=== PATIENT | male | born 1950 | race Caucasian/White ===

== ENCOUNTER 2017-10-05 08:17 | Outpatient (RCR) | payer MEDICARE, OTHER, SELFPAY ==
[2017-09-10 11:14] LABS: International Normalized Ratio 2.3
[2017-09-10 11:27] LABS: PSA,Total- Diagnostic 0.02 ng/mL (0.0-4.0)
[2017-10-05 08:42] LABS: International Normalized Ratio 2.8; Prothrombin Time (Protime)PT. 28.2 SECONDS (11.7-14.9)
== END 2017-10-05 08:30 | disposition home or self-care (01) ==
LOC: LAB 08:17
PROVIDERS: Family Provider Family Medicine; PCP Family Medicine; Visit Provider Internal Medicine Cardiovascular Disease
DX: I48.1 Persistent atrial fibrillation (principal); Z79.01 Long term (current) use of anticoagulants; C61 Malignant neoplasm of prostate
CPT/HCPCS: 36415; 84153; 85610

== ENCOUNTER 2017-11-04 08:53 | Outpatient (RCR) | payer MEDICARE, OTHER, SELFPAY ==
[2017-11-04 09:44] LABS: International Normalized Ratio 2.6; Prothrombin Time (Protime)PT. 27.1 SECONDS (11.7-14.9)
== END 2017-11-04 15:00 | disposition home or self-care (01) ==
LOC: LAB 08:53
PROVIDERS: Family Provider Family Medicine; PCP Family Medicine; Visit Provider Internal Medicine Cardiovascular Disease
DX: I48.1 Persistent atrial fibrillation (principal); Z79.01 Long term (current) use of anticoagulants
CPT/HCPCS: 36415; 85610

== ENCOUNTER 2017-12-09 09:10 | Outpatient (RCR) | payer MEDICARE, OTHER, SELFPAY ==
[2017-12-09 10:21] LABS: International Normalized Ratio 2.3; Prothrombin Time (Protime)PT. 25.2 SECONDS (11.7-14.9)
== END 2017-12-09 10:00 | disposition home or self-care (01) ==
LOC: LAB 09:10
PROVIDERS: Family Provider Family Medicine; PCP Family Medicine; Visit Provider Internal Medicine Cardiovascular Disease
DX: I48.1 Persistent atrial fibrillation (principal); Z79.01 Long term (current) use of anticoagulants
CPT/HCPCS: 36415; 85610

== ENCOUNTER 2018-01-13 09:01 | Outpatient (RCR) | payer MEDICARE, OTHER, SELFPAY ==
[2018-01-13 10:14] LABS: International Normalized Ratio 2.2; Prothrombin Time (Protime)PT. 24.5 SECONDS (11.7-14.9)
== END 2018-01-13 10:00 | disposition home or self-care (01) ==
LOC: LAB 09:01
PROVIDERS: Family Provider Family Medicine; PCP Family Medicine; Visit Provider Internal Medicine Cardiovascular Disease
DX: I48.1 Persistent atrial fibrillation (principal); Z79.01 Long term (current) use of anticoagulants
CPT/HCPCS: 36415; 85610

== ENCOUNTER 2018-02-17 09:37 | Outpatient (RCR) | payer MEDICARE, OTHER, SELFPAY ==
--- NOTE | 2018-02-17 09:37 | DT_ITS ---
This patient was seen during an EMR downtime February 10, 2018 - February 17, 2018. This patient may have a combination of paper and electronic documentation or all paper documentation. All documentation is viewable within the e-chart portion of [facility] for each patient visit.
[2018-02-17 10:22] LABS: International Normalized Ratio 2.6
== END 2018-02-17 11:00 | disposition home or self-care (01) ==
LOC: LAB 09:37
PROVIDERS: Family Provider Family Medicine; PCP Family Medicine; Visit Provider Internal Medicine Cardiovascular Disease
DX: I48.1 Persistent atrial fibrillation (principal); Z79.01 Long term (current) use of anticoagulants
CPT/HCPCS: 36415; 85610

== ENCOUNTER 2018-04-03 10:17 | Outpatient (RCR) | payer MEDICARE, OTHER, SELFPAY ==
[2018-04-03 11:20] LABS: International Normalized Ratio 2.6; Prothrombin Time (Protime)PT. 28.1 SECONDS (11.7-14.9)
== END 2018-04-03 12:00 | disposition home or self-care (01) ==
LOC: LAB 10:17
PROVIDERS: Family Provider Family Medicine; PCP Family Medicine; Visit Provider Internal Medicine Cardiovascular Disease
DX: I48.91 Unspecified atrial fibrillation (principal); Z79.01 Long term (current) use of anticoagulants; Z98.890 Other specified postprocedural states
CPT/HCPCS: 36415; 85610

== ENCOUNTER 2018-05-06 11:39 | Outpatient (RCR) | payer MEDICARE, OTHER, SELFPAY ==
[2018-05-06 12:49] LABS: International Normalized Ratio 2.3; Prothrombin Time (Protime)PT. 25.7 SECONDS (11.7-14.9)
== END 2018-05-06 13:00 | disposition home or self-care (01) ==
LOC: LAB 11:39
PROVIDERS: Nurse Practitioner Family; Family Provider Family Medicine; PCP Family Medicine; Visit Provider Internal Medicine Cardiovascular Disease
DX: I48.91 Unspecified atrial fibrillation (principal); Z79.01 Long term (current) use of anticoagulants; Z98.890 Other specified postprocedural states
CPT/HCPCS: 36415; 85610

== ENCOUNTER 2018-06-04 14:33 | Outpatient (RCR) | payer MEDICARE, OTHER, SELFPAY ==
[2018-06-04 16:05] LABS: International Normalized Ratio 3.3; Prothrombin Time (Protime)PT. 33.5 SECONDS (11.7-14.9)
== END 2018-06-04 16:00 | disposition home or self-care (01) ==
LOC: LAB 14:33
PROVIDERS: Family Provider Family Medicine; PCP Family Medicine; Visit Provider Internal Medicine Cardiovascular Disease
DX: I48.91 Unspecified atrial fibrillation (principal); Z79.01 Long term (current) use of anticoagulants; Z98.890 Other specified postprocedural states
CPT/HCPCS: 36415; 85610

== ENCOUNTER 2018-07-17 11:43 | Outpatient (RCR) | payer MEDICARE, OTHER, SELFPAY ==
[2018-07-17 13:29] LABS: International Normalized Ratio 3.4; Prothrombin Time (Protime)PT. 34.9 SECONDS (11.7-14.9)
== END 2018-07-17 13:00 | disposition home or self-care (01) ==
LOC: LAB 11:43
PROVIDERS: Family Provider Family Medicine; PCP Family Medicine; Referring Provider Internal Medicine Cardiovascular Disease; Visit Provider Internal Medicine Cardiovascular Disease
DX: I48.91 Unspecified atrial fibrillation (principal); Z98.890 Other specified postprocedural states; Z79.01 Long term (current) use of anticoagulants
CPT/HCPCS: 36415; 85610

== ENCOUNTER 2018-08-19 13:02 | Outpatient (RCR) | payer MEDICARE, OTHER, SELFPAY ==
[2018-02-24 13:58] VITALS: BMI 45.5
[2018-08-19 13:57] LABS: International Normalized Ratio 2.7
--- OUTSIDE RECORDS SUMMARY | 2018-10-05 16:28 | XMS RPT_ITS ---
:1950 Author Organization [place] Support Name Relationship Address Phone R Unavailable Unavailable Unavailable SNOW, YVETTE Unavailable Unavailable + [place] [address] MOCTEZUMA, PHILIP Unavailable [address] + [place] [address] R Unavailable Unavailable Unavailable SNOW, YVETTE Unavailable Unavailable + [place] [address] MOCTEZUMA, PHILIP Unavailable [address] + [place] [address] R Unavailable Unavailable Unavailable SNOW, YVETTE Unavailable Unavailable + [place] [address] MOCTEZUMA, PHILIP Unavailable [address] + [place] [address] Moctezuma, Philip Unavailable Unavailable + R Unavailable Unavailable Unavailable SNOW, YVETTE Unavailable Unavailable + [place] [address] MOCTEZUMA, PHILIP Unavailable [address] + [place] [address] R Unavailable Unavailable Unavailable SNOW, YVETTE Unavailable Unavailable + [place] [address] MOCTEZUMA, PHILIP Unavailable [address] + [place] [address] R Unavailable Unavailable Unavailable SNOW, YVETTE Unavailable Unavailable + [place] [address] MOCTEZUMA, PHILIP Unavailable [address] + [place] [address] R Unavailable Unavailable Unavailable MOCTEZUMA, PHILIP Unavailable [address] + [place] [address] R Unavailable Unavailable Unavailable MOCTEZUMA, PHILIP Unavailable [address] + [place] [address] R Unavailable Unavailable Unavailable MOCTEZUMA, PHILIP Unavailable [address] + [place] [address] R Unavailable Unavailable Unavailable MOCTEZUMA, PHILIP Unavailable [address] + [place] [address] R Unavailable Unavailable Unavailable MOCTEZUMA, PHILIP Unavailable [address] + [place] [address] R Unavailable Unavailable Unavailable MOCTEZUMA, PHILIP Unavailable [address] + [place] [address] R Unavailable Unavailable Unavailable MOCTEZUMA, PHILIP Unavailable [address] [phone] [place] [address] Care Team Providers Name Role Phone Chicho Vernon Attending Unavailable PETRILLA, KATHLEEN Primary Care Unavailable BALDO LUTZ Referring Unavailable Moodispaw, Chicho Attending Unavailable PETRILLA, KATHLEEN Primary Care Unavailable MoodChicho rangel Referring Unavailable Moodisnorah, Chicho Attending Unavailable MoodChicho rangel Referring Unavailable PETRILLA, KATHLEEN Primary Care Unavailable MoodChicho rangel Attending Unavailable MoodChicho rangel Referring Unavailable PETRILLA, KATHLEEN Primary Care Unavailable BALDO LUTZ Consulting Unavailable Chicho Vernon Attending Unavailable MoodisChicho almazan Referring Unavailable PETRILLA, KATHLEEN Primary Care Unavailable Chicho Vernon Attending Unavailable MoodyuridiapaChicho ponce Referring Unavailable PETRILLA, KATHLEEN Primary Care Unavailable Sada Fairchild Attending Unavailable Emeli Estrada Attending Unavailable PETRILLA, RYAN Referring Unavailable PETRILLA, KATHLEEN Primary Care Unavailable Janeen, Chicho Attending Unavailable MoodispaChicho ponce Referring Unavailable PETRILLA, KATHLEEN Primary Care Unavailable Moodisnorah, Chicho Attending Unavailable MoodispaChicho ponce Referring Unavailable PETRILLA, KATHLEEN Primary Care Unavailable MoodisChicho almazan Attending Unavailable MoodispaChicho ponce Referring Unavailable PETRILLA, KATHLEEN Primary Care Unavailable Chicho Vernon Attending Unavailable MoodisChicho almazan Referring Unavailable PETRILLA, KATHLEEN Primary Care Unavailable Chicho Vernon Attending Unavailable MoodisChicho almazan Referring Unavailable PETRILLA, KATHLEEN Primary Care Unavailable JOSEPH WATERMAN ([facility]) Attending Unavailable MEET MULLER Referring Unavailable RASHAWN GUTIERREZ Attending Unavailable PETRILLA, RYAN F Referring Unavailable Petrilla, Ryan Attending Unavailable UNKNOWN, PROVIDER Referring Unavailable Ryan Canales Primary Care Unavailable COLUMBA, RICHARD Galvan Attending Unavailable MEET MULLER Referring Unavailable Ryan Canales Primary Care Unavailable RASHAWN GUTIERREZ Attending Unavailable Ryan Canales Referring Unavailable Ryan Canales Primary Care Unavailable PROBLEMS PROBLEMS DATE TYPE CONDITION / CODE ATTENDING STATUS SOURCE Unknown 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 [facility] (current) use of Community anticoagulants / Hospital Z79.01(ICD-10) Repository Unknown I48.91 - LizbethisChicho almazan Active [place] [facility] Unspecified atrial Community fibrillation / Hospital I48.91(ICD-10) Repository Admitting Intervertebral disc Ryan Canales [facility] 8 Diagnosis disorders w System radiculopathy, Repository lumbar region / M51.16(ICD-10) Admitting Foot drop, right [facility] [employer] 8 Diagnosis foot / System M21.371(ICD-10) Repository Admitting Osteophyte, [facility] [employer] 8 Diagnosis vertebrae / System M25.78(ICD-10) Repository Admitting Lipomatosis, not [facility] [employer] 8 Diagnosis elsewhere System classified / Repository E88.2(ICD-10) Admitting Spinal stenosis, [facility] [employer] 8 Diagnosis lumbar region System without neurogenic Repository susanna / M48.061(ICD-10) Admitting Collapsed vertebra, [facility] [employer] 8 Diagnosis NEC, lumbar region, System init / Repository M48.56XA(ICD-10) Unknown Z98.890 - Other Chicho Vernon Active [facility] [facility] specified Community postprocedural Hospital states / Repository Z98.890(ICD-10) Unknown I48.1 - Persistent Chicho Vernon Active [facility] [facility] atrial fibrillation Community / I48.1(ICD-10) Hospital Repository Active Morbid (severe) RASHAWN GUTIERREZ [facility] obesity due to [facility] Other excess calories / [place] E66.01(ICD-10) Repository Admitting Unknown / RASHAWN GUTIERREZ Active [facility] diagnosis UNK(Unknown) Health System Repository Unknown I48.0 - Paroxysmal MoodisChicho almazan Active [facility] atrial fibrillation Community / I48.0(ICD-10) Hospital Repository Active Unspecified NITZ, JOSEPH Active [facility] diastolic (TRAUMA COORDINATOR) Clinic Other (congestive) heart [place] failure / Repository I50.30(ICD-10) Active Obstructive sleep NITZ, JOSEPH Active [facility] apnea (adult) (TRAUMA COORDINATOR) Clinic Other (pediatric) / [place] G47.33(ICD-10) Repository Active 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, JOSEPH Active [facility] enabling machines (TRAUMA COORDINATOR) Clinic Other and devices / [place] Z99.89(ICD-10) Repository Active Persistent atrial NITZ, JOSEPH Active [facility] fibrillation / (TRAUMA COORDINATOR) Clinic Other I48.1(ICD-10) [place] Repository Active Essential (primary) NITZ, JOSEPH Active [facility] hypertension / (TRAUMA COORDINATOR) Clinic Other I10(ICD-10) [place] Repository PROCEDURES PROCEDURES No Procedure Records FoundRESULTS RESULTS PSA,TOTAL - ANNUAL Collected: 09/16/2018 Status: F Source: [facility] SCREEN 2:20 PM [facility] REPOSITORY TYPE CODE TESTS RESULT OUT OF RANGE REFERENCE UNITS LAB L501.9910 0.00-4.00 ng/mL Normal PSA,TOT 0.02 SCREEN Result Comment: This test was performed using the TPSA assay method for the [employer] chemistry system. Values obtained with different assay methods cannot be used interchangably. When changing PSA assays in the course of monitoring a patient, additional sequential testing should be carried out to confirm baseline values. Performed By: #### L501.9910 #### [facility] [address] [place], [address] PROTHROMBIN TIME W/INR Collected: 09/16/2018 Status: F Source: [place]LL 2:20 PM [facility] REPOSITORY TYPE CODE TESTS RESULT OUT OF RANGE REFERENCE UNITS LAB L300.4150 11.7-14.9 SECONDS High PROTIME 27.6 LAB L300.4200 Normal INR 2.6 Performed By: #### L300.3900 #### [facility] [address] [place], [address] PROTHROMBIN TIME W/INR Collected: 08/19/2018 Status: F Source: [place] 1:05 PM [facility] REPOSITORY TYPE CODE TESTS RESULT OUT OF RANGE REFERENCE UNITS LAB L300.4150 11.7-14.9 SECONDS High PROTIME 29.0 LAB L300.4200 Normal INR 2.7 Performed By: #### L300.3900 #### [facility] [address] [place], [address] CNPN Observed: 07/22/2018 Status: COMPLETED Source: P[place]EL[place] 12:00 AM CLINIC OTHER CAMPUS REPOSITORY Telephone (NSAGBA) RYLIE MOCTEZUMA ([id number]) 1950 M Date Time Provider Department 07/22/18 RYLIE HARRIS JR NSAGBA During your visit today, we recorded the following information about you: Rylee Merino RN 07/22/2018 10:10 AM Signed We received a fax for this patient from [employer] requesting current supply Rx and recent F2F in the last 6 months. It looks like you did a sleep study 04/24/2015 but not Office visits seen. I called the company and they are going to check with the patient to see if he has a bird raiser to write this order and give these results. HARRY Blanc RN 07/23/2018 10:[address] Harris aware. No recent visits for this patient. Company aware that they need to obtain orders from PCP or bird raiser. HARRY Blanc RN 07/28/2018 1:44 PM Signed Received another fax from [employer] for CPAP order. This is not a patient of Dr. Merchant. [place] [facility] [place] aware. Rylee Merino RN Allergies As of Date: 07/22/2018 Noted Allergy Reaction IODINE 07/13/2016 10 - Anaphylaxis Date Reviewed: 02/11/2018 Reviewed by: Rashawn Gutierrez - Fully Assessed Reason for Visit: Refill Request [94] Prescriptions as of 07/22/2018 Sig: METOPROLOL TARTRATE 25 MG TAB* Take 50 mg by mouth twice meagan* POTASSIUM CHLORIDE ER 20 MEQ * Take 20 mEq by mouth once meagan* GABAPENTIN ENACARBIL ER 300 M* Take 300 mg by mouth once meagan* Patient taking differently: Take 600 mg by mouth daily at* WARFARIN 5 MG TABLET Take 1 tablet by mouth once d* SERTRALINE 50 MG TABLET 50 mg. AMLODIPINE 10 MG TABLET Take 10 mg by mouth once corin* FUROSEMIDE 40 MG TABLET Take 40 mg by mouth twice meagan* Problem List As Of Date 07/22/2018 Noted Resolved CHF (congestive heart failure) (HCC) [I50.9] 07/24/2016 HTN (hypertension) [I10] Atrial fibrillation (HCC) [I48.91] 07/24/2016 Atrial fibrillation, persistent (HCC) [I48.1] INVALID FOR* JONATHAN on CPAP [G47.33, Z99.89] INVALID FOR* Obesity due to excess calories [E66.09] INVALID FOR* Atrial fibrillation (HCC) [I48.91] 03/05/2017 CHF (congestive heart failure) (HCC) [I50.9] JONATHAN (obstructive sleep apnea) [G47.33] Morbid obesity (HCC) [E66.01] Encounter Status:Closed by RYLEE MERINO RN on 07/23/18 PROTHROMBIN TIME W/INR Collected: 07/17/2018 Status: F Source: PEDRO 11:52 AM [facility] REPOSITORY TYPE CODE TESTS RESULT OUT OF RANGE REFERENCE UNITS LAB L300.4150 11.7-14.9 SECONDS High PROTIME 34.9 LAB L300.4200 Normal INR 3.4 Performed By: #### L300.3900 #### [facility] [address] [place], [address] MRI SPINE LUMBAR W/ + Observed: 07/14/2018 Status: F Source: Six3 W/O CONTRAST 1:00 PM SYSTEM REPOSITORY Patient Name: RYLIE MOCTEZUMA MRI Exam Date/Time 07/14/2018 12:13:15 EST Exam MRI Spine Lumbar w/ + w/o Contrast Ordering Physician DO CANALES EUGENE F. Accession Number [id number] CPT4 Codes 77092 () Reason For Exam FOOT DROP RIGHT REDICULOPATHY Report EXAMINATION: MRI of the lumbar spine without contrast. COMPARISON: None. REASON FOR STUDY: Foot drop, right radiculopathy. TECHNIQUE: Axial and sagittal spin-echo T1 and T2-weighted as well as STIR images were obtained. The patient was claustrophobic and could not tolerate additional postcontrast imaging. FINDINGS: NOMENCLATURE: Five lumbar type vertebrae for the purposes of this report. DISC SPACES: T12-L1, L1-L2, L2-L3, L3-L4: Severe asymmetric narrowing of the disc space. Diffuse disc-osteophytic bulging. L4-L5: Severe narrowing of the disc space with minimal diffuse osteophytic bulging. L5-S1: Near-total obliteration of the disc space. Diffuse disc-osteophytic bulge. SPINAL CANAL AND NEURAL FORAMINA: Spinal Canal: Epidural fat proliferation with moderate narrowing at L1-L2, L2-L3 and L3- L4. Neural foramina: Moderate narrowing of the L1, L2, L3 and L4 neural foramina. Conus: Terminates at L1-L2 and shows no obvious abnormality. Crowding of cauda equina at L1-L2, L2-L3 and L3-L4. VERTEBRAE: Prior L3 through L5 laminectomies. Chronic wedging at the superior endplate of L1. Early stage discogenic changes at the superior endplate of L2. SOFT TISSUES: Postoperative paraspinal edema between L2 and L5. CONCLUSION(S): 1. No residual disc protrusion identified. 2. Severe multilevel degenerative disc disease with diffuse disc- osteophytic bulge as delineated above. 3. Localized epidural lipomatosis and moderate constriction of the thecal sac at L1-L2, L2-L3 and L3-L4. 4. Moderate bilateral L1, L2, L3 and L4 foraminal stenosis. 5. Chronic compression at the superior endplate of L1. Report Dictated on Workstation: [id number] Final Dictating Physician: MD HAILE B NELSON Signed Date and Time: 07/14/2018 1:22 pm Signed by: MD HAILE B NELSON Transcribed Date and Time: 07/14/2018 1:23 PROTHROMBIN TIME W/INR Collected: 06/04/2018 Status: F Source: PEDRO 2:40 PM [facility] REPOSITORY TYPE CODE TESTS RESULT OUT OF RANGE REFERENCE UNITS LAB L300.4150 11.7-14.9 SECONDS High PROTIME 33.5 LAB L300.4200 Normal INR 3.3 Performed By: #### L300.3900 #### [facility] [address] [facility] [place], [address] PROTHROMBIN TIME W/INR Collected: 05/06/2018 Status: F Source: PEDRO 11:45 AM [facility] REPOSITORY Order Comment: Comments: Standing Order Comments: Standing Order TYPE CODE TESTS RESULT OUT OF RANGE REFERENCE UNITS LAB L300.4150 11.7-14.9 SECONDS High PROTIME 25.7 LAB L300.4200 Normal INR 2.3 Performed By: #### L300.3900 #### [facility] [address] [place], [place], [address] PROTHROMBIN TIME W/INR Collected: 04/03/2018 Status: F Source: P[place] 10:22 AM [facility] REPOSITORY TYPE CODE TESTS RESULT OUT OF RANGE REFERENCE UNITS LAB L300.4150 11.7-14.9 SECONDS High PROTIME 28.1 LAB L300.4200 Normal INR 2.6 Performed By: #### L300.3900 #### [facility] [address] [place], [address] DOWNTIME REPORT Observed: 02/27/2018 Status: F Source: PEDRO 12:14 PM [facility] REPOSITORY [facility] Medical Records Department [address] [address] Downtime Report MR#: [id number] Acct: [id number] Name: RYLIE MOCTEZUMA Rep #: [id number] : 1950 67 From: Ranjith Aggarwal PCP: RYAN CANALES Status: REG RCR This patient was seen during an EMR downtime February 10, 2018 - February 17, 2018. This patient may have a combination of paper and electronic documentation or all paper documentation. All documentation is viewable within the e-chart portion of [employer] for each patient visit. CARDIOLOGY VISIT Observed: 02/24/2018 Status: F Source: LAWTELL REPORT 3:19 PM [facility] REPOSITORY [facility] [address] [place] [address] OFFICE VISIT Date of Service: 02/24/18 MR#: [id number] Acct: [id number] Name: RYLIE MOCTEZUMA Rep #: [id number] : 1950 Provider: Emeli Estrada Age/Sex: 67/M [place] [facility] [place]: Signed HPI HPI Details: RYLIE MOCTEZUMA, is a 67 M who presents to the office today for a cardiovascular follow-up. He has a history of atrial fibrillation where he underwent an RFA in April 2017, hypertension. Overall he feels that he is doing very well. He does not have any chest discomfort. He does not have any lightheadedness or dizziness. He does not have any worsening shortness of breath. He does not have any palpitations that he is aware. He does not have any lower extremity edema. He feels his exercise tolerance is stable. He does not have any blood in his urine or blood in his stool. 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 Accompanied by: Is patient in pain?: No Allergies iodine Allergy (Intermediate, Verified 02/24/18 13:58) rash Medications Amlodipine [Norvasc] 10 mg PO DAILY #90 tab 02/19/15 [Rx Confirmed 02/24/18] furosemide 40 mg tablet 40 mg PO BID tab 08/23/17 [History Confirmed 02/24/18] gabapentin 300 mg capsule 300 mg PO .COMPLEX 08/23/17 [History Confirmed 02/24/18] metoprolol tartrate 25 mg tablet 50 mg PO BID tab 02/24/18 [History Confirmed 02/24/18] potassium chloride ER 20 mEq tablet,extended release(part/cryst) 40 meq PO QDAY #180 tab 02/24/18 [Rx Confirmed 02/24/18] warfarin 5 mg tablet 5 mg PO .COMPLEX #180 tab 02/24/18 [Rx Confirmed 02/24/18] Ejection fraction %: 60 to 64 PFSH Medical History History of left heart catheterization (Chronic) Edema (Chronic) Hypokalemia (Chronic) Obstructive sleep apnea (Chronic) prison (current) use of anticoagulants (Chronic) Atrial fibrillation (Chronic) Vertigo (Chronic) HTN (hypertension) (Chronic) Surgical History History of cholecystectomy (Resolved) History of lumbar surgery (Resolved) Status post catheter ablation of atrial fibrillation (Chronic) Family History Father CAD (coronary artery disease) Mother Colon cancer Sister Atrial fibrillation Sleep apnea Sister Sleep apnea Hypertension Social History Smoking Status: Never smoker alcohol intake: current alcohol intake frequency: holidays/special occasions only caffeine: Yes Type: coffee Number of servings: 1 ROS Const Const: Negative for weakness, fatigue, fever(s) or headache(s) Eyes Eyes: Negative for blind spots, loss of peripheral vision or transient loss of vision ENT ENT: Negative for headache(s), dizziness, tinnitus or Nosebleed/epistaxis Cardio Chest Pain: No Palpitations: No Edema: None Muscle aches with walking: None Resp Respiratory: Negative for SOB with activity, SOB at rest, SOB orthopnea\SOB lying down or Cough GI GI: Negative nausea, vomiting, heartburn or vomiting blood/hematemesis : Negative for hematuria Musc Musc: Negative for muscle aches/ myalgia Neuro Neuro: Negative for weakness, headache(s), dizziness, near syncope, syncope, lightheadedness or orthostatic symptoms Jb Hematologic/Lymphatic: Negative for easy bleeding Endo Endo: Negative for fatigue Cardiology Exam Const Appearance: cooperative, no acute distress and well developed Orientation: alert, awake and oriented x3 Head Head: normocephalic and atraumatic Mouth: moist mucous membranes Eyes General: appearance normal, both eyes and all related structures Conjunctivae: conjunctivae normal Pupils: PERRL EOM: EOM intact bilaterally Neck Neck: normal visual inspection, no lymphadenopathy and no JVD Carotids: Negative bruit Neck Mass: Negative Neck mass Chest Chest inspection: normal inspection of the chest and symmetric chest movement Auscultation: Bilateral: Clear to Auscultation Cardio Palpation: normal PMI Rate: regular rate Rhythm: regular rhythm Heart sounds: S1 normal and S2 normal; negative rub, gallop or murmur GI GI: normal to inspection, soft, no hepatosplenomegaly and bowel sounds present; negative tender Neuro General: alert, awake, oriented x3, CN's II-XI intact bilaterally and moves all extremities Extremities Pulses: Normal: Right Posterior Tibial Pulse, Left Posterior Tibial Pulse, Right Radial Pulse, Left Radial Pulse Lower Extremity Edema: None: Bilateral Psych Psychological: normal affect Assessment AND Plan 1. Paroxysmal atrial fibrillation I48.0 Plan Patient has not had any recurrence of his atrial fibrillation. He will continue with his beta-rietsh. He will continue with his Coumadin with a therapeutic INR goal of 2-3. 2. Essential hypertension I10 Plan Initially elevated however upon recheck it is adequately controlled. Will not make any adjustments. He was advised that if he finds this is elevated he should let our office know. Plan Detail Other Medications Changed: From: warfarin (Coumadin) 5 mg PO 1.5 tablets daily to = 7.5mg, except on Saturday take 1 tablet only Additional Comments Thank you for allowing us to participate in patient's plan of care, if you have any questions please do not hesitate to call. This note was generated using a voice recognition system and there may be incorrect words, spelling or punctuation errors that were not noted when reviewing the office note prior to saving. Follow Up 1 Year (PFM) Coding Level of Care Code Off vis,est,level 3 Diagnoses Paroxysmal atrial fibrillation I48.0 Atrial fibrillation type: paroxysmal Essential hypertension I10 Hypertension type: essential hypertension Coding Level of Care Code Off vis,est,level 3 Diagnoses Paroxysmal atrial fibrillation I48.0 Atrial fibrillation type: paroxysmal Essential hypertension I10 Hypertension type: essential hypertension 02/24/18 1519 <Electronically signed by Emeli HOANG> Date Emeli HOANG Cosigner Signature: Date (if applicable) CC: RYAN CANALES PROTHROMBIN TIME W/INR Collected: 02/17/2018 Status: F Source: LAWTELL 9:40 AM [facility] REPOSITORY TYPE CODE TESTS RESULT OUT OF RANGE REFERENCE UNITS LAB L300.4150 11.7-14.9 SECONDS High PROTIME 28.0 LAB L300.4200 Normal INR 2.6 Performed By: #### L300.3900 #### [facility] [address] [place], [address] PROGRESS Observed: 02/11/2018 Status: COMPLETED Source: [facility] 10:58 AM CLINIC OTHER CAMPUS REPOSITORY HNO ID: [id number] Author: Rashawn Gutierrez Service: (none) Author Type: Physician Type: Progress Notes Filed: 02/11/2018 11:12 AM Note Text: Subjective HPI Prior history: 67-year-old male with history persistent symptomatic atrial fibrillation, morbid obesity with BMI of 46, essential hypertension, obstructive sleep apnea on CPAP. In atrial fibrillation he experiences severe fatigue and exertional dyspnea. In 2015 he had DC cardioversion and felt great until atrial fibrillation recurrence. Afterwards underwent dofetilide loading, but had QT prolonged duration, and the medication had to be discontinued. Initially he was not considered to be a candidate for catheter ablation due to excess weight, but now he was able to lose over 30 pounds, and catheter ablation can be considered. He remains anticoagulated with Xarelto. Interval history: Mr. Moctezuma underwent radiofrequency catheter ablation for atrial fibrillation in the summer of 2016. Since then he had no documented or symptomatic recurrences of atrial fibrillation. Echo 3 months post ablation showed preserved LV systolic function, Holter showed no recurrences of atrial fibrillation, and chest CT performed to screen for pulmonary vein stenosis showed widely patent pulmonary veins. Mr. Moctezuma presents for annual follow-up. He reports feeling well, has better energy level, denies chest pain, palpitation, dizziness or syncope. He used to be on Xarelto, but is now on warfarin due to cost with no obvious bleeding complications. We discussed risks and benefits of continuing oral anticoagulation, and I would recommend to stay on warfarin or an equivalent medication due to his ZII1-KN3-VVCa score over at least 2. Unfortunately he gained 25 pounds back. As we discussed, maintaining healthy BMI has been shown in clinical trials to be associated with terminal clerk sinus rhythm maintenance after catheter ablation. He'll continue following with Dr. Vernon, and we will be happy to see him in the future on an as-needed basis. Review of Systems Respiratory: Negative for hemoptysis and shortness of breath. Cardiovascular: Negative for chest pain and palpitations. Gastrointestinal: Negative for blood in stool and melena. Genitourinary: Negative for hematuria. Neurological: Negative for loss of consciousness. Psychiatric/Behavioral: The patient is not nervous/anxious. Objective Physical Exam Constitutional: He is oriented to person, place, and time and well-developed, well-nourished, and in no distress. HENT: Head: Normocephalic and atraumatic. Eyes: Conjunctivae are normal. Cardiovascular: Normal rate and regular rhythm. Pulmonary/Chest: Effort normal. No stridor. No respiratory distress. Neurological: He is alert and oriented to person, place, and time. Skin: Skin is warm and dry. No pallor. Psychiatric: Affect normal. CNOV Observed: 02/11/2018 Status: COMPLETED Source: [place] 10:30 AM [facility]INIC OTHER [place] REPOSITORY Office Visit (AGCARDPHRA) RYLIE MOCTEZUMA ([id number]) 1950 M Date Time Provider Department 02/11/18 10:30 AM RASHAWN GUTIERREZGCARDJACQUIE During your visit today, we recorded the following information about you: Pulse Respiration Blood pressure Weight 66/minute 16/minute 134/76 158.3 kg Height 1.867 m Denise Mullen CMA 02/11/2018 10:34 AM Signed Patient denies any cardiac complaints today. LIYA Meloy, MD 02/11/2018 11:12 AM Signed Subjective HPI Prior history: 67-year-old male with history persistent symptomatic atrial fibrillation, morbid obesity with BMI of 46, essential hypertension, obstructive sleep apnea on CPAP. In atrial fibrillation he experiences severe fatigue and exertional dyspnea. In 2015 he had DC cardioversion and felt great until atrial fibrillation recurrence. Afterwards underwent dofetilide loading, but had QT prolonged duration, and the medication had to be discontinued. Initially he was not considered to be a candidate for catheter ablation due to excess weight, but now he was able to lose over 30 pounds, and catheter ablation can be considered. He remains anticoagulated with Xarelto. Interval history: Mr. Moctezuma underwent radiofrequency catheter ablation for atrial fibrillation in the summer of 2016. Since then he had no documented or symptomatic recurrences of atrial fibrillation. Echo 3 months post ablation showed preserved LV systolic function, Holter showed no recurrences of atrial fibrillation, and chest CT performed to screen for pulmonary vein stenosis showed widely patent pulmonary veins. Mr. Moctezuma presents for annual follow-up. He reports feeling well, has better energy level, denies chest pain, palpitation, dizziness or syncope. He used to be on Xarelto, but is now on warfarin due to cost with no obvious bleeding complications. We discussed risks and benefits of continuing oral anticoagulation, and I would recommend to stay on warfarin or an equivalent medication due to his [id number] score over at least 2. Unfortunately he gained 25 pounds back. As we discussed, maintaining healthy BMI has been shown in clinical trials to be associated with terminal clerk sinus rhythm maintenance after catheter ablation. He'll continue following with Dr. Vernon, and we will be happy to see him in the future on an as-needed basis. Review of Systems Respiratory: Negative for hemoptysis and shortness of breath. Cardiovascular: Negative for chest pain and palpitations. Gastrointestinal: Negative for blood in stool and melena. Genitourinary: Negative for hematuria. Neurological: Negative for loss of consciousness. Psychiatric/Behavioral: The patient is not nervous/anxious. Objective Physical Exam Constitutional: He is oriented to person, place, and time and well-developed, well-nourished, and in no distress. HENT: Head: Normocephalic and atraumatic. Eyes: Conjunctivae are normal. Cardiovascular: Normal rate and regular rhythm. Pulmonary/Chest: Effort normal. No stridor. No respiratory distress. Neurological: He is alert and oriented to person, place, and time. Skin: Skin is warm and dry. No pallor. Psychiatric: Affect normal. Referring Provider: RYAN CANALES [[id number]] Allergies As of Date: 02/11/2018 Noted Allergy Reaction IODINE 07/13/2016 10 - Anaphylaxis Date Reviewed: 02/11/2018 Reviewed by: Rashawn Gutierrez - Fully Assessed Reason for Visit: CARD Follow Up 3 Month [1230] Cmt: Patient is here today for a S/P ablation. Primary Visit Diagnosis:Essential hypertension [I10] Other Visit Diagnoses:Atrial fibrillation, persistent (HCC) [I48.1] Morbid obesity (HCC) [E66.01] JONATHAN on CPAP [G47.33, Z99.89] Prescriptions as of 02/11/2018 Sig: METOPROLOL TARTRATE 25 MG TAB* Take 50 mg by mouth twice meagan* POTASSIUM CHLORIDE ER 20 MEQ * Take 20 mEq by mouth once meagan* GABAPENTIN ENACARBIL ER 300 M* Take 300 mg by mouth once meagan* Patient taking differently: Take 600 mg by mouth daily at* WARFARIN 5 MG TABLET Take 1 tablet by mouth once d* SERTRALINE 50 MG TABLET 50 mg. AMLODIPINE 10 MG TABLET Take 10 mg by mouth once corin* FUROSEMIDE 40 MG TABLET Take 40 mg by mouth twice meagan* Problem List As Of Date 02/11/2018 Noted Resolved CHF (congestive heart failure) (HCC) [I50.9] 07/24/2016 HTN (hypertension) [I10] Atrial fibrillation (HCC) [I48.91] 07/24/2016 Atrial fibrillation, persistent (HCC) [I48.1] INVALID FOR* JONATHAN on CPAP [G47.33, Z99.89] INVALID FOR* Obesity due to excess calories [E66.09] INVALID FOR* Atrial fibrillation (HCC) [I48.91] 03/05/2017 CHF (congestive heart failure) (HCC) [I50.9] JONATHAN (obstructive sleep apnea) [G47.33] Morbid obesity (HCC) [E66.01] Visit Notes: >> Denise Alexander Feb 11, 2018 10:29 AM Status: Signed Patient denies any cardiac complaints today. Denise Mullen CMA Medications Discontinued During This Encounter metoprolol succinate ER (TOPROL XL) * 12/11/2017 02/11/2018 Class: Historical Med Route: ORAL Sig: Take 50 mg by mouth twice daily. Disc: Erroneous entry Disposition: Return if symptoms worsen or fail to improve. Follow-up and Disposition History Recorded Letter Text Encounter Status:Closed by RASHAWN GUTIERREZ MD on 02/11/18 PROTHROMBIN TIME W/INR Collected: 01/13/2018 Status: F Source: [place] 9:03 AM [facility] REPOSITORY TYPE CODE TESTS RESULT OUT OF RANGE REFERENCE UNITS LAB L300.4150 11.7-14.9 SECONDS High PROTIME 24.5 LAB L300.4200 Normal INR 2.2 Performed By: #### [id number] #### [facility] [address] [place], [place], [address] PROTHROMBIN TIME W/INR Collected: 12/09/2017 Status: F Source: [place] 9:14 AM [facility] REPOSITORY TYPE CODE TESTS RESULT OUT OF RANGE REFERENCE UNITS LAB L300.4150 11.7-14.9 SECONDS High PROTIME 25.2 LAB L300.4200 Normal INR 2.3 Performed By: #### [id number] #### [facility] [address] [place], [address] PROTHROMBIN TIME W/INR Collected: 11/04/2017 Status: F Source: [place] 8:57 AM [facility] REPOSITORY TYPE CODE TESTS RESULT OUT OF RANGE REFERENCE UNITS LAB L300.4150 11.7-14.9 SECONDS High PROTIME 27.1 LAB L300.4200 Normal INR 2.6 Performed By: #### [id number] #### [facility] [address] [place], [address] PROGRESS Observed: 10/14/2017 Status: COMPLETED Source: [place] 3:54 PM CLINIC OTHER CAMPUS REPOSITORY HNO ID: [id number] Author: Joseph Waterman Service: (none) Author Type: Nurse Practitioner Type: Progress Notes Filed: 10/14/2017 4:00 PM Note Text: PRIMARY CARE PHYSICIAN: RYAN CANALES [address] [place] [address] Chief Complaint Patient presents with: CARD Follow Up 6 Month HISTORY OF PRESENT ILLNESS: Mr. Moctezuma is a 66 year old male who is known to Dr. Gutierrez last seen by Miss Muir [facility] 07/11/2017. History copy forwarded from previous visit (Mr. Moctezuma is a pleasant, established HRA patient with a past medical history of persistent symptomatic atrial fibrillation, JONATHAN on CPAP, HTN, morbid obesity. He continues to experience significant fatigue, shortness of breath, palpitations, dizziness, and occassional headaches with his frequently recurring episodes of arrhythmia. He had recurrence of the atrial fibrillation after past direct current cardioversions, and was unable to continue on dofetilide due to QT prolongation. After successful weight loss attempt of over 30 pounds he can now be considered for atrial fibrillation ablation. He presents today for pre procedural visit prior to scheduled PVAI with Dr. Gutierrez on 04/10/17) Patient seen today 6 months out from A. fib ablation with Dr. dykes. He's had a CT of his chest which was negative for pulmonary vein stenosis. An echocardiogram was done July 2017 and showed multiple LV function, no significant valvular abnormalities, and no wall motion abnormalities. Patient denies complaints of chest pain, dyspnea on exertion, orthopnea, paroxysmal nocturnal dyspnea, lower extremity edema, presyncope, syncope, or palpitations. He is doing very well after his PVAI. He follows with Dr. Vernon who manages his Coumadin. Today he asked if he could come off his Coumadin at any point. After discussion with Dr. Gutierrez it was decided potentially come off of it after at least one year. He has a follow-up with Dr. Gutierrez in approximately 3 months and he can discuss this further at that time. PAST MEDICAL HISTORY Diagnosis Date - Anxiety - Atrial fibrillation (HCC) persistent - CHF (congestive heart failure) (HCC) - Depression - Dizziness - Edema - HTN (hypertension) - Morbid obesity (HCC) - JONATHAN (obstructive sleep apnea) - Prostate cancer (HCC) - Vertigo PAST SURGICAL HISTORY Procedure Laterality Date - AFIB ABLATION/PULM VEIN ISOLATION 04/10/2017 CCAG: [place]: AFIB Ablation/Cardioversion - CARDIAC CATH 2014 normal - CHOLECYSTECTOMY FAMILY HISTORY Problem Relation Age of Onset - Colon Cancer Mother - Coronary Artery Disease Father - Cancer Father - Hypertension Sister - Stroke Maternal Grandmother Social History Substance Use Topics - Smoking status: Never Smoker - Smokeless tobacco: Never Used - Alcohol use Yes Comment: social, rare ALLERGIES Allergen Reactions - Iodine Anaphylaxis Medications: Current Outpatient Prescriptions: metoprolol tartrate, short acting, (LOPRESSOR) 25 mg tablet Take 25 mg by mouth twice daily. Disp: Rfl: potassium chloride ER (K-DUR, KLOR-CON) 20 mEq tablet Take 20 mEq by mouth once daily. Disp: Rfl: gabapentin enacarbil 300 mg TbER Take 300 mg by mouth once daily. (Patient taking differently: Take 600 mg by mouth daily at bedtime. ) Disp: Rfl: warfarin (COUMADIN) 5 mg tablet Take 1 tablet by mouth once daily. Disp: 30 tablet Rfl: 3 sertraline (ZOLOFT) 50 mg tablet 50 mg. Disp: Rfl: amLODIPine (NORVASC) 10 mg tablet Take 10 mg by mouth once daily. Disp: Rfl: furosemide (LASIX) 40 mg tablet Take 40 mg by mouth twice daily. Disp: Rfl: No current facility-administered medications for this visit. Review of Systems Constitutional: Negative for chills and fever. HENT: Negative. Eyes: Negative for blurred vision and double vision. Respiratory: Negative for cough, hemoptysis, sputum production, shortness of breath and wheezing. Cardiovascular: Negative for chest pain, palpitations, orthopnea, claudication, leg swelling and PND. Gastrointestinal: Negative for blood in stool, diarrhea, melena, nausea and vomiting. Genitourinary: Negative. Musculoskeletal: Negative. Skin: Negative. Neurological: Negative for dizziness, tingling and loss of consciousness. Endo/Heme/Allergies: Does not bruise/bleed easily. Psychiatric/Behavioral: Negative for memory loss. All other systems reviewed and are negative. Physical Examination: Vitals:BP 132/80 Pulse 82 Resp 16 Ht 6' 1.5 (1.87m) Wt 339 lb (153.8kg) SpO2 96% BMI 44.11 kg/(m2). Extended Vitals not filed for this encounter. Last 2 Encounter Wt Readings: Date: Wt: 10/14/2017 339 lb (153.8 kg) 07/11/2017 326 lb 6.4 oz (148.1 kg) Physical Exam Constitutional: He is oriented to person, place, and time and well-developed, well-nourished, and in no distress. Vital signs are normal. No distress. HENT: Head: Normocephalic. Eyes: EOM are normal. No scleral icterus. Neck: Normal range of motion. No JVD present. Carotid bruit is not present. No tracheal deviation present. No thyromegaly present. Cardiovascular: Normal rate, regular rhythm, S1 normal, S2 normal, normal heart sounds and intact distal pulses. Exam reveals no gallop and no friction rub. No murmur heard. Pulses: Radial pulses are 2+ on the right side, and 2+ on the left side. Dorsalis pedis pulses are 2+ on the right side, and 2+ on the left side. Pulmonary/Chest: Effort normal and breath sounds normal. Abdominal: Soft. Bowel sounds are normal. He exhibits no distension. There is no tenderness. obese Musculoskeletal: Normal range of motion. He exhibits edema (1+ VLADIMIR b/l. chronic). Neurological: He is alert and oriented to person, place, and time. Gait normal. Coordination normal. Skin: Skin is warm and dry. No rash noted. No erythema. Psychiatric: Mood and affect normal. Nursing note and vitals reviewed. Assessment and Plan: ASSESSMENT/PLAN: 1. Atrial fibrillation, persistent (HCC) - ICD9: 427.31, ICD10: I48.1 (primary diagnosis) Status post PVAI April 2017. He appears to be in normal rhythm today. Upon auscultation he had a regular rate and rhythm. He is remain on metoprolol and Coumadin with target INR 2-3. 2. Diastolic congestive heart failure, unspecified congestive heart failure chronicity (HCC) - ICD9: 428.30, 428.0, ICD10: I50.30 Appears euvolemic. Continue current meds 3. Essential hypertension - ICD9: 401.9, ICD10: I10 - good control - Continue current medication(s) - Recommended regular aerobic exercise. - Recommend home blood pressure monitoring, to bring results in on next visit - Goal of BP <130/80 4. JONATHAN on CPAP - ICD9: 327.23, V46.8, ICD10: G47.33, Z99.89 Continue with CPAP Joseph Waterman CNP Follow up planning: Patient is to follow-up with Dr. dykes in 3 months. He is to call us with any complaints. Thank you Electronically signed by Joseph Waterman CNP on October 14, 2017, 3:54 PM The above note was partially created using a dictation recognition software. A reasonable attempt has been made to correct any errors. CNOV Observed: 10/14/2017 Status: COMPLETED Source: [place] 3:00 PM CLINIC OTHER [facility]AMP[facility] REPOSITORY Office Visit (AGCARDPOB) RYLIE MOCTEZUMA ([id number]) 1950 M Date Time Provider Department 10/14/17 3:00 PM JOSEPH WATERMAN (RICHARD) AGCARDPOB During your visit today, we recorded the following information about you: Pulse Respiration Blood pressure Weight 82/minute 16/minute 132/80 153.8 kg Height 1.867 m Denise Mullen CMA 10/14/2017 3:40 PM Signed Patient denies any cardiac complaints today. LIYA Melo CNP 10/14/2017 3:43 PM Signed Atrial Fibrillation What is atrial fibrillation? Atrial fibrillation (also called A-fib) is a fast or irregular heartbeat that starts in the upper chambers of the heart. The abnormal heartbeat affects the ability of the heart to pump blood to the rest of the body. What is the cause? An electrical signal in your heart starts each heartbeat, causing the heart muscle to squeeze (contract). Normally, this signal starts in the upper right chamber of the heart (the right atrium) at a place called the sinus node. The signal then follows normal pathways to the upper left atrium and to the lower chambers of the heart (the ventricles). When you have atrial fibrillation, electrical signals don?t start in the normal place in the right atrium and don?t travel normally. This can cause the upper chambers of the heart (atria) to beat very fast and not in a normal pattern. Common causes of heart rhythm problems are conditions that damage the heart, like coronary artery disease, heart attack, or heart failure. Problems with the heart valves are another common cause. The heart has 4 valves that open and close with each heartbeat to help blood flow in the right direction through the heart. Other causes of atrial fibrillation include: -Health problems, such as a stroke, lung disease, diabetes, overactive thyroid gland, or high blood pressure -Abuse of alcohol or drugs, such as cocaine Sometimes no cause can be found. What are the symptoms? Some people don?t have any symptoms. When atrial fibrillation does cause symptoms, the most common ones are: -Feeling like your heart is beating too fast or too hard or skipping beats or fluttering -Feeling tired or weak all the time Symptoms that are more serious include: -Chest pain -Trouble breathing -Lightheadedness or dizziness Confusion How is it diagnosed? Your healthcare provider will ask about your symptoms and medical history and examine you. Tests may include: -An ECG (also called an EKG), which measures and records your heartbeat. You may have an ECG while you are resting or while you exercise on a treadmill. You may also be asked to wear a small portable ECG monitor for a few days or sometimes a couple weeks. -Blood tests -An echocardiogram, which uses sound waves (ultrasound) to show the structures of the heart, like the valves How is it treated? The goal of treatment is to help the heart keep a normal rhythm. Your treatment depends on the cause of the atrial fibrillation, how often you have symptoms, and the severity of your symptoms. If you have no symptoms, or your symptoms are fairly mild, you may not need treatment. For some people atrial fibrillation lasts just a short time and the heart goes back to a normal rhythm on its own. If you keep having spells of atrial fibrillation, treatment may help keep you from having so many spells. If a health problem like a leaky heart valve is causing the atrial fibrillation, treating the health problem may also treat the fast or irregular heartbeat. Other possible treatments are: -Medicine: Your provider may prescribe medicine to slow or restore a normal heart rate and rhythm. You may also need medicine to prevent blood clots because when the heart beats irregularly, some of the blood can stay in the upper chambers too long. This makes it easier for blood clots to form, increasing your risk of having a stroke or heart attack. -Electrical cardioversion: First, you will be given medicine called anesthesia to keep you from feeling pain during the procedure. Then your chest will be given an electrical shock. The electrical shock should make your heart start beating normally again. You may need medicine to keep your heart rhythm normal after this procedure. -Ablation: Ablation is a procedure that uses a small tube called a catheter to deliver energy to the inside of the heart. The energy (usually radio waves) scars small areas of heart tissue. The scars block abnormal electrical pathways and help you have a normal heart rhythm. With some types of ablation treatment, you will also need a pacemaker. A pacemaker is an electronic device put under the skin of your chest to help control the heartbeat. How can I take care of myself? -Take your medicines as prescribed. -Keep your appointments for follow-up blood tests. -Make sure your healthcare provider knows about changes in your diet or medical condition. Your provider also needs to know about all prescription and nonprescription medicines, herbs, or supplements that you are taking. Some medicines may interact with your heart medicine or increase your risk for atrial fibrillation. -If you want to drink alcohol, ask your provider how much is safe for you to drink. -Follow your healthcare provider's instructions. Ask your provider: ?How and when you will hear your test results ?How long it will take to recover ?What activities you should avoid and when you can return to your normal activities ?How to take care of yourself at home ?What symptoms or problems you should watch for and what to do if you have them -Make sure you know when you should come back for a checkup. How can I help prevent atrial fibrillation? The best prevention is to have a heart-healthy lifestyle. -Keep a healthy weight. -Eat a healthy diet that is low in sodium and saturated and trans fat. -Stay fit with the right kind of exercise for you. -Decrease stress. -Don?t smoke. -Limit your use of alcohol. If you have heart disease or high blood pressure, follow your healthcare provider's instructions for treatment. Joseph Waterman CNP 10/14/2017 4:00 PM Signed PRIMARY CARE PHYSICIAN: [place] [address] Chief Complaint Patient presents with: CARD Follow Up 6 Month HISTORY OF PRESENT ILLNESS: Mr. Moctezuma is a 66 year old male who is known to Dr. Gutierrez last seen by [facility] 07/11/2017. History copy forwarded from previous visit (Mr. Moctezuma is a pleasant, established HRA patient with a past medical history of persistent symptomatic atrial fibrillation, JONATHAN on CPAP, HTN, morbid obesity. He continues to experience significant fatigue, shortness of breath, palpitations, dizziness, and occassional headaches with his frequently recurring episodes of arrhythmia. He had recurrence of the atrial fibrillation after past direct current cardioversions, and was unable to continue on dofetilide due to QT prolongation. After successful weight loss attempt of over 30 pounds he can now be considered for atrial fibrillation ablation. He presents today for pre procedural visit prior to scheduled PVAI with Dr. Gutierrez on 04/10/17) Patient seen today 6 months out from A. fib ablation with Dr. dykes. He's had a CT of his chest which was negative for pulmonary vein stenosis. An echocardiogram was done July 2017 and showed multiple LV function, no significant valvular abnormalities, and no wall motion abnormalities. Patient denies complaints of chest pain, dyspnea on exertion, orthopnea, paroxysmal nocturnal dyspnea, lower extremity edema, presyncope, syncope, or palpitations. He is doing very well after his PVAI. He follows with Dr. Vernon who manages his Coumadin. Today he asked if he could come off his Coumadin at any point. After discussion with Dr. Gutierrez it was decided potentially come off of it after at least one year. He has a follow-up with Dr. Gutierrez in approximately 3 months and he can discuss this further at that time. PAST MEDICAL HISTORY Diagnosis Date - Anxiety - Atrial fibrillation (HCC) persistent - CHF (congestive heart failure) (HCC) - Depression - Dizziness - Edema - HTN (hypertension) - Morbid obesity (HCC) - JONATHAN (obstructive sleep apnea) - Prostate cancer (HCC) - Vertigo PAST SURGICAL HISTORY Procedure Laterality Date - AFIB ABLATION/PULM VEIN ISOLATION 04/10/2017 CCAG: [place]: AFIB Ablation/Cardioversion - CARDIAC CATH 2014 normal - CHOLECYSTECTOMY FAMILY HISTORY Problem Relation Age of Onset - Colon Cancer Mother - Coronary Artery Disease Father - Cancer Father - Hypertension Sister - Stroke Maternal Grandmother Social History Substance Use Topics - Smoking status: Never Smoker - Smokeless tobacco: Never Used - Alcohol use Yes Comment: social, rare ALLERGIES Allergen Reactions - Iodine Anaphylaxis Medications: Current Outpatient Prescriptions: metoprolol tartrate, short acting, (LOPRESSOR) 25 mg tablet Take 25 mg by mouth twice daily. Disp: Rfl: potassium chloride ER (K-DUR, KLOR-CON) 20 mEq tablet Take 20 mEq by mouth once daily. Disp: Rfl: gabapentin enacarbil 300 mg TbER Take 300 mg by mouth once daily. (Patient taking differently: Take 600 mg by mouth daily at bedtime. ) Disp: Rfl: warfarin (COUMADIN) 5 mg tablet Take 1 tablet by mouth once daily. Disp: 30 tablet Rfl: 3 sertraline (ZOLOFT) 50 mg tablet 50 mg. Disp: Rfl: amLODIPine (NORVASC) 10 mg tablet Take 10 mg by mouth once daily. Disp: Rfl: furosemide (LASIX) 40 mg tablet Take 40 mg by mouth twice daily. Disp: Rfl: No current facility-administered medications for this visit. Review of Systems Constitutional: Negative for chills and fever. HENT: Negative. Eyes: Negative for blurred vision and double vision. Respiratory: Negative for cough, hemoptysis, sputum production, shortness of breath and wheezing. Cardiovascular: Negative for chest pain, palpitations, orthopnea, claudication, leg swelling and PND. Gastrointestinal: Negative for blood in stool, diarrhea, melena, nausea and vomiting. Genitourinary: Negative. Musculoskeletal: Negative. Skin: Negative. Neurological: Negative for dizziness, tingling and loss of consciousness. Endo/Heme/Allergies: Does not bruise/bleed easily. Psychiatric/Behavioral: Negative for memory loss. All other systems reviewed and are negative. Physical Examination: Vitals:BP 132/80 Pulse 82 Resp 16 Ht 6' 1.5ANDquot; (1.87m) Wt 339 lb (153.8kg) SpO2 96% BMI 44.11 kg/(m2). Extended Vitals not filed for this encounter. Last 2 Encounter Wt Readings: Date: Wt: 10/14/2017 339 lb (153.8 kg) 07/11/2017 326 lb 6.4 oz (148.1 kg) Physical Exam Constitutional: He is oriented to person, place, and time and well-developed, well-nourished, and in no distress. Vital signs are normal. No distress. HENT: Head: Normocephalic. Eyes: EOM are normal. No scleral icterus. Neck: Normal range of motion. No JVD present. Carotid bruit is not present. No tracheal deviation present. No thyromegaly present. Cardiovascular: Normal rate, regular rhythm, S1 normal, S2 normal, normal heart sounds and intact distal pulses. Exam reveals no gallop and no friction rub. No murmur heard. Pulses: Radial pulses are 2+ on the right side, and 2+ on the left side. Dorsalis pedis pulses are 2+ on the right side, and 2+ on the left side. Pulmonary/Chest: Effort normal and breath sounds normal. Abdominal: Soft. Bowel sounds are normal. He exhibits no distension. There is no tenderness. obese Musculoskeletal: Normal range of motion. He exhibits edema (1+ VLADIMIR b/l. chronic). Neurological: He is alert and oriented to person, place, and time. Gait normal. Coordination normal. Skin: Skin is warm and dry. No rash noted. No erythema. Psychiatric: Mood and affect normal. Nursing note and vitals reviewed. Assessment and Plan: ASSESSMENT/PLAN: 1. Atrial fibrillation, persistent (HCC) - ICD9: 427.31, ICD10: I48.1 (primary diagnosis) Status post PVAI April 2017. He appears to be in normal rhythm today. Upon auscultation he had a regular rate and rhythm. He is remain on metoprolol and Coumadin with target INR 2-3. 2. Diastolic congestive heart failure, unspecified congestive heart failure chronicity (HCC) - ICD9: 428.30, 428.0, ICD10: I50.30 Appears euvolemic. Continue current meds 3. Essential hypertension - ICD9: 401.9, ICD10: I10 - good control - Continue current medication(s) - Recommended regular aerobic exercise. - Recommend home blood pressure monitoring, to bring results in on next visit - Goal of BP ANDlt;130/80 4. JONATHAN on CPAP - ICD9: 327.23, V46.8, ICD10: G47.33, Z99.89 Continue with CPAP Joseph Nitz, TRAUMA COORDINATOR Follow up planning: Patient is to follow-up with Dr. dykes in 3 months. He is to call us with any complaints. Thank you Electronically signed by Joseph Waterman CNP on October 14, 2017, 3:54 PM The above note was partially created using a dictation recognition software. A reasonable attempt has been made to correct any errors. Referring Provider: MEET MULLER [[id number]] Allergies As of Date: 10/14/2017 Noted Allergy Reaction IODINE 07/13/2016 10 - Anaphylaxis Date Reviewed: 10/14/2017 Reviewed by: Joseph (Richard) Columba - Fully Assessed Reason for Visit: CARD Follow Up 6 Month [1231] Primary Visit Diagnosis:Atrial fibrillation, persistent (HCC) [I48.1] Other Visit Diagnoses:Diastolic congestive heart failure, unspecified congestive heart failure chronicity (HCC) [I50.30] Essential hypertension [I10] JONATHAN on CPAP [G47.33, Z99.89] Prescriptions as of 10/14/2017 Sig: METOPROLOL TARTRATE 25 MG TAB* Take 25 mg by mouth twice meagan* POTASSIUM CHLORIDE ER 20 MEQ * Take 20 mEq by mouth once meagan* GABAPENTIN ENACARBIL ER 300 M* Take 300 mg by mouth once meagan* Patient taking differently: Take 600 mg by mouth daily at* WARFARIN 5 MG TABLET Take 1 tablet by mouth once d* SERTRALINE 50 MG TABLET 50 mg. AMLODIPINE 10 MG TABLET Take 10 mg by mouth once corin* FUROSEMIDE 40 MG TABLET Take 40 mg by mouth twice meagan* Medication notes this encounter POTASSIUM CHLORIDE ER 20 MEQ TABLET,EXTENDED RELEASE(PART/CRYST) >> Denise Mullen CMA 10/14/2017 3:33 PM >> DENISE MULLEN CMA Oct 14, 2017 3:33 PM RANITIDINE 150 MG TABLET >> Denise Mullen CMA 10/14/2017 3:33 PM >> DENISE MULLEN CMA Oct 14, 2017 3:33 PM Not taking. PREDNISONE 20 MG TABLET >> Denise Mullen CMA 10/14/2017 3:33 PM >> DENISE MULLEN CMA Oct 14, 2017 3:33 PM Not taking. DIPHENHYDRAMINE 25 MG CAPSULE >> Denise Mullen CMA 10/14/2017 3:32 PM >> DENISE MULLEN CMA Oct 14, 2017 3:32 PM Not taking. Problem List As Of Date 10/14/2017 Noted Resolved CHF (congestive heart failure) (HCC) [I50.9] 07/24/2016 HTN (hypertension) [I10] Atrial fibrillation (HCC) [I48.91] 07/24/2016 Atrial fibrillation, persistent (HCC) [I48.1] INVALID FOR* JONATHAN on CPAP [G47.33, Z99.89] INVALID FOR* Obesity due to excess calories [E66.09] INVALID FOR* Atrial fibrillation (HCC) [I48.91] 03/05/2017 CHF (congestive heart failure) (HCC) [I50.9] JONATHAN (obstructive sleep apnea) [G47.33] Morbid obesity (HCC) [E66.01] Other instructions from your clinician: Atrial Fibrillation What is atrial fibrillation? Atrial fibrillation (also called A-fib) is a fast or irregular heartbeat that starts in the upper chambers of the heart. The abnormal heartbeat affects the ability of the heart to pump blood to the rest of the body. What is the cause? An electrical signal in your heart starts each heartbeat, causing the heart muscle to squeeze (contract). Normally, this signal starts in the upper right chamber of the heart (the right atrium) at a place called the sinus node. The signal then follows normal pathways to the upper left atrium and to the lower chambers of the heart (the ventricles). When you have atrial fibrillation, electrical signals don?t start in the normal place in the right atrium and don?t travel normally. This can cause the upper chambers of the heart (atria) to beat very fast and not in a normal pattern. Common causes of heart rhythm problems are conditions that damage the heart, like coronary artery disease, heart attack, or heart failure. Problems with the heart valves are another common cause. The heart has 4 valves that open and close with each heartbeat to help blood flow in the right direction through the heart. Other causes of atrial fibrillation include: -Health problems, such as a stroke, lung disease, diabetes, overactive thyroid gland, or high blood pressure -Abuse of alcohol or drugs, such as cocaine Sometimes no cause can be found. What are the symptoms? Some people don?t have any symptoms. When atrial fibrillation does cause symptoms, the most common ones are: -Feeling like your heart is beating too fast or too hard or skipping beats or fluttering -Feeling tired or weak all the time Symptoms that are more serious include: -Chest pain -Trouble breathing -Lightheadedness or dizziness Confusion How is it diagnosed? Your healthcare provider will ask about your symptoms and medical history and examine you. Tests may include: -An ECG (also called an EKG), which measures and records your heartbeat. You may have an ECG while you are resting or while you exercise on a treadmill. You may also be asked to wear a small portable ECG monitor for a few days or sometimes a couple weeks. -Blood tests -An echocardiogram, which uses sound waves (ultrasound) to show the structures of the heart, like the valves How is it treated? The goal of treatment is to help the heart keep a normal rhythm. Your treatment depends on the cause of the atrial fibrillation, how often you have symptoms, and the severity of your symptoms. If you have no symptoms, or your symptoms are fairly mild, you may not need treatment. For some people atrial fibrillation lasts just a short time and the heart goes back to a normal rhythm on its own. If you keep having spells of atrial fibrillation, treatment may help keep you from having so many spells. If a health problem like a leaky heart valve is causing the atrial fibrillation, treating the health problem may also treat the fast or irregular heartbeat. Other possible treatments are: -Medicine: Your provider may prescribe medicine to slow or restore a normal heart rate and rhythm. You may also need medicine to prevent blood clots because when the heart beats irregularly, some of the blood can stay in the upper chambers too long. This makes it easier for blood clots to form, increasing your risk of having a stroke or heart attack. -Electrical cardioversion: First, you will be given medicine called anesthesia to keep you from feeling pain during the procedure. Then your chest will be given an electrical shock. The electrical shock should make your heart start beating normally again. You may need medicine to keep your heart rhythm normal after this procedure. -Ablation: Ablation is a procedure that uses a small tube called a catheter to deliver energy to the inside of the heart. The energy (usually radio waves) scars small areas of heart tissue. The scars block abnormal electrical pathways and help you have a normal heart rhythm. With some types of ablation treatment, you will also need a pacemaker. A pacemaker is an electronic device put under the skin of your chest to help control the heartbeat. How can I take care of myself? -Take your medicines as prescribed. -Keep your appointments for follow-up blood tests. -Make sure your healthcare provider knows about changes in your diet or medical condition. Your provider also needs to know about all prescription and nonprescription medicines, herbs, or supplements that you are taking. Some medicines may interact with your heart medicine or increase your risk for atrial fibrillation. -If you want to drink alcohol, ask your provider how much is safe for you to drink. -Follow your healthcare provider's instructions. Ask your provider: ?How and when you will hear your test results ?How long it will take to recover ?What activities you should avoid and when you can return to your normal activities ?How to take care of yourself at home ?What symptoms or problems you should watch for and what to do if you have them -Make sure you know when you should come back for a checkup. How can I help prevent atrial fibrillation? The best prevention is to have a heart-healthy lifestyle. -Keep a healthy weight. -Eat a healthy diet that is low in sodium and saturated and trans fat. -Stay fit with the right kind of exercise for you. -Decrease stress. -Don?t smoke. -Limit your use of alcohol. If you have heart disease or high blood pressure, follow your healthcare provider's instructions for treatment. Visit Notes: >> Denise Mullen SatOct 14, 2017 3:37 PM Status: Signed Patient denies any cardiac complaints today. Denise Mullen CMA Medications Discontinued During This Encounter potassium chloride (K-MAU, KLOR-CON)* 10/14/2017 Class: Historical Med Route: ORAL Sig: Take 20 mEq by mouth twice daily. Disc: Duplicate Entry gabapentin (NEURONTIN) 300 mg capsule 06/04/2017 10/14/2017 Class: Historical Med Sig: Disc: Duplicate Entry metoprolol succinate ER (TOPROL XL) * 06/10/2017 10/14/2017 Class: Historical Med Sig: Disc: Erroneous entry diphenhydrAMINE (BENADRYL) 25 mg cap* 1 ca* 0 07/11/2017 10/14/2017 Route: ORAL Sig: Take 1 capsule by mouth as directed. Tale 25 mg oral 2 hours prior to procedure Disc: Erroneous entry Omeprazole 40 mg capsule 04/11/2017 10/14/2017 Class: Historical Med Sig: Disc: Erroneous entry predniSONE (DELTASONE) 20 mg tablet 8 ta* 0 07/11/2017 10/14/2017 Sig: Take 40 mg by mouth 24 hour, 12 hour, and 2 hour prior to procedure, and 40 mg six hours after procedure Disc: Erroneous entry ranitidine (ZANTAC) 150 mg tablet 2 ta* 0 07/11/2017 10/14/2017 Class: Med Update Si mg by mouth two hours prior to procedure Disc: Erroneous entry Disposition: Return in about 6 months (around 04/13/2018). Follow-up and Disposition History Recorded Encounter Status:Closed by JOSEPH WATERMAN on 10/14/17 PROTHROMBIN TIME W/INR Collected: 10/05/2017 Status: F Source: LAWTELL 8:23 AM [facility] REPOSITORY TYPE CODE TESTS RESULT OUT OF RANGE REFERENCE UNITS LAB L300.4150 11.7-14.9 SECONDS High PROTIME 28.2 LAB L300.4200 Normal INR 2.8 Performed By: #### L300.3900 #### [facility] [address] [place], [place], [address] ALLERGIES ALLERGIES DATE TYPE / CODE NAME / CODE REACTION SEVERITY SOURCE 02/24/2018 Drug iodine/T53762 Rash [facility] Allergy/416 0852(RXNORM) [facility] 876219(SNOM Repository ED CT) 07/13/2016 DRUG IODINE ANAPHYLAXIS [facility] INGREDI/419 Other [place] 155603(SNOM Repository ED CT) /02245996 IODINE [facility] Repository ENCOUNTERS ENCOUNTERS ADMIT/DISCHARGE ACCOUNT NUMBER ADMITTING ENCOUNTER LOCATION SOURCE CLASS 09/16/2018 [id number] Ambulatory [facility] ding:LAB Repository 08/19/2018/08/19/20 [id number] Ambulatory [address] ding:LAB Repository 07/17/2018/07/17/20 [id number] Ambulatory [address] ding:LAB Repository 07/14/2018 [id number] Ambulatory [facility] Repository 06/04/2018/06/04/20 [id number] Ambulatory [place] [facility] ding:LAB Repository 05/06/2018/05/06/20 [id number] Ambulatory [place] [facility] ding:LAB Repository 04/03/2018/04/03/20 [id number] Ambulatory [place] [facility] ding:LAB Repository 02/24/2018/02/25/20 [id number] Ambulatory BMS[facility]: [place] 18 [facility] Repository 02/19/2018 [id number] Ambulatory [facility] Pedro [facility] Repository 02/17/2018/02/18/20 [id number] Ambulatory [place] [facility] ding:LAB Repository 02/11/2018/02/12/20 [id number] Ambulatory [address] Other [place] Repository 02/11/2018/02/12/20 [id number] Ambulatory [address] MEDICAL Repository CENTERBuildi ng:AGCARDPHR A 01/13/2018/01/14/20 [id number] [place] [facility] ding:LAB Repository 12/09/2017/12/10/19 [id number] Ambulatory [place] [facility] ding:LAB Repository 11/04/2017/11/04/19 [id number] Ambulatory [place] [facility] ding:LAB Repository 10/14/2017/10/14/19 [id number] Ambulatory [address] Other [place] Repository 10/14/2017/10/14/19 [id number] Ambulatory [address] MEDICAL Repository CENTERBuildi ng:AGCARDPOB 10/05/2017/10/05/19 [id number] [place] [facility] ding:LAB Repository PAYERS PAYERS ENCOUNTER GUARANTOR PAYER SUBSCRIBER SOURCE 09/16/2018 RYLIE [id number] Insurance:MEDICARE STEELEDOB: [facility] PART A BPolicy [place]: [id number] [id number] Repository [address]Oqf: (330) Date:2017-10-15 [phone] () 09/16/2018 Secondary RYLIE Lopez [place] Insurance:MEDICAL STEELEDOB: [facility] [id number] Hospital Number: Repository [id number] Date:8098-28-77ZE [facility] [address] [address]WC: 09/16/2018 Tertiary NOT GIVENUNK [place] Insurance:SELF PAY [facility] [place] [facility] Number: Effective Repository Date:2018-09-08 08/19/2018 RYLIE E Primary RYLIE Lopez [place] [id number] Insurance:MEDICARE STEELEDOB: [facility] PART A BPolicy Number: [id number] [id number] Repository [address]Yde: 330) Date:2017-10-15 [phone] () 08/19/2018 Secondary RYLIE E [place] Insurance:AARPPolicy STEELEDOB: Community Number: [id number] Hospital [id number] Repository Date:4595-37-[address], [place] [address]US: 08/19/2018 Tertiary NOT GIVENUNK [place] Insurance:SELF PAY [facility] Number: Effective Repository Date:2018-08-12 07/17/2018 RYLIE E Primary RYLIE Lopez [place] [id number] Insurance:MEDICARE STEELEDOB: [facility] PART A BPolicy Number: [id number] [id number] Repository [address]Xip: (330) Date:2017-10-15 [phone] () 07/17/2018 Secondary RYLIE Lopez [place] Insurance:AARPPolicy STEELEDOB: Community Number: [id number] Hospital [id number] Repository Date:4708-71-11SS [address]DPC, [place] [address]SC: 07/17/2018 Tertiary NOT GIVENUNK [place] Insurance:SELF PAY [facility] Number: Effective Repository Date:2018-06-11 07/14/2018 Rylie E Primary [facility] Insurance:MedicarePoli SteeleDOB: System cy Number: Effective [id number] Repository [place] Date: [place], [place] [address]Vsn: () 07/14/2018 Secondary Rylie Lopez [facility] Insurance:MedicarePoli SteeleDOB: System cy Number: Effective [id number] Repository Date: 07/14/2018 Tertiary Insurance:[facility] Rylie Lopez [facility] AARP SupplementPolicy SteeleDOB: System Number: Effective [id number] Repository Date: 06/04/2018 RYLIE E Primary RYLIE Vasquez [id number] Insurance:MEDICARE STEELEDOB: [facility] PART A BPolicy Number: [id number] [id number] Repository [address]Nuu: (081) Date:2017-10-15 [phone] () 06/04/2018 Secondary RYLIE Lopez [place] Insurance:AARPPolicy STEELEDOB: Community Number: [id number] Hospital [id number] Repository Date:9994-68-93[address], [place] [address]WZ: 06/04/2018 Tertiary NOT GIVENUNK [place] Insurance:SELF PAY [facility] Number: Effective Repository Date:2018-05-13 05/06/2018 RYLIE E Primary RYLIE Lopez [place] [id number] Insurance:MEDICARE STEELEDOB: [facility] PART A BPolicy Number: [id number], [place] [id number] Repository [address]Lhz: 330) Date:2017-10-15 [phone] () 05/06/2018 Secondary RYLIE E [place] Insurance:AARPPolicy STEELEDOB: Community Number: [id number] Hospital [id number] Repository Date:8500-79-11[address], [place] [address]CX: 05/06/2018 Tertiary NOT GIVENUNK [place] Insurance:SELF PAY [facility] Number: Effective Repository Date:2018-04-10 04/03/2018 RYLIE E Primary RYLIE John [place] [id number] Insurance:MEDICARE STEELEDOB: Community [place]RADE PART A BPolicy Number: [id number], [place] [id number] Repository [address]Amf: (928) Date:2017-10-15 [phone] () 04/03/2018 Secondary RYLIE E [place] Insurance:AARPPolicy STEELEDOB: Community Number: [id number] Hospital [id number] Repository Date:1709-40-83UF [address], [place] [address]LT: 04/03/2018 Tertiary NOT GIVENUNK [place] Insurance:SELF PAY [facility] Number: Effective Repository Date:2018-03-07 02/24/2018 RYLIE E Primary RYLIE John [place] [id number] Insurance:MEDICARE STEELEDOB: Community [place] PART A BPolicy Number: [id number], [place] [id number] Repository [address]Top: ([phone]) Date:2017-08-26 [phone] () 02/24/2018 Secondary RYLIE E [place] Insurance:AARPPolicy STEELEDOB: Community Number: [id number] Hospital [id number] Repository Date:7607-60-75HB [facility] [address], [place] [address]GG: 02/24/2018 Tertiary NOT GIVENUNK [place] Insurance:SELF PAY [facility] [place] [facility] Number: Effective Repository Date:2018-02-24 02/19/2018 RYLIE E Primary RYLIE John [place] [id number] Insurance:MEDICARE STEELEDOB: Community [place]RADE PART A BPolicy Number: [id number], [place] [id number] Repository [address]Xqp: (454) Date:2018-02-19 [phone] () 02/19/2018 Secondary RYLIE E [place] Insurance:AARPPolicy STEELEDOB: Community Number: [id number] Hospital [id number] Repository Date:0024-29-77KR [facility] [address], [place] [address]OI: 02/19/2018 Tertiary NOT GIVENUNK [place] Insurance:SELF PAY [facility] Number: Effective Repository Date:2018-02-19 02/17/2018 RYLIE E Primary RYLIE Vasquez [id number] Insurance:MEDICARE STEELEDOB: Community [place] PART A BPolicy Number: [id number], [place] [id number] Repository [address]Qjc: (178) Date:2017-10-15 [phone] (HP) 02/17/2018 Secondary RYLIE E [place] Insurance:AARPPolicy STEELEDOB: Community Number: [id number] Hospital [id number] Repository Date:7186-63-14RK [address]KYRSRGX, [place] [address]LN: 02/17/2018 Tertiary NOT GIVENUNK [place] Insurance:SELF PAY Community [facility] Number: Effective Repository Date:2018-02-06 02/11/2018 RYLIE E Primary RYLIE Ceja [facility] STEELEDOB: Insurance:MEDICARE A STEELEDOB: Health System AND BPolicy Number: [id number] [facility] [id number] [place], [place] Date: [address]Wvz: () 02/11/2018 Secondary RYLIE Ceja [facility] Insurance:[facility] AARP STEELEDOB: Health System SUPPLEMENTPolicy [id number] Repository Number: [id number] Date: 01/13/2018 RYLIE E Primary RYLIE Vasquez [id number] Insurance:MEDICARE STEELEDOB: Community [place] PART A BPolicy Number: [id number], [place] [id number] Repository [address]Hlz: (197) Date:2017-10-15 [phone] (HP) 01/13/2018 Secondary RYLIE Lopez [place] Insurance:AARPPolicy STEELEDOB: Community Number: [id number] Hospital [id number] Repository Date:5725-13-64[address], [place] [address]WB: 01/13/2018 Tertiary NOT GIVENUNK [place] Insurance:SELF PAY Community [facility] Number: Effective Repository Date:2018-01-07 12/09/2017 RYLIE E Primary RYLIE Vasquez [id number] Insurance:MEDICARE STEELEDOB: Community [place] PART A BPolicy Number: [id number], [place] [id number] Repository [address]Fvg: (330) Date:2017-10-15 [phone] (HP) 12/09/2017 Secondary RYLIE Lopez [place] Insurance:AARPPolicy STEELEDOB: Community Number: [id number] Hospital [id number] Repository Date:1981-87-88OM [address]XGDKQDQ, [place] [address]KZ: 12/09/2017 Tertiary NOT GIVENUNK [place] Insurance:SELF PAY [facility] Number: Effective Repository Date:2017-11-08 11/04/2017 RYLIE E Primary RYLIE Lopez [place] [id number] Insurance:MEDICARE STEELEDOB: [facility] PART A BPolicy Number: [id number], [place] [id number] Repository [address]Mvs: (999) Date:2017-10-15 [phone] (HP) 11/04/2017 Secondary RYLIE Lopez [place] Insurance:AARPPolicy STEELEDOB: Community Number: [id number] Hospital [id number] Repository Date:4336-25-23PJ [address], [place] [address]ED: 11/04/2017 Tertiary NOT GIVENUNK [place] Insurance:SELF PAY [facility] Number: Effective Repository Date:2017-10-15 10/14/2017 RYLIE E Primary RYLIE [facility]ja [facility] STEELEDOB: Insurance:MEDICARE A STEELEDOB: Health System AND BPolicy Number: [id number] [id number] [place] Date: [address]Ofd: (HP) 10/14/2017 Secondary RYLIE Thurmanron General Insurance:[facility] AARP STEELEDOB: Health System SUPPLEMENTPoly [id number] Repository Number: [id number] Date: 10/05/2017 RYLIE Lopez Primary RYLIE Vasquez [id number] Insurance:MEDICARE STEELEDOB: [facility] A [facility] Number: [id number], [place] [id number] Repository [address]Dwn: Date:2015-11-08 ~33 0-4 (HP) 10/05/2017 Secondary RYLIE Vasquez [facility] Number: [id number] Hospital [id number] Repository Date:9012-34-28JA [address]BRCNQJ, [place] [address]FW: 10/05/2017 Tertiary NOT ERVIN Vasquez Insurance:SELF PAY [facility] Number: Effective Repository Date:2017-09-09
== END 2018-08-19 14:00 | disposition home or self-care (01) ==
LOC: LAB 13:02
PROVIDERS: Family Provider Family Medicine; PCP Family Medicine; Referring Provider Internal Medicine Cardiovascular Disease; Visit Provider Internal Medicine Cardiovascular Disease
DX: I48.91 Unspecified atrial fibrillation (principal); Z98.890 Other specified postprocedural states; Z79.01 Long term (current) use of anticoagulants
CPT/HCPCS: 36415; 85610

== ENCOUNTER 2018-09-16 14:01 | Outpatient (RCR) | payer MEDICARE, OTHER, SELFPAY ==
[2018-02-24 13:58] VITALS: BMI 45.5
[2018-09-16 15:20] LABS: International Normalized Ratio 2.6; Prothrombin Time (Protime)PT. 27.6 SECONDS (11.7-14.9)
[2018-09-16 15:37] LABS: PSA,Total - Annual Screen 0.02 ng/mL (0.00-4.00)
== END 2018-09-16 15:00 | disposition home or self-care (01) ==
LOC: LAB 14:01
PROVIDERS: Family Provider Family Medicine; PCP Family Medicine; Referring Provider Internal Medicine Cardiovascular Disease; Visit Provider Internal Medicine Cardiovascular Disease
DX: I48.91 Unspecified atrial fibrillation (principal); Z98.890 Other specified postprocedural states; Z79.01 Long term (current) use of anticoagulants; C61 Malignant neoplasm of prostate; Z12.5 Encounter for screening for malignant neoplasm of prostate
CPT/HCPCS: 36415; 84153; 85610; G0103

== ENCOUNTER 2018-10-23 14:22 | Outpatient (RCR) | payer MEDICARE, OTHER, SELFPAY ==
[2018-02-24 13:58] VITALS: BMI 45.5
[2018-10-23 15:16] LABS: International Normalized Ratio 2.6; Prothrombin Time (Protime)PT. 27.8 SECONDS (11.7-14.9)
== END 2018-11-06 14:51 | disposition home or self-care (01) ==
LOC: LAB 14:22
PROVIDERS: Family Provider Family Medicine; PCP Family Medicine; Referring Provider Internal Medicine Cardiovascular Disease; Visit Provider Internal Medicine Cardiovascular Disease
DX: I48.91 Unspecified atrial fibrillation (principal); Z98.890 Other specified postprocedural states; Z79.01 Long term (current) use of anticoagulants
CPT/HCPCS: 36415; 85610

== ENCOUNTER 2018-12-17 10:45 | Outpatient (RCR) | payer MEDICARE, OTHER, SELFPAY ==
[2018-02-24 13:58] VITALS: BMI 45.5
[2018-12-17 12:40] LABS: International Normalized Ratio 2.5; Prothrombin Time (Protime)PT. 27.3 SECONDS (11.7-14.9)
== END 2019-01-06 16:00 | disposition home or self-care (01) ==
LOC: LAB 10:45
PROVIDERS: Family Provider Family Medicine; PCP Family Medicine; Referring Provider Internal Medicine Cardiovascular Disease; Visit Provider Internal Medicine Cardiovascular Disease
DX: I48.91 Unspecified atrial fibrillation (principal); Z98.890 Other specified postprocedural states; Z79.01 Long term (current) use of anticoagulants
CPT/HCPCS: 36415; 85610

== ENCOUNTER 2019-01-22 09:46 | Outpatient (RCR) | payer MEDICARE, OTHER, SELFPAY ==
[2018-02-24 13:58] VITALS: BMI 45.5
[2019-01-22 11:16] LABS: International Normalized Ratio 2.7; Prothrombin Time (Protime)PT. 28.9 SECONDS (11.7-14.9)
== END 2019-01-22 10:46 | disposition home or self-care (01) ==
LOC: LAB 09:46
PROVIDERS: Family Provider Family Medicine; PCP Family Medicine; Referring Provider Internal Medicine Cardiovascular Disease; Visit Provider Internal Medicine Cardiovascular Disease
DX: I48.91 Unspecified atrial fibrillation (principal); Z98.890 Other specified postprocedural states; Z79.01 Long term (current) use of anticoagulants
CPT/HCPCS: 36415; 85610

== ENCOUNTER 2019-03-02 09:39 | Outpatient (RCR) | payer MEDICARE, OTHER, SELFPAY ==
[2018-02-24 13:58] VITALS: BMI 45.5
[2019-03-02 10:48] LABS: International Normalized Ratio 2.8
== END 2019-03-08 12:00 | disposition home or self-care (01) ==
LOC: LAB 09:39
PROVIDERS: Family Provider Family Medicine; PCP Family Medicine; Referring Provider Internal Medicine Cardiovascular Disease; Visit Provider Internal Medicine Cardiovascular Disease
DX: I48.91 Unspecified atrial fibrillation (principal); Z98.890 Other specified postprocedural states; Z79.01 Long term (current) use of anticoagulants
CPT/HCPCS: 36415; 85610

== ENCOUNTER 2019-04-20 10:31 | Outpatient (RCR) | payer MEDICARE, OTHER, SELFPAY ==
[2018-02-24 13:58] VITALS: BMI 45.5
[2019-03-20 14:19] VITALS: BMI 45.8
[2019-04-20 11:02] LABS: International Normalized Ratio 3.3; Prothrombin Time (Protime)PT. 33.4 SECONDS (11.7-14.9)
== END 2019-04-20 11:31 | disposition home or self-care (01) ==
LOC: LAB 10:31
PROVIDERS: Family Provider Family Medicine; PCP Family Medicine; Referring Provider Internal Medicine Cardiovascular Disease; Visit Provider Internal Medicine Cardiovascular Disease
DX: I48.91 Unspecified atrial fibrillation (principal); Z98.890 Other specified postprocedural states; Z79.01 Long term (current) use of anticoagulants
CPT/HCPCS: 36415; 85610

== ENCOUNTER 2019-05-21 14:07 | Outpatient (RCR) | payer MEDICARE, OTHER, SELFPAY ==
[2019-03-20 14:19] VITALS: BMI 45.8
[2019-05-21 16:38] LABS: International Normalized Ratio 2.7; Prothrombin Time (Protime)PT. 28.9 SECONDS (11.7-14.9)
== END 2019-06-08 18:00 | disposition home or self-care (01) ==
LOC: LAB 14:07
PROVIDERS: Nurse Practitioner Family; Family Provider Family Medicine; PCP Family Medicine; Referring Provider Internal Medicine Cardiovascular Disease; Visit Provider Internal Medicine Cardiovascular Disease
DX: Z79.01 Long term (current) use of anticoagulants (principal)
CPT/HCPCS: 36415; 85610

== ENCOUNTER 2019-06-23 10:48 | Outpatient (RCR) | payer MEDICARE, OTHER, SELFPAY ==
[2019-03-20 14:19] VITALS: BMI 45.8
[2019-06-23 11:53] LABS: International Normalized Ratio 2.5; Prothrombin Time (Protime)PT. 27.4 SECONDS (11.7-14.9)
== END 2019-06-23 18:00 | disposition home or self-care (01) ==
LOC: LAB 10:48
PROVIDERS: Family Provider Family Medicine; PCP Family Medicine; Referring Provider Internal Medicine Cardiovascular Disease; Visit Provider Internal Medicine Cardiovascular Disease
DX: Z79.01 Long term (current) use of anticoagulants (principal)
CPT/HCPCS: 36415; 85610

== ENCOUNTER 2019-07-20 13:06 | Outpatient (RCR) | payer MEDICARE, OTHER, SELFPAY ==
[2019-03-20 14:19] VITALS: BMI 45.8
[2019-07-20 13:42] LABS: International Normalized Ratio 3.4; Prothrombin Time (Protime)PT. 34.6 SECONDS (11.7-14.9)
== END 2019-07-20 18:00 | disposition home or self-care (01) ==
LOC: LAB 13:06
PROVIDERS: Family Provider Family Medicine; PCP Family Medicine; Referring Provider Internal Medicine Cardiovascular Disease; Visit Provider Internal Medicine Cardiovascular Disease
DX: Z79.01 Long term (current) use of anticoagulants (principal)
CPT/HCPCS: 36415; 85610

== ENCOUNTER 2019-09-14 12:40 | Outpatient (RCR) | payer MEDICARE, OTHER, SELFPAY ==
[2019-03-20 14:19] VITALS: BMI 45.8
[2019-09-14 16:11] LABS: Prothrombin Time Fingerstick 36.6 SEC (11.9-14.4)
== END 2019-09-14 18:00 | disposition home or self-care (01) ==
LOC: LAB 12:40
PROVIDERS: Family Provider Family Medicine; PCP Family Medicine; Referring Provider Internal Medicine Cardiovascular Disease; Visit Provider Internal Medicine Cardiovascular Disease
DX: Z79.01 Long term (current) use of anticoagulants (principal)
CPT/HCPCS: 36416; 85610

== ENCOUNTER → 2019-10-01 09:21 | Outpatient (CLI) | payer MEDICARE, OTHER, SELFPAY ==
[2019-03-20 14:19] VITALS: BMI 45.8
[2019-10-01 10:18] LABS: PSA,Total- Diagnostic 0.02 ng/mL (0.0-4.0)
== END ==
PROVIDERS: PCP Family Medicine
DX: C61 Malignant neoplasm of prostate (principal)
CPT/HCPCS: 36415; 84153

== ENCOUNTER 2019-10-20 10:38 | Outpatient (RCR) | payer MEDICARE, OTHER, SELFPAY ==
[2019-03-20 14:19] VITALS: BMI 45.8
[2019-10-20 09:49] VITALS: BMI 46.3
== END 2019-10-20 18:00 | disposition home or self-care (01) ==
LOC: LAB 10:38
PROVIDERS: Family Provider Family Medicine; PCP Family Medicine; Referring Provider Internal Medicine Cardiovascular Disease; Visit Provider Internal Medicine Cardiovascular Disease
DX: I48.0 Paroxysmal atrial fibrillation (principal); Z79.01 Long term (current) use of anticoagulants
CPT/HCPCS: 36416; 85610

== ENCOUNTER 2019-11-16 12:55 | Outpatient (RCR) | payer MEDICARE, OTHER, SELFPAY ==
[2019-11-16 13:10] LABS: Prothrombin Time Fingerstick 40.4 SEC (11.9-14.4)
[2019-11-16 13:51] LABS: Prothrombin Time (Protime)PT. 36.7 SECONDS (11.7-14.9)
[2019-11-16 13:55] LABS: International Normalized Ratio 3.7
== END 2019-11-16 18:00 | disposition home or self-care (01) ==
LOC: LAB 12:55
PROVIDERS: Physician Assistant Medical; Family Provider Family Medicine; PCP Family Medicine; Referring Provider Internal Medicine Cardiovascular Disease; Visit Provider Internal Medicine Cardiovascular Disease
DX: I48.0 Paroxysmal atrial fibrillation (principal); Z79.01 Long term (current) use of anticoagulants
CPT/HCPCS: 36415; 36416; 85610

== ENCOUNTER 2019-12-14 09:01 | Outpatient (RCR) | payer MEDICARE, OTHER, SELFPAY ==
[2019-12-14 09:11] LABS: Prothrombin Time Fingerstick 30.8 SEC (11.9-14.4)
== END 2020-01-07 18:00 | disposition home or self-care (01) ==
LOC: LAB 09:01
PROVIDERS: Family Provider Family Medicine; PCP Family Medicine; Referring Provider Internal Medicine Cardiovascular Disease; Visit Provider Internal Medicine Cardiovascular Disease
DX: I48.0 Paroxysmal atrial fibrillation (principal)
CPT/HCPCS: 36416; 85610

== ENCOUNTER 2020-02-09 10:03 | Outpatient (RCR) | payer MEDICARE, OTHER, SELFPAY ==
[2020-02-09 10:15] LABS: Prothrombin Time Fingerstick 33.1 SEC (11.9-14.4)
== END 2020-02-09 18:00 | disposition home or self-care (01) ==
LOC: LAB 10:03
PROVIDERS: Family Provider Family Medicine; PCP Family Medicine; Referring Provider Internal Medicine Cardiovascular Disease; Visit Provider Internal Medicine Cardiovascular Disease
DX: I48.0 Paroxysmal atrial fibrillation (principal)
CPT/HCPCS: 36416; 85610

== ENCOUNTER 2020-03-17 11:15 | Outpatient (RCR) | payer MEDICARE, OTHER, SELFPAY ==
[2020-03-17 11:25] LABS: Prothrombin Time Fingerstick 24.5 SEC (11.9-14.4)
== END 2020-03-17 18:00 | disposition home or self-care (01) ==
LOC: LAB 11:15
PROVIDERS: Family Provider Family Medicine; PCP Family Medicine; Referring Provider Internal Medicine Cardiovascular Disease; Visit Provider Internal Medicine Cardiovascular Disease
DX: I48.0 Paroxysmal atrial fibrillation (principal)
CPT/HCPCS: 36416; 85610

== ENCOUNTER 2020-05-10 11:26 | Outpatient (RCR) | payer MEDICARE, OTHER, SELFPAY ==
[2020-05-10 11:40] LABS: Prothrombin Time Fingerstick 34.6 SEC (11.9-14.4)
== END 2020-05-10 18:00 | disposition home or self-care (01) ==
LOC: LAB 11:26
PROVIDERS: Family Provider Family Medicine; PCP Family Medicine; Referring Provider Internal Medicine Cardiovascular Disease; Visit Provider Internal Medicine Cardiovascular Disease
DX: I48.0 Paroxysmal atrial fibrillation (principal)
CPT/HCPCS: 36416; 85610

== ENCOUNTER 2020-07-12 11:08 | Outpatient (RCR) | payer MEDICARE, OTHER, SELFPAY ==
[2020-07-12 11:25] LABS: Prothrombin Time Fingerstick 31.4 SEC (11.9-14.4)
== END 2020-07-12 18:00 | disposition home or self-care (01) ==
LOC: LAB 11:08
PROVIDERS: Family Provider Family Medicine; PCP Family Medicine; Referring Provider Internal Medicine Cardiovascular Disease; Visit Provider Internal Medicine Cardiovascular Disease
DX: I48.0 Paroxysmal atrial fibrillation (principal)
CPT/HCPCS: 36416; 85610

== ENCOUNTER 2020-08-23 09:37 | Outpatient (RCR) | payer MEDICARE, OTHER, SELFPAY ==
[2020-07-13 13:45] VITALS: BMI 46.3
== END 2020-08-23 18:00 | disposition home or self-care (01) ==
LOC: LAB 09:37
PROVIDERS: Family Provider Family Medicine; PCP Family Medicine; Referring Provider Internal Medicine Cardiovascular Disease; Visit Provider Internal Medicine Cardiovascular Disease
DX: I48.0 Paroxysmal atrial fibrillation (principal)
CPT/HCPCS: 36416; 85610

== ENCOUNTER 2020-10-19 12:12 | Outpatient (RCR) | payer MEDICARE, OTHER, SELFPAY ==
[2020-07-13 13:45] VITALS: BMI 46.3
[2020-10-19 12:36] LABS: Prothrombin Time Fingerstick 31.1 SEC (11.9-14.4)
== END 2020-10-19 18:00 | disposition home or self-care (01) ==
LOC: LAB 12:12
PROVIDERS: Family Provider Family Medicine; PCP Family Medicine; Referring Provider Internal Medicine Cardiovascular Disease; Visit Provider Internal Medicine Cardiovascular Disease
DX: I48.0 Paroxysmal atrial fibrillation (principal); Z79.01 Long term (current) use of anticoagulants
CPT/HCPCS: 36416; 85610

== ENCOUNTER 2020-12-15 10:35 | Outpatient (RCR) | payer MEDICARE, OTHER, SELFPAY ==
[2020-07-13 13:45] VITALS: BMI 46.3
[2020-12-15 10:46] LABS: INR Fingerstick 2.3; Prothrombin Time Fingerstick 26.4 SEC (11.9-14.4)
== END 2020-12-15 18:00 | disposition home or self-care (01) ==
LOC: LAB 10:35
PROVIDERS: Family Provider Family Medicine; PCP Family Medicine; Referring Provider Internal Medicine Cardiovascular Disease; Visit Provider Internal Medicine Cardiovascular Disease
DX: I48.0 Paroxysmal atrial fibrillation (principal); Z79.01 Long term (current) use of anticoagulants
CPT/HCPCS: 36416; 85610

== ENCOUNTER 2021-01-19 14:33 | Outpatient (RCR) | payer MEDICARE, OTHER, SELFPAY ==
[2020-07-13 13:45] VITALS: BMI 46.3
[2021-01-19 14:04] VITALS: BMI 46.8
[2021-01-19 14:51] LABS: INR Fingerstick 3.1; Prothrombin Time Fingerstick 33.7 SEC (11.9-14.4)
== END 2021-01-19 18:00 | disposition home or self-care (01) ==
LOC: LAB 14:33
PROVIDERS: Family Provider Family Medicine; PCP Family Medicine; Referring Provider Internal Medicine Cardiovascular Disease; Visit Provider Internal Medicine Cardiovascular Disease
DX: I48.0 Paroxysmal atrial fibrillation (principal); Z79.01 Long term (current) use of anticoagulants
CPT/HCPCS: 36416; 85610

== ENCOUNTER 2021-02-16 11:35 | Outpatient (RCR) | payer MEDICARE, OTHER, SELFPAY | END 2021-02-16 18:00 | disposition home or self-care (01) | LOC: LAB 11:35 | PROVIDERS: Family Provider Family Medicine; PCP Family Medicine; Referring Provider Internal Medicine Cardiovascular Disease; Visit Provider Internal Medicine Cardiovascular Disease | DX: I48.0 Paroxysmal atrial fibrillation (principal); Z79.01 Long term (current) use of anticoagulants | CPT/HCPCS: 36416; 85610 ==

== ENCOUNTER 2021-05-22 11:20 | Outpatient (RCR) | payer MEDICARE, OTHER, SELFPAY ==
[2021-05-18 10:06] LABS: INR Fingerstick 4.7
[2021-05-18 10:34] LABS: Prothrombin Time (Protime)PT. 42.8 SECONDS (11.7-14.9)
[2021-05-18 11:52] LABS: International Normalized Ratio 4.6
[2021-05-22 11:30] LABS: INR Fingerstick 1.9; Prothrombin Time Fingerstick 22.1 SEC (11.9-14.4)
== END 2021-05-22 18:00 | disposition home or self-care (01) ==
LOC: LAB 11:20
PROVIDERS: Family Provider Family Medicine; PCP Family Medicine; Referring Provider Internal Medicine Cardiovascular Disease; Visit Provider Internal Medicine Cardiovascular Disease
DX: I48.0 Paroxysmal atrial fibrillation (principal); Z79.01 Long term (current) use of anticoagulants
CPT/HCPCS: 36415; 36416; 85610

== ENCOUNTER 2021-06-12 09:15 | Outpatient (RCR) | payer MEDICARE, OTHER, SELFPAY ==
[2021-06-09 00:34] VITALS: BMI 46.8
[2021-06-12 09:31] LABS: INR Fingerstick 2.4; Prothrombin Time Fingerstick 26.7 SEC (11.9-14.4)
== END 2021-07-09 05:02 | disposition home or self-care (01) ==
LOC: LAB 09:15
PROVIDERS: Family Provider Family Medicine; PCP Family Medicine; Referring Provider Internal Medicine Cardiovascular Disease; Visit Provider Internal Medicine Cardiovascular Disease
DX: I48.0 Paroxysmal atrial fibrillation (principal); Z79.01 Long term (current) use of anticoagulants
CPT/HCPCS: 36416; 85610

== ENCOUNTER 2021-08-01 10:11 | Outpatient (RCR) | payer MEDICARE, OTHER, SELFPAY ==
[2021-07-09 05:03] VITALS: BMI 46.8
[2021-08-01 11:08] LABS: International Normalized Ratio 1.8; Prothrombin Time (Protime)PT. 19.8 SECONDS (11.7-14.9)
[2021-08-01 11:20] LABS: PSA,Total- Diagnostic 0.02 ng/mL (0.0-4.0)
== END 2021-08-08 18:00 | disposition home or self-care (01) ==
LOC: LAB 10:11
PROVIDERS: Family Provider Family Medicine; PCP Family Medicine; Referring Provider Internal Medicine Cardiovascular Disease; Visit Provider Internal Medicine Cardiovascular Disease
DX: I48.0 Paroxysmal atrial fibrillation (principal); C61 Malignant neoplasm of prostate; Z79.01 Long term (current) use of anticoagulants
CPT/HCPCS: 36415; 84153; 85610

== ENCOUNTER 2021-08-30 10:13 | Outpatient (RCR) | payer MEDICARE, OTHER, SELFPAY ==
[2021-08-09 03:46] VITALS: BMI 46.8
[2021-08-30 10:46] LABS: INR Fingerstick 2.4; Prothrombin Time Fingerstick 27.4 SEC (11.9-14.4)
== END 2021-09-09 18:00 | disposition home or self-care (01) ==
LOC: LAB 10:13
PROVIDERS: Family Provider Family Medicine; PCP Family Medicine; Referring Provider Internal Medicine Cardiovascular Disease; Visit Provider Internal Medicine Cardiovascular Disease
DX: I48.0 Paroxysmal atrial fibrillation (principal); Z79.01 Long term (current) use of anticoagulants
CPT/HCPCS: 36416; 85610

== ENCOUNTER 2021-10-30 09:05 | Outpatient (RCR) | payer MEDICARE, OTHER, SELFPAY ==
[2021-09-11 02:31] VITALS: BMI 46.8
== END 2021-10-30 23:59 | disposition home or self-care (01) ==
LOC: LAB 09:05
PROVIDERS: Family Provider Family Medicine; PCP Family Medicine; Referring Provider Internal Medicine Cardiovascular Disease; Visit Provider Internal Medicine Cardiovascular Disease
DX: I48.0 Paroxysmal atrial fibrillation (principal); Z79.01 Long term (current) use of anticoagulants

== ENCOUNTER 2021-12-19 09:44 | Outpatient (RCR) | payer MEDICARE, OTHER, SELFPAY ==
[2021-11-07 10:27] VITALS: BMI 46.8
[2021-12-19 09:56] LABS: Prothrombin Time Fingerstick 23.8 SEC (11.7-14.9)
== END 2021-12-19 18:00 | disposition home or self-care (01) ==
LOC: LAB 09:44
PROVIDERS: Family Provider Family Medicine; PCP Family Medicine; Referring Provider Internal Medicine Cardiovascular Disease; Visit Provider Internal Medicine Cardiovascular Disease
DX: I48.0 Paroxysmal atrial fibrillation (principal); Z79.01 Long term (current) use of anticoagulants
CPT/HCPCS: 36416; 85610

== ENCOUNTER 2022-01-29 11:38 | Outpatient (RCR) | payer MEDICARE, OTHER, SELFPAY ==
[2022-01-07 04:42] VITALS: BMI 46.8
[2022-01-29 11:56] LABS: Prothrombin Time Fingerstick 23.3 SEC (11.7-14.9)
== END 2022-01-29 18:00 | disposition home or self-care (01) ==
LOC: LAB 11:38
PROVIDERS: Family Provider Family Medicine; PCP Family Medicine; Referring Provider Internal Medicine Cardiovascular Disease; Visit Provider Internal Medicine Cardiovascular Disease
DX: I48.0 Paroxysmal atrial fibrillation (principal); Z79.01 Long term (current) use of anticoagulants
CPT/HCPCS: 36416; 85610

== ENCOUNTER 2022-03-06 15:37 | Emergency (ER) | payer MEDICARE, OTHER, SELFPAY ==
[2022-03-06 15:39] VITALS: BP 152/81; PULSE 61; RESP 17; TEMP 36.4; O2SAT 98; BMI 45.6
--- NOTE | 2022-03-06 16:11 | EKG12_ITS ---
Test Reason : FLANK PAIN Blood Pressure : / mmHG Vent. Rate : 054 BPM Atrial Rate : 054 BPM P-R Int : 186 ms QRS Dur : 126 ms QT Int : 478 ms P-R-T Axes : 081 -09 014 degrees QTc Int : 453 ms Sinus bradycardia Right bundle branch block Abnormal ECG Confirmed by AUSTYN PANCHAL, HERNANDO ([id number]), communications editor TWYLA FLORES ([id number]) on 03/08/2022 11:01:56 AM Referred By: LUKE Confirmed By:HERNANDO ZAMAN MD
--- NOTE | 2022-03-06 16:11 | CT_ITS ---
STUDY: CT ABDOMEN AND PELVIS WITHOUT CONTRAST REASON FOR EXAM: Male, 71 years old. Pain RADIATION DOSAGE (If Supplied By Facility): CTDIvol = ( 22.71 ) mGy, DLP = ( 1215.28 ) mGycm TECHNIQUE: Transaxial images were obtained from the dome of the diaphragm to the symphysis pubis without oral contrast, and without intravenous contrast. Sagittal and coronal images were reconstructed. Individualized dose optimization techniques were used for this CT. COMPARISON: None. FINDINGS: The visualized lung bases are unremarkable. The visualized portions of the heart are within normal limits. There is a diffuse contour abnormality of the liver consistent with cirrhotic changes. There are surgical clips in the gallbladder fossa consistent with a prior cholecystectomy. Normal spleen. Normal pancreas. Normal bilateral adrenal glands. Normal right kidney. Normal left kidney. Normal visualized stomach. Normal small intestine. Normal colon. The appendix is visualized and appears normal. Normal abdominal aorta. Normal inferior vena cava. Normal retroperitoneum. Normal urinary bladder. There is a small umbilical hernia containing fat. Mild dextroscoliosis of the lumbar spine with degenerative disc disease. CT/Abdomen/Pelvis without Cont IMPRESSION: No renal or ureteral stone. Cirrhosis. Electronically Signed: Montana Ramos MD at 17:17 EDT ,
[2022-03-06] MEDS: Ondansetron 4 MG/2 ML Vial IV (16:20)
--- NOTE | 2022-03-06 16:20 | EDS_ITS ---
HPI History of Present Illness Chief Complaint: Flank Pain Informant: patient and spouse/S.O. Narrative Narrative: Patient complains of pain in the right upper quadrant that wraps a little bit around the back. Its been going on for about a week and a half. There is a slight trend for worsening but not significantly so. He denies any specific trauma. 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 He does not know of any specific injury though. No numbness tingling weakness. He states he has no chest pain no trouble breathing no cough. No fevers or chills. His stools are slightly hard but he still moving them well. He has some mild nausea off and on but he is never vomited. He is still able to eat and drink although his appetite might be just slightly down. But not notably so. His thinks it is down he thinks it is normal. They both agree that if he urinates or moves his bowels it seems to get transiently better but its not consistent. It is consistent that it hurts when he moves or twists. They have never seen a rash. Patient had a cholecystectomy years ago. No change in medications. He is on Coumadin. It sounds like this might be due to a history of atrial fibrillation. He denies any travel surgery immobilization personal family history of DVT or PE. 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 Obstructive sleep apnea Paroxysmal atrial fibrillation Vertigo Home Medications amlodipine 10 mg tablet 10 mg PO DAILY #90 tabs 02/19/15 [Rx Last Taken 05/10/16] furosemide 40 mg tablet 40 mg PO BID 08/23/17 [History Last Taken Unknown] atorvastatin 10 mg tablet 10 mg PO DAILY 07/13/20 [History Last Taken Unknown] gabapentin 300 mg capsule 300 mg PO .COMPLEX 07/13/20 [History Last Taken Unknown] metoprolol tartrate 50 mg tablet 50 mg PO BID 07/13/20 [History Last Taken Unknown] sertraline 50 mg tablet 50 mg PO DAILY 07/13/20 [History Last Taken Unknown] potassium chloride 20 mEq tablet,extended release(part/cryst) 40 meq PO QDAY #180 tabs 01/19/21 [Rx Last Taken Unknown] warfarin 5 mg tablet 5 mg PO .COMPLEX #180 tabs 07/27/21 [Rx Last Taken Unknown] hydrocodone-acetaminophen 5-325mg 5mg-325mg 1 tab PO Q6H PRN pain 3 days #10 tabs 03/06/22 [Rx Last Taken Unknown] Allergy/AdvReac Type Severity Reaction Status Date / Time iodine Allergy Intermediate rash Verified 03/06/22 15:38 Family History Father CAD (coronary artery disease) Mother Colon cancer Sister Atrial fibrillation Sleep apnea Sister Sleep apnea Hypertension Surgical History History of cholecystectomy History of lumbar surgery Status post catheter ablation of atrial fibrillation (~04/10/17) Social History Smoking Status: Never smoker alcohol intake: current alcohol intake frequency: holidays/special occasions only caffeine: Yes Type: coffee Number of servings: 1 ROS ROS ED Constitutional Constitutional ED: Denies chills, fever(s) or subjective Eyes Eyes: Denies change in vision ENT ENT ED: Denies rhinorrhea Cardiovascular Cardiovascular: Denies chest pain, palpitations, paroxysmal nocturnal dyspnea or racing heartbeat Respiratory/Chest Respiratory/Chest: Denies cough, dyspnea, dyspnea on exertion or paroxysmal nocturnal dyspnea Gastrointestinal Gastrointestinal: Reports abdominal pain, constipation and nausea; Denies diarrhea, melena or vomiting Genitourinary Genitourinary ED: Denies dysuria or hematuria Musculoskeletal Musculoskeletal: Reports other Details: See history of present illness. Integumentary Denies Abrasions or rash Neurologic Neurologic: Denies headache(s), paresthesias or weakness Endocrine Endocrinology: Denies polydipsia or polyuria Hematologic/Lymphatic Hematologic/Lymphatic: Reports easy bleeding and easy bruising Allergic/Immunologic Allergic/Immunologic ED: Denies urticaria EXAM Physical Exam Const Vital Signs: 03/06/22 15:39 03/06/22 16:27 03/06/22 17:09 Temperature 97.6 F L Temperature Source Temporal Pulse Rate 61 58 L Respiratory Rate 17 Respiratory Effort Normal Respiratory Pattern Normal Blood Pressure 152/81 H 176/88 H Blood Pressure Mean 104 117 Pulse Ox 98 96 Oxygen Delivery Method Room Air Room Air Positive well nourished, well developed and obese General Appearance ED: well developed and NAD Nutritional Appearance: obese HEENT Reports moist mucous membranes Eyes EOMs intact bilaterally Chest Wall inspection of chest normal and palpation of chest normal Chest Narrative: No rash or vesicles. No crepitance. His tenderness seems to be below the rib cage. Resp normal respiratory effort and clear to auscultation bilaterally Resp Narrative: Deep breaths without any symptoms. Lungs sound clear. Auscultation: Negative for rales, rhonchi or wheezes Cardio regular rate and regular rhythm GI normal to inspection, nondistended, normoactive bowel sounds GI Narrative: Abdomen is obese. Does not feel distended. He does have tenderness in the right upper quadrant but it follows around to the right flank just under the ribs. It is reproduced with palpation but is also reproduced with twisting or motion. Sitting up hurts it. No rebound. No tenderness anywhere else in the abdomen. Back/Spine no CVA tenderness Back/Spine Narrative: Tenderness really is not CVA. It really starts a little bit more laterally. Extremity normal to inspection Extremity Narrative: Mild chronic venous stasis changes. No significant asymmetry. Look normal to and patient Neuro oriented x3 Psych mental status grossly normal Skin no rashes or lesions noted MDM MDM MDM Narrative Medical decision making narrative: Update to chart is being done after patient discharge. We had complete failure of our computer system. This may end up missing a few of the details we had discussed. Patient's CBC shows no marked abnormalities. Electrolytes and liver function test did not show any significant abnormalities. Mild elevation of alk phos and glucose but relatively normal liver function. Lactate is normal. CT scan showed some cirrhotic changes. Urine was clean. Patient has not been a drinker. His liver function test are normal. It is possible that some of his discomfort is coming from the cirrhotic changes but I think that is less likely. I think it is likely from the activity of mowing as well as working on the 4 mills. We will get a meds for pain. He will cut back on his activity. If he has further symptoms he needs to return. If he develops chest pain dyspnea coughing or any other problems he should return. Lab Data Attestation: I reviewed the patient's lab results. Labs: Laboratory Results - last 24 hr 03/06/22 03/06/22 03/06/22 16:20 16:20 16:20 WBC 4.4 RBC 4.93 Hgb 15.3 Hct 45.4 MCV 92.1 MCH 31.0 MCHC 33.7 RDW Std Deviation 48.2 H RDW Coeff of [place] 14.2 Plt Count 157 MPV 9.6 Immature Gran % (Auto) 0.000 Neut % (Auto) 56.6 Lymph % (Auto) 26.5 [place] % (Auto) 13.0 H Eos % (Auto) 3.2 Baso % (Auto) 0.7 Absolute Neuts (auto) 2.5 Absolute Lymphs (auto) 1.16 Nucleated RBC % 0 PT INR Sodium 142 Potassium 3.7 Chloride 109 H Carbon Dioxide 26.0 Anion Gap 7 BUN 13 Creatinine 0.99 Estim Creat Clear Calc 77.34 Est GFR (MDRD) Af Amer 95 Est GFR (MDRD) Non-Af 79 BUN/Creatinine Ratio 13.1 Glucose 126 H Lactic Acid 1.2 Calcium 8.4 L Total Bilirubin 0.70 AST 29 ALT 26 Alkaline Phosphatase 125 H Troponin I High Sens 8 Total Protein 6.5 Albumin 3.3 Globulin 3.2 Albumin/Globulin Ratio 1.0 Urine Color Urine Clarity Urine pH Ur Specific [place] Urine Protein Urine Glucose (UA) Urine Ketones Urine Occult Blood Urine Nitrite Urine Bilirubin Urine Urobilinogen Ur Leukocyte Esterase Urine RBC Urine WBC Ur Squamous Epith Cells Urine Bacteria Urine Mucus 03/06/22 03/06/22 17:00 17:35 WBC RBC Hgb Hct MCV MCH MCHC RDW Std Deviation RDW Coeff of [place] Plt Count MPV Immature Gran % (Auto) Neut % (Auto) Lymph % (Auto) [place] % (Auto) Eos % (Auto) Baso % (Auto) Absolute Neuts (auto) Absolute Lymphs (auto) Nucleated RBC % PT 18.2 H INR 1.6 Sodium Potassium Chloride Carbon Dioxide Anion Gap BUN Creatinine Estim Creat Clear Calc Est GFR (MDRD) Af Amer Est GFR (MDRD) Non-Af BUN/Creatinine Ratio Glucose Lactic Acid Calcium Total Bilirubin AST ALT Alkaline Phosphatase Troponin I High Sens Total Protein Albumin Globulin Albumin/Globulin Ratio Urine Color Yellow Urine Clarity Clear Urine pH 6.0 Ur Specific [place] 1.015 Urine Protein Negative Urine Glucose (UA) Normal Urine Ketones Negative Urine Occult Blood Negative Urine Nitrite Negative Urine Bilirubin Negative Urine Urobilinogen Normal Ur Leukocyte Esterase Negative Urine RBC 0 SEEN Urine WBC 0 SEEN Ur Squamous Epith Cells 0 SEEN Urine Bacteria 0 SEEN Urine Mucus 0 SEEN Radiography Diagnostic Testing: Clinical Impression(s) from Imaging Studies Abdomen/Pelvis CT 03/06/22 16:11 IMPRESSION: No renal or ureteral stone. Cirrhosis. Electronically Signed: Montana Ramos MD at 17:17 EDT , Discharge Plan Triage Chief Complaint: Flank Pain ED Provider: Ben Trujillo Dx/Rx/DC Orders Clinical Impression: Acute right flank pain Instructions: ED Flank Pain, Uncertain Cause Prescriptions: New hydrocodone-acetaminophen 5-325 mg tablet 1 tab PO Q6H PRN (Reason: pain) 3 Days Qty: 10 0RF No Action metoprolol tartrate 50 mg tablet 50 mg PO BID sertraline 50 mg tablet 50 mg PO DAILY atorvastatin 10 mg tablet 10 mg PO DAILY potassium chloride 20 mEq tablet,ER particles/crystals 40 meq PO QDAY Qty: 180 3RF amlodipine 10 MG tablet 10 mg PO DAILY Qty: 90 0RF Label Comments: blood pressure gabapentin 300 mg capsule 300 mg PO .COMPLEX Label Comments: 300 mg PO twice daily AND 2-3 capsules at bedtime Rx Instructions: 300 mg PO 2-3 capsules at bedtime; furosemide 40 MG tablet 40 mg PO BID warfarin 5 mg tablet 5 mg PO .COMPLEX Qty: 180 3RF Protocol: Dose Management Condition: Saturday Dose/Route: 5 mg Instruction: 1 x 5 mg tablet Condition: Saturday Dose/Route: 7.5 mg Instruction: 1.5 x 5 mg tablets Condition: Saturday Dose/Route: 7.5 mg Instruction: 1.5 x 5 mg tablets Condition: Saturday Dose/Route: 7.5 mg Instruction: 1.5 x 5 mg tablets Condition: Dose/Route: 5 mg Instruction: 1 x 5 mg tablet Condition: Saturday Dose/Route: 5 mg Instruction: 1 x 5 mg tablet Condition: Saturday Dose/Route: 5 mg Instruction: 1 x 5 mg tablet Protocol Text: Adjustment Start Date: Saturday01/29/22 INR Value: 2.0 INR Date: 01/29/22 Recheck Date: 02/26/22 Rx Instructions: 5 mg PO 1.5 tablets daily to = 7.5mg, except on Saturday take 1 tablet only, or otherwise as directed Primary Care Provider: Ryan Canales Referrals: Ryan Canales DO [Primary Care Provider] - Keep Andi appointment Disposition Disposition: Home, Self Care Discharge Date/Time: 03/06/22 19:47
[2022-03-06] MEDS: Morphine 4 MG/ML Syringe IV (16:21)
[2022-03-06 16:33] LABS: Absolute Lymphocyte Count 1.16 X10^3/uL (0.83-4.51); Absolute Neutrophil Count 2.5 X10^3/uL (2.0-7.7); Basophil# 0.03 X10^3/uL; Basophil% 0.7 % (0-1); Eosinophil# 0.14 X10^3/uL; Eosinophils% 3.2 % (0-5); Hematocrit 45.4 % (40-54); Hemoglobin 15.3 g/dL (13.0-16.5); Lymphocyte # 1.16 X10^3/ul (0.83-4.51); Lymphocyte % 26.5 % (19-41); Mean Corp Hgb Conc 33.7 g/dL (32-36); Mean Corpuscular Volume 92.1 fL (80-94); Mean Platelet Vol. 9.6 fl (6.2-12.0); Monocyte# 0.57 X10^3/uL; NRBC Flagged by Analyzer 0 % (0-5); Neutrophil # 2.47 X10^3/uL (2.7-7.7); Neutrophil % 56.6 % (47-70); Platelet Count 157 K/mm3 (150-450); RBC Distribution Width CV 14.2 % (11.6-14.6); RBC Distribution Width SD 48.2 fl (35.1-43.9); Red Blood Count 4.93 M/mm3 (4.6-6.2); White Blood Count 4.4 K/mm3 (4.4-11.0)
[2022-03-06 16:55] LABS: AST(SGOT) 29 U/L (15-37); Alanine Aminotransfer ALT/SGPT 26 U/L (16-61); Albumin, Serum 3.3 g/dL (3.2-5.0); Alkaline Phosphatase 125 U/L (45-117); Anion Gap 7 (5-15); BUN 13 mg/dL (7-18); BUN/Creat Ratio 13.1 RATIO (10-20); Calcium,Total 8.4 mg/dL (8.5-10.1); Chloride 109 mmol/L (98-107); Creatinine, Serum 0.99 mg/dL (0.70-1.30); EST Glomerular Filtration Rate 79 mL/min (>60); Est Glom Filt Rate - Afr Amer 95 mL/min (>60); Estimated Creatinine Clearance 77.34 ml/min; Globulin 3.2 g/dL (2.2-4.2); Glucose 126 mg/dL (74-106); Potassium 3.7 mmol/L (3.5-5.1); Protein, Total 6.5 g/dL (6.4-8.2); Sodium Level 142 mmol/L (136-145); Troponin-I HS 8 pg/mL (3.0-78.0)
[2022-03-06 17:09] VITALS: BP 176/88; PULSE 58; O2SAT 96
[2022-03-06 17:12] LABS: Bacteria 0 SEEN /hpf (None Seen); Mucous, Urine 0 SEEN /hpf (<or=2+); Red Blood Cells-Urine 0 SEEN /hpf (0-5); Squamous Epithelial Cells - UA 0 SEEN /hpf (0-5); White Blood Cells 0 SEEN /hpf (0-5)
[2022-03-06 17:22] LABS: Color, Urine Yellow (Yellow); Glucose, Dipstick Normal (Normal); Ketone-Dipstick Negative (Negative); Leukocyte Esterase-Dipstick Negative /ul (Negative); Nitrite-Dipstick Negative (Negative); Occult Blood-Urine Negative /ul (Negative); Protein-Dipstick Negative (Negative); Specific Gravity, Urine 1.015 (1.002-1.030); Urine Bilirubin Dipstick Negative (Negative); Urine Clarity Clear (Clear); Urine Urobilinogen Normal (Normal)
[2022-03-06 18:12] LABS: Lactic Acid 1.2 mmol/L (0.4-1.9)
[2022-03-06 18:24] LABS: International Normalized Ratio 1.6; Prothrombin Time (Protime)PT. 18.2 SECONDS (11.7-14.9)
== END 2022-03-06 19:47 | disposition home or self-care (01) ==
PROVIDERS: Emergency Provider Emergency Medicine; PCP Family Medicine; Visit Provider Emergency Medicine
DX: R10.11 Right upper quadrant pain (principal); K74.60 Unspecified cirrhosis of liver; I48.0 Paroxysmal atrial fibrillation; Z68.42 Body mass index [BMI] 45.0-49.9, adult; K59.00 Constipation, unspecified; I10 Essential (primary) hypertension; G47.33 Obstructive sleep apnea (adult) (pediatric); Z79.899 Other long term (current) drug therapy; Z79.01 Long term (current) use of anticoagulants; Z90.49 Acquired absence of other specified parts of digestive tract; E66.9 Obesity, unspecified; R11.0 Nausea
CPT/HCPCS: 74176; 80053; 81001; 83605; 84484; 85025; 85610; 93005; 96374; 96375; 99283; J7030; A4216; J2405

== ENCOUNTER 2022-04-23 08:19 | Outpatient (RCR) | payer MEDICARE, OTHER, SELFPAY ==
[2022-02-06 21:23] VITALS: BMI 46.8
[2022-04-10 11:55] LABS: Prothrombin Time Fingerstick 23.5 SEC (11.7-14.9)
[2022-04-23 08:25] LABS: INR Fingerstick 2.2; Prothrombin Time Fingerstick 25.8 SEC (11.7-14.9)
== END 2022-04-23 18:00 | disposition home or self-care (01) ==
LOC: LAB 08:19
PROVIDERS: Family Provider Family Medicine; PCP Family Medicine; Referring Provider Internal Medicine Cardiovascular Disease; Visit Provider Internal Medicine Cardiovascular Disease
DX: I48.0 Paroxysmal atrial fibrillation (principal); Z79.01 Long term (current) use of anticoagulants
CPT/HCPCS: 36416; 85610

== ENCOUNTER 2022-05-10 09:53 | Outpatient (RCR) | payer MEDICARE, OTHER, SELFPAY ==
[2022-05-10 00:20] VITALS: BMI 46.8
[2022-05-10 10:10] LABS: INR Fingerstick 2.3; Prothrombin Time Fingerstick 27.1 SEC (11.7-14.9)
== END 2022-05-10 18:00 | disposition home or self-care (01) ==
LOC: LAB 09:53
PROVIDERS: Family Provider Family Medicine; PCP Family Medicine; Referring Provider Internal Medicine Cardiovascular Disease; Visit Provider Internal Medicine Cardiovascular Disease
DX: I48.0 Paroxysmal atrial fibrillation (principal); Z79.01 Long term (current) use of anticoagulants
CPT/HCPCS: 36416; 85610

== ENCOUNTER → 2022-06-05 | Outpatient (CLI) | payer MEDICARE, OTHER, SELFPAY ==
--- NOTE | 2022-06-05 13:45 | MRI_ITS ---
STUDY: MRI LUMBAR SPINE WITHOUT CONTRAST REASON FOR EXAM: Male, 71 years old. LUMBAR RADICULOPATHY; back pain in right leg pain. Prostate cancer TECHNIQUE: Standardized fat and water weighted pulse sequences were obtained in the sagittal and axial planes. COMPARISON: 02/26/2022 CT abdomen/pelvis FINDINGS: L1 anterior wedge deformity with anterior T2/STIR hyperintensity. Stepwise retrolisthesis from L1-2 to L3-4. Mild dextroscoliosis. Normal conus medullaris that terminates at the level of L1-2. L1-2: Schmorl''s nodes and mixed MODIC endplate change. Disc height loss and retrolisthesis and bilateral facet arthrosis with mild to moderate spinal canal stenosis and CSF effacement. Mild bilateral neural foraminal stenosis. L2-3: MODIC type II endplate change. Disc height loss, retrolisthesis, facet arthrosis, and epidural lipomatosis with mild to moderate spinal canal stenosis and CSF effacement. Mild bilateral neural foraminal stenosis. L3-4: MODIC type II endplate change. Disc height loss, retrolisthesis, and facet arthrosis with moderate to severe spinal canal stenosis and CSF effacement. Moderate bilateral neural foraminal stenosis. L4-5: Normal endplates. Disc height loss, right lateral uncovertebral hypertrophy, and severe right facet arthrosis with moderate right neural foraminal stenosis and compression of the traversing right L5 nerve root in the lateral recesses. Mild left neural foraminal stenosis. No spinal canal stenosis. L5-S1: Schmorl''s nodes. Disc height loss and bilateral facet arthrosis with mild to moderate right and mild left neural foraminal stenosis. No spinal canal stenosis. Normal visualized sacral ala. There is moderate upper and severe lower paraspinal muscular atrophy. MRI/Spine Lumbar (Routine) IMPRESSION: 1. Compression of the traversing L5 nerve root in the lateral recess at L4-5. 2. Multilevel spinal canal stenosis, most prominent at L3-4. 3. Multilevel neural foraminal stenosis. Electronically Signed: Chicho John MD at 4:43 EDT ,
== END | disposition home or self-care (01) ==
LOC: MRI 13:00
PROVIDERS: PCP Family Medicine; Referring Provider Anesthesiology Pain Medicine; Visit Provider Anesthesiology Pain Medicine
DX: M54.16 Radiculopathy, lumbar region (principal)
CPT/HCPCS: 72148

== ENCOUNTER 2022-06-22 13:29 | Outpatient (RCR) | payer MEDICARE, OTHER, SELFPAY ==
[2022-06-08 23:27] VITALS: BMI 46.8
[2022-06-25 10:51] LABS: Prothrombin Time Fingerstick 24.1 SEC (11.7-14.9)
== END 2022-06-22 18:00 | disposition home or self-care (01) ==
LOC: LAB 13:29
PROVIDERS: Family Provider Family Medicine; PCP Family Medicine; Referring Provider Internal Medicine Cardiovascular Disease; Visit Provider Internal Medicine Cardiovascular Disease
DX: I48.0 Paroxysmal atrial fibrillation (principal); Z79.01 Long term (current) use of anticoagulants
CPT/HCPCS: 36416; 85610

== ENCOUNTER 2022-08-29 12:58 | Outpatient (RCR) | payer MEDICARE, OTHER, SELFPAY ==
[2022-07-10 10:06] VITALS: BMI 46.8
[2022-08-21 06:51] LABS: INR Fingerstick 1.7
[2022-08-29 13:05] LABS: INR Fingerstick 2.4; Prothrombin Time Fingerstick 28.3 SEC (11.7-14.9)
== END 2022-08-29 18:00 | disposition home or self-care (01) ==
LOC: LAB 12:58
PROVIDERS: Family Provider Family Medicine; PCP Family Medicine; Referring Provider Internal Medicine Cardiovascular Disease; Visit Provider Internal Medicine Cardiovascular Disease
DX: I48.0 Paroxysmal atrial fibrillation (principal); Z79.01 Long term (current) use of anticoagulants
CPT/HCPCS: 36416; 85610

== ENCOUNTER 2022-10-30 09:29 | Outpatient (RCR) | payer MEDICARE, OTHER, SELFPAY ==
[2022-09-09 05:22] VITALS: BMI 46.8
[2022-10-30 09:41] LABS: INR Fingerstick 2.3; Prothrombin Time Fingerstick 26.7 SEC (11.7-14.9)
== END 2022-10-30 18:00 | disposition home or self-care (01) ==
LOC: LAB 09:29
PROVIDERS: Family Provider Family Medicine; PCP Family Medicine; Referring Provider Internal Medicine Cardiovascular Disease; Visit Provider Internal Medicine Cardiovascular Disease
DX: I48.0 Paroxysmal atrial fibrillation (principal); Z79.01 Long term (current) use of anticoagulants
CPT/HCPCS: 36416; 85610

== ENCOUNTER 2022-12-17 11:23 | Outpatient (RCR) | payer MEDICARE, OTHER, SELFPAY ==
[2022-11-06 22:46] VITALS: BMI 46.8
[2022-12-17 11:35] LABS: INR Fingerstick 2.9; Prothrombin Time Fingerstick 31.1 SEC (11.7-14.9)
== END 2023-01-06 02:15 | disposition home or self-care (01) ==
LOC: LAB 11:23
PROVIDERS: Family Provider Family Medicine; PCP Family Medicine; Referring Provider Internal Medicine Cardiovascular Disease; Visit Provider Internal Medicine Cardiovascular Disease
DX: I48.0 Paroxysmal atrial fibrillation (principal); Z79.01 Long term (current) use of anticoagulants; Z98.890 Other specified postprocedural states
CPT/HCPCS: 36416; 85610

== ENCOUNTER 2023-02-07 14:10 | Outpatient (RCR) | payer MEDICARE, OTHER, SELFPAY ==
[2023-01-06 02:16] VITALS: BMI 46.8
[2023-02-08 17:11] LABS: Prothrombin Time Fingerstick 21.5 SEC (11.7-14.9)
== END 2023-02-07 18:00 | disposition home or self-care (01) ==
LOC: LAB 14:10
PROVIDERS: Family Provider Family Medicine; PCP Family Medicine; Referring Provider Internal Medicine Cardiovascular Disease; Visit Provider Internal Medicine Cardiovascular Disease
DX: I48.0 Paroxysmal atrial fibrillation (principal); Z79.01 Long term (current) use of anticoagulants; Z98.890 Other specified postprocedural states
CPT/HCPCS: 36416; 85610

== ENCOUNTER 2023-03-18 13:19 | Outpatient (RCR) | payer MEDICARE, OTHER, SELFPAY ==
[2023-03-09 01:33] VITALS: BMI 46.8
[2023-03-18 13:58] LABS: International Normalized Ratio 2.4
== END 2023-04-08 18:00 | disposition home or self-care (01) ==
LOC: LAB 13:19
PROVIDERS: Family Provider Family Medicine; PCP Family Medicine; Referring Provider Internal Medicine Cardiovascular Disease; Visit Provider Internal Medicine Cardiovascular Disease
DX: I48.0 Paroxysmal atrial fibrillation (principal); Z79.01 Long term (current) use of anticoagulants
CPT/HCPCS: 36415; 85610

== ENCOUNTER 2023-05-16 12:25 | Outpatient (RCR) | payer MEDICARE, OTHER, SELFPAY ==
[2023-04-09 01:08] VITALS: BMI 46.8
[2023-05-16 13:25] LABS: International Normalized Ratio 2.2; Prothrombin Time (Protime)PT. 24.5 SECONDS (11.7-14.9)
== END 2023-05-16 18:00 | disposition home or self-care (01) ==
LOC: LAB 12:25
PROVIDERS: Family Provider Family Medicine; PCP Family Medicine; Referring Provider Internal Medicine Cardiovascular Disease; Visit Provider Internal Medicine Cardiovascular Disease
DX: I48.0 Paroxysmal atrial fibrillation (principal); Z79.01 Long term (current) use of anticoagulants; Z98.890 Other specified postprocedural states
CPT/HCPCS: 36415; 85610

== ENCOUNTER 2023-06-25 09:19 | Outpatient (RCR) | payer MEDICARE, OTHER, SELFPAY ==
[2023-06-09 04:19] VITALS: BMI 46.8
[2023-06-25 10:00] LABS: International Normalized Ratio 2.9; Prothrombin Time (Protime)PT. 30.8 SECONDS (11.7-14.9)
== END 2023-06-25 18:00 | disposition home or self-care (01) ==
LOC: LAB 09:19
PROVIDERS: Family Provider Family Medicine; PCP Family Medicine; Referring Provider Internal Medicine Cardiovascular Disease; Visit Provider Internal Medicine Cardiovascular Disease
DX: I48.0 Paroxysmal atrial fibrillation (principal); Z79.01 Long term (current) use of anticoagulants; Z98.890 Other specified postprocedural states
CPT/HCPCS: 36415; 85610

== ENCOUNTER 2023-09-14 01:35 | Emergency (ER) | payer MEDICARE, OTHER, SELFPAY ==
[2023-09-14 01:36] VITALS: BP 154/70; PULSE 59; RESP 18; TEMP 36.6; O2SAT 97
--- OUTSIDE RECORDS SUMMARY | 2023-09-14 02:49 | XMS RPT_ITS | CCD ---
Author Name Unknown Address [id number] [place] [address] Organization [facility] Care Team Providers Care Picker And Packer Name Role Phone [facility] Nurse Unavailable Unavailable Radha RN, Emeli Alex Unavailable [phone] Radha RN, Emeli Alex Unavailable [phone] Radha RN, Emeli Alex Unavailable [phone] Radha RN, Emeli Alex Unavailable [phone] [facility] Nurse Unavailable Unavailable HARRY Stoll, Nicky Bella Unavailable Unavaildelmy Stoll RN, Nicky Bella Unavailable Unavaildelmy Garcia RN, Emeli Alex Unavailable [phone] Radha RN, Emeli Alex Unavailable [phone] Radha RN, Emeli Alex Unavailable [phone] [facility] Nurse Unavailable Unavailable Pau RN, Yumiko Hernandez Unavailable Unavailable Pau RN, Yumiko Hernandez Unavailable Unavailable Radha RN, Emeli Alex Unavailable [phone]) Radha RN, Emeli Alex Unavailable [phone]) Radha RN, Emeli Alex Unavailable [phone] VITEBSKIY, MARVA Unavailable Unavailable VITEBSKIY, MARVA Unavailable Unavailable Ryan Canales Unavailable Unavailable VITEBSKIY, MARVA Unavailable Unavailable VITEBSKIY, MARVA Unavailable Unavailable NO REFERRING DR Unavailable Unavailable VITEBSKIY, MARVA Unavailable Unavailable VITEBSKIY, MRAVA Unavailable Unavailable NO REFERRING DR Unavailable Unavailable VITEBSKIY, MARVA Unavailable Unavailable VITEBSKIY, MARVA Unavailable Unavailable [facility] Unavailable Unavailable VITEBSKIY, MARVA Unavailable Unavailable VITEBSKIY, MARVA Unavailable Unavailable VITEBSKIY, MARVA Unavailable Unavailable VITEBSKIY, MARVA Unavailable Unavailable VITEBSKIY, MARVA Unavailable Unavailable AL, GHAZAL Unavailable Unavailable VITEBSKIY, MARVA Unavailable Unavailable VITEBSKIY, MARVA Unavailable Unavailable Petrilla, Ryan Unavailable Unavailable AL, GHAZAL Unavailable Unavailable MEET MULLER Unavailable Unavailable Petrilla, Ryan Unavailable Unavailable MEET MULLER Unavailable Unavailable NITRoberto, SARAHI C Unavailable Unavailable VITEBSKIY, MARVA Unavailable Unavailable Petrilla, Ryan Unavailable Unavailable Petrilla, Ryan Unavailable Unavailable Pau RN, Yumiko Hernandez Unavailable Unavailable Radha RN, Emeli Alex Unavailable VITEBSKIY, MARVA ELLYNANDROVICH Unavailable Unavailable ALLY, RYAN F Unavailable Unavailable SARAHI ASHLEY (ELECTRICAL SUPERVISOR) Unavailable Unavailabl MEET Perdomo Unavailable Unavailable Radha RN, Emeli Alex Unavailable Radha RN, Emeli Alex Unavailable Radha RN, Emeli Alex Unavailable HARRY Stoll, Nicky Bella Unavailable Unavailabl e Radha RN, Emeli Alex Unavailable Ryan Canales DO Primary Care Provider [phone] DR RYAN CANALES DO Primary Care Physician Ally [facility] Primary Care Provider [phone] Ryan Canales DO Primary Care Provider [phone] Ally [facility] Primary Care Provider RYAN CANALES Primary Care Unavailable ASHLEIGH TAPIA Attending Unavailable RYAN CANALES Primary Care Unavailable RYAN CANALES Attending Unavailable ALLY RYAN Primary Care Unavailable RYAN CANALES Attending Unavailable ASHLEIGH TAPIA Attending Unavailable ASHLEIGH TAPIA Referring Unavailable ALLY RYAN Primary Care Unavailable Allergies Allergy Classification Reported Allergen(s) Allergy Type Date of Onset Reaction(s) Facility Iodine (and Iodine containting drugs) (1 source) Iodine Drug Allergy 07-13-2016 Anaphylaxis [facility] (20 sources) iodine; Translations: [IODINE] drug allergy 02-22-2015 Anaphylaxis [facility] Work Phone: Medications Current Medications Medication Drug Class(es) Dates Sig (Normalized) Sig (Original) acetaminophen 32 mg/ml oral suspension (7 sources) Start: 04-16-2021 acetaminophen (Tylenol) 160 MG/5ML suspension Take 650 mg by mouth. 0 04/16/2021 Active Completed/Discontinued Medications Medication Drug Class(es) Dates Sig (Normalized) Sig (Original) acetaminophen 325 mg / oxyCODONE hydrochloride 5 mg oral tablet (20 sources) Opioid Agonist Start: 10-27-2015 End: 12-14-2016 take 1 tablet by mouth three times daily as needed OXYCODONE-ACETAMI NOPHEN 5-325 MG TABS One tablet by mouth three times daily as needed OXYCODONE-ACETAMI NOPHEN [id number] Bijan Concepcion Aspirin (20 sources) Platelet Aggregation Inhibitor, Nonsteroidal Anti-inflammatory Drug Start: 02-22-2015 End: 05-24-2015 take 1 tablet by mouth once daily ASPIR-81 81 MG TBEC One tablet by mouth daily ASPIRIN [id number] Candi Babin RN Problems Active Problems Problem Classification Problem Date Documented Da te Episodic/Chronic Anxiety disorders (11 sources) Anxiety disorder, unspecified; Translations: [Mixed anxiety and depressive disorder] Onset: 04-01-2015 04-01-2015 Chronic Cancer of prostate (1 source) Malignant tumor of prostate 05-20-2015 Chronic Cardiac dysrhythmias (1 source) Bradycardia; Translations: [Bradycardia, unspecified] Episodic Congestive heart failure; nonhypertensive (20 sources) Congestive heart failure; Translations: [Unspecified diastolic (congestive) heart failure] Onset: 04-06-2015 04-06-2015 Chronic Disorders of lipid metabolism (3 sources) Hypercholesterolemia ; Translations: [Pure hypercholesterolemia , unspecified] Onset: 03-19-2023 03-19-2023 Chronic Essential hypertension (20 sources) Hypertensive disorder; Translations: [Essential (primary) hypertension] Onset: 02-22-2015 02-22-2015 Chronic Gastrointestinal hemorrhage (1 source) Rectal hemorrhage 05-20-2015 Episodic Hypertension with complications and secondary hypertension (1 source) Hypertensive heart disease with heart failure; Translations: [HTN HEART DISEASE W/HEAR] Onset: 04-10-2017 Chronic Mood disorders (1 source) Major depressive disorder, single episode, unspecified; Translations: [ALEA DEPRESS D/O SINGLE E] Onset: 04-10-2017 Osteoarthritis (20 sources) Localized, primary osteoarthritis; Translations: [Osteoarthritis of knee] Onset: 04-01-2015 12-21-2016 Chronic Other hereditary and degenerative nervous system conditions (7 sources) Restless legs; Translations: [Restless legs syndrome] Onset: 12-11-2017 12-11-2017 Chronic Other injuries and conditions due to external causes (1 source) Injury of head; Translations: [Unspecified injury of head, initial encounter] Episodic Other liver diseases (7 sources) Steatosis of liver; Translations: [Fatty (change of) liver, not elsewhere classified] Onset: 04-01-2015 04-01-2015 Chronic Other male genital disorders (7 sources) Male erectile dysfunction, unspecified; Translations: [Impotence of organic origin] Onset: 04-01-2015 04-01-2015 Chronic Other nutritional; endocrine; and metabolic disorders (20 sources) Body mass index (BMI) 45.0-49.9, adult; Translations: [Body mass index (BMI) 40.0-44.9, adult] Onset: 02-24-2015 02-24-2015 Chronic Other nutritional; endocrine; and metabolic disorders (6 sources) Body mass index (BMI) 40.0-44.9, adult; Translations: [Body mass index (BMI) 40.0-44.9, adult] Onset: 02-24-2015 10-23-2016 Chronic Other nutritional; endocrine; and metabolic disorders (3 sources) Morbid (severe) obesity due to excess calories; Translations: [Morbid (severe) obesity due to excess calories] Onset: 01-30-2017 Chronic Other nutritional; endocrine; and metabolic disorders (8 sources) Morbid obesity; Translations: [Morbid (severe) obesity due to excess calories] Onset: 06-17-2019 06-17-2019 Chronic Other upper respiratory disease (7 sources) Allergic rhinitis; Translations: [Allergic rhinitis, unspecified] Onset: 04-01-2015 04-01-2015 Chronic Residual codes; unclassified (20 sources) Obstructive sleep apnea syndrome; Translations: [Body mass index (BMI) 40.0-44.9, adult] Onset: 02-24-2015 04-13-2015 Chronic Residual codes; unclassified (1 source) Obstructive sleep apnea (adult) (pediatric); Translations: [Obstructive sleep apnea (adult) (pediatric)] Onset: 07-24-2016 Chronic Residual codes; unclassified (1 source) Dependence on other enabling machines and devices; Translations: [Dependence on other enabling machines and devices] Onset: 07-24-2016 Chronic Residual codes; unclassified (1 source) Sleep apnea 05-20-2015 Chronic Spondylosis; intervertebral disc disorders; other back problems (9 sources) Degeneration of lumbar intervertebral disc; Translations: [Other intervertebral disc degeneration, lumbar region] Onset: 09-09-2015 05-17-2016 Chronic Sprains and strains (1 source) Neck sprain; Translations: [Sprain of joints and ligaments of unspecified parts of neck, initial encounter] Episodic Unclassified (10 sources) Warfarin therapy started; Translations: [intermediate frame tender (current) use of anticoagulants] Onset: 03-05-2017 03-05-2017 Unclassified (1 source) Unknown / UNK(Unknown) Onset: 01-30-2017 Past or Other Problems Problem Classification Problem Date Documented Date Episodic/Chronic Abdominal pain (3 sources) Periumbilical pain; Translations: [Periumbilical pain] Onset: 02-05-2023 Episodic Acquired foot deformities (7 sources) Right foot drop; Translations: [Foot drop, right foot] Onset: 09-09-2015 03-14-2020 Episodic Anal and rectal conditions (7 sources) Radiation proctitis; 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] Onset: 04-01-2015 04-01-2015 Episodic Cancer of prostate (10 sources) Personal history of malignant neoplasm of prostate; Translations: [History of malignant neoplasm of prostate] Onset: 04-01-2015 04-01-2015 Episodic Cardiac dysrhythmias (20 sources) Persistent atrial fibrillation; Translations: [Atrial fibrillation] Onset: 02-07-2015 Resolved: 12-11-2017 12-15-2015 Chronic Fluid and electrolyte disorders (20 sources) Hypokalemia; Translations: [Hypokalemia] Onset: 04-20-2015 04-20-2015 Episodic Genitourinary symptoms and ill-defined conditions (8 sources) Blood in urine; Translations: [Hematuria, unspecified] Onset: 02-05-2023 Episodic Other aftercare (14 sources) intermediate frame tender (current) use of anticoagulants; Translations: [half-way (current) use of anticoagulants] Onset: 03-05-2017 03-05-2017 Episodic Other aftercare (6 sources) Long-term current use of anticoagulant; Translations: [half-way (current) use of anticoagulants] Onset: 04-25-2022 06-24-2022 Episodic Other circulatory disease (7 sources) H/O: atrial fibrillation; Translations: [Personal history of other diseases of the circulatory system] Onset: 12-11-2017 12-11-2017 Episodic Other circulatory disease (2 sources) Personal history of other diseases of the circulatory system; Translations: [Personal history of other diseases of the circulatory system] Onset: 06-25-2022 Episodic Other connective tissue disease (20 sources) Bursitis of knee; Translations: [Other bursitis of knee, left knee] Onset: 12-14-2016 12-14-2016 Episodic Other non-traumatic joint disorders (20 sources) Pain in left knee; Translations: [Pain in left knee] Onset: 12-14-2016 12-21-2016 Episodic Residual codes; unclassified (20 sources) Family history of stroke; Translations: [Family history of sudden ] Onset: 04-13-2015 04-13-2015 Episodic Residual codes; unclassified (6 sources) Edema, unspecified; Translations: [Edema, unspecified] Onset: 04-13-2015 04-13-2015 Episodic Residual codes; unclassified (6 sources) FH: Hypertension; Translations: [Family history of ischemic heart disease and other diseases of the circulatory system] 04-13-2015 Episodic Residual codes; unclassified (6 sources) FH: Raised blood lipids; Translations: [Family history of other endocrine, nutritional and metabolic diseases] 04-13-2015 Episodic Residual codes; unclassified (6 sources) Family history of sudden ; Translations: [Family history of other specified conditions] 04-13-2015 Episodic Residual codes; unclassified (7 sources) Family history of cancer of colon; Translations: [Family history of malignant neoplasm of digestive organs] Onset: 05-17-2016 05-17-2016 Episodic Residual codes; unclassified (7 sources) Family history of prostate cancer; Translations: [Family history of malignant neoplasm of prostate] Onset: 05-17-2016 05-17-2016 Episodic Unclassified (1 source) Morbid (severe) obesity due to excess calories Onset: 02-11-2018 Results Test Name Value Interpretation Reference Range Facil ity Vital Signs Date Time Vital Sign Value Performing Clinician Aletha garcía 03-19-2023 12:55-0400 Diastolic blood pressure 72 mm[Hg] Ryan Canales DO Work Phone: [facility] [employer] 03-19-2023 12:55-0400 Heart rate 60 /min Ryan Canales DO Work Phone: [facility] [employer] 03-19-2023 12:55-0400 Systolic blood pressure 128 mm[Hg] Ryan Canales DO Work Phone: [facility] [employer] 03-19-2023 12:14-0400 Body height 185.4 cm Ryan Canales DO Work Phone: [facility] [employer] 03-19-2023 12:14-0400 Body mass index (BMI) [Ratio] 46.44 kg/m2 Ryan Canales DO Work Phone: [facility] [employer] 03-19-2023 12:14-0400 Body temperature 98.2 [degF] Ryan Canales DO Work Phone: [facility] 03-19-2023 12:14-0400 Body weight 159.67 kg Ryan Canales DO Work Phone: [facility] [employer] 03-19-2023 12:14-0400 SaO2% (BldA) [Mass fraction] 96 % Ryan Canales DO Work Phone: [facility] 02-05-2023 10:32-0400 Body height 185.4 cm Ashleigh Tapia PA-C Work Phone: [facility] [employer] 02-05-2023 10:32-0400 Body mass index (BMI) [Ratio] 44.86 kg/m2 Ashleigh Tapia PA-C Work Phone: [facility] [employer] 02-05-2023 10:32-0400 Body temperature 97.7 [degF] Ashleigh Tapia PA-C Work Phone: [facility] [employer] 02-05-2023 10:32-0400 Body weight 154.22 kg Ashleigh Hernandezo PA-C Work Phone: [facility] 02-05-2023 10:32-0400 Diastolic blood pressure 69 mm[Hg] Ashleigh Hernandezo PA-C Work Phone: [facility] [employer] 02-05-2023 10:32-0400 Heart rate 55 /min Ashleigh Hernandezo PA-C Work Phone: [facility] 02-05-2023 10:32-0400 SaO2% (BldA) [Mass fraction] 96 % Ashleigh Hernandezo PA-C Work Phone: [facility] 02-05-2023 10:32-0400 Systolic blood pressure 134 mm[Hg] Ashleigh Hernandezo PA-C Work Phone: [facility] [employer] 07-24-2021 10:15-0500 Diastolic Blood Pressure NBP [address] VÍCTOR SOUTH MD [facility] 07-24-2021 10:15-0500 Heart rate 58 /min DR VÍCTOR SOUTH MD [facility] 07-24-2021 10:15-0500 Respiratory rate 24 /min DR VÍCTOR SOUTH MD [facility] 07-24-2021 10:15-0500 Systolic Blood Pressure NBP [address] VÍCTOR SOUTH MD [facility] 07-24-2021 10:08-0500 Diastolic Blood Pressure NBP [address] VÍCTOR SOUTH MD [facility] 07-24-2021 10:08-0500 Heart rate 58 /min DR VÍCTOR SOUTH MD [facility] 07-24-2021 10:08-0500 Respiratory rate 19 /min DR VÍCTOR SOUTH MD [facility] 07-24-2021 10:08-0500 Systolic Blood Pressure NBP [address] VÍCTOR SOUTH MD [facility] 07-24-2021 10:00-0500 Diastolic Blood Pressure NBP [address] VÍCTOR SOUTH MD [facility] 07-24-2021 10:00-0500 Heart rate 59 /min DR VÍCTOR SOUTH MD [facility] 07-24-2021 10:00-0500 Respiratory rate 17 /min DR VÍCTOR SOUTH MD [facility] 07-24-2021 10:00-0500 Systolic Blood Pressure NBP [address] VÍCTOR SOUTH MD [facility] 07-24-2021 09:03-0500 Body height 185.[address] VÍCTOR SOUTH MD [facility] 07-24-2021 09:03-0500 Body temperature 98.24 [degF] DR VÍCTOR SOUTH MD [facility] 07-24-2021 09:03-0500 Body weight [address] VÍCTOR SOUTH MD [facility] 07-24-2021 09:03-0500 Heart rate 67 /min DR VÍCTOR SOUTH MD [facility] 04-14-2021 12:46-0400 Diastolic blood pressure 66 mm[Hg] Jorgito Guerrero MD Work Phone: [facility] Work Phone: 04-14-2021 12:46-0400 Heart rate 97 /min Jorgito Guerrero MD Work Phone: [facility] Work Phone: 04-14-2021 12:46-0400 Respiratory rate 12 /min Jorgito Guerrero MD Work Phone: [facility] Work Phone: 04-14-2021 12:46-0400 SaO2% (BldA) [Mass fraction] 98 % Jorgito Guerrero MD Work Phone: [facility] Work Phone: 04-14-2021 12:46-0400 Systolic blood pressure 128 mm[Hg] Jorgito Guerrero MD Work Phone: [facility] Work Phone: 04-14-2021 11:12-0400 Body mass index (BMI) [Ratio] 46.45 kg/m2 Jorgito Guerrero MD Work Phone: [facility] Work Phone: 04-14-2021 11:12-0400 Body weight 159.7 kg Jorgito Guerrero MD Work Phone: [facility] Work Phone: 04-14-2021 10:12-0400 Body temperature 98.01 [degF] Jorgito Guerrero MD Work Phone: [facility] Work Phone: 12-14-2016 13:29-0400 BMI (Body Mass Index) 42.72 kg/m2 Emeli Garcia RN [facility] Work Phone: 12-14-2016 13:29-0400 Weight 146.88 kg Emeli Garcia RN [facility] Work Phone: 10-23-2016 13:56-0500 BP Diastolic 80 mm[Hg] Emeli Garcia RN [facility] Work Phone: 10-23-2016 13:56-0500 BP Systolic 140 mm[Hg] Emeli Garcia RN [facility] Work Phone: 10-23-2016 13:56-0500 BSA (Body Surface Area) 2.68 m2 Emeli Garcia RN [facility] Work Phone: 10-23-2016 13:56-0500 Pulse (Heart Rate) 88 /min [facility] Work Phone: 10-23-2016 13:56-0500 Respiratory Rate 20 /min [facility] Work Phone: 07-03-2016 14:16-0400 Heart rate 75 /min Emeli Garcia RN [facility] Work Phone: 02-24-2015 13:03-0400 Height 185.42 cm [facility] Work Phone: Encounters Encounter Date Encounter Type Care Provider Facility Start: 09-04-2023 Refill Ryan Rachel Jimmy lla DO Work Phone: [facility] Start: 05-20-2023 Refill Ryan Ramos Jimmy lla DO Work Phone: [facility] Start: 03-19-2023 End: 03-19-2023 ambulatory RYAN CANALES [facility] Start: 03-19-2023 End: 03-19-2023 Office outpatient visit 15 minutes Ryan Uriartea DO Work Phone: [facility] Procedures Date Procedure Procedure Detail Performing Clinician Start: 02-08-2023 Us retroperitoneal r eal time w/image complete Ashleigh Tapia PA-C Work Phone: Start: 02-05-2023 Urnls dip stick/tabl et rgnt non-auto w/o micrscp Ashleigh Tapia PA-C Work Phone: Start: 10-16-2022 Lipid 1996 panel - S irene or Plasma Ashleigh Tapia PA-C Work Phone: Start: 04-14-2021 Basic metabolic pane l calcium total Jorgito Guerrero MD Work Phone: Start: 04-14-2021 Ct cervical spine w/ o contrast material Jorgito Guerrero MD Work Phone: Start: 04-14-2021 Ct head/brain w/o co ntrast material Jorgito Guerrero MD Work Phone: Start: 11-17-2020 Colonoscopy Ashleigh castle PA-C Work Phone: Start: 03-18-2017 End: 03-18-2017 INR in Platelet poor plasma by Coagulation assay Chicho Vernon MD Start: 03-18-2017 End: 03-18-2017 Coagulation factor induced.INR assay in platelet poor plasma Chicho Vernon MD Start: 03-05-2017 End: 03-13-2017 INR in Platelet poor plasma by Coagulation assay Chicho Vernon MD Start: 03-05-2017 End: 03-13-2017 Coagulation factor induced.INR assay in platelet poor plasma Chicho Vernon MD Start: 12-14-2016 End: 12-21-2016 Arthrocentesis aspir&/inj major jt/bursa w/o Bijan Concepcion Work Phone: Start: 12-14-2016 End: 12-14-2016 Dietary management education, guidance, and counseling Emeli Garcia RN Start: 12-14-2016 End: 12-21-2016 Drain/inject, joint/bursa Bijan Concepcion Work Phone: Start: 10-23-2016 End: 10-23-2016 Follow Up Appt 6 months Emeli saldivar PA-C Work Phone: Start: 10-23-2016 End: 10-23-2016 PF Emeli Estrada PA-C Work Phone: Start: 10-23-2016 End: 10-23-2016 Follow Up Appt 6 months Emeli saldivar PA-C Work Phone: Start: 10-23-2016 End: 10-23-2016 PF Emeli Estrada PA-C Work Phone: Start: 07-23-2016 End: 07-23-2016 Follow Up Appt 3 months Chicho Vernon MD Start: 07-23-2016 End: 07-23-2016 JADEN Vernon MD Start: 07-23-2016 End: 07-23-2016 Follow Up Appt 3 months Chicho Vernon MD Start: 07-23-2016 End: 07-23-2016 MM Chicho Vernon MD Start: 07-05-2016 End: 07-06-2016 Referral to telegraph plant maintainer Chicho ponce MD Start: 07-05-2016 End: 07-06-2016 Referral to telegraph plant maintainer Chicho ponce MD Start: 07-03-2016 End: 10-17-2016 Ecg routine ecg w/least 12 lds w/i&r Emeli Estrada PA-C Work Phone: Start: 07-03-2016 End: 10-17-2016 Electrocardiogram, complete Emeli Walls PA-C Work Phone: Start: 05-17-2016 End: 07-03-2016 Ecg routine ecg w/least 12 lds w/i&r Chicho Vernon MD Start: 05-17-2016 End: 07-03-2016 Electrocardiogram, complete Chicho mays MD Start: 04-25-2016 End: 05-07-2016 *BMP Emeli Estrada PA-C Work Phone: Start: 04-25-2016 End: 05-10-2016 Cardioversion Emeli Estrada PA-C Work Phone: Start: 04-25-2016 End: 07-03-2016 Chest x-ray Emeli Estrada PA-C Work Phone: Start: 04-25-2016 End: 04-25-2016 Ecg routine ecg w/least 12 lds w/i&r Emeli Estrada PA-C Work Phone: Start: 04-25-2016 End: 04-25-2016 Follow Up Appt 3 months Emeli saldivar PA-C Work Phone: Start: 04-25-2016 End: 04-25-2016 Follow Up Appt 6 months Emeli saldivar PA-C Work Phone: Start: 04-25-2016 End: 04-25-2016 MMM Emeli Estrada PA-C Work Phone: Start: 04-25-2016 End: 04-25-2016 PFM Emeli Estrada PA-C Work Phone: Start: 04-25-2016 End: 05-07-2016 *BMP Emeli Estrada PA-C Work Phone: Start: 04-25-2016 End: 05-10-2016 Cardioversion Emeli Estrada PA-C Work Phone: Start: 04-25-2016 End: 07-03-2016 Chest x-ray Emeli Estrada PA-C Work Phone: Start: 04-25-2016 End: 04-25-2016 Electrocardiogram, complete Emeli Walls PA-C Work Phone: Start: 04-25-2016 End: 04-25-2016 Follow Up Appt 3 months Emeli saldivar PA-C Work Phone: Start: 04-25-2016 End: 04-25-2016 Follow Up Appt 6 months Emeli saldivar PA-C Work Phone: Start: 04-25-2016 End: 04-25-2016 MMM Emeli Estrada PA-C Work Phone: Start: 04-25-2016 End: 04-25-2016 PFM Eemli Estrada PA-C Work Phone: Start: 12-15-2015 End: 12-15-2015 Follow Up Appt Other Emeli alex PA-C Work Phone: Start: 12-15-2015 End: 12-15-2015 MMM Emeli Estrada PA-C Work Phone: Start: 12-15-2015 End: 12-15-2015 Follow Up Appt Other Emeli alex PA-C Work Phone: Start: 12-15-2015 End: 12-15-2015 MMM Emeli Estrada PA-C Work Phone: Start: 10-27-2015 End: 10-27-2015 Ecg routine ecg w/least 12 lds w/i&r Chicho Vernon MD Start: 10-27-2015 End: 10-27-2015 Follow Up Appt 6 months Chicho Vernon MD Start: 10-27-2015 End: 10-27-2015 MMM Chicho Vernon MD Start: 10-27-2015 End: 10-27-2015 Electrocardiogram, complete Chicho mays MD Start: 10-27-2015 End: 10-27-2015 Follow Up Appt 6 months Chicho Vernon MD Start: 10-27-2015 End: 10-27-2015 JADEN Vernon MD Start: 06-10-2015 End: 04-12-2016 *DEE Estrada PA-C Work Phone: Start: 06-10-2015 End: 06-11-2015 Documentation of current medications Emeli Estrada PA-C Work Phone: Start: 06-10-2015 End: 06-10-2015 Ecg routine ecg w/least 12 lds w/i&r Emeli Estrada PA-C Work Phone: Start: 06-10-2015 End: 06-10-2015 Follow Up Appt 3 months Emeli saldivar PA-C Work Phone: Start: 06-10-2015 End: 06-10-2015 PF Emeli Estrada PA-C Work Phone: Start: 06-10-2015 End: 04-12-2016 *DEE Estrada PA-C Work Phone: Start: 06-10-2015 End: 06-11-2015 Documentation of current medications Emeli Estrada PA-C Work Phone: Start: 06-10-2015 End: 06-10-2015 Electrocardiogram, complete Emeli Walls PA-C Work Phone: Start: 06-10-2015 End: 06-10-2015 Follow Up Appt 3 months Emeli saldivar PA-C Work Phone: Start: 06-10-2015 End: 06-10-2015 PFJena Estrada PA-C Work Phone: Start: 04-27-2015 End: 06-10-2015 *DEE Estrada PA-C Work Phone: Start: 04-27-2015 End: 06-10-2015 *DEE Estrada PA-C Work Phone: Start: 04-20-2015 End: 04-20-2015 *BMP Emeli Estrada PA-C Work Phone: Start: 04-20-2015 End: 04-20-2015 *DEE Estrada PA-C Work Phone: Start: 04-13-2015 End: 04-14-2015 Documentation of current medications Emeli Estrada PA-C Work Phone: Start: 04-13-2015 End: 04-13-2015 Follow Up Appt 1 month Emeli briggs PA-C Work Phone: Start: 04-13-2015 End: 04-27-2015 Follow Up Appt Other Emeli alex PA-C Work Phone: Start: 04-13-2015 End: 04-13-2015 MMJena Estrada PA-C Work Phone: Start: 04-13-2015 End: 04-14-2015 Documentation of current medications Emeli Estrada PA-C Work Phone: Start: 04-13-2015 End: 04-13-2015 Follow Up Appt 1 month Emeli briggs PA-C Work Phone: Start: 04-13-2015 End: 04-27-2015 Follow Up Appt Other Emeli alex PA-C Work Phone: Start: 04-13-2015 End: 04-13-2015 MMJena Estrada PA-C Work Phone: Start: 04-06-2015 End: 04-06-2015 *BMP Chicho Vernon MD Start: 04-06-2015 End: 04-07-2015 Documentation of current medications Chicho Vernon MD Start: 04-06-2015 End: 04-06-2015 Ecg routine ecg w/least 12 lds w/i&r Chicho Vernon MD Start: 04-06-2015 End: 04-06-2015 Follow Up Appt Other Chicho Vernon MD Start: 04-06-2015 End: 04-06-2015 MMM Chicho Vernon MD Start: 04-06-2015 End: 04-06-2015 *BMP Chicho Vernon MD Start: 04-06-2015 End: 04-07-2015 Documentation of current medications Chicho Vernon MD Start: 04-06-2015 End: 04-06-2015 Electrocardiogram, complete Chicho mays MD Start: 04-06-2015 End: 04-06-2015 Follow Up Appt Other Chicho Vernon MD Start: 04-06-2015 End: 04-06-2015 MMM Chicho Vernon MD Start: 02-24-2015 End: 02-24-2015 Ecg routine ecg w/least 12 lds w/i&r Chicho Vernon MD Start: 02-24-2015 End: 04-05-2015 Follow Up Appt 6 weeks Chicho Vernon MD Start: 02-24-2015 End: 04-05-2015 Follow Up Appt Other Chicho Vernon MD Start: 02-24-2015 End: 04-05-2015 MMM Chicho Vernon MD Start: 02-24-2015 End: 04-05-2015 Nuclear stress test -Lexiscan Chicho Vernon MD Start: 02-24-2015 End: 02-24-2015 Electrocardiogram, complete Chicho mays MD Start: 02-24-2015 End: 04-05-2015 Follow Up Appt 6 weeks Chicho Vernon MD Start: 02-24-2015 End: 04-05-2015 Follow Up Appt Other Chicho Vernon MD Start: 02-24-2015 End: 04-05-2015 MMM Chicho Vernon MD Start: 02-24-2015 End: 04-05-2015 Nuclear stress test -Lexiscan Chicho Vernon MD Cholecystectomy DR VÍCTOR FLNYN MD Destructive procedure DR ISHA SOUTH MD Plan of Treatment Date Care Activity Detail Author Start: 11-17-2030 Screening for malign ant neoplasm of colon [facility] Start: 10-16-2027 Lipid panel Lipid Panel [facility] Start: 02-06-2024 Creatinine measurement Creatinine [facility] Start: 02-06-2024 Potassium measurement Potassium Leve l [facility] Start: 10-16-2023 Creatinine measurement Creatinine [facility] Start: 10-16-2023 Potassium measurement Potassium Leve l [facility] Start: 09-19-2023 End: 09-19-2023 Patient encounter procedure [facility] Start: 05-10-2023 COVID-19 Vaccine ( season) COVID-19 Vaccine ( season) [facility] Start: 05-10-2023 Influenza vaccination Influenza Vacc ine (#1) [facility] Start: 03-19-2023 End: 03-19-2023 Patient encounter procedure 03/19/2023 Office Visit Family Medicine Ryan Canales, DO [address] [place] [address] [facility] Start: 02-08-2023 End: 02-08-2023 Patient encounter procedure 02/08/2023 Appointment Radiology [facility] Start: 02-05-2023 End: 02-06-2024 Bacteria identified in Urine by Culture Urine culture (clean catch) Microbiology Routine Hematuria, unspecified type Expected: 02/05/2023 (Approximate), Expires: 02/06/2024 [facility] Immunizations Immunization Date Immunization Notes Care Provider Fa cili 08-14-2022 influenza, high dose seasonal, preservative-free Ashleigh Tapia PA-C Work Phone: [facility] 08-14-2022 influenza virus vacc ine, unspecified formulation Ryan Canales DO Work Phone: [facility] 08-22-2021 Influenza, High-dose Seasonal, Quadrivalent, Preservative Free Ashleigh Tapia PA-C Work Phone: [facility] 07-06-2020 Influenza, High-dose , Quadv, 65 yrs +, IM (Fluzone) Jorgito Guerrero MD Work Phone: [facility] 06-17-2019 influenza, high dose seasonal, preservative-free Jorgito Guerrero MD Work Phone: [facility] 06-17-2019 Influenza, High-dose Seasonal, Quadrivalent, Preservative Free Ryan Canales DO Work Phone: [facility] 06-16-2018 influenza, high dose seasonal, preservative-free Jorgito Guerrero MD Work Phone: [facility] 06-10-2017 influenza, injectabl e, quadrivalent, contains preservative Jorgito Guerrero MD Work Phone: [facility] 06-10-2017 pneumococcal polysaccharide vaccine, 23 valent Jorgito Guerrero MD Work Phone: [facility] 11-28-2015 pneumococcal conjuga te vaccine, 13 valent Jorgito Guerrero MD Work Phone: [facility] Work Phone: 06-09-2015 influenza virus vacc ine, unspecified formulation Ashleigh Tapia PA-C Work Phone: [facility] 06-09-2015 influenza, seasonal, injectable Ryan Canales DO Work Phone: [facility] 06-09-2015 influenza, seasonal, injectable, preservative free Ryan Canales DO Work Phone: [facility] Payers Date Payer Category Payer Unknown 2018 Unknown [id number] 2015 Medicare [id number] 2015 Medicare MEDICARE MEDICAR E PART A AND B [id number] 2015-Present [address] [place] [address] Medicare [id number] Medicare [id number] Social History Date Type Detail Facility Start: 03-26-2021 End: 07-24-2021 Tobacco smoking status NHIS Never smoker [facility] Work Phone: Start: 03-26-2021 Tobacco use and exposure Never used [facility] Work Phone: Start: 03-26-2021 End: 03-19-2023 Alcohol intake Current drinker of alcohol (finding) [facility] Work Phone: Start: 03-26-2021 End: 03-19-2023 Alcohol intake [facility] Work Phone: Start: 12-19-2018 History SDOH Alcohol Frequency 2 [facility] Work Phone: Start: 12-19-2018 End: 03-15-2021 History SDOH Alcohol Std Drinks 1 [facility] Work Phone: Start: 12-19-2018 History SDOH Social Connections Yazdanism 3 [facility] Work Phone: Start: 12-19-2018 History SDOH Physica l Activity DPW 6 [facility] Work Phone: Start: 03-15-2021 History SDOH Financial 5 [facility] Work Phone: Start: 1950 Sex Assigned At Not on file S [facility] Work Phone: Start: 01-26-2023 End: 03-19-2023 Exposure to SARS-CoV-2 (event) Not sure [facility] Sex Assigned At [facility] Start: 02-05-2023 End: 03-19-[address] [facility] Clinical Notes 07-24-2021 to 09-04-2023 Telephone Encounter - Liliane Mullen MA - 09/04/2023 3:15 PM ESTTelephone Encounter - Liliane Mullen MA - 09/04/2023 3:15 PM ESTTelephone Encounter - Evi Wolf - 09/04/2023 2:39 PM EST Note Date & Type Note Facility 09-04-2023 Telephone encount er Note Sammi would like to know if Dr. Canales would be able to prescribe Patient something for back pain as they are moving and Patient has been lifting and they are in pain. Sammi declined nurse triage. Please advise. Rx loaded [facility] 09-04-2023 Miscellaneous Notes Formattin g of this note might be different from the original. Sammi would like to know if Dr. Canales would be able to prescribe Patient something for back pain as they are moving and Patient has been lifting and they are in pain. Sammi declined nurse triage. Please advise. Rx loaded Ordering provider: Dr. Canales Date of last office visit: 03/19/23 Date of next office visit: 09/19/22 Updated/Validated preferred pharmacy: Yes Patient instructed to contact the pharmacy prior to picking up the medication: Yes (1) Medication name: metoprolol tartrate (Lopressor) 50 MG tablet Medication dosage: 50 mg (Miligrams Monthly quantity needed: 60 How many day supply requestin days Medication route: oral (PO) Medication administration time(s): 2 times a day (BID) If taking medication PRN, reason for taking medication: N/A If this is a controlled substance do you receive this or any other controlled medication from any other doctor or facility: N/A Date of last refill (see medication tab): 03/19/23 (2) Medication name: atorvastatin (Lipitor) 10 MG tablet Medication dosage: 10 mg (Miligrams Monthly quantity needed: 30 How many day supply requestin days Medication route: oral (PO) Medication administration time(s): daily If taking medication PRN, reason for taking medication: N/A If this is a controlled substance do you receive this or any other controlled medication from any other doctor or facility: N/A Date of last refill (see medication tab): 03/19/23 (3) Medication name: furosemide (Lasix) 40 MG tablet Medication dosage: 40 mg (Miligrams Monthly quantity needed: 60 How many day supply requestin days Medication route: oral (PO) Medication administration time(s): 2 times a day (BID) If taking medication PRN, reason for taking medication: N/A If this is a controlled substance do you receive this or any other controlled medication from any other doctor or facility: N/A Date of last refill (see medication tab): 05/20/23 (4) Medication name: sertraline (Zoloft) 50 MG tablet Medication dosage: 50 mg (Miligrams Monthly quantity needed: 30 How many day supply requestin days Medication route: oral (PO) Medication administration time(s): daily If taking medication PRN, reason for taking medication: N/A If this is a controlled substance do you receive this or any other controlled medication from any other doctor or facility: N/A Date of last refill (see medication tab): 03/19/23 (5) Medication name: amLODIPine (Norvasc) 10 MG tablet Medication dosage: 10 mg (Miligrams Monthly quantity needed: 30 How many day supply requestin days Medication route: oral (PO) Medication administration time(s): daily If taking medication PRN, reason for taking medication: N/A If this is a controlled substance do you receive this or any other controlled medication from any other doctor or facility: N/A Date of last refill (see medication tab): 03/19/23 Sammi would like to know if Dr. Canales would be able to prescribe Patient something for back pain as they are moving and Patient has been lifting and they are in pain. Sammi declined nurse triage. Please advise. documented in this encounter [facility] 09-04-2023 Telephone encount er Note Ordering provider: Dr. Canales Date of last office visit: 03/19/23 Date of next office visit: 09/19/22 Updated/Validated preferred pharmacy: Yes Patient instructed to contact the pharmacy prior to picking up the medication: Yes (1) Medication name: metoprolol tartrate (Lopressor) 50 MG tablet Medication dosage: 50 mg (Miligrams Monthly quantity needed: 60 How many day supply requestin days Medication route: oral (PO) Medication administration time(s): 2 times a day (BID) If taking medication PRN, reason for taking medication: N/A If this is a controlled substance do you receive this or any other controlled medication from any other doctor or facility: N/A Date of last refill (see medication tab): 03/19/23 (2) Medication name: atorvastatin (Lipitor) 10 MG tablet Medication dosage: 10 mg (Miligrams Monthly quantity needed: 30 How many day supply requestin days Medication route: oral (PO) Medication administration time(s): daily If taking medication PRN, reason for taking medication: N/A If this is a controlled substance do you receive this or any other controlled medication from any other doctor or facility: N/A Date of last refill (see medication tab): 03/19/23 (3) Medication name: furosemide (Lasix) 40 MG tablet Medication dosage: 40 mg (Miligrams Monthly quantity needed: 60 How many day supply requestin days Medication route: oral (PO) Medication administration time(s): 2 times a day (BID) If taking medication PRN, reason for taking medication: N/A If this is a controlled substance do you receive this or any other controlled medication from any other doctor or facility: N/A Date of last refill (see medication tab): 05/20/23 (4) Medication name: sertraline (Zoloft) 50 MG tablet Medication dosage: 50 mg (Miligrams Monthly quantity needed: 30 How many day supply requestin days Medication route: oral (PO) Medication administration time(s): daily If taking medication PRN, reason for taking medication: N/A If this is a controlled substance do you receive this or any other controlled medication from any other doctor or facility: N/A Date of last refill (see medication tab): 03/19/23 (5) Medication name: amLODIPine (Norvasc) 10 MG tablet Medication dosage: 10 mg (Miligrams Monthly quantity needed: 30 How many day supply requestin days Medication route: oral (PO) Medication administration time(s): daily If taking medication PRN, reason for taking medication: N/A If this is a controlled substance do you receive this or any other controlled medication from any other doctor or facility: N/A Date of last refill (see medication tab): 03/19/23 Sammi would like to know if Dr. Canales would be able to prescribe Patient something for back pain as they are moving and Patient has been lifting and they are in pain. Sammi declined nurse triage. Please advise. [facility] 03-19-2023 History of Presen t illness Narrative Images from the original note were not included. [facility] [address] [facility] [address] Visit type: Established Patient Reason for Visit: Follow-up (6 month med check) Assessment / Plan: Rylie was seen today for follow-up. Diagnoses and all orders for this visit: Primary hypertension (Primary) Comments: Stable, cleaned up records. Changed back to metoprolol tartrate 50 twice daily and continue Lasix and amlodipine Chronic diastolic (congestive) heart failure (HCC) Morbid obesity (HCC) Anxiety associated with depression Hypercholesteremia History of hematuria Comments: Resolved, unsure of etiology, urged to follow-up with urology if with any recurrence Other orders - amLODIPine (Norvasc) 10 MG tablet; Take 1 tablet (10 mg) by mouth daily. - atorvastatin (Lipitor) 10 MG tablet; Take 1 tablet (10 mg) by mouth daily. - furosemide (Lasix) 40 MG tablet; Take 1 tablet (40 mg) by mouth 2 times daily. - sertraline (Zoloft) 50 MG tablet; Take 1 tablet (50 mg) by mouth daily. - metoprolol tartrate (Lopressor) 50 MG tablet; Take 1 tablet (50 mg) by mouth 2 times daily for 180 doses. Subjective: Patient ID: Rylie Moctezuma is a 72 y.o. male. HPI hypertensive non-smoker with history of atrial fibrillation on Coumadin presents for follow-up on blood pressure. Of note had gross hematuria about 6 weeks ago. Normal ultrasound of the renals and urine culture showed mixed colonies. Resolved after Keflex. Recent urology checkup for prostate cancer surveillance was unremarkable. No cystoscopy recommended. Review of Systems Feeling well. Yesterday's INR was in the 2 range. PSA apparently undetectable. Those lab results will be acquired. He feels well. Blood pressure well at home. No chest pain palpitations PND orthopnea or change in mild leg edema. No heartburn or dysphagia. No melena or blood. No dysuria or hematuria. No change in chronic low back pain and right foot weakness. On gabapentin for pain management. Had adverse effects with urinary incontinence with most recent epidural nerve block. Colonoscopy up-to-date. Due in 3 years. Family history of colon and prostate cancer noted Current Outpatient Medications on File Prior to Visit Medication Sig Dispense Refill acetaminophen (Tylenol) 160 MG/5ML suspension Take 650 mg by mouth. gabapentin (Neurontin) 300 MG capsule TAKE 1 CAPSULE BY MOUTH DURING THE DAY NEEDED AND 2 CAPSULES AT BEDTIME DIRECTED potassium chloride CR (Klor-Con M20) 20 MEQ ER tablet Take 1 tablet by mouth 2 times daily. triamcinolone (Kenalog) 0.1 % cream Apply to affected area 1-2 times daily as needed. Avoid face and groin. 80 g 2 warfarin (Coumadin) 5 MG tablet TAKE 1 & 1/2 (ONE & ONE-HALF) TABLETS BY MOUTH ONCE DAILY AND 1 TABLET ON SATURDAY DIRECTED [DISCONTINUED] amLODIPine (Norvasc) 10 MG tablet Take 1 tablet (10 mg) by mouth daily. 90 tablet 1 [DISCONTINUED] atorvastatin (Lipitor) 10 MG tablet Take 1 tablet (10 mg) by mouth daily. 90 tablet 1 [DISCONTINUED] furosemide (Lasix) 40 MG tablet Take 1 tablet (40 mg) by mouth 2 times daily. 90 tablet 1 [DISCONTINUED] metoprolol succinate XL (Toprol-XL) 50 MG 24 hr tablet One BID 180 tablet 1 [DISCONTINUED] sertraline (Zoloft) 50 MG tablet Take 1 tablet (50 mg) by mouth daily. 90 tablet 1 No current facility-administered medications on file prior to visit. Patient Active Problem List Diagnosis Family history of prostate cancer in father Family history of colon cancer in mother RLS (restless legs syndrome) History of atrial fibrillation Morbid obesity (HCC) Acquired right foot drop Knee osteoarthritis History of prostate cancer Anxiety associated with depression Allergic rhinitis Hypertension ED (erectile dysfunction) Radiation proctitis JONATHAN on CPAP Fatty liver Lumbar degenerative disc disease Anticoagulant long-term use Chronic diastolic (congestive) heart failure (HCC) Social History Tobacco Use Smoking status: Never Smokeless tobacco: Never Substance Use Topics Alcohol use: Yes Alcohol/week: 0.0 standard drinks of alcohol Past Surgical History: Procedure Laterality Date ABLATION OF DYSRHYTHMIC FOCUS 03/2017 [place] CHOLECYSTECTOMY 1999 COLONOSCOPY 2010 COLONOSCOPY 2014 LGI bleed w/u per Dr. South COLONOSCOPY 11/[address] South COLONOSCOPY 07/2021 adenomatous polyp- Dr. South- rech 2025 LUMBAR SPINE SURGERY 2016 L4/5 decomp- pain mgt per Pedro Guevara LUNG BIOPSY 2005 hemoptysis-fungus ORIF HUMERUS DECOMPRESSION Left 1981 Family History Problem Relation Name Age of Onset Colon cancer Mother Tess age 82 Prostate cancer Father Ethan Diabetes Father Ethan Coronary artery disease Father Ethan chf , age 85 Arrhythmia Sister No Known Problems Sister No Known Problems Sister No Known Problems Sister No Known Problems Brother Gurinder Objective: BP 128/72 Pulse 60 Temp 36.8 C (98.2 F) (Temporal) Ht 6' 1 (1.854 m) Wt (!) 352 lb (160 kg) SpO2 96% BMI 46.44 kg/m Physical Exam He appears well. Recheck blood pressure excellent. Well-hydrated. Nonicteric. No JVD adenopathy carotid bruits. No thyroid or neck masses. Heart is regular. Lungs are clear. Abdomen obese nontender without pain hepatosplenomegaly masses bruits or ascites. Extremities are pink without appreciable edema. Right foot drop is unchanged. Left lower extremity strength is pretty fair. Reviewed recent urine culture, renal ultrasound, cardiology and urology notes. documented in this encounter [facility] 03-19-2023 Instructions Ryan Canales DO - 03/19/2023 12:30 PM EDT Call Urologist for checkup if bloody urine recurs again documented in this encounter [facility] 02-05-2023 History of Presen t illness Narrative Images from the original note were not included. [facility] [address] [facility] [address] Dept: [phone] Dept Loc: [phone] Visit type: Established Patient Reason for Visit: Blood in Urine (Since Saturday little back pain in the morning ) Assessment and Plan 1. Hematuria, unspecified type Comments: Acute in onset of unclear etiology microscopic shows leukocytes, blood and bilirubin will be sent off for formal culture and evaluation Orders: - AMB POC URINE DIP STICK MANUAL W/O MICRO - Protime-INR - Urinalysis with reflex microscopic (clean catch) - Urine culture (clean catch) - US retroperitoneum - cephalexin (Keflex) 500 MG capsule; Take 1 capsule (500 mg) by mouth 2 times daily for 7 days., Starting Sat02/05/2023, Until Sat02/12/2023, Normal 2. Periumbilical abdominal pain Comments: Acute nonspecific currently asymptomatic no signs of acute peritonitis or signs of acute surgical abdomen Orders: - Comprehensive metabolic panel - CBC auto differential Follow up if symptoms worsen or fail to improve, for Next scheduled follow-up. Subjective HPI This is a 72 yo male with h/o HTN, radiation proctitis, (prostate CA), morbid obesity, history of atrial fib on chronic anticoagulation (Coumadin) who contacted the [facility] 5 days ago for sensation of heart fluttering as well as blood in his urine. Symptoms started Saturday, states he was having some neck pain so he used a vibrating massaging device on his neck he states when he was done he accidentally laid on his abdomen and felt pretty good laying on his abdomen so he just left it there he states he then noticed Saturday evening started urinating some blood. Currently taking coumadin was seeing Dr. Vernon, last coumadin level was 3 weeks ago, 2.2, at [facility], No current urinary symptoms, denies any frequency urgency or burning with urination. He did state he occasionally gets some abdominal pain around the umbilicus but is not currently experiencing any abdominal pain he is scheduled to see his urologist on the of this month. There have been no changes to any medications nothing new or different. He currently denies any abdominal pain denies any melena hematochezia or dark tarry stools states his bowel movements are normal. He is already had his gallbladder removed in year 1999. is concerned she accident pending historian as well offering information states she was concerned given his history of prostate cancer with sudden onset of gross hematuria that there is an issue with his kidneys or concerns kidney cancer Review of Systems Constitutional: Negative for chills and fever. HENT: Negative for congestion and sore throat. Respiratory: Negative for cough and shortness of breath. Cardiovascular: Negative for chest pain. Gastrointestinal: Positive for abdominal pain (Intermittent nonspecific). Negative for anal bleeding, blood in stool, diarrhea, nausea and vomiting. Genitourinary: Positive for hematuria. Negative for decreased urine volume, difficulty urinating, dysuria, flank pain, frequency, penile discharge, penile pain, penile swelling, scrotal swelling, testicular pain and urgency. Musculoskeletal: Negative for back pain and neck pain. Neurological: Negative for dizziness and light-headedness. All other systems reviewed and are negative. Allergies Allergen Reactions Iodine Anaphylaxis Outpatient Medications Prior to Visit Medication Sig Dispense Refill acetaminophen (Tylenol) 160 MG/5ML suspension Take 650 mg by mouth. amLODIPine (Norvasc) 10 MG tablet Take 1 tablet (10 mg) by mouth daily. 90 tablet 1 atorvastatin (Lipitor) 10 MG tablet Take 1 tablet (10 mg) by mouth daily. 90 tablet 1 furosemide (Lasix) 40 MG tablet Take 1 tablet (40 mg) by mouth 2 times daily. 90 tablet 1 gabapentin (Neurontin) 300 MG capsule TAKE 1 CAPSULE BY MOUTH DURING THE DAY NEEDED AND 2 CAPSULES AT BEDTIME DIRECTED metoprolol succinate XL (Toprol-XL) 50 MG 24 hr tablet One BID 180 tablet 1 potassium chloride CR (Klor-Con M20) 20 MEQ ER tablet Take 1 tablet by mouth 2 times daily. sertraline (Zoloft) 50 MG tablet Take 1 tablet (50 mg) by mouth daily. 90 tablet 1 triamcinolone (Kenalog) 0.1 % cream Apply to affected area 1-2 times daily as needed. Avoid face and groin. 80 g 2 warfarin (Coumadin) 5 MG tablet TAKE 1 & 1/2 (ONE & ONE-HALF) TABLETS BY MOUTH ONCE DAILY AND 1 TABLET ON SATURDAY DIRECTED No facility-administered medications prior to visit. Past Medical History: Diagnosis Date A-fib (CMS/HCC) (HCC) 02/2015 Dr. Vernon -nml ECHO, EF- ablation 03/25 Acquired right foot drop 2015 residual after Lumbar OR Allergic rhinitis Anxiety associated with depression ED (erectile dysfunction) Essential hypertension 1987 neg heart cath 11/22 Family history of colon cancer in mother Family history of prostate cancer in father Fatty liver H/O colonoscopy with polypectomy 07/2021 Dr. South- adenomatous polyp - due 2025 History of cardiac radiofrequency ablation 03/2017 History of prostate cancer 2009 Madhuri/ aRmiro/ Flor---rads implant-PSA 08/29 Hypercholesteremia 06/2019 lipitor rx Knee osteoarthritis Lumbar spinal stenosis 2014 Or 12/[address] Chuy Turcios for epidural NB JONTAHAN on CPAP Pedro [employer] Radiation proctitis 2012 RLS (restless legs syndrome) 2018 Gabapentin prescription followed by Dr. Higginbotham, Neurologist Social History Tobacco Use Smoking status: Never Smokeless tobacco: Never Substance Use Topics Alcohol use: Yes Alcohol/week: 0.0 standard drinks Past Surgical History: Procedure Laterality Date ABLATION OF DYSRHYTHMIC FOCUS 03/2017 [place] CHOLECYSTECTOMY 1999 COLONOSCOPY 2010 COLONOSCOPY 2014 LGI bleed w/u per Dr. South COLONOSCOPY 11/[address] South COLONOSCOPY 07/2021 adenomatous polyp- Dr. South- rech 2025 LUMBAR SPINE SURGERY 2016 L4/5 decomp- pain mgt per Pedro Guevara LUNG BIOPSY 2005 hemoptysis-fungus ORIF HUMERUS DECOMPRESSION Left 1981 Family History Problem Relation Name Age of Onset Colon cancer Mother Tess age 82 Prostate cancer Father Ethan Diabetes Father Ethan Coronary artery disease Father Ethan chf , age 85 Arrhythmia Sister No Known Problems Sister No Known Problems Sister No Known Problems Sister No Known Problems Brother Gurinder Objective BP 134/69 (BP Location: Left arm, Patient Position: Sitting, BP Cuff Size: Large adult) Pulse 55 Temp 36.5 C (97.7 F) (Temporal) Ht 6' 1 (1.854 m) Wt (!) 340 lb (154 kg) SpO2 96% BMI 44.86 kg/m Physical Exam Vitals reviewed. Constitutional: General: He is not in acute distress. Appearance: Normal appearance. He is obese. He is not ill-appearing, toxic-appearing or diaphoretic. Eyes: General: No scleral icterus. Conjunctiva/sclera: Conjunctivae normal. Pupils: Pupils are equal, round, and reactive to light. Cardiovascular: Rate and Rhythm: Normal rate and regular rhythm. Heart sounds: Normal heart sounds. Pulmonary: Effort: Pulmonary effort is normal. No respiratory distress. Breath sounds: Normal breath sounds. No wheezing or rales. Abdominal: General: There is no distension. Palpations: Abdomen is soft. There is no mass. Tenderness: There is no abdominal tenderness. There is no guarding or rebound. Hernia: No hernia is present. Musculoskeletal: Cervical back: Normal range of motion and neck supple. Right lower leg: No edema. Left lower leg: No edema. Skin: General: Skin is warm and dry. Coloration: Skin is not pale. Neurological: Mental Status: He is alert. Psychiatric: Mood and Affect: Mood normal. Data Reviewed and Summarized Labs: Imaging/Testing: Ashleigh Tapia PA-C 02/05/2023 Please note that portions of this note may have been completed with voice recognition software. Documentation reviewed prior to signing but minor errors in keying machine operator may have occurred. documented in this encounter [facility] [employer] 02-05-2023 Instructions Ashleigh Tapia PA-C - 02/05/2023 10:40 AM EDT A us of your kidneys has been ordered for you. Central scheduling should reach out to you within the next several days to schedule this appropriately. If you do not hear from central scheduling within the next several days please do not wait more than 1 week. Reach out to central scheduling to verify that the test has been ordered and to get it scheduled. Their number is [phone]. documented in this encounter [facility] ADMISSION HISTORY A ND PHYSICIAL CHIEF COMPLAINT: HISTORY OF PRESENT ILLNESS: REVIEW OF SYSTEMS: ACTIVE PROBLEMS: (3) Prostate ca ([id number]) Rectal bleeding ([id number]) Sleep apnea ([id number]) MEDICATIONS: Active Inpt Meds: None Active PRN Meds: None One Time Meds: None Active IV Meds: Lactated Ringers Infusion 1,000 mL (LR 1,000 mL) Start: 07/24/21 9:08:00 EST, Rate: 50 mL/hr ALLERGIES: (1) iodine topical FAMILY HISTORY: SOCIAL HISTORY: PHYSICAL EXAM: VITALS: [id number](kg) 07/24 09:0336.8156/[id number]/22693.0 24 Hr Tmax: 36.8 at 07/24 09:03 36 Hr Tmax: 36.8 at 07/24 09:03 Vital Signs are the last 5 in the past 48 hours. Weights display the last 5 within 7 days. Initial Wt: 07/24 150.0 kg 330 lb Current Wt: 07/24 150.0 kg 330 lb GENERAL: HEENT: CARDIOVASCULAR: RESPIRATORY: ABDOMEN: EXREMETIES: NEUROLOGICAL: PSYCHIATRIC: LABS: No 36hr Lab Data DIAGNOSTICS: IMPRESSION: PLAN: History and Physical Update I have examined the patient; reviewed the H&P and there are no changes to the H&P unless noted below. [facility] 11-15-2021 Hospital Discharge instructions Patient Education 07/24/2021 10:21:48 Monitored Anesthesia Care, Care After Monitored Anesthesia Care, Care After These instructions provide you with information about caring for yourself after your procedure. Your health care provider may also give you more specific instructions. Your treatment has been plannedaccording to current medical practices, but problems sometimes occur. Call your health care provider if you have any problems or questions after your procedure. What can I expect after the procedure? After your procedure, you may: Feel sleepy for several hours. Feel clumsy and have poor balance for several hours. Feel forgetful about what happened after the procedure. Have poor judgment for several hours. Feel nauseous or vomit. Have a sore throat if you had a breathing tube during the procedure. Follow these instructions at home: For at least 24 hours after the procedure: Have a responsible adult stay with you. It is important to have someone help care for you until youare awake and alert. Rest as needed. Do not: ?Participate in activities in which you could fall or become injured. ?Drive. ?Use heavy machinery. ?Drink alcohol. ?Take sleeping pills or medicines that cause drowsiness. ?Make important decisions or sign legal documents. ?Take care of children on your own. Eating and drinking Follow the diet that is recommended by your health care provider. If you vomit, drink water, juice, or soup when you can drink without vomiting. Make sure you have little or no nausea before eating solid foods. General instructions Take bghs-joz-whzwruk and prescription medicines only as told by your health care provider. If you have sleep apnea, surgery and certain medicines can increase your risk for breathing problems. Follow instructions from your health care provider about wearing your sleep device: ?Anytime you are sleeping, including during daytime naps. ?While taking prescription pain medicines, sleeping medicines, or medicines that make you drowsy. If you smoke, do not smoke without supervision. Keep all follow-up visits as told by your health care provider. This is important. Contact a health care provider if: You keep feeling nauseous or you keep vomiting. You feel light-headed. You develop a rash. You have a fever. Get help right away if: You have trouble breathing. Summary For several hours after your procedure, you may feel sleepy and have poor judgment. Have a responsible adult stay with you for at least 24 hours or until you are awake and alert. This information is not intended to replace advice given to you by your health care provider. Make sure you discuss any questions you have with your health care provider. Document Released: 12/16/2016 Document Revised: 11/24/2018 Document Reviewed: 12/16/2016 Definition 6 Patient Education 2020 [employer]. 07/24/2021 10:21:48 Flexible Sigmoidoscopy, Care After Flexible Sigmoidoscopy, Care After This sheet gives you information about how to care for yourself after your procedure. Your health care provider may also give you more specific instructions. If you have problems or questions, contact your health care provider. What can I expect after the procedure? After the procedure, it is common to have: Abdominal cramping or pain. Bloating. A small amount of rectal bleeding if you had a biopsy. Follow these instructions at home: Take bgcj-amz-cxdqvul and prescription medicines only as told by your health care provider. Do not drive for 24 hours if you received a medicine to help you relax (sedative). Keep all follow-up visits as told by your health care provider. This is important. Contact a health care provider if: You have abdominal pain or cramping that gets worse or is not helped with medicine. You continue to have small amounts of rectal bleeding after 24 hours. You have nausea or vomiting. You feel weak or dizzy. You have a fever. Get help right away if: You pass large blood clots or see a large amount of blood in the toilet after having a bowel movement. You have nausea or vomiting for more than 24 hours after the procedure. This information is not intended to replace advice given to you by your health care provider. Make sure you discuss any questions you have with your health care provider. Document Released: 08/31/2014 Document Revised: 04/18/2017 Document Reviewed: 11/24/2016 Definition 6 Patient Education 2020 [employer]. Follow Up Care 07/14/2021 07:50:16 With:VÍCTOR SOUTH MD Address: [phone] When: Unknown Comments:office will call with specimen result [facility] Evaluation note* Diagnosis Head injury, initial encounter- Primary Neck sprain, initial encounter Bradycardia Other specified cardiac dysrhythmias documented in this encounter [facility] Work Phone: Evaluation note* Diagnosis Hematuria, unspecified type- Primary Periumbilical abdominal pain Abdominal pain, periumbilic [facility]* Diagnosis Hematuria, unspecified type documented in this encounter [facility] note* Diagnosis Primary hypertension- Primary Unspecified essential hypertension Chronic diastolic (congestive) heart failure (HCC) Morbid obesity (HCC) Morbid obesity Anxiety associated with depression Dysthymic disorder Hypercholesteremia Pure hypercholesterolemia History of hematuria Personal history of other disorder of urinary system [facility] N[facility] No data available for this section [facility] Hospital Discharge instructions* Instructions* Jorgito Guerrero MD - 04/14/2021 Decrease metoprolol XL to 50 mg daily * Attachments The following attachments cannot be sent through Care Everywhere. * Head Injury: Closed: General Info (Micronesian) [facility] Summary Purpose Family History No Family History Records FoundNo Family History Records FoundNo Family History Records FoundNo Family History Records FoundNo Family History Records FoundNo Family History Records Found Advance Directives No Advanced Directives Records FoundDocuments on File Type Date Recorded Patient Communications Manager Expl anation ACP-Advance Directive ACP-Power of Flame Cutting Supervisor Additional Source Comments (unrecognized sect ion and content) No Status Records FoundNo Status Records FoundNo Status Records FoundNo Status Records FoundNo Status Records FoundNo Status Records Found INFORMATION SOURCE (unrecogn ized section and content) DATE CREATED AUTHOR AUTHOR'S ORGANIZ ATION 03/05/2018 [facility] DATE CREATED AUTHOR AUTHOR'S ORGANIZ ATION 08/18/2018 [facility] DATE CREATED AUTHOR AUTHOR'S ORGANIZ ATION 04/17/2021 [facility] DATE CREATED AUTHOR AUTHOR'S ORGANIZ ATION 08/02/2021 [facility] ([place]) DATE CREATED AUTHOR AUTHOR'S ORGANIZ ATION 09/06/2023 [facility] Reason for Visit (unrecogniz ed section and content) Reason Comments Blood in Urine Since Saturday little back pain in the morning Reason Comments Follow-up 6 month med check Reason Comments Med Refill Reason Onset Date Comments Med Refill 09/04/2023 Multiple medicat ions New Med Request 09/04/2023 Scheduled Active and Recently Administ ered Medications (unrecognized section and content) Care Teams (unrecognized sec tion and content) Picker And Packer Relationship Specialty Start Date End Date Ryan Canales DO [address] [place] [id number] PCP - General 02/07/19 Picker And Packer Relationship Specialty Start Date End Date Ryan Canales DO [address] [place] [address] PCP - General 02/07/19 Picker And Packer Relationship Specialty Start Date End Date Ryan Canales DO [address] [place] [address] PCP - General 02/07/19 Picker And Packer Relationship Specialty Start Date End Date Ryan Canales DO [address] [facility] [address] [place] [address] PCP General 02/07/19 FOR RECORDS PERTAINING TO PATIENTS WHO ARE OR HAVE BEEN ENROLLED IN A CHEMICAL DEPENDENCY/SUBSTANCEABUSE PROGRAM, SOME INFORMATION MAY BE OMITTED. This clinical summary was aggregated from multiple sources. Caution should be exercised in using it in the provision of clinical care. This summary normalizes information from multiple sources, and as a consequence, information in this document may materially change the coding, format and clinical context of patient data. In addition, data may be omitted in some cases. CLINICAL DECISIONS SHOULD BE BASED ON THE PRIMARY CLINICAL RECORDS. [facility] [employer] [facility]. provides no warranty or guarantee of the accuracy or completeness of information in this document.
--- NOTE | 2023-09-14 02:58 | CT_ITS ---
INDICATION: pain EXAMINATION: CT THORACIC AND LUMBAR SPINE TECHNIQUE: Helically acquired images were obtained of the thoracic and lumbar spine with sagittal and coronal reconstructed images. Individualized dose optimization techniques were used for this CT. IV Contrast dosage and agent: None. COMPARISON: 07/09/2022 lumbar spine x-rays and 03/06/2022 CT abdomen/pelvis. FINDINGS: --Thoracic Spine: VERTEBRAE: No fracture or subluxation. Moderate to severe degenerative change. SOFT TISSUES: The paravertebral soft tissues are unremarkable. LUNGS/MEDIASTINUM: Visualized lungs and mediastinum are unremarkable. --Lumbar Spine: VERTEBRAE: No acute fracture or subluxation. Stable mild compression fracture of the L1 vertebral body. Severe degenerative changes. Stable postsurgical changes. SOFT TISSUES: The paravertebral soft tissues are unremarkable. ABDOMEN/PELVIS: Visualized abdomen and pelvis are unremarkable. CT/Spine Lumbar without Contrast IMPRESSION: Severe degenerative changes with no acute abnormality of the thoracic or lumbar spine. Electronically Signed: Roby Julien DO at 4:33 EST ,
--- NOTE | 2023-09-14 02:58 | CT_ITS ---
INDICATION: pain EXAMINATION: CT THORACIC AND LUMBAR SPINE TECHNIQUE: Helically acquired images were obtained of the thoracic and lumbar spine with sagittal and coronal reconstructed images. Individualized dose optimization techniques were used for this CT. IV Contrast dosage and agent: None. COMPARISON: 07/09/2022 lumbar spine x-rays and 03/06/2022 CT abdomen/pelvis. FINDINGS: --Thoracic Spine: VERTEBRAE: No fracture or subluxation. Moderate to severe degenerative change. SOFT TISSUES: The paravertebral soft tissues are unremarkable. LUNGS/MEDIASTINUM: Visualized lungs and mediastinum are unremarkable. --Lumbar Spine: VERTEBRAE: No acute fracture or subluxation. Stable mild compression fracture of the L1 vertebral body. Severe degenerative changes. Stable postsurgical changes. SOFT TISSUES: The paravertebral soft tissues are unremarkable. ABDOMEN/PELVIS: Visualized abdomen and pelvis are unremarkable. CT/Spine Thoracic without Contras IMPRESSION: Severe degenerative changes with no acute abnormality of the thoracic or lumbar spine. Electronically Signed: Roby Julien DO at 4:33 EST ,
[2023-09-14] MEDS: Ondansetron ODT 4 MG Tablet PO (03:14)
[2023-09-14] MEDS: Orphenadrine 60 MG/2 ML Ampul IM (03:15)
[2023-09-14] MEDS: Morphine 4 MG/ML Syringe 8 MG IM (03:15)
[2023-09-14 03:20] VITALS: BMI 45.6
--- NOTE | 2023-09-14 04:44 | EDS_ITS ---
HPI History of Present Illness Chief Complaint: Back Informant: patient and spouse/S.O. Narrative Narrative: Patient is a 72-year-old male with past medical history of spinal stenosis as well as hypertension and paroxysmal A-fib currently on Coumadin. He states that he has been doing a lot of manual work over the last few weeks and was doing a lot of lifting. He states that there was no sudden onset of pain with a lifting motion but that it developed hours later. He states as the weeks of past he has had worsening of his pain that makes it difficult to get around. He states has been no loss of bowel or bladder control and he denies any IV drug use. 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 (current) use of anticoagulants Obstructive sleep apnea Paroxysmal atrial fibrillation Vertigo Home Medications amlodipine 10 mg tablet 10 mg PO DAILY #90 tabs 02/19/15 [Rx Last Taken 05/10/16 ] furosemide 40 mg tablet 40 mg PO BID 08/23/17 [History Last Taken Unknown] atorvastatin 10 mg tablet 10 mg PO DAILY 07/13/20 [History Last Taken Unknown] gabapentin 300 mg capsule 300 mg PO .COMPLEX 07/13/20 [History Last Taken Unknown] metoprolol tartrate 50 mg tablet 50 mg PO BID 07/13/20 [History Last Taken Unknown] sertraline 50 mg tablet 50 mg PO DAILY 07/13/20 [History Last Taken Unknown] warfarin 5 mg tablet 5 mg PO .COMPLEX 90 days #180 tabs 10/23/22 [Rx Last Taken Unknown] potassium chloride 20 mEq tablet,extended release(part/cryst) 40 meq (2 x 20 mEq) PO QDAY #180 tabs 03/22/23 [Rx Last Taken Unknown] methocarbamol 500 mg tablet 500 mg PO 4X/DAY PRN PRN Muscle pain/spasm 10 days #40 tabs 09/14/23 [Rx Last Taken Unknown] oxycodone-acetaminophen 5 mg-325 mg tablet (Percocet) 1 tab PO Q6H PRN pain 3 days #12 tabs 09/14/23 [Rx Last Taken Unknown] Allergy/AdvReac Type Severity Reaction Status Date / Time iodine Allergy Intermediate rash Verified 09/14/23 01:42 Family History Father CAD (coronary artery disease) Mother Colon cancer Sister Atrial fibrillation Sleep apnea Sister Sleep apnea Hypertension Surgical History History of cholecystectomy History of lumbar surgery Status post catheter ablation of atrial fibrillation (~04/10/17) Social History Smoking Status: Never smoker alcohol intake: current alcohol intake frequency: holidays/special occasions only caffeine: Yes Type: coffee Number of servings: 1 ROS ROS ED Constitutional Constitutional ED: Denies chills or fever(s) ENT ENT ED: Denies sore throat Cardiovascular Cardiovascular: Denies chest pain Respiratory/Chest Respiratory/Chest: Denies cough or dyspnea Gastrointestinal Gastrointestinal: Denies abdominal pain, diarrhea, nausea or vomiting Genitourinary Genitourinary ED: Denies dysuria or hematuria Musculoskeletal Musculoskeletal: Reports back pain Integumentary Denies rash Neurologic Neurologic: Denies headache(s) Hematologic/Lymphatic Hematologic/Lymphatic: Reports easy bleeding and easy bruising EXAM Physical Exam Const Vital Signs: 09/14/23 01:36 Temperature 97.8 F Temperature Source Temporal Pulse Rate 59 L Respiratory Rate 18 Blood Pressure 154/70 H Blood Pressure Mean 98 Pulse Ox 97 Oxygen Delivery Method Room Air Positive well nourished, well developed and obese General Appearance ED: well developed Nutritional Appearance: obese HEENT HEENT Narrative: Normocephalic atraumatic Eyes PERRL and EOMs intact bilaterally Neck supple Resp normal respiratory effort and clear to auscultation bilaterally Cardio regular rate and regular rhythm Rate: other Other Details: Radial and carotid pulses are equal and symmetric GI normal to inspection, nondistended, normoactive bowel sounds, non-tender, non- distended and no masses GI Narrative: No voluntary guarding or rigidity No pulsatile mass or fluid wave Auscultation: normoactive bowel sounds Palpation: soft Back/Spine Back/Spine Narrative: No bony deformity or step-off of the thoracic or lumbar spine the patient does have midline pain on palpation along the lower thoracic and upper lumbar regions No saddle anesthesia. Negative straight leg raise. No clonus or Babinski. Patellar reflexes are plus 1 out of 4 bilaterally. Negative KANDACE sign There is also mild tension and spasm noted along the right paralumbar muscle belly region that worsens with extension and rotation Extremity normal to inspection Neuro oriented x3, CN's II-XII intact bilaterally and no sensory deficits noted Sensorium / Orientation: alert Psych mental status grossly normal Skin no rashes or lesions noted Skin Narrative: No overlying soft tissue changes to suggest trauma or infection MDM MDM MDM Narrative Medical decision making narrative: Patient presented to the ER hypertensive otherwise with stable vitals. He reported approximately 3 weeks of increasing back pain after doing lifting. He denied loss of bowel or bladder control which goes against cauda equina and he denies any IV drug use going against epidural abscess. There is no overlying soft tissue changes to suggest infectious process such as shingles cellulitis or abscess. He denies any urinary complaints to suggest pyelonephritis or kidney stone or UTI. As he does have midline pain there was concern for potential compression fracture so I elected to perform CT scans as he does have a known history of spinal stenosis and previous surgery. CT scans revealed a stable L1 fracture which is apparently old and multiple arthritic/degenerative changes consistent with his history. After being medicated he had improvement of pain. At this time I feel that his pain is most likely related to his chronic degeneration as well as lumbosacral strain and as the reported L1 fracture is old or stable without retropulsion there is no need for emergent orthopedic/spine consultation and he can be discharged home with symptomatic medications History & Record Review Discussion w/independent historian: Patient and Significant other Radiography Diagnostic Testing: Clinical Impression(s) from Imaging Studies Lumbar Spine CT 09/14/23 02:58 IMPRESSION: Severe degenerative changes with no acute abnormality of the thoracic or lumbar spine. Electronically Signed: Roby Julien DO at 4:33 EST , Thoracic Spine CT 09/14/23 02:58 IMPRESSION: Severe degenerative changes with no acute abnormality of the thoracic or lumbar spine. Electronically Signed: Roby Julien DO at 4:33 EST , Discharge Plan Triage Chief Complaint: Back Other Complaint: Flank Pain ED Provider: Daron Anne Dx/Rx/DC Orders Clinical Impression: Closed L1 vertebral fracture, Spinal stenosis of lumbar region, Essential hypertension, penitentiary (current) use of anticoagulants, Paroxysmal atrial fibrillation Instructions: Compression Fx, ED Back Sprain/Strain Prescriptions: New oxycodone-acetaminophen [Percocet] 5-325 mg tablet 1 tab PO Q6H PRN (Reason: pain) 3 Days Qty: 12 0RF methocarbamol 500 mg tablet 500 mg PO 4X/DAY PRN PRN (Reason: Muscle pain/spasm) 10 Days Qty: 40 0RF No Action metoprolol tartrate 50 mg tablet 50 mg PO BID sertraline 50 mg tablet 50 mg PO DAILY atorvastatin 10 mg tablet 10 mg PO DAILY amlodipine 10 MG tablet 10 mg PO DAILY Qty: 90 0RF Patient Comments: blood pressure gabapentin 300 mg capsule 300 mg PO .COMPLEX Patient Comments: 300 mg PO twice daily AND 2-3 capsules at bedtime Rx Instructions: 300 mg PO 2-3 capsules at bedtime; furosemide 40 MG tablet 40 mg PO BID warfarin 5 mg tablet 5 mg PO .COMPLEX 90 Days Qty: 180 3RF Protocol: Dose Management Condition: Saturday Dose/Route: 5 mg Instruction: 1 x 5 mg tablet Condition: Saturday Dose/Route: 5 mg Instruction: 1 x 5 mg tablet Condition: Saturday Dose/Route: 7.5 mg Instruction: 1.5 x 5 mg tablets Condition: Saturday Dose/Route: 7.5 mg Instruction: 1.5 x 5 mg tablets Condition: Dose/Route: 7.5 mg Instruction: 1.5 x 5 mg tablets Condition: Saturday Dose/Route: 5 mg Instruction: 1 x 5 mg tablet Condition: Saturday Dose/Route: 5 mg Instruction: 1 x 5 mg tablet Protocol Text: Adjustment Start Date: Saturday06/25/23 INR Value: 2.9 INR Date: 06/25/23 Recheck Date: 07/25/23 Rx Instructions: 5 mg PO 1.5 tablets daily to = 7.5mg, except on Saturday take 1 tablet only, or otherwise as directed potassium chloride 20 mEq tablet,ER particles/crystals 40 meq PO QDAY Qty: 180 3RF Primary Care Provider: Ryan Canales: Nikolas Allen MD [Med Staff - Active Staff] - Ryan Canales DO [Primary Care Provider] - Activity Restrictions/Additional Instructions: Your CAT scans of the thoracic and lumbar spine showed chronic degeneration and spinal stenosis along with an L1 compression fracture which appears old in nature. Please take the prescribed medication as directed as well as your normal home medication to help control symptoms. Please follow-up with your family doctor and/or orthopedics for repeat evaluation and return to the ER should you have any further concerns. Disposition Disposition: Home, Self Care Discharge Date/Time: 09/14/23 04:56
[2023-09-14] MEDS: Oxycodone/Apap 5/325 Tablet PO (04:49)
== END 2023-09-14 04:56 | disposition home or self-care (01) ==
PROVIDERS: Emergency Provider Emergency Medicine; PCP Family Medicine; Referring Provider Emergency Medicine; Visit Provider Emergency Medicine
DX: S32.019A Unspecified fracture of first lumbar vertebra, initial encounter for closed fracture (principal); I48.0 Paroxysmal atrial fibrillation; I10 Essential (primary) hypertension; M48.061 Spinal stenosis, lumbar region without neurogenic claudication; Z79.01 Long term (current) use of anticoagulants; Z79.899 Other long term (current) drug therapy; R60.9 Edema, unspecified; Z90.49 Acquired absence of other specified parts of digestive tract; X58.XXXA Exposure to other specified factors, initial encounter; Y93.89 Activity, other specified
CPT/HCPCS: 72128; 72131; 96372; 99283

== ENCOUNTER 2023-09-24 17:51 | Emergency (ER) | payer MEDICARE, OTHER, SELFPAY ==
[2023-09-24 17:51] VITALS: BP 184/86; PULSE 92; RESP 18; TEMP 36.2; O2SAT 97
--- NOTE | 2023-09-24 18:09 | EDS_ITS ---
HPI History of Present Illness Chief Complaint: Lower Extremity Injury Narrative Narrative: 72-year-old male past medical history of hypertension obstructive sleep apnea, chronic low back pain, was at Dr. Rosa's office earlier today getting an injection into his back. When he was getting off the table, he fell and injured his left foot and ankle. He denies hitting his head or loss of consciousness. He states that while he was at the office he was having numbness of his bilatera l lower extremities which resolved. After he had fallen, he did not want to come to the emergency department and get checked out, and went home instead. He has been using a walker but now has pain with weightbearing on his left foot and ankle. He denies other injury. He noticed bruising on the top of his left foot as well. He took an oxycodone which he usually takes for pain. He presents for evaluation of his left foot and ankle from falling off the table at his pain management physician's office today. 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 Obstructive sleep apnea Paroxysmal atrial fibrillation Vertigo Home Medications amlodipine 10 mg tablet 10 mg PO DAILY #90 tabs 02/19/15 [Rx Last Taken 05/10/16] furosemide 40 mg tablet 40 mg PO BID 08/23/17 [History Last Taken Unknown] atorvastatin 10 mg tablet 10 mg PO DAILY 07/13/20 [History Last Taken Unknown] gabapentin 300 mg capsule 300 mg PO .COMPLEX 07/13/20 [History Last Taken Unknown] metoprolol tartrate 50 mg tablet 50 mg PO BID 07/13/20 [History Last Taken Unknown] sertraline 50 mg tablet 50 mg PO DAILY 07/13/20 [History Last Taken Unknown] warfarin 5 mg tablet 5 mg PO .COMPLEX 90 days #180 tabs 10/23/22 [Rx Last Taken Unknown] potassium chloride 20 mEq tablet,extended release(part/cryst) 40 meq (2 x 20 mEq) PO QDAY #180 tabs 03/22/23 [Rx Last Taken Unknown] methocarbamol 500 mg tablet 500 mg PO 4X/DAY PRN PRN Muscle pain/spasm 10 days #40 tabs 09/14/23 [Rx Last Taken Unknown] oxycodone-acetaminophen 5 mg-325 mg tablet (Percocet) 1 tab PO Q6H PRN pain 3 days #12 tabs 09/14/23 [Rx Last Taken Unknown] Allergy/AdvReac Type Severity Reaction Status Date / Time iodine Allergy Intermediate rash Verified 09/24/23 17:51 Family History Father CAD (coronary artery disease) Mother Colon cancer Sister Atrial fibrillation Sleep apnea Sister Sleep apnea Hypertension Surgical History History of cholecystectomy History of lumbar surgery Status post catheter ablation of atrial fibrillation (~04/10/17) Social History Smoking Status: Never smoker alcohol intake: current alcohol intake frequency: holidays/special occasions only caffeine: Yes Type: coffee Number of servings: 1 ROS ROS ED ROS Narrative Constitutional: No fever, no chills. HEENT: No sore throat. No neck pain. No loss of vision. No rhinorrhea. Cardiovascular: No chest pain. No palpitations. No pedal edema. Respiratory: No cough, no shortness of breath. Abdominal: No abdominal pain. No nausea. No vomiting. Genitourinary: No dysuria. No hematuria. Musculoskeletal: No myalgias. Foot and ankle pain. Noted bruising on top of left foot at base of second and third toes Neurologic: No headaches. No dizziness. No lightheadedness. Skin: No rash. No change in color. Psychiatric: No depression. No anxiety. EXAM Physical Exam Narrative Exam Narrative: Afebrile. Vital signs noted. HEENT: Normocephalic. Atraumatic. PERRL, EOMI. Neck soft and supple. No point tenderness or step off. Cardiovascular: Regular rate and rhythm. No murmurs, rubs, or gallops appreciated. Respiratory: No tachypnea. Lungs clear to auscultation bilaterally. Gastrointestinal: Abdomen soft, nontender, pes, with normoactive bowel sounds. No rebound or guarding. Neurological: Awake. Alert. Nonfocal, nonlateralizing. Skin: No rash. Normal color exception of noted ecchymosis and tenderness on dorsum of left foot at base of second and third toes mainly. Capillary refill of toes left foot. No pallor. Musculoskeletal: No pedal edema. Full range of motion extremities. Extension left knee intact. No proximal fibular tenderness. Mild tenderness to palpation diffusely left ankle, mainly left lateral malleolus. No crepitance. Const Vital Signs: 09/24/23 17:51 Temperature 97.2 F L Temperature Source Temporal Pulse Rate 92 Respiratory Rate 18 Blood Pressure 184/86 H Blood Pressure Mean 118 Pulse Ox 97 Oxygen Delivery Method Room Air MDM MDM MDM Narrative Medical decision making narrative: Concern is for foot fracture versus fracture of foot and ankle sprain versus fracture. Patient has already taken his analgesic here and declines ice pack. X-rays were obtained of the left ankle and left foot and 3 views each and interpreted by myself independently. My interpretation of his left ankle x-ray shows oblique fracture/Stubbs B type of the distal fibula with a tiny avulsion fracture of the inferior aspect of the medial malleolus of the tibia. My interpretation of his foot x-ray shows proximal metatarsal fractures of numbers 2 and 4. At this point in time, I advised him to probably hold his Coumadin for an extra day until advised by podiatry. I discussed patient with Dr. Herrera who is on-call. He would like him placed in a posterior and stirrup type splint of the left lower extremity and he will see him tomorrow. Patient is continuing ice and elevation at home and nonweightbearing on his left lower extremity. He has a walker at home. He will call his pain management doctor to see if there needs to be an increase in his narcotic pain medication. I feel he can be discharged safely home with follow-up to podiatry. Return instructions to the emergency department were reviewed. Disposition is discharged home in stable condition. History & Record Review Discussion w/independent historian: Patient and Family Additional record(s) reviewed:: Prior ED visit Radiography Diagnostic Testing: Clinical Impression(s) from Imaging Studies Ankle X-Ray 09/24/23 18:15 IMPRESSION: 1. Slightly laterally displaced spiral fracture of the distal shaft of the fibula proximal to the tibial plafond with lateral soft tissue swelling. 2. Tiny avulsion fracture the inferior aspect of the medial malleolus the tibia. Electronically Signed: Montana Ramos MD at 19:04 EST , Foot X-Ray 09/24/23 18:15 IMPRESSION: Acute nondisplaced fractures of the base of the second and fourth metatarsal bones. CT or MRI may be useful. Electronically Signed: Montana Ramos MD at 19:03 EST , Discharge Plan Triage Chief Complaint: Lower Extremity Injury ED Provider: Cleve An Dx/Rx/DC Orders Clinical Impression: Fracture of left foot, Fall, Fracture of ankle, left, closed Instructions: ED Ankle Fracture, ED Fracture, Foot Prescriptions: No Action metoprolol tartrate 50 mg tablet 50 mg PO BID sertraline 50 mg tablet 50 mg PO DAILY atorvastatin 10 mg tablet 10 mg PO DAILY amlodipine 10 MG tablet 10 mg PO DAILY Qty: 90 0RF Patient Comments: blood pressure gabapentin 300 mg capsule 300 mg PO .COMPLEX Patient Comments: 300 mg PO twice daily AND 2-3 capsules at bedtime Rx Instructions: 300 mg PO 2-3 capsules at bedtime; furosemide 40 MG tablet 40 mg PO BID oxycodone-acetaminophen [Percocet] 5-325 mg tablet 1 tab PO Q6H PRN (Reason: pain) 3 Days Qty: 12 0RF methocarbamol 500 mg tablet 500 mg PO 4X/DAY PRN PRN (Reason: Muscle pain/spasm) 10 Days Qty: 40 0RF warfarin 5 mg tablet 5 mg PO .COMPLEX 90 Days Qty: 180 3RF Protocol: Dose Management Condition: Saturday Dose/Route: 5 mg Instruction: 1 x 5 mg tablet Condition: Saturday Dose/Route: 5 mg Instruction: 1 x 5 mg tablet Condition: Saturday Dose/Route: 7.5 mg Instruction: 1.5 x 5 mg tablets Condition: Saturday Dose/Route: 7.5 mg Instruction: 1.5 x 5 mg tablets Condition: Dose/Route: 7.5 mg Instruction: 1.5 x 5 mg tablets Condition: Saturday Dose/Route: 5 mg Instruction: 1 x 5 mg tablet Condition: Saturday Dose/Route: 5 mg Instruction: 1 x 5 mg tablet Protocol Text: Adjustment Start Date: Saturday06/25/23 INR Value: 2.9 INR Date: 06/25/23 Recheck Date: 07/25/23 Rx Instructions: 5 mg PO 1.5 tablets daily to = 7.5mg, except on Saturday take 1 tablet only, or otherwise as directed potassium chloride 20 mEq tablet,ER particles/crystals 40 meq PO QDAY Qty: 180 3RF Primary Care Provider: Ryan Canales Referrals: Ej Herrera DPM [Med Staff - Active Staff] - 1 Day yRan Canales DO [Primary Care Provider] - Activity Restrictions/Additional Instructions: Continue ice and elevation of your left foot at home. I would hold your Coumadin an extra day given that you have fractures currently. Restart when advised by Dr. Herrera. Call his office tomorrow to be seen. Continue your oxycodone as prescribed by Dr. Vela. You may need to call them and have him increase your narcotic pain medication. Do not weight-bear on your left lower extremity/leg. Use a walker. Disposition Disposition: Home, Self Care Capacity Legal Director Of Email [employer] Reflex Medical hold order details:: IF a medical hold is selected below, a suggested order for a MEDICAL HOLD will reflex upon signing the document. Next of kin: [place] law dictates a PRIORITY LIST for identifying legal decision-maker/legal next of kin in the following order (LNOK): 1st: The patient?s legal guardian, if any 2nd: The patient's spouse (if status is questionable, consult Risk Management) 3rd: The patient?s adult child(john) (majority, if multiple children) 4th: The patient?s parents 5th: The patient?s adult siblings (majority, if multiple children siblings)
--- NOTE | 2023-09-24 18:15 | RAD_ITS ---
STUDY: X-RAY - LEFT FOOT CLINICAL: Male, 72 years old. trauma TECHNIQUE: 3 view(s) of the foot. COMPARISON: None. FINDINGS: Normal talus, calcaneus, and tarsal bones. Normal visualized subtalar, talonavicular, calcaneocuboid, tarsal and tarsometatarsal articulations. Acute nondisplaced oblique fracture of the base of the second metatarsal bone. Suspect similar nondisplaced oblique fracture of the base of the fourth metatarsal bone. Fractures are distal to the articular surface of the tarsometatarsal joints with no subluxation to suggest Lisfranc ligament tear. Normal metatarsophalangeal joint of the great toe. Normal tibial and fibular sesamoid bones. Normal interphalangeal joint of the great toe. Normal phalanges of the great toe. Normal second through fifth metatarsophalangeal joints. Normal interphalangeal joints and phalanges of the lesser toes. The soft tissue structures are unremarkable. RAD/Foot min 3 Views IMPRESSION: Acute nondisplaced fractures of the base of the second and fourth metatarsal bones. CT or MRI may be useful. Electronically Signed: Montana Ramos MD at 19:03 EST ,
--- NOTE | 2023-09-24 18:15 | RAD_ITS ---
STUDY: X-RAY - LEFT ANKLE REASON FOR EXAM: Male, 72 years old. Trauma TECHNIQUE: 3 view(s) of the ankle. COMPARISON: None. FINDINGS: Acute slightly laterally displaced spiral fracture of the distal shaft of the fibula proximal to the tibial plafond. Tiny avulsion fracture the inferior aspect of the medial malleolus the tibia. Normal tibiotalar articulation and ankle mortise. Normal visualized talus and calcaneus. Tiny plantar and posterior calcaneal enthesophytes. The visualized subtalar, talonavicular, calcaneocuboid and tarsal articulations are normal. Lateral soft tissue swelling consistent with ligamentous injury. RAD/Ankle min 3 Views IMPRESSION: 1. Slightly laterally displaced spiral fracture of the distal shaft of the fibula proximal to the tibial plafond with lateral soft tissue swelling. 2. Tiny avulsion fracture the inferior aspect of the medial malleolus the tibia. Electronically Signed: Montana Ramos MD at 19:04 EST ,
--- OUTSIDE RECORDS SUMMARY | 2023-09-24 18:58 | XMS RPT_ITS | CCD ---
Author Name Unknown Address [address] [place] [address] Organization [facility] Care Team Providers Care Transportation Maintenance Specialist Name Role Phone [facility] Nurse Unavailable Unavailable Radha RN, Emeli Alex Unavailable [phone] Radha RN, Emeli Alex Unavailable [phone] Radha RN, Emeli Alex Unavailable [phone] Radha RN, Emeli Alex Unavailable [phone] [facility] Nurse Unavailable Unavailable HARRY Stoll, Nicky Bella Unavailable Unavaildelmy Stoll RN, Nicky Bella Unavailable Unavaildelmy Garcia RN, Emeli Alex Unavailable [phone]) Radha RN, Emeli Alex Unavailable 1(330) Radha RN, Emeli Alex Unavailable [phone] [facility] Nurse Unavailable Unavailable Pau RN, Yumiko Hernandez Unavailable Unavailable Pau RN, Yumiko Hernandez Unavailable Unavailable Radha RN, Emeli Alex Unavailable [phone]) Radha RN, Emeli Alex Unavailable [phone]) Radha RN, Emeli Alex Unavailable [phone] VITEBSKIY, MARVA Unavailable Unavailable VITEBSKIY, MRAVA Unavailable Unavailable Ryan Canales Unavailable Unavailable VITEBSKIY, [...] Ryan Unavailable Unavailable MEET MULLER Unavailable Unavailable NITZ, SARAHI C Unavailable Unavailable VITEBSKIY, MARVA Unavailable Unavailable Petrilla, Ryan Unavailable Unavailable Petrilla, Ryan Unavailable Unavailable Pau RN, Yumiko Hernandez Unavailable Unavailable Radha RN, Emeli Alex Unavailable VITEBSKIY, MARVA ELLYNANDROVICH Unavailable Unavailable ALLY, RYAN F Unavailable Unavailable NITYAN MejiaSARAHI (FAN MAIL EDITOR) Unavailable Unavailabl MEET Perdomo Unavailable Unavailable Radha RN, Emeli Alex Unavailable Radha RN, Emeli Alex Unavailable Radha RN, Emeli Alex Unavailable HARRY Stoll, Nicky Bella Unavailable Unavailabl e Radha RN, Emeli Alex Unavailable Ryan Canales DO Primary Care Provider [phone] DR RYAN CANALES DO Primary Care Physician [facility] [place] [phone] Ally MAX Ryan Rachel Primary Care Provider [phone] [facility] [place] Care Provider ALLY RYAN Primary Care Unavailable ASHLEIGH TAPIA Attending Unavailable RYAN CANALES Primary Care Unavailable RYAN CANALES Attending Unavailable ALLY RYAN Primary Care Unavailable RYAN CANALES Attending Unavailable ALLY, RYAN Primary Care Unavailable ASHLEIGH TAPIA Attending Unavailable ASHLEIGH TAPIA Referring Unavailable ALLY RYAN Primary Care Unavailable Allergies Allergy Classification Reported Allergen(s) Allergy Type Date of Onset Reaction(s) Facility Iodine (and Iodine containting drugs) (1 source) Iodine Drug Allergy 07-13-2016 Anaphylaxis [facility] (20 sources) iodine; Translations: [IODINE] drug allergy 02-22-2015 Anaphylaxis [facility] Work Phone: Medications Current Medications Medication Drug Class(es) Dates Sig (Normalized) Sig (Original) acetaminophen 32 mg/ml oral suspension (10 sources) Start: 04-16-2021 acetaminophen (Tylenol) 160 MG/5ML suspension Take 650 mg by mouth. 0 04/16/2021 Active Completed/Discontinued Medications Medication Drug Class(es) Dates Sig (Normalized) Sig (Original) Aspirin (20 sources) Platelet Aggregation Inhibitor, Nonsteroidal Anti-inflammatory Drug Start: 02-22-2015 End: 05-24-2015 take 1 tablet by mouth once daily ASPIR-81 81 MG TBEC One tablet by mouth daily ASPIRIN [id number] Candi Babin RN Problems Active Problems Problem Classification Problem Date Documented Da te Episodic/Chronic Anxiety disorders (15 sources) Anxiety disorder, unspecified; Translations: [Mixed anxiety and depressive disorder] Onset: 04-01-2015 04-01-2015 Chronic Cancer of prostate (1 source) Malignant tumor of prostate 05-20-2015 Chronic Cardiac dysrhythmias (1 source) Bradycardia; Translations: [Bradycardia, unspecified] Episodic Congestive heart failure; nonhypertensive (20 sources) Congestive heart failure; Translations: [Unspecified diastolic (congestive) heart failure] Onset: 04-06-2015 04-06-2015 Chronic Disorders of lipid metabolism (4 sources) Hypercholesterolemia ; Translations: [Pure hypercholesterolemia , [...] of knee] Onset: 04-01-2015 12-21-2016 Chronic Other circulatory disease (2 sources) Personal history of other diseases of the circulatory system; Translations: [Personal history of other diseases of the circulatory system] Onset: 06-25-2022 Episodic Other fractures (2 sources) Compression fracture of lumbar spine; Translations: [Wedge compression fracture of first lumbar vertebra, subsequent encounter for fracture with routine healing] 09-18-2023 Episodic Other fractures (2 sources) Wedge compression fracture of first lumbar vertebra, subsequent encounter for fracture with routine healing; Translations: [Wedge compression fracture of first lumbar vertebra, subsequent encounter for fracture with routine healing] Onset: 09-18-2023 Episodic Other hereditary and degenerative nervous system conditions (11 sources) Restless legs; Translations: [Restless legs syndrome] Onset: 12-11-2017 12-11-2017 Chronic Other hereditary and degenerative nervous system conditions (2 sources) Restless legs syndrome; Translations: [Restless legs syndrome] Onset: 06-25-2022 Chronic Other injuries and conditions due to external causes (1 source) Injury of head; Translations: [Unspecified injury of head, initial encounter] Episodic Other liver diseases (10 sources) Steatosis of liver; Translations: [Fatty (change of) liver, not elsewhere classified] Onset: 04-01-2015 04-01-2015 Chronic Other male genital disorders (10 sources) Male erectile dysfunction, unspecified; Translations: [Impotence [...] Chronic Other nutritional; endocrine; and metabolic disorders (11 sources) Morbid obesity; Translations: [Morbid (severe) obesity due to excess calories] Onset: 06-17-2019 06-17-2019 Chronic Other upper respiratory disease (10 sources) Allergic rhinitis; Translations: [Allergic rhinitis, unspecified] [...] Spondylosis; intervertebral disc disorders; other back problems (10 sources) Degeneration of lumbar intervertebral disc; Translations: [Other intervertebral disc degeneration, lumbar region] Onset: 09-09-2015 05-17-2016 Chronic Sprains and strains (1 source) Neck sprain; Translations: [Sprain of joints and ligaments of unspecified parts of neck, initial encounter] Episodic Unclassified (10 sources) Warfarin therapy started; 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] Onset: 03-05-2017 03-05-2017 Unclassified (1 source) Unknown / UNK(Unknown) Onset: 01-30-2017 Past or Other Problems Problem Classification Problem Date Documented Date Episodic/Chronic Abdominal pain (3 sources) Periumbilical pain; Translations: [Periumbilical pain] Onset: 02-05-2023 Episodic Acquired foot deformities (10 sources) Right foot drop; Translations: [Foot drop, right foot] Onset: 09-09-2015 03-14-2020 Episodic Anal and rectal conditions (10 sources) Radiation proctitis; 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] Onset: 04-01-2015 04-01-2015 Episodic Cancer of prostate (11 sources) Personal history of malignant neoplasm of [...] Onset: 02-05-2023 Episodic Other aftercare (14 sources) 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; Translations: [[facility]PC (current) use of anticoagulants] Onset: 03-05-2017 03-05-2017 Episodic Other aftercare (9 sources) Long-term current use of anticoagulant; 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] Onset: 04-25-2022 06-24-2022 Episodic Other circulatory disease (11 sources) H/O: atrial fibrillation; Translations: [Personal history of other diseases of the circulatory system] Onset: 12-11-2017 12-11-2017 Episodic Other connective tissue disease (20 sources) [...] specified conditions] 04-13-2015 Episodic Residual codes; unclassified (10 sources) Family history of cancer of colon; Translations: [Family history of malignant neoplasm of digestive organs] Onset: 05-17-2016 05-17-2016 Episodic Residual codes; unclassified (10 sources) Family history of prostate cancer; Translations: [Family history of malignant neoplasm of prostate] Onset: 05-17-2016 05-17-2016 Episodic Unclassified (1 source) Morbid (severe) obesity due to excess calories Onset: 02-11-2018 Results Test Name Value Interpretation Reference Range Facil ity Vital Signs Date Time Vital Sign Value Performing Clinician Faci lity 09-18-2023 12:57-0500 Body height 185.4 cm Ryan Canales DO Work Phone: [employer] 09-18-2023 12:57-0500 Body mass index (BMI) [Ratio] 46.97 kg/m2 Ryan Uriartea DO Work Phone: [employer] 09-18-2023 12:57-0500 Body temperature 98.4 [degF] Ryan Uriartea DO Work Phone: [employer] 09-18-2023 12:57-0500 Body weight 161.48 kg Ryan Uriartea DO Work Phone: [employer] 09-18-2023 12:57-0500 Diastolic blood pressure 58 mm[Hg] Ryan Uriartea DO Work Phone: [employer] 09-18-2023 12:57-0500 Heart rate 66 /min Ryan Uriartea DO Work Phone: [employer] 09-18-2023 12:57-0500 SaO2% (BldA) [Mass fraction] 96 % Ryan Uriartea DO Work Phone: [employer] 09-18-2023 12:57-0500 Systolic blood pressure 110 mm[Hg] Ryan Uriartea DO Work Phone: [employer] 03-19-2023 12:55-0400 Diastolic blood pressure 72 mm[Hg] Ryan Uriartea DO Work Phone: [employer] 03-19-2023 12:55-0400 Heart rate 60 /min Ryan Uriartea DO Work Phone: [employer] 03-19-2023 12:55-0400 Systolic blood pressure 128 mm[Hg] Ryan Uriartea DO Work Phone: [facility] [employer] 03-19-2023 12:14-0400 Body height 185.4 cm Ryan Canales DO Work Phone: [facility] [employer] 03-19-2023 12:14-0400 Body mass index (BMI) [Ratio] 46.44 kg/m2 Ryan Canales DO Work Phone: [facility] [employer] 03-19-2023 12:14-0400 Body temperature 98.2 [degF] Ryan Canales DO Work Phone: [facility] [employer] 03-19-2023 12:14-0400 Body weight 159.67 kg Ryan Canales DO Work Phone: [facility] [employer] 03-19-2023 12:14-0400 SaO2% (BldA) [Mass fraction] 96 % Ryan Canales DO Work Phone: [facility] [employer] 02-05-2023 10:32-0400 Body height 185.4 cm Ashleigh Tapia PA-C Work Phone: [facility] [employer] 02-05-2023 10:32-0400 Body mass index (BMI) [Ratio] 44.86 kg/m2 Ashleigh Tapia PA-C Work Phone: [facility] 02-05-2023 10:32-0400 Body temperature 97.7 [degF] Ashleigh Tapia PA-C Work Phone: [facility] [employer] 02-05-2023 10:32-0400 Body weight 154.22 kg Ashleigh Tapia PA-C Work Phone: [facility] [employer] 02-05-2023 10:32-0400 Diastolic blood pressure 69 mm[Hg] Ashleigh Tapia PA-C Work Phone: [facility] [employer] 02-05-2023 10:32-0400 Heart rate 55 /min Ashleigh Tapia PA-C Work Phone: [facility] [employer] 02-05-2023 10:32-0400 SaO2% (BldA) [Mass fraction] 96 % Ashleigh Tapia PA-C Work Phone: [facility] [employer] 02-05-2023 10:32-0400 Systolic blood pressure 134 mm[Hg] Ashleigh HOANG-Cole Work Phone: [facility] [employer] 07-24-2021 10:15-0500 Diastolic Blood Pressure NBP [address] VÍCTOR SOUTH MD [facility] 07-24-2021 10:15-0500 Heart rate 58 /min DR VÍCTOR SOUTH MD [facility] 07-24-2021 10:15-0500 Respiratory rate 24 /min DR VÍCTOR SOUTH MD [facility] 07-24-2021 10:15-0500 Systolic Blood Pressure NBP [address] VÍCTOR SOUTH MD [facility] 07-24-2021 10:08-0500 Diastolic Blood Pressure NBP [address] VÍCTOR SOUTH MD [facility] 07-24-2021 10:08-0500 Heart rate 58 /min DR VÍCTOR SOUTH MD [facility] 07-24-2021 10:08-0500 Respiratory rate 19 /min DR VÍCTOR SOUTH MD [facility] 07-24-2021 10:08-0500 Systolic Blood Pressure NBP [address] VÍCTOR SOUTH MD [facility] 07-24-2021 10:00-0500 Diastolic Blood Pressure NBP [address] VÍCTOR SOUTH MD [facility] 07-24-2021 10:00-0500 Heart rate 59 /min DR VÍCTOR SOUTH MD [facility] 07-24-2021 10:00-0500 Respiratory rate 17 /min DR VÍCTOR SOUTH MD [facility] 07-24-2021 10:00-0500 Systolic Blood Pressure NBP [address] VÍCTOR SOUTH MD [facility] 07-24-2021 09:03-0500 Body height 185.[address] VÍCTOR SOUTH MD [facility] 07-24-2021 09:03-0500 Body temperature 98.24 [degF] DR VÍCTOR SOUTH MD [facility] 07-24-2021 09:03-0500 Body weight [address] VÍCTOR SOUTH MD [facility] 07-24-2021 09:03-0500 Heart rate 67 /min DR VÍCTOR SOUTH MD [facility] 04-14-2021 12:46-0400 Diastolic blood pressure 66 mm[Hg] Jorgito Guerrero MD Work Phone: [facility] Work Phone: 04-14-2021 12:46-0400 Heart rate 97 /min Jorgito Guerrero MD Work Phone: [facility] Work Phone: 04-14-2021 12:46-0400 Respiratory rate 12 /min Jorgito Guerrero MD Work Phone: [facility] Work Phone: 04-14-2021 12:46-0400 SaO2% (BldA) [Mass fraction] 98 % [facility]: 04-14-2021 12:46-0400 Systolic blood pressure 128 mm[Hg] J[facility] Work Phone: 04-14-2021 11:12-0400 Body mass index (BMI) [Ratio] 46.45 kg/m2 Jorgito [facility]errero MD [facility] Work Phone: 04-14-2021 11:12-0400 Body weight 159.7 kg Jorgito Guerrero MD Work Phone: [facility] Work Phone: 04-14-2021 10:12-0400 Body temperature 98.01 [degF] Jorgito Guerrero MD Work Phone: [facility] Work Phone: 12-14-2016 13:29-0400 BMI (Body Mass Index) 42.72 kg/m2 [facility] Work Phone: 12-14-2016 13:29-0400 Weight 146.88 kg [facility] Work Phone: 10-23-2016 13:56-0500 BP Diastolic 80 mm[Hg] [facility] Work Phone: 10-23-2016 13:56-0500 BP Systolic 140 mm[Hg] [facility] Work Phone: 10-23-2016 13:56-0500 BSA (Body Surface Area) 2.68 m2 [facility] Work Phone: 10-23-2016 13:56-0500 Pulse (Heart Rate) 88 /min [facility] Work Phone: 10-23-2016 13:56-0500 Respiratory Rate 20 /min [facility] Work Phone: 07-03-2016 14:16-0400 Heart rate 75 /min [facility] Work Phone: 02-24-2015 13:03-0400 Height 185.42 cm [facility] Work Phone: Encounters Encounter Date Encounter Type Care Provider Facility Start: 09-22-2023 Orders Only Ryan lovell DO Work Phone: [facility] Start: 09-18-2023 End: 09-18[facility]20[facility] Start: 09-18-2023 Telephone encounter Ryan Kan etrilla DO Work Phone: [facility] Procedures Date Procedure Procedure Detail Performing Clinician Start: 09-18-2023 Lipid 1996 panel - S irene or Plasma Ryan Canales DO Work Phone: Start: 02-08-2023 Us retroperitoneal r eal time [...] Jorgito Guerrero MD Work Phone: Start: 11-17-2020 Ochoa castle PA-C Work Phone: Start: 03-18-2017 End: [...] End: 12-21-2016 Arthrocentesis aspir&/inj major jt/bursa w/o us Bijan Concepcion Work Phone: Start: 12-14-2016 End: 12-14-2016 Dietary management education, guidance, and counseling Emeli Garcia RN Start: 12-14-2016 End: 12-21-2016 Drain/inject, joint/bursa Bijan Concepcion Work Phone: Start: 10-23-2016 End: 10-23-2016 Follow Up Appt 6 months Emeli saldivar PA-C Work Phone: Start: 10-23-2016 End: 10-23-2016 PFM Emeli Estrada PA-C Work Phone: Start: 10-23-2016 End: 10-23-2016 Follow Up Appt 6 months Emeli saldivar PA-C Work Phone: Start: 10-23-2016 End: 10-23-2016 PFM Emeli Estrada PA-C Work Phone: Start: 07-23-2016 End: 07-23-2016 Follow Up Appt 3 months Chicho Vernon MD Start: 07-23-2016 End: 07-23-2016 JADEN Vernon MD Start: 07-23-2016 End: 07-23-2016 Follow Up Appt 3 months Chicho Vernon MD Start: 07-23-2016 End: 07-23-2016 MMM Chicho Vernon MD Start: 07-05-2016 End: 07-06-2016 Referral to apartment maintenance manager Chicho ponce MD Start: 07-05-2016 End: 07-06-2016 Referral to apartment maintenance manager Chicho ponce MD Start: 07-03-2016 End: 10-17-2016 [...] PA-C Work Phone: Start: 04-25-2016 End: 04-25-2016 JADEN Estrada PA-C Work Phone: Start: 04-25-2016 End: 04-25-2016 PF Emeli Estrada PA-C Work Phone: Start: 12-15-2015 End: 12-15-2015 Follow Up Appt Other Emeli alex PA-C Work Phone: Start: 12-15-2015 End: 12-15-2015 JADEN Estrada PA-C Work Phone: Start: 12-15-2015 End: 12-15-2015 Follow Up Appt Other Emeli alex PA-C Work Phone: Start: 12-15-2015 End: 12-15-2015 MMM Emeli Estrada PA-C Work Phone: Start: 10-27-2015 End: 10-27-2015 Ecg routine ecg w/least 12 lds w/i&r Chicho Vernon MD Start: 10-27-2015 End: 10-27-2015 Follow Up Appt 6 months Chicho Vernon MD Start: 10-27-2015 End: 10-27-2015 MM Chicho Vernon MD Start: 10-27-2015 End: 10-27-2015 Electrocardiogram, complete Chicho mays MD Start: 10-27-2015 End: 10-27-2015 Follow Up Appt 6 months Chicho Vernon MD Start: 10-27-2015 End: 10-27-2015 MM Chicho Vernon MD Start: 06-10-2015 End: 04-12-2016 *BMP Emeli Estrada PA-C Work Phone: Start: 06-10-2015 End: 06-11-2015 Documentation of current medications Emeli Estrada PA-C Work Phone: Start: 06-10-2015 End: 06-10-2015 Ecg routine ecg w/least 12 lds w/i&r Emeli Estrada PA-C Work Phone: Start: 06-10-2015 End: 06-10-2015 Follow Up Appt 3 months IVANNA MontañoC Work Phone: Start: 06-10-2015 End: 06-10-2015 PFM NATALYA Walsh-C Work Phone: Start: 06-10-2015 End: 04-12-2016 *BMP Emeli Estrada PA-C Work Phone: Start: 06-10-2015 End: 06-11-2015 Documentation of current medications NATALYA Walsh-C Work Phone: Start: 06-10-2015 End: 06-10-2015 Electrocardiogram, complete NATALYA Sanches-C Work Phone: Start: 06-10-2015 End: 06-10-2015 Follow Up Appt 3 months Emeli saldivar PA-C Work Phone: Start: 06-10-2015 End: 06-10-2015 PFM NATALYA Walsh-C Work Phone: Start: 04-27-2015 End: 06-10-2015 *IVANNA MinayaC Work Phone: Start: 04-27-2015 End: 06-10-2015 *NATALYA Minyaa-C Work Phone: Start: 04-20-2015 End: 04-20-2015 *NATALYA Minaya-C Work Phone: Start: 04-20-2015 End: 04-20-2015 *NATALYA Minaya-C Work Phone: Start: 04-13-2015 End: 04-14-2015 Documentation of current medications Emeli Estrada PA-C Work Phone: Start: 04-13-2015 End: 04-13-2015 Follow Up Appt 1 month IVANNA NavaC Work Phone: Start: 04-13-2015 End: 04-27-2015 Follow Up Appt Other Emeli alex PA-C Work Phone: Start: 04-13-2015 End: 04-13-2015 MMM Emeli Estrada PA-C Work Phone: Start: 04-13-2015 End: 04-14-2015 Documentation of current medications Emeli Estrada PA-C Work Phone: Start: 04-13-2015 End: 04-13-2015 Follow Up Appt 1 month Emeli briggs PA-C Work Phone: Start: 04-13-2015 End: 04-27-2015 Follow Up Appt Other Emeli alex PA-C Work Phone: Start: 04-13-2015 End: 04-13-2015 MMM Emeli Estrada PA-C Work Phone: Start: 04-06-2015 End: [...] Start: 02-24-2015 End: 04-05-2015 Nuclear stress test -Jolene Vernon MD Start: 02-24-2015 End: 02-24-2015 Electrocardiogram, complete Chicho mays MD Start: 02-24-2015 End: 04-05-2015 Follow Up Appt 6 weeks Chicho Vernon MD Start: 02-24-2015 End: 04-05-2015 Follow Up Appt Other Chicho Vernon MD Start: 02-24-2015 End: 04-05-2015 MMM Chicho Vernon MD Start: 02-24-2015 End: 04-05-2015 Nuclear stress test -Jolene Vernon MD Cholecystectomy DR VÍCTOR FLYNN MD Destructive procedure DR ISHA SOUTH MD Plan of Treatment Date Care Activity Detail Author Start: 11-17-2030 Screening for malign ant neoplasm of colon [facility] Start: 09-18-2028 Lipid panel Lipid Panel [facility] Start: 10-16-2027 Lipid panel Lipid Panel [facility] Start: 09-18-2024 Creatinine measurement Creatinine [facility] Start: 09-18-2024 Potassium measurement Potassium Leve l [facility] Start: 03-18-2024 End: 03-18-2024 Patient encounter procedure 03/18/2024 1:00 PM EDT Office Visit [facility] [address] [place] [address] Ryan Canales, DO [address] [place] [address] [facility] Start: 02-06-2024 Creatinine measurement Creatinine [facility] Start: 02-06-2024 Potassium measurement Potassium Leve l [facility] Start: 10-16-2023 Creatinine measurement Creatinine Le [facility] Start: 10-16-2023 Potassium measurement Potassium Leve l [facility] Start: 09-19-2023 End: 09-19-2023 Patient encounter procedure [facility] Start: 09-18-2023 End: 09-18-2024 CBC W Auto Differential panel - Blood CBC auto differential Lab Routine Primary hypertension Expected: 09/18/2023 (Approximate), Expires: 09/18/2024 [facility] Work Phone: Immunizations Immunization Date Immunization Notes Care Provider Fa cility 09-18-2023 Influenza, Seasonal, Quadrivalent, Adjuvanted Ryan Canales DO Work Phone: [facility] [employer] 08-14-2022 influenza, high dose seasonal, preservative-free Ashleigh Tapia PA-C Work Phone: [facility] [employer] 08-14-2022 influenza virus vacc ine, unspecified formulation Ryan Canales DO Work Phone: [facility] [employer] 08-22-2021 Influenza, High-dose Seasonal, Quadrivalent, Preservative Free Ashleigh Tapia PA-C Work Phone: [facility] [employer] 07-06-2020 Influenza, High-dose , Quadv, 65 yrs +, IM (Fluzone) Jorgito Guerrero MD Work Phone: [facility] [employer] 06-17-2019 influenza, high dose seasonal, preservative-free Jorgito Guerrero MD Work Phone: [facility] [employer] 06-17-2019 Influenza, High-dose Seasonal, Quadrivalent, Preservative Free Ryan Canales DO Work Phone: [facility] [employer] 06-16-2018 influenza, high dose seasonal, preservative-free Jorgito Guerrero MD Work Phone: [facility] [employer] 06-10-2017 influenza, injectabl e, quadrivalent, contains preservative Jorgito Guerrero MD Work Phone: [facility] [employer] 06-10-2017 pneumococcal polysaccharide vaccine, 23 valent Jorgito Guerrero MD Work Phone: [facility] [employer] 11-28-2015 pneumococcal conjuga te vaccine, 13 valent oJrgito Guerrero MD Work Phone: [facility] Work Phone: 06-09-2015 influenza virus vacc ine, unspecified formulation Ashleigh Tapia PA-C Work Phone: [facility] [employer] 06-09-2015 influenza, seasonal, injectable Ryan Canales DO Work Phone: [facility] [employer] 06-09-2015 influenza, seasonal, injectable, preservative free Ryan Canales DO Work Phone: [facility] [employer] Payers Date Payer Category Payer Unknown 2018 Unknown [id number] 2015 Medicare [id number] 2015 Medicare MEDICARE MEDICAR E PART A AND B [id number] 2015-Present [address] [place] [address] Medicare [id number] Medicare [id number] Social History Date Type Detail Facility Start: 03-26-2021 End: 07-24-2021 Tobacco smoking status NHIS Never smoker [employer] Work Phone: Start: 03-26-2021 Tobacco use and exposure Never used [employer] Work Phone: Start: 03-26-2021 End: 09-18-2023 Alcohol intake Current drinker of alcohol (finding) [employer] Work Phone: Start: 03-26-2021 End: 03-19-2023 Alcohol intake [employer] Work Phone: Start: 12-19-2018 History SDOH Alcohol Frequency 2 [employer] Phone: Start: 12-19-2018 End: 03-15-2021 History SDOH Alcohol Std Drinks 1 [employer] Phone: Start: 12-19-2018 History SDOH Social Connections [facility] 3 [employer] Phone: Start: 12-19-2018 History SDOH Physica l Activity DPW 6 [employer] Phone: Start: 03-15-2021 History SDOH Financial 5 [employer] Phone: Start: 1950 Sex Assigned At Not on file [facility] [employer] Work Phone: Start: 01-26-2023 End: 03-19-2023 Exposure to SARS-CoV-2 (event) Not sure [facility] Sex Assigned At [facility] Start: 02-05-2023 End: 03-19-2023 Tobacco use panel [facility] [employer] Start: 1950 [facility] [facility] Start: 09-18-2023 Gender identity Identifies as male gender (finding) [facility] [employer] Start: 09-18-2023 Sexual orientation Heterosexual (fin ding) [facility] Clinical Notes 07-24-2021 to 09-18-2023 Telephone Encounter - Jennifer Brandon - 09/18/2023 1:36 PM ESTTelephone Encounter - Jennifer Brandon - 09/18/2023 1:36 PM Juve Canales DO - 09/18/2023 1:00 PM ESTPatient Instructions Note Date & Type Note Facility 09-18-2023 Telephone encount er Note Orders pended for doctor signature [facility] 09-18-2023 Miscellaneous Notes Formattin g of this note might be different from the original. Orders pended for doctor signature documented in this encounter [facility] 09-18-2023 History of Presen t illness Narrative Images from the original note were not included. [facility] [address] [place] [address] [address] [facility] [address] Visit type: Established Patient Reason for Visit: Follow-up (6 month med check) and Back Pain (And muscle spasms ) Assessment / Plan: Rylie was seen today for follow-up and back pain. Diagnoses and all orders for this visit: Compression fracture of L1 vertebra with routine healing, subsequent encounter (Primary) Comments: Acute, oxycodone, urgent Ortho eval for kyphoplasty Orders: - oxyCODONE-acetaminophen (Percocet) 5-325 MG tablet; Take 1 tablet by mouth every 6 hours as needed for severe pain (7-10) for up to 28 days. Hypercholesteremia - Lipid panel; Future - Lipid panel Primary hypertension Comments: Stable, continue metoprolol Lasix and amlodipine Orders: - CBC auto differential; Future - Comprehensive metabolic panel; Future - CBC auto differential - Comprehensive metabolic panel History of atrial fibrillation Comments: Stable, keep check lab and continue Coumadin. Orders: - Protime-INR; Future - Protime-INR Anxiety associated with depression Comments: Stable, continue Zoloft RLS (restless legs syndrome) Comments: Stable, continue gabapentin per neurology Other orders - Flu vaccine quadrivalent, for patients ages 65+, (Fluad) preservative free LOS 35 minutes reviewing patient's history, exam, imaging past MRIs and these last CT of the spine and discussion of diagnosis, treatment and workup options. Subjective: Patient ID: Rylie Moctezuma is a 72 y.o. male. HPI hypertension patient with history of atrial fibrillation and severe lumbar spinal stenosis with chronic right foot drop presents with acute upper lumbar pain over the last week. Was doing a lot of work and per preparation of moving from his home and developed an acute pain in the upper lumbar area. Went to ER [address] at the spine showed probable acute L1 compression fracture. He mostly has chronic pain in his low back with radiation to both legs. This feels different. Review of Systems no night sweats fevers or chills. Eating and voiding well. Had some nausea initially but that has responded. Has gotten some comfort with oxycodone and Robaxin. Apparently he was referred to a spine surgeon in [place] but his does not know the name. 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 Dotson. Of note history of prostate cancer but his PSAs have been very well. No sense of palpitations cough or congestion. No dysuria or hematuria. INR is being followed by cardiology. No recent change in his meds. He does feel Zoloft is helpful for anxiety depression. 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 Allergies Allergen Reactions Iodine Anaphylaxis Other Current Outpatient Medications on File Prior to [...] (40 mg) by mouth 2 times daily. 180 tablet 1 gabapentin (Neurontin) 300 MG capsule TAKE 1 CAPSULE BY MOUTH DURING THE DAY NEEDED AND 2 CAPSULES AT BEDTIME DIRECTED methocarbamol (Robaxin) 500 MG tablet Take 500 mg by mouth. metoprolol tartrate (Lopressor) 50 MG tablet Take 1 tablet (50 mg) by mouth 2 times daily for 180 doses. 180 tablet 1 potassium chloride CR (Klor-Con M20) 20 MEQ ER tablet Take 1 tablet by mouth 2 times daily. sertraline (Zoloft) 50 MG tablet Take 1 tablet (50 mg) by mouth daily. 90 tablet 1 triamcinolone (Kenalog) 0.1 % cream Apply to affected area 1-2 times daily as needed. Avoid face and groin. 80 g 2 [DISCONTINUED] oxyCODONE-acetaminophen (Percocet) 5-325 MG tablet warfarin (Coumadin) 5 MG tablet TAKE 1 & 1/2 (ONE & ONE-HALF) TABLETS BY MOUTH ONCE DAILY AND 1 TABLET ON SATURDAY DIRECTED No current facility-administered medications on file prior [...] Procedure Laterality Date ABLATION OF DYSRHYTHMIC FOCUS 2017 [place] CHOLECYSTECTOMY 1999 COLONOSCOPY 2010 COLONOSCOPY 2014 LGI bleed w/u per Dr. South COLONOSCOPY 11/[address] South COLONOSCOPY 07/2021 adenomatous polyp- Dr. South- rech 2025 LUMBAR SPINE SURGERY 2016 L4/5 decomp- pain mgt per Pedro Guevara LUNG BIOPSY 2006 hemoptysis-fungus ORIF HUMERUS DECOMPRESSION Left 1981 Family History Problem Relation Name Age of Onset Colon cancer Mother Tess age 82 Prostate cancer Father Ethan Diabetes Father Ethan Coronary artery disease Father Ethan chf , age 85 Arrhythmia Sister No Known Problems Sister No Known Problems Sister No Known Problems Sister No Known Problems Brother Gurinder Objective: BP 110/58 Pulse 66 Temp 36.9 C (98.4 F) (Temporal) Ht 6' 1 (1.854 m) Wt (!) 356 lb (161 kg) SpO2 96% BMI 46.97 kg/m Physical Exam very pleasant cooperative. Well-hydrated. Nontoxic. Nonicteric. No neck masses or adenopathy. Heart is regular. Lungs are diminished but clear of rales wheezes or egophony. Abdomen hugely obese without pain hepatosplenomegaly bruits or ascites. Good bowel sounds. No guarding rigidity rebound tenderness. No CVA tenderness. Pain along the L1 area on percussion. Negative straight leg raising bilaterally. He has a chronic right foot drop grade 2 out of 5 strength. The remaining thigh flexors and leg extensors are normal. Normal abductors and abductors. Left foot exam is normal. Chronic leg edema is unchanged. No skin breakdowns documented in this encounter [facility] 09-04-2023 Telephone encount er Note Sammi would like to know if Dr. Canales would be able to prescribe Patient something for back pain as they are moving and Patient has been lifting and they are in pain. Sammi declined nurse triage. Please advise. Rx loaded [facility] 09-04-2023 Miscellaneous Notes Formattin g of [...] triage. Please advise. documented in this encounter [facility] 09-04-2023 Telephone encount er Note Ordering [...] pain. Sammi declined nurse triage. Please advise. [facility] 03-19-2023 History of Presen t illness Narrative Images from the original note were not included. [facility] [address] [facility] [address] Visit type: Established Patient Reason for Visit: [...] and urology notes. documented in this encounter [facility] 03-19-2023 Instructions Ryan Canales DO - 03/19/2023 12:30 PM EDT Call Urologist for checkup if bloody urine recurs again documented in this encounter [facility] 02-05-2023 History of Presen t illness Narrative Images from the original note were not included. [facility] [address] [facility] [address] Dept: [phone] Dept Loc: [phone] Visit type: Established Patient Reason for Visit: [...] 2 times daily for 7 days., Starting 02/05/2023, Until Sat02/12/2023, Normal 2. Periumbilical abdominal pain [...] on chronic anticoagulation (Coumadin) who contacted the [facility] 5 days ago for sensation of heart [...] [facility] No current urinary symptoms, denies any [...] 03/2017 History of prostate cancer 2009 Madhuri/ Ramiro/ Flor---rads implant-PSA 08/29 Hypercholesteremia 06/2019 lipitor rx Knee osteoarthritis Lumbar spinal stenosis 2014 Or 12/[address] Chuy Turcios for epidural NB JONATHAN on CPAP Pedro [facility] Radiation proctitis 2012 RLS (restless legs syndrome) [...] BIOPSY 2005 hemoptysis-fungus ORIF HUMERUS DECOMPRESSION Left 1980 Family History Problem Relation Name Age of [...] prior to signing but minor errors in thread twister may have occurred. documented in this encounter [facility] 02-05-2023 Instructions Ashleigh Tapia PA-C - 02/05/2023 [...] to get it scheduled. Their number is [phone]. documented in this encounter [facility] ADMISSION HISTORY A ND PHYSICIAL CHIEF COMPLAINT: HISTORY OF PRESENT ILLNESS: REVIEW OF SYSTEMS: ACTIVE PROBLEMS: (3) Prostate ca ([id number]) Rectal bleeding ([id number]) Sleep apnea ([id number]) MEDICATIONS: Active Inpt Meds: None Active PRN Meds: None One Time Meds: None Active IV Meds: Lactated Ringers Infusion 1,000 mL (LR 1,000 mL) Start: 07/24/21 9:08:00 EST, Rate: 50 mL/hr ALLERGIES: (1) iodine topical FAMILY HISTORY: SOCIAL HISTORY: PHYSICAL EXAM: VITALS: [id number](kg) 07/24 09:[id number] 24 Hr Tmax: 36.8 at 07/24 09:03 [...] changes to the H&P unless noted below. [facility] 11-15-2021 Hospital Discharge instructions Patient Education [...] before eating solid foods. General instructions Take gadu-rux-pbugtmr and prescription medicines only as told by [...] 12/16/2016 Document Revised: 11/24/2018 Document Reviewed: 12/16/2016 [employer] Patient Education 2020 [employer] 07/24/2021 10:21:48 Flexible Sigmoidoscopy, Care After Flexible [...] biopsy. Follow these instructions at home: Take vypu-uig-fhlavtq and prescription medicines only as told by [...] 08/31/2014 Document Revised: 04/18/2017 Document Reviewed: 11/24/2016 [employer] Patient Education 2020 [employer] Follow Up Care 07/14/2021 07:50:16 With:VÍCTOR SOUTH MD Address: [phone] When: Unknown Comments:office will call with specimen result [facility] Evaluation note* Diagnosis Head injury, initial encounter- Primary Neck sprain, initial encounter Bradycardia Other specified cardiac dysrhythmias documented in this encounter [facility] Work Phone: Evaluation note* Diagnosis Hematuria, unspecified type- Primary Periumbilical abdominal pain Abdominal pain, periumbilic [facility]* Diagnosis Hematuria, unspecified type documented in this encounter [facility] note* Diagnosis Primary hypertension- Primary Unspecified essential hypertension Chronic diastolic (congestive) heart failure (HCC) Morbid obesity (HCC) Morbid obesity Anxiety associated with depression Dysthymic disorder Hypercholesteremia Pure hypercholesterolemia History of hematuria Personal history of other disorder of urinary system documented in [facility] encounter [facility]* Diagnosis Compression fracture of L1 vertebra with routine healing, subsequent encounter [facility]* Diagnosis Compression fracture of L1 vertebra with routine healing, subsequent encounter- Primary Hypercholesteremia Pure hypercholesterolemia Primary hypertension Unspecified essential hypertension History of atrial fibrillation Personal history of other diseases of circulatory system Anxiety associated with depression Dysthymic disorder RLS (restless legs syndrome) Restless legs syndrome (RLS) [facility] No data available for this section [facility] Discharge instructions* Instructions* Jorgito Guerrero MD - 04/14/2021 Decrease metoprolol XL to 50 mg daily * Attachments The following attachments cannot be sent through Care Everywhere. * Head Injury: Closed: General Info (Yi) documented in this [facility] Work Phone: Reason for referral (narrative)* Consultation (Urgent) - Pending Review Specialty Diagnoses / Procedures Referred By Jossy t Referred To Contact Orthopedic Surgery Diagnoses Compression fracture of L1 vertebra with routine healing, subsequent encounter Procedures AL OFFICE/OUTPATIENT NEW HIGH MDM 60 MINUTES Ryan Canales DO [address] [place] [address] Jose Dotson [address] [place] [address] Referral ID Status Reason Start Date Expiration Date Visits Requested Visits Authorized [id number] Pending Review Specialty Services Required 09/18/2023 09/17/2024 1 1 [facility] Summary Purpose Family History No Family History Records FoundNo Family History Records FoundNo Family History Records FoundNo Family History Records FoundNo Family History Records FoundNo Family History Records Found Advance Directives No Advanced Directives Records FoundDocuments on File Type Date Recorded Patient Application Architect Manager Expl anation ACP-Advance Directive ACP-Power of Robotic Welder Additional Source Comments (unrecognized sect ion and content) No Status Records FoundNo Status Records FoundNo Status Records FoundNo Status Records FoundNo Status Records FoundNo Status Records Found INFORMATION SOURCE (unrecogn ized section and content) DATE CREATED AUTHOR AUTHOR'S ORGANIZ ATION 03/05/2018 [facility] DATE CREATED AUTHOR AUTHOR'S ORGANIZ ATION 08/18/2018 [facility] DATE CREATED AUTHOR AUTHOR'S ORGANIZ ATION 04/17/2021 [facility] DATE CREATED AUTHOR AUTHOR'S ORGANIZ ATION 08/02/2021 [facility] ([place] DATE CREATED AUTHOR AUTHOR'S ORGANIZ ATION 09/23/2023 [facility] Reason for Visit (unrecogniz ed section and content) Reason Comments Blood in Urine Since Saturday little back pain in the morning Reason Comments Follow-up 6 month med check Reason Comments Med Refill Reason Onset Date Comments Med Refill 09/04/2023 Multiple medicat ions New Med Request 09/04/2023 Reason Onset Date Comments Orders 09/18/2023 Spinal Surgeon Reason Comments Follow-up 6 month med check Back Pain And muscle spasms Scheduled Active and Recently Administ ered Medications (unrecognized section and content) Care Teams (unrecognized sec tion and content) Transportation Maintenance Specialist Relationship Specialty Start Date End Date Ryan Canales DO [address] [place] [address] PCP - General 02/07/19 Transportation Maintenance Specialist Relationship Specialty Start Date End Date Ryan Canales DO [address] [place] [address] PCP - General 02/07/19 Transportation Maintenance Specialist Relationship Specialty Start Date End Date Ryan Canales DO [address] [place] [address] PCP - General 02/07/19 Transportation Maintenance Specialist Relationship Specialty Start Date End Date Ryan Canales DO [address] [place] [phone] PCP - General 02/07/19 Transportation Maintenance Specialist Relationship Specialty Start Date End Date Ryan Canales DO [address] [place] [address] PCP - General 02/07/19 Transportation Maintenance Specialist Relationship Specialty Start Date End Date Ryan Canales DO [address] [place] [address] PCP - General 02/07/19 Transportation Maintenance Specialist Relationship Specialty Start Date End Date Ryan Canales, DO [address] [place] [address] PCP - General 02/07/19 FOR RECORDS PERTAINING TO PATIENTS [...] BE BASED ON THE PRIMARY CLINICAL RECORDS. [facility] [employer] [facility]. provides no warranty or guarantee of the accuracy or completeness of information in this document.
--- NOTE | 2023-09-24 19:22 | CT_ITS ---
CT LEFT LOWER EXTREMITY WITH 3-D IMAGING CLINICAL INDICATION: Trauma TECHNIQUE: Axial CT images of the LEFT lower extremity was performed IV contrast material. Coronal and sagittal reformats were provided. RADIATION DOSAGE (If Supplied By Facility): CTDIvol = ( 15.35 ) mGy, DLP = ( 626.24 ) mGycm COMPARISON: FINDINGS: Bones: Acute slightly laterally displaced spiral fracture of the distal shaft of the fibula proximal to the tibial plafond. Tiny avulsion fractures of the anterior and posterior aspect of the lateral cortex of the distal tibia at the syndesmosis. Tiny avulsion fracture the inferior aspect of the medial malleolus the tibia. Acute nondisplaced oblique fracture of the base of the second metatarsal bone. The Lisfranc joint is properly aligned. Acute nondisplaced oblique fracture of the plantar aspect of the base of the third metatarsal bone and the base of the fourth metatarsal bone. Soft Tissues: Markedly thickening of the distal posterior tibialis tendon and MRI would be useful to evaluate for tear or tendinosis. Diffuse soft tissue swelling. CT/Extremity Lower without Contra IMPRESSION: 1. Acute slightly laterally displaced spiral fracture of the distal shaft of the fibula proximal to the tibial plafond with tiny avulsion fractures of the adjacent tibia at the syndesmosis. 2. Tiny avulsion fracture the inferior aspect the medial malleolus the tibia. 3. Nondisplaced oblique fractures of the base of the second third and fourth metatarsal bones but anatomic alignment of the Lisfranc joint. Electronically Signed: Montana Ramos MD at 20:38 EST ,
== END 2023-09-24 20:25 | disposition home or self-care (01) ==
PROVIDERS: Emergency Provider Emergency Medicine; PCP Family Medicine; Visit Provider Emergency Medicine
DX: S82.442A Displaced spiral fracture of shaft of left fibula, initial encounter for closed fracture (principal); I48.0 Paroxysmal atrial fibrillation; S92.325A Nondisplaced fracture of second metatarsal bone, left foot, initial encounter for closed fracture; S92.345A Nondisplaced fracture of fourth metatarsal bone, left foot, initial encounter for closed fracture; W08.XXXA Fall from other furniture, initial encounter; Y92.89 Other specified places as the place of occurrence of the external cause; I10 Essential (primary) hypertension; Z79.899 Other long term (current) drug therapy; R60.9 Edema, unspecified; Z79.01 Long term (current) use of anticoagulants; Z90.49 Acquired absence of other specified parts of digestive tract
CPT/HCPCS: 29515; 73610; 73630; 73700; 99282

== ENCOUNTER 2023-11-01 12:38 | Outpatient (RCR) | payer MEDICARE, OTHER, SELFPAY ==
[2023-07-09 22:41] VITALS: BMI 46.8
[2023-10-28 10:57] LABS: INR Fingerstick 4.9; Prothrombin Time Fingerstick 46.4 SEC (11.7-14.9)
[2023-10-28 11:40] LABS: Prothrombin Time (Protime)PT. 45.7 SECONDS (11.7-14.9)
[2023-10-28 11:43] LABS: International Normalized Ratio 4.8
[2023-11-01 12:43] LABS: INR Fingerstick 2.3; Prothrombin Time Fingerstick 24.1 SEC (11.7-14.9)
== END 2023-11-07 18:00 | disposition home or self-care (01) ==
LOC: LAB 12:38
PROVIDERS: Family Provider Family Medicine; PCP Family Medicine; Referring Provider Internal Medicine Cardiovascular Disease; Visit Provider Internal Medicine Cardiovascular Disease
DX: I48.0 Paroxysmal atrial fibrillation (principal); Z79.01 Long term (current) use of anticoagulants; Z98.890 Other specified postprocedural states
CPT/HCPCS: 36415; 36416; 85610

== ENCOUNTER 2023-11-29 13:18 | Outpatient (RCR) | payer MEDICARE, OTHER, SELFPAY ==
[2023-11-08 00:10] VITALS: BMI 46.8
[2023-11-08 12:16] LABS: INR Fingerstick 2.8; Prothrombin Time Fingerstick 28.4 SEC (11.7-14.9)
[2023-11-29 13:23] LABS: INR Fingerstick 2.4; Prothrombin Time Fingerstick 24.5 SEC (11.7-14.9)
== END 2023-12-08 01:15 | disposition home or self-care (01) ==
LOC: LAB 13:18
PROVIDERS: Family Provider Family Medicine; PCP Family Medicine; Referring Provider Internal Medicine Cardiovascular Disease; Visit Provider Internal Medicine Cardiovascular Disease
DX: I48.0 Paroxysmal atrial fibrillation (principal); Z79.01 Long term (current) use of anticoagulants; Z98.890 Other specified postprocedural states
CPT/HCPCS: 36416; 85610

== ENCOUNTER 2024-02-10 15:37 | Outpatient (RCR) | payer MEDICARE, OTHER, SELFPAY ==
[2023-12-08 01:16] VITALS: BMI 46.8
[2024-02-10 16:58] LABS: International Normalized Ratio 2.8; Prothrombin Time (Protime)PT. 29.2 SECONDS (11.7-14.9)
== END 2024-02-10 18:00 | disposition home or self-care (01) ==
LOC: LAB 15:37
PROVIDERS: Family Provider Family Medicine; PCP Family Medicine; Referring Provider Internal Medicine Cardiovascular Disease; Visit Provider Internal Medicine Cardiovascular Disease
DX: I48.0 Paroxysmal atrial fibrillation (principal); Z79.01 Long term (current) use of anticoagulants; Z98.890 Other specified postprocedural states
CPT/HCPCS: 36415; 85610

== ENCOUNTER → 2024-02-26 | Outpatient (CLI) | payer MEDICARE, OTHER, SELFPAY ==
[2024-02-26 11:28] LABS: INR Fingerstick 1.3; Prothrombin Time Fingerstick 13.9 SEC (11.7-14.9)
== END | disposition home or self-care (01) ==
LOC: LAB 10:52
PROVIDERS: PCP Family Medicine; Referring Provider Anesthesiology Pain Medicine; Visit Provider Anesthesiology Pain Medicine
DX: Z79.01 Long term (current) use of anticoagulants (principal)
CPT/HCPCS: 36415; 36416; 85610

== ENCOUNTER 2024-04-27 14:00 | Outpatient (RCR) | payer MEDICARE, OTHER, SELFPAY ==
[2024-03-09 03:56] VITALS: BMI 46.8
[2024-04-27 14:15] LABS: INR Fingerstick 2.1; Prothrombin Time Fingerstick 22.3 SEC (11.7-14.9)
== END 2024-04-27 18:00 | disposition home or self-care (01) ==
LOC: LAB 14:00
PROVIDERS: Family Provider Family Medicine; PCP Family Medicine; Referring Provider Internal Medicine Cardiovascular Disease; Visit Provider Internal Medicine Cardiovascular Disease
DX: I48.0 Paroxysmal atrial fibrillation (principal); Z79.01 Long term (current) use of anticoagulants
CPT/HCPCS: 36416; 85610

== ENCOUNTER → 2024-07-09 | Outpatient (CLI) | payer MEDICARE, OTHER, SELFPAY ==
[2024-07-09 10:48] LABS: International Normalized Ratio 1.3; Prothrombin Time (Protime)PT. 16.2 SECONDS (11.7-14.9)
== END | disposition home or self-care (01) ==
PROVIDERS: PCP Family Medicine; Referring Provider Anesthesiology Pain Medicine; Visit Provider Anesthesiology Pain Medicine
DX: R79.1 Abnormal coagulation profile (principal)
CPT/HCPCS: 36415; 85610

== ENCOUNTER 2024-09-07 13:34 | Outpatient (RCR) | payer MEDICARE, OTHER, SELFPAY ==
[2024-05-10 05:18] VITALS: BMI 46.8
[2024-09-07 13:46] LABS: INR Fingerstick 2.6; Prothrombin Time Fingerstick 27.9 SEC (11.7-14.9)
== END 2024-09-07 18:00 | disposition home or self-care (01) ==
LOC: LAB 13:34
PROVIDERS: Family Provider Family Medicine; PCP Family Medicine; Referring Provider Internal Medicine Cardiovascular Disease; Visit Provider Internal Medicine Cardiovascular Disease
DX: I48.0 Paroxysmal atrial fibrillation (principal); Z79.01 Long term (current) use of anticoagulants; Z98.890 Other specified postprocedural states
CPT/HCPCS: 36416; 85610

== ENCOUNTER → 2024-09-07 | Outpatient (CLI) | payer MEDICARE, OTHER, SELFPAY ==
--- NOTE | 2024-09-07 12:39 | ECHOCS_ITS ---
Reason For Study: CHF Procedure This was a 2D Doppler, Color Flow transthoracic echocardiogram. The study was technically difficult. Contrast injection was performed. Exam performed in department. Left Ventricle Moderate concentric left ventricular hypertrophy. Normal LV size. The left ventricular ejection fraction is 65 %. Stage 1 diastolic dysfunction. Right Ventricle RV not well-visualized. Appears normal size with normal systolic function in parasternal long axis views. Atria The left atrium is moderately enlarged. The right atrium is not well visualized. Mitral Valve Mild mitral annular calcification. Tricuspid Valve The tricuspid valve is not well visualized. Aortic Valve Trisinus/trileaflet aortic valve. Aortic valve mean peak gradient 8 mmHg. Pulmonic Valve The pulmonic valve is not well visualized. Great Vessels Normal sized aortic root. Pericardium/Pleural No pericardial effusion. Medication 22 gauge I.V. with prn adaptor inserted into right arm. Diluted definity 2ml given slow IV push to enhance endocardial definition. MMode/2D Measurements & Calculations LVIDd: 4.3 cm IVSd: 1.5 cm LVOT diam: 2.0 cm LVIDs: 3.2 cm LVPWd: 1.6 cm FS: 26.2 % LVOT area: 3.2 cm2 Ao root diam: 3.2 cm LAV(MOD-bp): 47.1 ml LVAd ap4: 37.9 cm2 LAV(MOD-bp) Indexed: 17.8 ml/m2 LVLd ap4: 8.3 cm LAV(MOD-sp2): 36.5 ml EDV(MOD-sp4): 141.1 ml LAV(MOD-sp4): 53.8 ml EDV(sp4-el): 146.3 ml LVAs ap4: 17.4 cm2 LVLs ap4: 6.8 cm ESV(MOD-sp4): 36.5 ml ESV(sp4-el): 37.7 ml EF(MOD-sp4): 74.2 % EF(sp4-el): 74.2 % SV(MOD-sp4): 104.6 ml SV(sp4-el): 108.6 ml LA A4 area: 19.0 cm2 SI(MOD-sp4): 39.6 ml/m2 LA dimension(2D): 3.6 cm RA A4 area: 20.9 cm2 Time Measurements MV dec time: 0.29 sec Doppler Measurements & Calculations MV E max gentry: 115.4 cm/sec Lat Peak E' Gentry: 10.5 cm/sec Med Peak E' Gentry: 7.9 cm/sec MV A max gentry: 76.1 cm/sec E/E' lat: 11.0 E/E' med: 14.7 MV E/A: 1.5 MV V2 max: 128.4 cm/sec MV dec slope: 405.8 cm/sec2 Ao V2 max: 198.1 cm/sec MV max P.6 mmHg Ao max P.7 mmHg MV V2 mean: 61.4 cm/sec Ao V2 mean: 134.5 cm/sec MV mean P.9 mmHg Ao mean P.2 mmHg MV V2 VTI: 51.2 cm Ao V2 VTI: 49.0 cm MVA(VTI): 2.0 cm2 AV (velocity ratio): 0.67 BORIS(I,D): 2.1 cm2 BORIS(V,D): 1.9 cm2 LV V1 max: 116.6 cm/sec SV(LVOT): 103.9 ml PA V2 max: 114.0 cm/sec LV V1 max P.4 mmHg PA V2 mean: 81.6 cm/sec LV V1 mean P.6 mmHg LV V1 mean: 92.0 cm/sec LV V1 VTI: 32.9 cm ECHO/Echo Complete W/ Contrast Interpretation Summary Moderate concentric left ventricular hypertrophy. The left ventricular ejection fraction is 65 %. Stage 1 diastolic dysfunction. The left atrium is moderately enlarged. Mild mitral annular calcification. The study was technically difficult. Ordering Physician: Kenroy Barney Referring Physician: Kenroy Barney Performed By: Chery Curry RCS
== END | disposition home or self-care (01) ==
PROVIDERS: PCP Family Medicine; Referring Provider Internal Medicine Cardiovascular Disease; Visit Provider Internal Medicine Cardiovascular Disease
DX: I50.9 Heart failure, unspecified (principal); Z98.890 Other specified postprocedural states
CPT/HCPCS: 93306; Q9957; A4216; C8929

== ENCOUNTER 2025-01-14 12:30 | Outpatient (RCR) | payer MEDICARE, OTHER, SELFPAY ==
[2024-09-09 04:46] VITALS: BMI 46.8
[2025-01-14 13:03] LABS: International Normalized Ratio 1.7; Prothrombin Time (Protime)PT. 20.5 SECONDS (11.7-14.9)
== END 2025-01-14 18:00 | disposition home or self-care (01) ==
LOC: LAB 12:30
PROVIDERS: Family Provider Family Medicine; PCP Family Medicine; Referring Provider Internal Medicine Cardiovascular Disease; Visit Provider Internal Medicine Cardiovascular Disease
DX: Z79.01 Long term (current) use of anticoagulants
CPT/HCPCS: 36415; 85610

== ENCOUNTER 2025-02-16 14:21 | Outpatient (RCR) | payer MEDICARE, OTHER, SELFPAY ==
[2025-02-07 19:12] VITALS: BMI 46.8
[2025-02-16 15:42] LABS: International Normalized Ratio 2.3; Prothrombin Time (Protime)PT. 25.4 SECONDS (11.7-14.9)
[2025-02-16 16:20] LABS: Anion Gap 12 (5-15); BUN 20 mg/dL (4-19); BUN/Creat Ratio 21.5 RATIO (10-20); Calcium,Total 9.2 mg/dL (7.6-11.0); Carbon Dioxide 22.6 mmol/L (21.0-32.0); Chloride 108 mmol/L (98-108); Creatinine, Serum 0.94 mg/dL (0.70-1.20); EST Glomerular Filtration Rate 85 (>60); Glucose 92 mg/dL (70-99); Potassium 4.4 mmol/L (3.3-5.1); Sodium Level 142 mmol/L (133-145)
== END 2025-02-16 18:00 | disposition home or self-care (01) ==
LOC: LAB 14:21
PROVIDERS: Family Provider Family Medicine; PCP Family Medicine; Referring Provider Internal Medicine Cardiovascular Disease; Visit Provider Internal Medicine Cardiovascular Disease
DX: Z79.01 Long term (current) use of anticoagulants; I10 Essential (primary) hypertension
CPT/HCPCS: 36415; 80048; 85610

== ENCOUNTER → 2025-03-10 | Outpatient (CLI) | payer MEDICARE, OTHER, SELFPAY ==
--- OUTSIDE RECORDS SUMMARY | 2025-03-10 06:51 | XMS RPT_ITS | CCD ---
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 Nurse Unavailable Unavailable Radha RN, Emeli Alex Unavailable [phone] Radha RN, Emeli Alex Unavailable 1([phone] Radha RN, Emeli Alex Unavailable [phone] Radha RN, Emeli Alex Unavailable [phone] [facility] Nurse Unavailable Unavailable Dodie RN, Nicky Bella Unavailable Unavaildelmy Stoll RN, Nicky Bella Unavailable Unavaildelmy Garcia RN, Emeli Alex Unavailable 1(330) Radha RN, Emeli Alex Unavailable 1(330) Radha RN, Emeli Alex Unavailable [phone] [facility] Nurse Unavailable Unavailable Pau RN, Yumiko A Unavailable Unavailable Pau RN, Yumiko A Unavailable Unavailable Radha RN, Emeli Alex Unavailable 1(330) Radha RN, Emeli Alex Unavailable 1(330) Radha RN, Emeli Alex Unavailable [phone] VITEBSKIY, MARVA Unavailable Unavailable VITEBSKIY, MARVA Unavailable [...] MARVA Unavailable Unavailable VITEBSKIY, MARVA Unavailable Unavailable GHAZAL MELENDEZ Unavailable Unavailable VITEBSKIY, MARVA Unavailable Unavailable VITEBSKIY, MARVA Unavailable Unavailable Petrilla, Ryan Unavailable Unavailable ALGHAZAL Unavailable Unavailable RENZO, MEET Unavailable Unavailable Petrilla, Ryan Unavailable Unavailable RENZO, MEET Unavailable Unavailable DION, SARAHI Cole Unavailable Unavailable VITEBSKIY, MARVA Unavailable Unavailable Petrilla, Ryan Unavailable Unavailable Chapitoa, Ryan Unavailable Unavailable Pau RN, Yumiko Hernandez Unavailable Unavailable Radha RN, Emeli Alex Unavailable 1(330) Radha RN, Emeli L Unavailable 1(330) Radha RN, Emeli L Unavailable 1(330) Radha RN, Emeli L Unavailable 1(330) HARRY Stoll, Nicky Bella Unavailable Unavailabl e Radha RN, Emeli Alex Unavailable [phone] Ryan Canales DO Primary Care Provider DR RYAN CANALES DO Primary Care Physician Dr. Ryan Canales Primary Care Provider [phone] Dr. Ryan Canales Referring Provider Dr. Chicho Vernon Attending Provider Dr. Ryan Canales Primary Care Provider [phone] Dr. Ryan Canales Referring Provider Dr. Jose Dotson Attending Provider Dr. Audie Franklin Attending Provider Dr. Ryan Canales Primary Care Provider Dr. Ryan Canales Referring Provider Dr. Jose Dotson Attending Provider Dr. Audie Franklin Attending Provider Emeli Garcia Attending Provider Unavailable Ryan Canales DO Primary Care Provider [phone] Dr. Ryan Canales Primary Care Provider [phone] Dr. Ryan Canales Referring Provider Roof PLEAT TAPER, PLEAT TAPER-C Gianluca H Attending Provider Ally DO, Ryan F Primary Care Provider Chapitomary DO, Ryan F Primary Care Provider Dr. Ryna Canales Primary Care Provider Ally, Dr. Davis Referring Provider Dr. Jose Dotson Attending Provider Dr. Audie Franklin Attending Provider GHAZAL WILDER Attending Unavailable Ally, Dr. Davis Primary Care Provider [phone] Ally, Dr. Davis Referring Provider Dr. Jose Dotson Attending Provider Rigoberto, Dr. Bronsno Attending Provider [phone] Ally MAX, Ryan Anmol Primary Care Provide r Janeen PANCHAL, Chicho F Unavailable Janeen PANCHAL, Chicho F Unavailable Dr. Ryan Canales DO Primary Care Provider [phone] HIRAM SALINAS Other Provider Rigoberto PANCHAL, Dr. Bronson Attending Provider Dr. Audie Franklin MD Referring Provider Dr. Ryan Canales DO Referring Provider [phone] Ector PANCHAL, Dr. Jasmine Attending Provider Ally, Ryan Primary Care Unavailable Ector, Kenroy Attending Unavailable Chapitoa, Ryan Referring Unavailable Ector, Kenroy Attending Unavailable Jimmylla, Ryan Primary Care Unavailable Petrilla, Ryan Primary Care Unavailable Ector, Kenroy Referring Unavailable Ector, Kenroy Attending Unavailable Petrilla, Ryan Primary Care Unavailable Rigoberto, Audie Attending Unavailable Rigoberto, [place] Referring Unavailable BLAS KRISHNAMURTHY Consulting Unavailable Rigoberto, [place] Referring Unavailable Petrilla, Ryan Primary Care Unavailable BLAS KRISHNAMURTHY Consulting Unavailable RigobertoAudie ambrose Attending Unavailable Petrilla, Ryan Primary Care Unavailable Ector, Kenroy Attending Unavailable Ector, Kenroy Referring Unavailable Basali, Ayman Attending Unavailable Basali, Ayman Referring Unavailable Petria, [place] Primary Care Unavailable Petrilla, [place] Primary Care Unavailable Rigoberto, [place] Attending Unavailable Rigoberto, Audie Referring Unavailable KRISHNAMURTHY, BR Consulting Unavailable Petria, [place] Primary Care Unavailable KRISHNAMURTHY, BR Consulting Unavailable Rigoberto, Audie Attending Unavailable Ector, Kenroy Referring Unavailable Petrilla, Ryan Referring Unavailable Petria, [place] Primary Care Unavailable Ector, Kenroy Attending Unavailable Petrilla, Ryan Attending Unavailable Petrilla, [place] Primary Care Unavailable Petrilla Dr. Ryan MAX Primary Care Provider Dr. Ryan Canales DO Attending Provider [phone] Ector PANCHAL, Dr. Jasmine Referring Provider ASHLEIGH TAPIA Attending Unavailable PETRILLA, [place] Primary Care Unavailable PETRILLA, RYAN Attending Unavailable PETRILLA, [place] Primary Care Unavailable PETRILLA, RYAN Attending Unavailable PETRILLA, [place] Primary Care Unavailable Allergies Allergy Classification Reported Allergen(s) Allergy Type Date of Onset Reaction(s) Facility Iodine (and Iodine containting drugs) (2 sources) Iodine Drug Allergy 6 Anaphylaxis [facility] (20 sources) iodine; Translations: [IODINE] drug allergy 5 Anaphylaxis, Rash [employer] Work Phone: Comment on above: rash (18 sources) NKDA drug allergy 5 [facility] Work Phone: (1 source) BETAGEN (POVIDONE-IO; Translations: [BETAGEN (POVIDONE-IO] Propensity to adverse reactions (disorder) [facility] (20 sources) Other Allergy to substance 5 [facility] Medications Current Medications Medication Drug Class(es) Dates Sig (Normalized) Sig (Original) acetaminophen 32 mg/ml oral suspension (20 sources) Start: 04-16-2021 acetaminophen (Tylenol) 160 MG/5ML suspension Take 650 mg by mouth. 04/16/2021 Active Start: 04-14-2021 End: 04-14-2021 acetaminophen (TYLENOL) tabl et 1,000 mg acetaminophen 325 mg / HYDROcodone bitartrate 5 mg oral tablet (19 sources) Opioid Agonist Start: 05-19-2024 End: 05-24-2024 take 1 tablet by mouth every six hours as needed for pain HYDROcodone-acetaminophen ([place]) 5-325 MG tablet Indications: Dental abscess Take 1 tablet by mouth every 6 hours as needed for severe pain (7-10) for up to 5 days. 15 tablet 05/19/2024 05/24/2024 Active Start: 03-06-2022 End: 02-07-2023 Hydrocodone-Acetaminophen 5- 325 mg tablet Discontinued 1 {tbl} PO EVERY 6 HOURS as needed for pain 10 3 0 March 06, 2022 February 07, 2023 1:27pm Chest pain Chest pain, unspecified Start: 03-06-2022 End: 02-07-2023 take 1 tablet by mouth every six hours Hydrocodone-Acetaminophen Discontinued 1 TABLET PO EVERY 6 HOURS 10 3 March 06, 2022 February 07, 2023 1:27pm amLODIPine 10 mg oral tablet (20 sources) Dihydropyridine Calcium Channel Ed Start: 02-19-2015 End: 12-16-2024 take 1 tablet by mouth once daily amLODIPine (Norvasc) 10 MG tablet Take 1 tablet (10 mg) by mouth daily. 90 tablet 1 12/16/2024 Active amoxicillin 500 mg oral capsule (2 sources) Penicillin-class Antibacterial Start: 05-19-2024 End: 05-29-2024 take 1 capsule by mouth three times daily amoxicillin (Amoxil) 500 MG capsule Indications: Dental abscess Take 1 capsule (500 mg) by mouth 3 times daily for 10 days. 30 capsule 05/19/2024 05/29/2024 Active atorvastatin 10 mg oral tablet (20 sources) HMG-CoA Reductase Inhibitor Start: 07-13-2020 End: 12-16-2024 take 1 tablet by mouth once daily atorvastatin (Lipitor) 10 MG tablet Take 1 tablet (10 mg) by mouth daily. 90 tablet 1 12/16/2024 Active chlorhexidine gluconate 1.2 mg/ml mouthwash (2 sources) Start: 05-19-2024 End: 05-23-2024 take 15 mL by mouth twice daily chlorhexidine (Peridex) 0.12 % solution Indications: Dental abscess Use 15 mL in the mouth or throat 2 times daily for 4 days. 120 mL 05/19/2024 05/23/2024 Active codeine phosphate 2 mg/ml / guaiFENesin 20 mg/ml oral solution (1 source) Opioid Agonist Start: 10-23-2024 End: 10-28-2024 guaiFENesin-codein e (Robitussin-AC) 100-10 MG/5ML syrup Indications: COVID-19 Take 5 mL by mouth as needed for cough for up to 5 days. 118 mL 10/23/2024 10/28/2024 Active furosemide 40 mg oral tablet (20 sources) Loop Diuretic Start: 04-06-2015 End: 12-16-2024 take 1 tablet by mouth twice daily furosemide (Lasix) 40 MG tablet Take 1 tablet (40 mg) by mouth 2 times daily. 180 tablet 1 12/16/2024 Active Start: 04-06-2015 take 1 tablet by nestor th once daily FUROSEMIDE 40 MG TABS One tablet by mouth daily FUROSEMIDE [id number] Chicho Vernon MD gabapentin 300 mg oral capsule (20 sources) Anti-epileptic Agent Start: 07-13-2020 take 1 capsule by mouth once daily as needed, then take 2 capsules by mouth at bedtime as needed gabapentin (Neurontin) 300 MG capsule TAKE 1 CAPSULE BY MOUTH DURING THE DAY NEEDED AND 2 CAPSULES AT BEDTIME DIRECTED 07/27/2022 Active Start: 04-04-2017 take 300 mg by mouth once corin y gabapentin enacarbil 300 mg TbER Take 300 mg by mouth once daily. 04/04/2017 Active Start: 11-22-2015 End: 08-23-2017 take 1 capsule by mouth at bedtime Gabapentin 300 MG capsule Discontinued 300 mg PO AT BEDTIME November 22, 2015 12:00am August 23, 2017 12:41pm Start: 06-10-2015 End: 07-13-2020 take 2-3 capsules by mouth twice daily at bedtime Gabapentin 300 MG capsule Discontinued 300 mg PO .COMPLEX August 23, 2017 12:38pm July 13, 2020 2:48pm 300 mg PO twice daily AND 2-3 capsules at bedtime metoprolol tartrate 50 mg oral tablet (20 sources) beta-Adrenergic Ed Start: 09-11-2022 End: 03-19-2023 metoprolol succinate XL (Toprol-XL) 50 MG 24 hr tablet One BID Strength: 50 mg 90 tablet 1 09/18/2022 09/19/2022 Discontinued (Reorder) Start: 03-15-2021 take 1 tablet by nestor th twice daily metoprolol succinate (TOPROL XL) 50 MG extended release tablet Take 1 tablet by mouth 2 times daily 180 tablet 1 03/15/2021 Active Start: 07-13-2020 End: 12-16-2024 take 1 tablet by mouth twice daily metoprolol tartrate (Lopressor) 50 MG tablet Take 1 tablet (50 mg) by mouth 2 times daily. 180 tablet 1 12/16/2024 Active Start: 02-24-2018 End: 07-13-2020 take 2 tablets by mouth twice daily Metoprolol Tartrate 25 mg tablet Discontinued 50 mg PO TWICE A DAY February 24, 2018 2:30pm July 13, 2020 2:46pm Start: 02-24-2018 End: 07-13-2020 take 50 mg by mouth twice daily Metoprolol Tartrate Di scontinued 50 MG PO TWICE A DAY February 24, 2018 2:30pm July 13, 2020 2:46pm Start: 02-22-2015 End: 02-24-2018 take 1 tablet by mouth twice daily Metoprolol Tartrate 25 MG tablet Discontinued 25 mg PO TWICE A DAY May 09, 2016 12:00am February 24, 2018 2:30pm Start: 02-22-2015 take 1 tablet by nestor th once daily METOPROLOL SUCCINATE ER 200 MG [id number] One tablet by mouth daily METOPROLOL SUCCINATE [id number] Chicho Vernon MD Start: 02-22-2015 take 1 tablet by nestor th twice daily METOPROLOL TARTRATE 100 MG TABS One tablet by mouth twice daily METOPROLOL TARTRATE [id number] Nicky Stoll RN Nirmatrelvir&Ritonavir 300/100 (Paxlovid, 300/100,) 20 x 150 MG & 10 x 100MG tablet therapy pack (1 source) Start: 10-23-2024 End: 10-28-2024 take 3 tablets by mouth every twelve hours Nirmatrelvir&Ritonavir 300/100 (Paxlovid, 300/100,) 20 x 150 MG & 10 x 100MG tablet therapy pack Take 3 tablets by mouth every 12 hours for 5 days. 30 tablet 10/23/2024 10/28/2024 Active microencapsulated potassium chloride 20 meq extended release oral tablet (20 sources) Start: 09-20-2021 take 1 tablet by mouth twice daily potassium chloride CR (Klor-Con M20) 20 MEQ ER tablet Take 1 tablet by mouth 2 times daily. 09/20/2021 Active Start: 06-17-2019 take 1 tablet by nestor th twice daily potassium chloride (KLOR-CON M) 20 MEQ extended release tablet Take 1 tablet by mouth 2 times daily 180 tablet 1 06/17/2019 Active Start: 02-24-2018 End: 02-09-2025 take 2 tablets by mouth once daily Potassium Chloride 20 mEq tablet,ER particles/crystals Discontinued 40 meq PO daily 180 3 March 02, 2024 4:05pm July 28, 2024 2:31pm Start: 02-24-2018 End: 03-22-2023 take 40 mEq by mouth once daily Potassium Chloride Dis continued 40 MEQ PO daily 180 March 15, 2022 3:16pm March 22, 2023 1:34pm Start: 08-23-2017 End: 02-24-2018 take 2 tablets by mouth twice daily Potassium Chloride 20 MEQ tablet Discontinued 40 meq PO .COMPLEX August 23, 2017 12:41pm February 24, 2018 2:33pm 40 mEq PO 2 tablets by mouth twice daily; mineral supplement Start: 08-23-2017 End: 02-24-2018 take 2 tablets by mouth twice daily Potassium Chloride Discontinued 40 MEQ PO .COMPLEX August 23, 2017 12:41pm February 24, 2018 2:33pm 40 mEq PO 2 tablets by mouth twice daily; mineral supplement Start: 05-15-2017 potassium chlo ride ER (K-DUR, KLOR-CON) 20 mEq tablet Take 20 mEq by mouth once daily. 05/15/2017 Active Start: 11-22-2015 End: 08-23-2017 take 40 mEq by mouth once daily Potassium Chloride Dis continued 40 MEQ PO DAILY November 22, 2015 12:00am August 23, 2017 12:41pm Start: 05-20-2015 take 20 doses by nestor th once daily potassium chloride Dose : 20 mEq =, Oral, qDay, 0 Refill(s) Start Date: 05/20/15 Status: Ordered Start: 04-06-2015 End: 08-23-2017 take 2 tablets by mouth once daily Potassium Chloride 20 MEQ tablet Discontinued 40 meq PO DAILY November 22, 2015 12:00am August 23, 2017 12:41pm Start: 04-06-2015 take 2 tablets by mo [facility] twice daily POTASSIUM CHLORIDE ER 20 MEQ CR-TABS Two tablets by mouth twice daily POTASSIUM CHLORIDE [id number] Emeli Estrada PA-C Start: 04-06-2015 take 1 tablet by nestor once daily POTASSIUM CHLORIDE ER 20 MEQ CR-TABS One tablet by mouth daily POTASSIUM CHLORIDE [id number] Chicho Vernon MD sertraline 50 mg oral tablet (20 sources) Serotonin Reuptake Inhibitor Start: 10-20-2019 End: 07-13-2020 take 1 tablet by mouth once daily Sertraline 100 mg tablet Discontinued 100 mg PO DAILY October 20, 2019 1:00am July 13, 2020 2:46pm Start: 12-10-2016 End: 03-08-2025 take 1 tablet by mouth once daily sertraline (Zoloft) 50 MG tablet Indications: Anxiety associated with depression Take 1 tablet (50 mg) by mouth daily. Wants name brand Zoloft 90 tablet 1 03/09/2025 Active Start: 02-22-2015 End: 02-24-2018 take 1 tablet by mouth once daily Sertraline 100 mg tablet Discontinued 100 mg PO daily August 23, 2017 1:00am February 24, 2018 2:30pm Start: 02-18-2015 End: 08-23-2017 take 2 tablets by mouth once daily Sertraline 50 MG tablet Discontinued 100 mg PO DAILY February 18, 2015 12:00am August 23, 2017 12:40pm Start: 02-18-2015 End: 08-23-2017 take 100 mg by mouth once daily Sertraline Discontinue d 100 MG PO DAILY February 18, 2015 12:00am August 23, 2017 12:40pm triamcinolone acetonide 1 mg/ml topical cream (16 sources) Corticosteroid Start: 12-16-2024 End: 12-16-2025 triamcinolone (Kenalog) 0.1 % cream Apply to affected area 1-2 times daily as needed. Avoid face and groin. 80 g 2 12/16/2024 12/16/2025 Active Start: 09-18-2022 End: 09-18-2023 triamcinolone (Kenalog) 0.1 % cream Apply to affected area 1-2 times daily as needed. Avoid face and groin. 80 g 2 09/18/2022 09/18/2023 valsartan 80 mg oral tablet (1 source) Angiotensin 2 Receptor Ed Start: 02-09-2025 take 1 tablet by mouth once daily Valsartan 80 mg tablet Active 80 mg PO daily 90 February 09, 2025 12:00am warfarin sodium 5 mg oral tablet (20 sources) Vitamin K Antagonist Start: 07-24-2021 warfarin 5 mg oral tablet 1.5, Oral, Sun/Sat//Sat/ i/Sat, 0 Refill(s) Start Date: 07/24/21 Status: Ordered Start: 03-05-2017 End: 07-28-2024 warfarin (Coumadin) 5 MG tab let Decrease to 5mg q day 90 tablet 1 09/22/2023 Active Completed/Discontinued Medications Medication Drug Class(es) Dates Sig (Normalized) Sig (Original) acetaminophen 325 mg / oxyCODONE hydrochloride 5 mg oral tablet (20 sources) Opioid Agonist Start: 09-14-2023 End: 10-16-2023 Oxycodone-Acetamino phen (Percocet) 5-325 mg tablet Discontinued 1 {tbl} PO EVERY 6 HOURS as needed for pain 12 3 0 September 14, 2023 October 10, 2023 3:52pm Spinal stenosis of lumbar region Spinal stenosis, lumbar region without neurogenic claudication Start: 09-14-2023 End: 09-18-2023 oxyCODONE-acetaminophen (Per cocet) 5-325 MG tablet Start: 11-22-2015 End: 08-26-2017 Oxycodone-Acetaminophen 1 TA BLET tablet Discontinued 1 {tbl} PO EVERY 6 HOURS NEEDED as needed for Pain November 22, 2015 12:00am August 26, 2017 12:52pm Start: 11-22-2015 End: 08-26-2017 take 1 tablet by mouth every six hours as needed Oxycodone-Acetaminophen Discontinued 1 TABLET PO EVERY 6 HOURS NEEDED November 22, 2015 12:00am August 26, 2017 12:52pm Start: 10-27-2015 End: 12-14-2016 take 1 tablet by mouth three times daily as needed OXYCODONE-ACETAMINOPHEN 5-325 MG TABS On e tablet by mouth three times daily as needed OXYCODONE-ACETAMINOPHEN [id number] Bijan Melo Jamey Aspirin (20 sources) Platelet Aggregation Inhibitor, Nonsteroidal Anti-inflammatory Drug Start: 02-22-2015 End: 05-24-2015 take 1 tablet by mouth once daily ASPIR-81 81 MG TBEC One tablet by mouth daily ASPIRIN [id number] Candi Babin RN Start: 02-22-2015 take 1 tablet by nestor th once daily ASPIR-81 81 MG TBEC One tablet by mouth daily ASPIRIN [id number] Chicho Vernon MD Start: 02-22-2015 take 1 tablet by nestor th once daily ASPIRIN 81 MG TABS One tablet by mouth daily (on HOLD) ASPIRIN [id number] Chicho Vernon MD Start: 02-22-2015 End: 05-24-2015 take 1 tablet by mouth once daily ASPIR-81 81 MG TBEC One tablet by mouth daily ASPIRIN [id number] Candi Babin RN Start: 02-22-2015 take 1 tablet by nestor th once daily ASPIRIN 81 MG TABS One tablet by mouth daily (on HOLD) ASPIRIN [id number] Chicho Vernon MD Start: 02-22-2015 End: 05-24-2015 take 1 tablet by mouth once daily ASPIR-81 81 MG TBEC One tablet by mouth daily ASPIRIN [id number] Candi Babin RN Start: 02-22-2015 take 1 tablet by nestor th once daily ASPIR-81 81 MG TBEC One tablet by mouth daily ASPIRIN [id number] Chicho Vernon MD celecoxib 100 mg oral capsule (20 sources) Nonsteroidal Anti-inflammatory Drug Start: 05-25-2015 End: 10-27-2015 take 2 tablets by mouth once daily CELEBREX 100 MG CAPS Two tablets by mouth daily CELECOXIB [id number] Chicho Vernon MD Start: 05-25-2015 take 1 tablet by nestor once daily CELEBREX 100 MG CAPS One tablet by mouth daily CELECOXIB [id number] Nicky Stoll RN cephalexin 500 mg oral tablet (12 sources) Cephalosporin Antibacterial Start: 02-07-2023 End: 09-14-2023 take 1 tablet by mouth twice daily Cephalexin 500 mg tablet Discontinued 500 mg PO TWICE A DAY February 07, 2023 12:00am September 14, 2023 2:42am x7 days Start: 02-05-2023 End: 02-12-2023 take 1 capsule by mouth twice daily cephalexin (Keflex) 500 MG capsule Indications: Hematuria, unspecified type Take 1 capsule (500 mg) by mouth 2 times daily for 7 days. 14 capsule 0 02/05/2023 02/12/2023 Active citalopram 10 mg oral tablet (2 sources) Serotonin Reuptake Inhibitor Start: 03-09-2024 End: 09-05-2024 take 1 tablet by mouth once daily citalopram (CeleXA) 10 MG tablet Take 1 tablet (10 mg) by mouth daily. 30 tablet 5 03/09/2024 05/19/2024 Discontinued (Ineffective) diazePAM 2 mg oral tablet (20 sources) Benzodiazepine Start: 02-22-2015 End: 02-24-2015 take 1 tablet by mouth once daily as needed DIAZEPAM 2 MG TABS One tablet by mouth daily as needed DIAZEPAM [id number] Nicky Stoll RN glucosamine 1000 mg oral tablet (20 sources) Start: 05-23-2016 End: 12-14-2016 take 1 tablet by mouth once daily GLUCOSAMINE HCL TABS One tablet by mouth daily GLUCOSAMINE HCL TABS Bijan Concepcion meclizine hydrochloride 25 mg oral tablet (20 sources) Antiemetic Start: 02-22-2015 End: 02-24-2015 take 1 tablet by mouth three times daily as needed MECLIZINE HCL 25 MG TABS One tablet by mouth three times daily As needed MECLIZINE HCL [id number] Chicho Vernon MD methocarbamol 500 mg oral tablet (20 sources) Muscle Relaxant Start: 09-14-2023 End: 12-16-2024 take 1 tablet by mouth four times daily as needed for pain Methocarbamol 500 mg tablet Discontinued 500 mg PO 4 TIMES DAILY NEEDED as needed for Muscle pain/spasm 40 10 0 September 14, 2023 5:46am October 10, 2023 3:50pm nabumetone 500 mg oral tablet (20 sources) Nonsteroidal Anti-inflammatory Drug Start: 02-22-2015 End: 10-27-2015 take 2 tablets by mouth twice daily NABUMETONE 500 MG TABS Two tablets by mouth twice daily NABUMETONE [id number] Chicho Vernon MD oxymetazoline hydrochloride 0.5 mg/ml nasal spray (18 sources) Start: 05-09-2016 End: 02-24-2018 Oxymetazoline 30 ML mist Discontinued 30 mL NS DAILY NEEDED as needed for Congestion May 09, 2016 12:00am February 24, 2018 2:30pm rivaroxaban 20 mg oral tablet (20 sources) Factor Xa Inhibitor Start: 02-24-2015 End: 08-23-2017 take 1 tablet by mouth once daily Rivaroxaban 20 MG tablet Discontinued 20 mg PO DAILY 0 0 November 24, 2015 8:41am August 23, 2017 12:36pm restart on 11/27/15 sildenafil 50 mg oral tablet (20 sources) Phosphodiesterase 5 Inhibitor Start: 02-22-2015 End: 02-24-2015 VIAGRA 50 MG TABS Take as Directed SILDENAFIL CITRATE [id number] Chicho Vernon MD SALINE (20 sources) Start: 02-24-2015 End: 12-14-2016 SALINE NASAL SPRAY 0.65 % SOLN as needed SALINE [id number] Bijan Concepcion Start: 02-24-2015 SALINE NASAL S PRAY 0.65 % SOLN as needed SALINE [id number] Chicho Vernon MD Start: 02-24-2015 End: 12-14-2016 SALINE NASAL SPRAY 0.65 % SO LN as needed SALINE [id number] Bijan Concepcion Start: 02-24-2015 SALINE NASAL S PRAY 0.65 % SOLN as needed SALINE [id number] Chicho Vernon MD Start: 02-24-2015 End: 12-14-2016 SALINE NASAL SPRAY 0.65 % SO LN as needed SALINE [id number] Bijan Concepcion Start: 02-24-2015 End: 12-14-2016 SALINE NASAL SPRAY 0.65 % SO LN as needed SALINE [id number] Bijan Concepcion Start: 02-24-2015 SALINE NASAL S PRAY 0.65 % SOLN as needed SALINE [id number] Chicho Vernon MD traMADol hydrochloride 50 mg oral tablet (1 source) Opioid Agonist Start: 04-14-2021 End: 04-14-2021 traMADol (ULTRAM) tablet 75 mg Triamterene (18 sources) Potassium-spari ng Diuretic Start: 02-18-2015 End: 02-19-2015 take 1 tablet by mouth once daily Triamterene 75MG/Hctz 50MG Discontinued 1 TABLET PO DAILY February 18, 2015 9:07pm February 19, 2015 12:57pm Start: 02-18-2015 End: 02-19-2015 Triamterene 75MG/Hctz 50MG 1 TAB Discontinued 1 {tbl} PO DAILY February 18, 2015 12:00am February 19, 2015 12:57pm Start: 02-18-2015 End: 02-19-2015 take 1 tablet by mouth once daily Triamterene 75MG/Hctz 50MG Discontinued 1 TABLET PO DAILY February 17, 2015 11:00pm February 19, 2015 11:57am Start: 02-18-2015 End: 02-19-2015 take 1 tablet by mouth once daily Triamterene 75MG/Hctz 50MG Discontinued 1 TABLET PO DAILY February 18, 2015 12:00am February 19, 2015 12:57pm Problems Active Problems Problem Classification Problem Date Documented Da te Episodic/Chronic Abdominal pain (17 sources) Right flank pain; Translations: [Unspecified abdominal pain] 03-14-2022 Episodic Anxiety disorders (20 sources) Anxiety disorder, unspecified; Translations: [Mixed anxiety and depressive disorder] Onset: 04-01-2015 04-01-2015 Chronic Cancer of prostate (19 sources) Malignant tumor of prostate; Translations: [Malignant neoplasm of prostate] 05-20-2015 Chronic Cardiac dysrhythmias (20 sources) Persistent atrial fibrillation; Translations: [Atrial fibrillation] Onset: 02-07-2015 Resolved: 12-11-2017 12-15-2015 Chronic Comment on above: Ablation 04/10/2017, [facility] per Dr. Gutierrez; Cardiac dysrhythmias (1 source) Bradycardia; Translations: [Bradycardia, unspecified] Episodic Conditions associated with dizziness or vertigo (18 sources) Vertigo; Translations: [Dizziness and giddiness] 08-23-2017 Episodic Congestive heart failure; nonhypertensive (20 sources) Congestive heart failure; Translations: [Unspecified diastolic (congestive) heart failure] Onset: 04-06-2015 Resolved: 07-24-2016 04-06-2015 Chronic Disorders of lipid metabolism (19 sources) Hypercholesterolemia ; Translations: [Pure hypercholesterolemia , unspecified] Onset: 06-17-2024 03-19-2023 Chronic E Codes: Fall (6 sources) Fall; Translations: [Unspecified fall, initial encounter] 09-24-2023 Episodic Essential hypertension (20 sources) Hypertensive disorder; Translations: [Essential (primary) hypertension] Onset: 02-22-2015 02-22-2015 Chronic Fluid and electrolyte disorders (20 sources) Hypokalemia; Translations: [Hypokalemia] Onset: 04-20-2015 04-20-2015 Episodic Fracture of lower limb (12 sources) Unspecified fracture of left foot, initial encounter for closed fracture; Translations: [Fracture of left foot] 09-24-2023 Episodic Gastrointestinal hemorrhage (1 source) Rectal hemorrhage 05-20-2015 Episodic Genitourinary symptoms and ill-defined conditions (4 sources) Blood in urine; Translations: [Hematuria, unspecified] Episodic Hypertension with complications and secondary hypertension (1 source) Hypertensive heart disease with heart failure; Translations: [HTN HEART DISEASE W/HEAR] Onset: 04-10-2017 Chronic Mood disorders (1 source) Major depressive disorder, single episode, unspecified; Translations: [ALEA DEPRESS D/O SINGLE E] Onset: 04-10-2017 Nonspecific chest pain (18 sources) Chest pain; Translations: [Chest pain, unspecified] 11-22-2015 Episodic Osteoarthritis (20 sources) Localized, primary osteoarthritis; Translations: [Osteoarthritis of knee] Onset: 04-01-2015 12-21-2016 Chronic Other fractures (7 sources) Closed fracture of first lumbar vertebra; Translations: [Unspecified fracture of first lumbar vertebra, initial encounter for closed fracture] 09-14-2023 Episodic Other fractures (2 sources) Compression fracture of lumbar spine; Translations: [Wedge compression fracture of first lumbar vertebra, subsequent encounter for fracture with routine healing] 09-18-2023 Episodic Other hereditary and degenerative nervous system conditions (20 sources) Restless legs; Translations: [Restless legs syndrome] Onset: 12-11-2017 12-11-2017 Chronic Other injuries and conditions due to external causes (1 source) Injury of head; Translations: [Unspecified injury of head, initial encounter] Episodic Other liver diseases (20 sources) Steatosis of liver; Translations: [Fatty (change of) liver, not elsewhere classified] Onset: 04-01-2015 04-01-2015 Chronic Other lower respiratory disease (4 sources) Dyspnea on exertion; Translations: [Other forms of dyspnea] 02-09-2025 Episodic Other lower respiratory disease (2 sources) Other forms of dyspnea; Translations: [Other forms of dyspnea] Onset: 02-09-2025 Episodic Other male genital disorders (20 sources) Male erectile dysfunction, unspecified; Translations: [Impotence of organic origin] Onset: 04-01-2015 04-01-2015 Chronic Other nutritional; endocrine; and metabolic disorders (20 sources) Body mass index (BMI) 45.0-49.9, adult; Translations: [Body mass index (BMI) 40.0-44.9, adult] Onset: 02-24-2015 02-24-2015 Chronic Other nutritional; endocrine; and metabolic disorders (7 sources) Body mass index (BMI) 40.0-44.9, adult; Translations: [Body mass index (BMI) 40.0-44.9, adult] Onset: 02-24-2015 10-23-2016 Chronic Other nutritional; endocrine; and metabolic disorders (20 sources) Morbid obesity; Translations: [Morbid (severe) obesity due to excess calories] Onset: 06-17-2019 06-17-2019 Chronic Other nutritional; endocrine; and metabolic disorders (1 source) Obesity caused by energy imbalance; Translations: [Other obesity due to excess calories] Onset: 07-24-2016 07-24-2016 Chronic Other nutritional; endocrine; and metabolic disorders (5 sources) Body mass index 40+ - severely obese; Translations: [Morbid (severe) obesity due to excess calories] 07-28-2024 Chronic Other nutritional; endocrine; and metabolic disorders (1 source) Morbid (severe) obesity due to excess calories; Translations: [Morbid (severe) obesity due to excess calories] Onset: 02-09-2025 Chronic Other upper respiratory disease (20 sources) Allergic rhinitis; Translations: [Allergic rhinitis, unspecified] Onset: 04-01-2015 04-01-2015 Chronic Residual codes; unclassified (20 sources) Obstructive sleep apnea syndrome; Translations: [Body mass index (BMI) 40.0-44.9, adult] Onset: 02-24-2015 04-13-2015 Chronic Residual codes; unclassified (1 source) Sleep apnea 05-20-2015 Chronic Residual codes; unclassified (18 sources) Edema; Translations: [Edema, unspecified] 08-23-2017 Episodic Residual codes; unclassified (18 sources) History of cardiac catheterization; Translations: [Other specified postprocedural states] 08-23-2017 Episodic Comment on above: 11/24/[address] Abigail melgar @ [facility] Residual codes; unclassified (8 sources) Other specified postprocedural states; Translations: [Other postprocedural status] Onset: 04-09-2017 Episodic Residual codes; unclassified (13 sources) H/O Spinal surgery; Translations: [Other specified postprocedural states] 07-09-2022 Episodic Spondylosis; intervertebral disc disorders; other back problems (20 sources) Degeneration of lumbar intervertebral disc; Translations: [Other intervertebral disc degeneration, lumbar region] Onset: 09-09-2015 05-17-2016 Chronic Spondylosis; intervertebral disc disorders; other back problems (20 sources) Spinal stenosis of lumbar region; Translations: [Spinal stenosis, lumbar region without neurogenic claudication] Episodic Sprains and strains (1 source) Neck sprain; Translations: [Sprain of joints and ligaments of unspecified parts of neck, initial encounter] Episodic Unclassified (10 sources) Warfarin therapy started; Translations: [intermediate (current) use of anticoagulants] Onset: 03-05-2017 03-05-2017 Unclassified (1 source) Unknown / UNK(Unknown) Onset: 01-30-2017 Unclassified (2 sources) Thank you for allowing me to participate in the care of your patient. Please don't hesitate to call if any issues arise. This note was generated using a voice recognition system and there may be incorrect words, spelling or punctuation that were not noted when reviewing the office note prior to saving. Unclassified (1 source) Other intervertebral disc degeneration, lumbar region without mention of lumbar back pain or lower extremity pain; Translations: [Other intervertebral disc degeneration, lumbar region without mention of lumbar back pain or lower extremity pain] Onset: 06-24-2022 Viral infection (1 source) Disease caused by 2019-nCoV; Translations: [COVID-19] 10-23-2024 Episodic Past or Other Problems Problem Classification Problem Date Documented Date Episodic/Chronic Acquired foot deformities (20 sources) Right foot drop; Translations: [Foot drop, right foot] Onset: 09-09-2015 03-14-2020 Episodic Anal and rectal conditions (20 sources) Radiation proctitis; 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] Onset: 04-01-2015 04-01-2015 Episodic Cancer of prostate (20 sources) Personal history of malignant neoplasm of prostate; Translations: [History of malignant neoplasm of prostate] Onset: 04-01-2015 04-01-2015 Episodic Disorders of teeth and jaw (3 sources) Dental abscess; Translations: [Periapical abscess without sinus] Onset: 05-19-2024 05-19-2024 Episodic Other aftercare (20 sources) intermediate (current) use of anticoagulants; Translations: [Long-term (current) use of anticoagulants] Onset: 03-05-2017 03-05-2017 Episodic Other aftercare (20 sources) Long-term current use of anticoagulant; Translations: [intermediate (current) use of anticoagulants] Onset: 04-25-2022 08-23-2017 Episodic Other circulatory disease (20 sources) H/O: atrial fibrillation; Translations: [Personal history of other diseases of the circulatory system] Onset: 12-11-2017 12-11-2017 Episodic Other circulatory disease (3 sources) Personal history of other diseases of the circulatory system; Translations: [Personal history of other diseases of the circulatory system] Onset: 06-24-2022 Episodic Other connective tissue disease (20 sources) Bursitis of knee; Translations: [Other bursitis of knee, left knee] Onset: 12-14-2016 12-14-2016 Episodic Other non-traumatic joint disorders (20 sources) Pain in left knee; Translations: [Pain in left knee] Onset: 12-14-2016 12-21-2016 Episodic Other screening for suspected conditions (not mental disorders or infectious disease) (1 source) Abnormal coagulation profile; Translations: [Abnormal coagulation profile] Onset: 07-30-2024 Episodic Other skin disorders (1 source) Dry skin dermatitis; Translations: [Xerosis cutis] Episodic Residual codes; unclassified (20 sources) Family [...] specified conditions] 04-13-2015 Episodic Residual codes; unclassified (20 sources) Family history of cancer of colon; Translations: [Family history of malignant neoplasm of digestive organs] Onset: 05-17-2016 05-17-2016 Episodic Residual codes; unclassified (20 sources) Family history of prostate cancer; Translations: [Family history of malignant neoplasm of prostate] Onset: 05-17-2016 05-17-2016 Episodic Residual codes; unclassified (18 sources) H/O cardiac surgery; Translations: [Other specified postprocedural states] Onset: 04-09-2017 03-19-2019 Episodic Comment on above: 04/10/2017, [facility] per Dr. Gutierrez Unclassified (1 source) Morbid (severe) obesity due to excess calories Onset: 02-11-2018 Unclassified (1 source) Other intervertebral disc degeneration, lumbar region without mention of lumbar back pain or lower extremity pain; Translations: [Other intervertebral disc degeneration, lumbar region without mention of lumbar back pain or lower extremity pain] Onset: 12-16-2024 Results Test Name Value Interpretation Reference Range Facility 36on 06-30-2025 36 Medication name: sertraline (Zoloft) 50 MG tablet Medication dosage: 50 mg (Miligrams Monthly quantity needed: 30 How many day supply requestin days Medication route: oral (PO) Medication administration time(s): daily If taking medication PRN, reason for taking medication: N/A If this is a controlled substance do you receive this or any other controlled medication from any other doctor or facility: N/A Ordering provider: Dr. Canales Date of last office visit: 12/16/24 Date of next office visit: 06/16/25 Date of last refill: (see medication tab): 12/16/24 Updated/Validated preferred pharmacy: Yes Patient instructed to contact the pharmacy prior to picking up the medication: Yes Normal [facility] Anion gap in Serum or Plasma Ordered By: Kenroy Barney on 02-16-2025 Anion gap [Moles/Vol] 12 mmol/L 5-15 [facility] BUN/creatinine ratioOrdered By: Kenroy Barney on 02-16-2025 Urea nitrogen/Creatinine [Mass ratio] 21.5 mg/mg High 10- [facility] Basic Metabolic Profile (BMP )on 02-16-2025 BUN/CRE 21.5 RATIO High - [facility] Comment on above: Performed By: #### L 500.2500 #### [facility] [address] [place], [address] Calcium [Mass/Vol] 9.2 mg/dL Normal 7.6-11.0 [facility] Comment on above: Performed By: #### L 500.2500 #### [facility] [address] [place], [address] Chloride [Moles/Vol] 108 mmol/L Normal 98-108 [facility] Comment on above: Performed By: #### L 500.2500 #### [facility] [address] [place], [address] CO2 [Moles/Vol] 22.6 mmol/L Normal 21.0-32.[address] [facility] Comment on above: Performed By: #### L 500.2500 #### [facility] [address] [place], [address] Creatinine [Mass/Vol] 0.94 mg/dL Normal 0.70-1.20 [facility] Comment on above: Performed By: #### L 500.2500 #### [facility] [address] [place], [address] GAP 12 Normal 5-[address] [facility] Comment on above: Performed By: #### L 500.2500 #### [facility] [address] [place], [address] GFR/1.73 sq M.predicted among non-blacks MDRD (S/P/Bld) [Vol rate/Area] 85 mL/min/{1.73_m2} Normal >[address] [facility] Comment on above: Result Comment: mL/m in/1.73m2 CKD-EPI Creatinine Equation (2020) Performed By: #### L 500.2500 #### [facility] [address] [place], [address] Glucose [Mass/Vol] 92 mg/dL Normal 70-99 [facility] Comment on above: Performed By: #### L 500.2500 #### [facility] [address] [place], [address] Potassium [Moles/Vol] 4.4 mmol/L Normal 3.3-5.1 [facility] Comment on above: Performed By: #### L 500.2500 #### [facility] [address] [place], [address] Sodium [Moles/Vol] 142 mmol/L Normal 133-145 [facility] Comment on above: Performed By: #### L 500.2500 #### [facility] [address] [place], [address] Urea nitrogen [Mass/Vol] 20 mg/dL High 4-[address] [facility] Comment on above: Performed By: #### L 500.2500 #### [facility] [address] [place], [address] Carbon dioxide, total [Moles /volume] in Central venous bloodOrdered By: Kenroy Barney on 02-16-2025 CO2 [Moles/Vol] 22.6 mmol/L 21.0-32.[address] [facility] Chloride assayOrdered By: Darryl Barney on 02-16-2025 Chloride [Moles/Vol] 108 mmol/L 98-108 [facility] Glomerular filtration rate ( GFR) estimation/1.73 sq m using serum, plasma, or whole bOrdered By: Kenroy Barney on 02-16-2025 GFR/1.73 sq M.predicted among non-blacks MDRD (S/P/Bld) [Vol rate/Area] 85 mL/min/{1.73_m2} >[address] [facility] Comment on above: mL/min/1.73m2 CKD-EP I Creatinine Equation (2020) International normalized rat io (INR) calculationOrdered By: Audie Franklin on 02-16-2025 INR Coag (Bld) [Relative time] 2.3 {INR} [facility] Potassium measurement (mass/ volume)Ordered By: Kenroy Barney on 02-16-2025 Potassium (Unsp spec) [Mass/Vol] 4.4 mmol/L 3.3-5.[address] [facility] Prothrombin Time w/INRon INR Coag (PPP) [Relative time] 2.3 {INR} Normal [facility] Comment on above: Performed By: #### L 300.3900 #### [facility] [address] [place], [place], [id number] PT Coag (PPP) [Time] 25.4 s High 11.7-14.9 [facility] Comment on above: Performed By: #### L 300.3900 #### [facility] [address] [place], [address] Prothrombin timeOrdered By: Audie Franklin on 02-16-2025 PT Coag (PPP) [Time] 25.4 s High 11.7-14.9 [facility] Serum creatinine measurement (mass/volume)Ordered By: Kenroy Barney on 02-16-2025 Creatinine [Mass/Vol] 0.94 mg/dL 0.70-1.20 [facility] Serum glucose measurement (m ass/volume)Ordered By: Kenroy Barney on 02-16-2025 Glucose [Mass/Vol] 92 mg/dL 70-99 [facility] Serum or plasma calcium kun urement (mass/volume)Ordered By: Kenroy Barney on 02-16-2025 Calcium [Mass/Vol] 9.2 mg/dL 7.6-11.0 [facility] Serum or plasma urea nitroge n measurement (mass/volume)Ordered By: Kenroy Barney on 02-16-2025 Urea nitrogen [Mass/Vol] 20 mg/dL High 4-[address] [facility] Sodium levelOrdered By: Obie Barney on 02-16-2025 Sodium [Moles/Vol] 142 mmol/L 133-145 [facility] Cardiology Visit Reporton Cardiology Visit Report [facility] [address] [place], [place] [address] OFFICE VISIT Date of Service: 02/09/25 MR#: [id number] Acct: [id number] Name: LAMIN MOCTEZUMA Rep #: [id number] : 1950 Provider: Dr. Kenroy Barney MD Age/Sex: 74/M Location: [facility] Status: Signed HPI HPI History of Present Illness Details: This gentleman with history of atrial fibrillation, status post A-fib ablation, hypertension, dyslipidemia and morbid obesity is here for follow-up visit. Denies any chest pains either at rest or with exertion. He does complain of shortness of breath with moderate to strenuous exertion. Denies any palpitations. No orthopnea or PND. Denies ankle edema. Intake Vital Signs 07/28/24 08:34 02/09/25 07:36 Height 6 ft 1 in 6 ft 1 in Weight: 336 lb BMI 44.3 BP 144/77 H Blood Pressure Location Lt brachial Position Sitting Respiration 18 Pulse 52 L Pulse Source NIBP Intake Visit Reasons: 6 M FU Teletypist Required: No Accompanied by: Self Is patient in pain?: No Allergies iodine Allergy (Intermediate, Verified 02/09/25 12:51) rash Medications ???Medication ???Instructions ???Recorded ???Confirmed ???Type amlodipine 10 mg tablet 10 mg PO DAILY #90 tabs 02/19/15 0 02/09/25 Rx furosemide 40 mg tablet 40 mg PO BID 08/23/17 02/09/25 His tory atorvastatin 10 mg tablet 10 mg PO DAILY 07/13/20 02/09/25 H istory gabapentin 300 mg capsule 300 mg PO .COMPLEX 07/13/20 History metoprolol tartrate 50 mg tablet 50 mg PO BID 07/13/20 02/09/25 His tory sertraline 50 mg tablet 50 mg PO DAILY 07/13/20 02/09/25 H istory potassium chloride 20 mEq 40 meq (2 x 20 mEq) PO QDAY #180 1 09/27/23 02/09/25 Rx tablet,extended release(part/cryst) tabs warfarin 5 mg tablet 5 mg PO DAILY #90 TABLETS 07/28/24 02/09/25 Rx Ejection fraction %: 65 Have you fallen in the past year?: No PFSH Medical History Closed L1 vertebral fracture Edema Essential hypertension History of left heart catheterization Hypokalemia intermediate (current) use of anticoagulants Obstructive sleep apnea Paroxysmal atrial fibrillation Vertigo Surgical History History of cholecystectomy History of lumbar surgery Status post catheter ablation of atrial fibrillation ( 04/10/17) Family History Father CAD (coronary artery disease) Mother Colon cancer Sister Atrial fibrillation Sleep apnea Sister Sleep apnea Hypertension Social History Smoking Status: Never smoker alcohol intake: current alcohol intake frequency: holidays/special occasions only caffeine: Yes Type: coffee Number of servings: 1 ROS Const Const: Negative for fatigue, weakness, headache(s) or weight gain ENT ENT: Positive for balance problems (drop foot per pt RLE; knee problems LLE); Negative for headache(s), dizziness or Nosebleed/epistaxis Cardio Chest Pain: No Palpitations: No Edema: None Muscle aches with walking: None Resp Respiratory: Positive for SOB with activity; Negative for SOB at rest or SOB orthopnea SOB lying down GI GI: Negative nausea, vomiting or heartburn Musc Musc: Positive for balance problems (drop foot per pt RLE; knee problems LLE); Negative for muscle aches/ myalgia, muscle weakness or joint pain Neuro Neuro: Negative for dizziness, lightheadedness, near syncope, syncope, headache(s) or weakness Endo Endo: Negative for fatigue Cardiology Exam Const Appearance: comfortable and no acute distress Nutritional Appearance: obese Neck Neck: no JVD Carotids: Negative bruit Chest Auscultation: Bilateral: Clear to Auscultation Cardio Rate: regular rate Rhythm: regular rhythm Heart sounds: S1 normal and S2 normal 2/6 systolic murmur at base. GI GI: obese Neuro General: patient alert, patient awake and patient oriented x3 Extremities Lower Extremity Edema: Trace: Bilateral Supplemental Info Supplemental Information Echo Complete w/ Contrast 09/07/2024: Interpretation Summary Moderate concentric left ventricular hypertrophy. The left ventricular ejection fraction is 65 %. Stage 1 diastolic dysfunction. The left atrium is moderately enlarged. Mild mitral annular calcification. The study was technically difficult. Transthoracic Echocardiogram: 02/19/2015: Interpretation Summary Normal LV size. Left ventricular systolic function is normal. The estimated ejection fraction is 60 %. The study was technically limited. The study was technically difficult. Contrast injection was performed. Cardiac Catheterization 11/24/2015: CONCLUSION: 1. An (more content not included)... Normal [facility] 3602-08-2025 36 Message released to patient as written. Patient's further questions if applicable: Pt states that [place] [facility] do have information. Please send needed information Were all questions from office addressed or relayed to the patient from encounter: Yes [facility] 36on 01-27-2025 36 Spoke with pt mary nd advised her we need his last office note and last cpap order from his previous place. She says she will call and see what she can do. [facility] 36 Name of caller: Tish sanchez Contact phone number: [phone] Relationship to Patient: spouse/SO Provider: Dr Canales Practice: [facility] Chief Complaint/Reason for Call: Caller stated that the doctor who ordered patients C=PAP and supplies has retired. She is requesting if Dr Canales can take over. She stated that the patient needs a new order for C-PAP supplies sent to [facility]. They also need an addended OV stating his usage and why. Please advise Best time of day caller can be reached: any Patient advised that office/PCP has 24-48 business hours to return their call: Yes Normal [facility] International normalized rat io (INR) calculationOrdered By: Audie Franklin on 01-14-2025 INR Coag (Bld) [Relative time] 1.7 {INR} [facility] No Panel Informationon 01-14 INR International Normalized Ratio 1.[address] [facility] Prothrombin Time w/INRon INR Coag (PPP) [Relative time] 1.7 {INR} Normal [facility] Comment on above: Performed By: #### L 300.3900 #### [facility] [address] [place], [place], [id number] ([phone] PT Coag (PPP) [Time] 20.5 s High 11.7-14.9 [facility] Comment on above: Performed By: #### L 300.3900 #### [facility] [address] [place], [address] Prothrombin timeOrdered By: Audie Franklin on 01-14-2025 PT Coag (PPP) [Time] 20.5 s High 11.7-14.9 [facility] Office Visiton 12-16-2024 Follow-up visit [id number] Viral [place] 1950 M Date Provider Department Center 12/16/2024 [id number] GARRIDO [facility] Family History Problem Relation Age of Onset Colon cancer Mother Comments: age 82 Prostate cancer Father Diabetes Father Coronary artery disease Father Comments: chf , age 85 Arrhythmia Sister No Known Problems Sister No Known Problems Sister No Known Problems Sister No Known Problems Brother Family Status - Relation Status Age at Mother 82 Father 85 Sister Alive Sister Alive Sister Alive Sister Alive Brother Alive Level of Service:72346 PA OFFICE/OUTPATIENT ESTABLISHED MOD MDM 30 MIN Reason for Visit and Comments: 6 Month Follow-up [671] Normal [facility] Progress Noteon 12-16-2024 Progress Note [facility] - [address] [facility] [id number] Visit type: Established Patient Reason for Visit: 6 Month Follow-up Assessment / Plan: Lamin was seen today for 6 month follow-up. Diagnoses and all orders for this visit: Primary hypertension (Primary) Comments: Stable on Lopressor, Lasix and Norvasc Orders: - Comprehensive metabolic panel; Future - Comprehensive metabolic panel Anxiety associated with depression Comments: Improved, continues Zoloft Orders: - sertraline (Zoloft) 50 MG tablet; Take 1 tablet (50 mg) by mouth daily. Wants name brand Zoloft History of atrial fibrillation Comments: Stable on Coumadin Orders: - CBC auto differential; Future - CBC auto differential Degeneration of intervertebral disc of lumbar region, unspecified whether pain present Comments: Stable on gabapentin Anticoagulant long-term use Comments: Continue Coumadin, discussed CHADS2 score 2 w/ hx of HTN and age. Urged monthly INR monitoring Orders: - Protime-INR; Future - Protime-INR Hypercholesterolemia Comments: Stable on Lipitor Orders: - Lipid panel; Future - Lipid panel Bilateral primary osteoarthritis of knee Comments: Worsening, refer Ortho referral for left knee replacement Other orders - amLODIPine (Norvasc) 10 MG tablet; Take 1 tablet (10 mg) by mouth daily. - atorvastatin (Lipitor) 10 MG tablet; Take 1 tablet (10 mg) by mouth daily. - furosemide (Lasix) 40 MG tablet; Take 1 tablet (40 mg) by mouth 2 times daily. - metoprolol tartrate (Lopressor) 50 MG tablet; Take 1 tablet (50 mg) by mouth 2 times daily. - triamcinolone (Kenalog) 0.1 % cream; Apply to affected area 1-2 times daily as needed. Avoid face and groin. Reviewed patient's [id number] score of 2 and I did recommend him staying on long-term Coumadin. History of hypertension and age is between 65 and 74. 35 Minutes spent on reviewing pertinent medical, surgical, family and social history, patient interview, physical exam, discussion of diagnosis, treatment and work-up options. Subjective: Patient ID: Lamin Moctezuma is a 74 y.o. male. HPI obese hypertensive male with hyperlipidemia and atrial fibrillation status post successful cardioversion presents for refill on Coumadin and also Zoloft for depression. Sees pain management for severe lumbar arthritis. Takes gabapentin for that and restless leg syndrome. Has been compliant with sleep apnea treatment. 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 He was referred to a take away attendant through telephone consultation, who recommended lifelong anticoagulation. Review of Systems overall feeling well. No change in quality of pain. No recent earache sore throat or cough. Did get over COVID few months ago. Denies chest pain or palpitations or lightheadedness. Of note echocardiogram done in August showed preserved left ventricular ejection fraction but mild diastolic dysfunction. Had some mild LVH as well. No heartburn or abdominal pain. Bowels are regular. No constipation diarrhea. No change in urine flow. History of prostate cancer due for surveillance PSA in the fall. That is now to be done once a year. He defers seeing urologist. Having worsening left knee pain and would like an opinion on whether he is able to get a knee replacement. Allergies Allergen Reactions Iodine Anaphylaxis and Rash Other Current Outpatient Medications on File Prior to Visit Medication Sig Dispense Refill acetaminophen (Tylenol) 160 MG/5ML suspension Take 650 mg by mouth. gabapentin (Neurontin) 300 MG capsule TAKE 1 CAPSULE BY MOUTH DURING THE DAY NEEDED AND 2 CAPSULES AT BEDTIME DIRECTED potassium chloride CR (Klor-Con M20) 20 MEQ ER tablet Take 1 tablet by mouth 2 times daily. warfarin (Coumadin) 5 MG tablet Decrease to 5mg q day (Patient taking differently: Take 5 mg by mouth daily. Decrease to 5mg q day 4 days 2 days 09/10) 90 tablet 1 [DISCONTINUED] amLODIPine (Norvasc) 10 MG tablet TAKE 1 TABLET BY MOUTH DAILY 90 tablet 1 [DISCONTINUED] atorvastatin (Lipitor) 10 MG tablet TAKE 1 TABLET BY MOUTH DAILY 90 tablet 1 [DISCONTINUED] furosemide (Lasix) 40 MG tablet TAKE 1 TABLET BY MOUTH TWICE DAILY 180 tablet 1 [DISCONTINUED] metoprolol tartrate (Lopressor) 50 MG tablet TAKE 1 TABLET BY MOUTH TWICE DAILY 180 tablet 1 [DISCONTINUED] sertraline (Zoloft) 50 MG tablet Take 1 tablet (50 mg) by mouth in the morning. Wants name brand Zoloft. 90 tablet 1 [DISCONTINUED] methocarbamol (Robaxin) 500 MG tablet Take 500 mg by mouth. [DISCONTINUED] triamcinolone (Kenalog) 0.1 % cream Apply to affected area 1-2 times daily as needed. Avoid face and groin. 80 g 2 No current facility-administered medications on file prior to visit. Patient Active Problem List Diagnosis Family history of prostate cance (more content not included)... [facility] 36on 11-23-2024 36 Recent Visits Date Type Provider Dept 06/17/24 Office Visit Ryan Canales DO [facility] 05/19/24 Office Visit Ashleigh Tapia PA-C [facility] Showing recent visits within past 365 days and meeting all other requirements Future Appointments Date Type Provider Dept 12/16/24 Appointment Ryan Canales DO [facility] Showing future appointments within next 90 days and meeting all other requirements Requested Prescriptions Pending Prescriptions Disp Refills metoprolol tartrate (Lopressor) 50 MG tablet [Pharmacy Med Name: Metoprolol Tartrate 50 MG Oral Tablet] 180 tablet 1 Sig: TAKE 1 TABLET BY MOUTH TWICE DAILY atorvastatin (Lipitor) 10 MG tablet [Pharmacy Med Name: Atorvastatin Calcium 10 MG Oral Tablet] 90 tablet 1 Sig: TAKE 1 TABLET BY MOUTH DAILY amLODIPine (Norvasc) 10 MG tablet [Pharmacy Med Name: amLODIPine Besylate 10 MG Oral Tablet] 90 tablet 1 Sig: TAKE 1 TABLET BY MOUTH DAILY furosemide (Lasix) 40 MG tablet [Pharmacy Med Name: Furosemide 40 MG Oral Tablet] 180 tablet 1 Sig: TAKE 1 TABLET BY MOUTH TWICE DAILY Provider: Ryan Canales DO Verified pharmacy: yes Verified day(s) supplied: yes Verified refill(s) needed (previous prescription showing no refills in chart): Yes Have you received any controlled medications from any other provider? No Overdue for visit: No If yes - patient scheduled? Yes Most recent labs completed in chart? Yes Hypertension: Lab Results Component Value Date NA 139 09/21/2021 K 4.6 09/21/2021 EGFR 90 06/17/2024 BUN 20 06/17/2024 CREATININE 0.90 06/17/2024 and Cholesterol: Lab Results Component Value Date CHOLESTEROLT 140 06/17/2024 HDLCHOLESTER 49 06/17/2024 TRIGLYCERIDE 94 06/17/2024 LDLCHOLESTER 73 06/17/2024 CHOLHDLCRATI 2.9 06/17/2024 NONHDLCHOLES 91 06/17/2024 [facility] 36on 10-23-2024 36 Talked to and relayed message and she verbalized understanding. [facility] 36 Name of caller: Tish sanchez Contact phone number: [phone] Relationship to Patient: spouse/SO Provider: Dr Canales Practice: [facility] Chief Complaint/Reason for Call: Caller stated that patient has tested positive for Covid as well. She is asking if patient can be prescribed the same thing she was prescribed. She stated Paxlovid and a cough syrup. Please advise Best time of day caller can be reached: Patient advised that office/PCP has 24-48 business hours to return their call: N/A [facility] CNPNon 09-16-2024 CNPN Telephone (AGCARDPOB ) ----- LAMIN MOCTEZUMA ([id number]) 1950 M Date Time Provider Department 09/16/24 MARVA GUTIERREZGCARDPOB During your visit today, we recorded the following information about you: Ranjan Salmon 09/16/2024 1:56 PM Signed Received referral from [facility], Pt declined scheduling at this time. Referral scanned in. Ranjan Salmon Allergies As of Date: 09/16/2024 Noted Allergy Reaction IODINE 07/13/2016 10 - Anaphylaxis Date Reviewed: 02/11/2018 Reviewed by: Marva Gutierrez - Fully Assessed Prescriptions as of 09/16/2024 - metoprolol tartrate, short acting, (LOPRESSOR) 25 mg tablet Take 50 mg by mouth twice daily. - potassium chloride ER (K-DUR, KLOR-CON) 20 mEq tablet Take 20 mEq by mouth once daily. - gabapentin enacarbil 300 mg TbER Take 300 mg by mouth once daily. - warfarin (COUMADIN) 5 mg tablet Take 1 tablet by mouth once daily. - sertraline (ZOLOFT) 50 mg tablet 50 mg. - amLODIPine (NORVASC) 10 mg tablet Take 10 mg by mouth once daily. - furosemide (LASIX) 40 mg tablet Take 40 mg by mouth twice daily. Problem List As Of Date 09/16/2024 Noted Resolved CHF (congestive heart failure) (HCC) [I50.9] 07/24/2016 HTN (hypertension) [I10] Atrial fibrillation (HCC) [I48.91] 07/24/2016 Atrial fibrillation, persistent (HCC) [I48.19] 07/24/2016 JONATHAN on CPAP [G47.33] 07/24/2016 Obesity due to excess calories [E66.09] 07/24/2016 Atrial fibrillation (HCC) [I48.91] 03/05/2017 CHF (congestive heart failure) (HCC) [I50.9] JONATHAN (obstructive sleep apnea) [G47.33] Morbid obesity (HCC) [E66.01] Encounter Status:Closed by RANJAN SALMON on 09/16/24 [facility] Echo Complete W/ Contraston 09-07-2024 Echo Complete W/ Contrast [facility] [address] [place] [address] Echo Complete W/ Contrast 09/07/24 1300 MR#: [id number] Acct: [id number] Name: LAMIN MOCTEZUMA Rep #: [id number] : 1950 73 From: Kenroy Barney MD Attending Dr: Dr. Kenroy Barney MD Status: REG CLI Ordering Dr: Kenroy Barney MD Date: 09/07/24 Location: [facility] Sex: M C Admitted: Reason For Study: CHF Procedure This was a 2D Doppler, Color Flow transthoracic echocardiogram. The study was technically difficult. Contrast injection was performed. Exam performed in department. Left Ventricle Moderate concentric left ventricular hypertrophy. Normal LV size. The left ventricular ejection fraction is 65 %. Stage 1 diastolic dysfunction. Right Ventricle RV not well-visualized. Appears normal size with normal systolic function in parasternal long axis views. Atria The left atrium is moderately enlarged. The right atrium is not well visualized. Mitral Valve Mild mitral annular calcification. Tricuspid Valve The tricuspid valve is not well visualized. Aortic Valve Trisinus/trileaflet aortic valve. Aortic valve mean peak gradient 8 mmHg. Pulmonic Valve The pulmonic valve is not well visualized. Great Vessels Normal sized aortic root. Pericardium/Pleural No pericardial effusion. Medication 22 gauge I.V. with prn adaptor inserted into right arm. Diluted definity 2ml given slow IV push to enhance endocardial definition. MMode/2D Measurements Calculations LVIDd: 4.3 cm IVSd: 1.5 cm LVOT diam: 2.0 cm LVIDs: 3.2 cm LVPWd: 1.6 cm FS: 26.2 % LVOT area: 3.2 cm2 Ao root diam: 3.2 cm LAV(MOD-bp): 47.1 ml LVAd ap4: 37.9 cm2 LAV(MOD-bp) Indexed: 17.8 ml/m2 LVLd ap4: 8.3 cm LAV(MOD-sp2): 36.5 ml EDV(MOD-sp4): 141.1 ml LAV(MOD-sp4): 53.8 ml EDV(sp4-el): 146.3 ml LVAs ap4: 17.4 cm2 LVLs ap4: 6.8 cm ESV(MOD-sp4): 36.5 ml ESV(sp4-el): 37.7 ml EF(MOD-sp4): 74.2 % EF(sp4-el): 74.2 % SV(MOD-sp4): 104.6 ml SV(sp4-el): 108.6 ml LA A4 area: 19.0 cm2 SI(MOD-sp4): 39.6 ml/m2 LA dimension(2D): 3.6 cm RA A4 area: 20.9 cm2 Time Measurements MV dec time: 0.29 sec Doppler Measurements Calculations MV E max sage: 115.4 cm/sec Lat Peak E' Sage: 10.5 cm/sec Med Peak E' Sage: 7.9 cm/sec MV A max sage: 76.1 cm/sec E/E' lat: 11.0 E/E' med: 14.7 MV E/A: 1.5 MV V2 max: 128.4 cm/sec MV dec slope: 405.8 cm/sec2 Ao V2 max: 198.1 cm/sec MV max P.6 mmHg Ao max P.7 mmHg MV V2 mean: 61.4 cm/sec Ao V2 mean: 134.5 cm/sec MV mean P.9 mmHg Ao mean P.2 mmHg MV V2 VTI: 51.2 cm Ao V2 VTI: 49.0 cm MVA(VTI): 2.0 cm2 AV (velocity ratio): 0.67 BORIS(I,D): 2.1 cm2 BORIS(V,D): 1.9 cm2 LV V1 max: 116.6 cm/sec SV(LVOT): 103.9 ml PA V2 max: 114.0 cm/sec LV V1 max P.4 mmHg PA V2 mean: 81.6 cm/sec LV V1 mean P.6 mmHg LV V1 mean: 92.0 cm/sec LV V1 VTI: 32.9 cm ECHO/Echo Complete W/ Contrast Interpretation Summary Moderate concentric left ventricular hypertrophy. The left ventricular ejection fraction is 65 %. Stage 1 diastolic dysfunction. The left atrium is moderately enlarged. Mild mitral annular calcification. The study was technically difficult. ___ Ordering Physician: Kenroy Barney Referring Physician: Kenroy Barney Performed By: Chery Curry RCS 09/08/24913 Date Kenroy Barney MD CC: Dr. Kenroy Barney MD; Dr. Ryan Canales DO Date Dictated: 09/07/24 1300 Date Transcribed: 09/08/24913 Siderographer: Signed [facility] Protime w/INR Fingerstickon 09-07-2024 INR Coag (PPP) [Relative time] 2.6 {INR} [facility] Comment on above: Result Comment: Crit ical Value > 4.0 Performed By: #### L 9200.0000 #### [facility] [address] [place], [place], [address] Protime [place] 27.9 SEC High 11.7-14.[address] [facility] Comment on above: Performed By: #### L 9200.0000 #### [facility] [address] [place], [address] 36on 08-11-2024 36 Talked to pharmacist Kelsie Mancuso To clarify RX to be for generic only and she was able to take a verbal order. Talked to patient and let her know pharmacy was able to get it ready and sent out. [facility] 36 Name of caller: Tish sanchez Contact phone number: [phone] Relationship to Patient: spouse/SO Provider: Dr Canales Practice: [facility] Chief Complaint/Reason for Call: Caller stated that she spoke with [facility] regarding sertraline. They didn't request brand name. She stated that they need a new prescription sent over to the pharmacy for sertraline , not the brand name Zoloft. Please advise Best time of day caller can be reached: Patient advised that office/PCP has 24-48 business hours to return their call [facility] 36on 08-10-2024 36 Patient should still have refills at their pharmacy. [facility] 36 Medication name: sertraline (Zoloft) 50 MG tablet Medication dosage: 50 mg (Miligrams Monthly quantity needed: 90 How many day supply requestin months Medication route: oral (PO) Medication administration time(s): daily If taking medication PRN, reason for taking medication: N/A If this is a controlled substance do you receive this or any other controlled medication from any other doctor or facility: No Ordering provider: Dr. Canales Date of last office visit: 06.17.2024 Date of next office visit: 12.16.2024 Date of last refill: (see medication tab): 06.17.2024 Updated/Validated preferred pharmacy: Yes Patient instructed to contact the pharmacy prior to picking up the medication: Yes Caller requesting generic Rx Normal [facility] Visit Reporton Cardiology Visit Report [facility] [address] [place], [place] [address] OFFICE VISIT Date of Service: 07/28/24 MR#: [id number] Acct: [id number] Name: LAMIN MOCTEZUMA Rep #: [id number] : 1950 Provider: Dr. Kenroy Barney MD Age/Sex: 73/M Location: [facility] Status: Signed HPI HPI History of Present Illness Details: This gentleman has a history of hypertension and atrial fibrillation status post ablation by Dr. Gutierrez in 2017. It is my first time seeing this patient though he is established at our office. He was previously seen by Dr. Vernon. Denies any complaints. No chest pains. No shortness of breath. No palpitations. No orthopnea or PND. No ankle edema. Intake Vital Signs 09/24/23 17:51 07/28/24 08:34 Height 6 ft 1 in 6 ft 1 in Weight: 330 lb BMI 43.5 BP 122/73 H Blood Pressure Location Rt brachial Position Sitting Respiration 18 Pulse 54 L Pulse Source NIBP Intake Visit Reasons: OVERDUE FOR OV-PREV PFM PT Teletypist Required: No Accompanied by: Is patient in pain?: No Allergies iodine Allergy (Intermediate, Verified 07/28/24 13:29) rash Medications ???Medication ???Instructions ???Recorded ???Confirmed ???Type amlodipine 10 mg tablet 10 mg PO DAILY #90 tabs 02/19/15 07/28/24 Rx furosemide 40 mg tablet 40 mg PO BID 08/23/17 07/28/24 History atorvastatin 10 mg tablet 10 mg PO DAILY 07/13/20 07/28/24 History gabapentin 300 mg capsule 300 mg PO .COMPLEX 07/13/20 07/28/24 History metoprolol tartrate 50 mg tablet 50 mg PO BID 07/13/20 07/28/24 History sertraline 50 mg tablet 50 mg PO DAILY 07/13/20 07/28/24 History potassium chloride 20 mEq 40 meq (2 x 20 mEq) PO QDAY #180 07/28/24 07/28/24 Rx tablet,extended release(part/cryst) tabs warfarin 5 mg tablet 5 mg PO DAILY #90 TABLETS 07/28/24 07/28/24 Rx Ejection fraction %: 60 Have you fallen in the past year?: No PFSH Medical History Closed L1 vertebral fracture Edema Essential hypertension History of left heart catheterization 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 Obstructive sleep apnea Paroxysmal atrial fibrillation Vertigo Surgical History History of cholecystectomy History of lumbar surgery Status post catheter ablation of atrial fibrillation ( 04/10/17) Family History Father CAD (coronary artery disease) Mother Colon cancer Sister Atrial fibrillation Sleep apnea Sister Sleep apnea Hypertension Social History Smoking Status: Never smoker alcohol intake: current alcohol intake frequency: holidays/special occasions only caffeine: Yes Type: coffee Number of servings: 1 ROS Const Const: Negative for fatigue, weakness, headache(s) or weight gain ENT ENT: Negative for headache(s), dizziness, Nosebleed/epistaxis or balance problems Cardio Chest Pain: No Palpitations: No Edema: None Muscle aches with walking: None Resp Respiratory: Negative for SOB with activity, SOB at rest or SOB orthopnea SOB lying down GI GI: Negative nausea, vomiting or heartburn Musc Musc: Positive for muscle aches/ myalgia (chronic back pain. Follows with pain management.) and joint pain (Left knee pain; chronic; unchanged); Negative for muscle weakness or balance problems Neuro Neuro: Negative for dizziness, lightheadedness, near syncope, syncope, headache(s) or weakness Endo Endo: Negative for fatigue Cardiology Exam Const Appearance: comfortable and no acute distress Nutritional Appearance: obese Neck Neck: no JVD Carotids: Negative bruit Chest Auscultation: Bilateral: Clear to Auscultation Cardio Rate: regular rate Rhythm: regular rhythm Heart sounds: S1 normal and S2 normal GI GI: obese Neuro General: patient alert, patient awake and patient oriented x3 Extremities Lower Extremity Edema: None: Bilateral Supplemental Info Supplemental Information Transthoracic echocardiogram: 02-19-15 Interpretation Summary Normal LV size. Left ventricular systolic function is normal. The estimated ejection fraction is 60 %. The study was technically limited. The study was technically difficult. Contrast injection was performed. Cardiac catheterization: 11-24-15 CONCLUSION: 1. Angiographically normal left main coronary artery. 2. Left anterior descending artery, which demonstrates no significant stenosis. 3. Left circumflex artery with no high-grade stenosis. 4. Dominant right coronary artery with no high-grade stenosis. 5. Preserved ejection fraction. Assessment and Plan Assessment and Plan (1) History of atrial fibrillation: St (more content not included)... Normal [facility] Prothrombin Time w/INRon INR Coag (PPP) [Relative time] 1.3 {INR} Normal [facility] Comment on above: Performed By: #### L 300.3900 #### [facility] [address] [place], [place], [id number] PT Coag (PPP) [Time] 16.2 s High 11.7-14.9 [facility] Comment on above: Performed By: #### L 300.3900 #### [facility] [address] [place], [address] 36on 06-22-2024 36 Message released to patient as written. Yes Patient's further questions if applicable: No Were all questions from office addressed or relayed to the patient from encounter: Yes Normal [facility] 36 Placed call to patijohn nt. Unable to reach them by phone to discuss lab results. Left detailed message to return call to discuss results. Please release information to patient [facility] 36 ----- Message from Sheila Melo sent at 06/22/2024 5:28 AM EDT ----- ----- Message ----- From: Ryan Canales DO Sent: 06/21/2024 2:32 PM EDT To: 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 Do remind him he needs a monthly INR of his Coumadin. No prescription changes necessary Normal [facility] CBC W Auto Differential pane l (Bld)on 06-22-2024 Basophils (Bld) [#/Vol] 51 10*3/uL [facility] Basophils/100 WBC (Bld) 1.3 % [facility] Eosinophils (Bld) [#/Vol] 250 10*3/uL [facility] Eosinophils/100 WBC (Bld) 6.4 % [facility] Erythrocyte distribution width (RBC) [Ratio] 13.4 % 11.0 - 15.0 % [facility] Hematocrit (Bld) [Volume fraction] 48.3 % 38.5 - 50.0 % [facility] Hemoglobin (Bld) [Mass/Vol] 16.3 g/dL 13.2 - 17.1 g/dL [facility] Lymphocytes (Bld) [#/Vol] 1151 10*3/uL [facility] Lymphocytes/100 WBC (Bld) 29.5 % [facility] MCH (RBC) [Entitic mass] 32 pg 27. 0 - 33.0 pg [facility] MCHC (RBC) [Mass/Vol] 33.7 g/dL 32.0 - 36.0 g/dL [facility] Comment on above: For adults, a slight decrease in the calculated MCHC value (in the range of 30 to 32 g/dL) is most likely not clinically significant; however, it should be interpreted with caution in correlation with other red cell parameters and the patient's clinical condition. MCV (RBC) [Entitic vol] 94.7 fL 80.0 - 100.0 fL [facility] Monocytes (Bld) [#/Vol] 456 10*3/uL [facility] Monocytes/100 WBC (Bld) 11.7 % [facility] Neutrophils (Bld) [#/Vol] 1992 10*3/uL [facility] Neutrophils/100 WBC (Bld) 51.1 % [facility] Platelet mean volume (Bld) [Entitic vol] 9.7 fL 7.5 - 12.5 fL [facility] Platelets (Bld) [#/Vol] 142 10*3/uL [facility] RBC (Bld) [#/Vol] 5.1 10*6/uL [facility] WBC (Bld) [#/Vol] 3.9 10*3/uL [facility] Comprehensive metabolic 1998 panelon 06-22-2024 Albumin [Mass/Vol] 4 g/dL 3.6 - 5.1 g/dL [facility] Albumin/Globulin [Mass ratio] 2 {ratio} [facility] ALP [Catalytic activity/Vol] 107 U/L 35 - 144 U/L [facility] ALT [Catalytic activity/Vol] 17 U/L 9 - 46 U/L [facility] AST [Catalytic activity/Vol] 26 U/L 10 - 35 U/L [facility] Bilirubin [Mass/Vol] 0.8 mg/dL 0.2 - 1 .2 mg/dL [facility] Calcium [Mass/Vol] 8.8 mg/dL 8.6 - 10. 3 mg/dL [facility] Chloride [Moles/Vol] 108 mmol/L 98 - 11 0 mmol/L [facility] CO2 [Moles/Vol] 25 mmol/L 20 - 32 mmol/L [facility] Creatinine [Mass/Vol] 0.9 mg/dL 0.70 - 1.28 mg/dL [facility] GFR/1.73 sq M.predicted among non-blacks MDRD (S/P/Bld) [Vol rate/Area] 90 mL/min/{1.73_m2} > OR = 60 mL/min/1.7 3m2 [facility] Globulin (S) [Mass/Vol] 2 g/dL [facility] Glucose [Mass/Vol] 99 mg/dL 65 - 99 mg/dL [facility] Comment on above: Fasting reference interval Potassium [Moles/Vol] 4 mmol/L 3.5 - 5.3 mmol/L [facility] Protein [Mass/Vol] 6 g/dL Low 6.1 - 8.1 g/dL [facility] Sodium [Moles/Vol] 143 mmol/L 135 - 146 mmol/L [facility] Urea nitrogen [Mass/Vol] 20 mg/dL 7 - 25 mg/dL [facility] Urea nitrogen/Creatinine [Mass ratio] SEE NOTE: [facility] Comment on above: Not Reported: BUN an d Creatinine are within reference range. Lipid 1996 panelon 4 Cholesterol [Mass/Vol] 140 mg/dL NINF - 200 mg/dL [facility] Cholesterol in HDL [Mass/Vol] 49 mg/dL > OR = 40 [facility] Cholesterol in LDL [Mass/Vol] 73 mg/dL mg/dL (calc) [facility] Comment on above: Reference range: <10 0 Desirable range <100 mg/dL for primary prevention; <70 mg/dL for patients with CHD or diabetic patients with > or = 2 CHD risk factors. LDL-C is now calculated using the Aki calculation, which is a validated novel method providing better accuracy than the Friedewald equation in the estimation of LDL-C. Hiram PEREIRA et al. YUMIKO. 2013;310(19): 1922-0350 (http://Taktio.Fly Fishing Hunter.Payveris/faq/ZUE639) Cholesterol non HDL [Mass/Vol] 91 mg/dL [facility] Comment on above: For patients with di abetes plus 1 major ASCVD risk factor, treating to a non-HDL-C goal of <100 mg/dL (LDL-C of <70 mg/dL) is considered a therapeutic option. Cholesterol.total/Choles terol in HDL [Mass ratio] 2.9 {ratio} [facility] Triglyceride [Mass/Vol] 94 mg/dL [facility] - 150 mg/dL [facility] No Panel Informationon 06-22 Interpretation and review of laboratory results Abnormal [facility] PSA Total (Diagnostic Post-P rostatectomy)on 06-22-2024 Prostate specific Ag DL <= 0.01 ng/mL [Mass/Vol] ug/L ng/mL [facility] Comment on above: REFERENCE RANGES for PSA: LESS THAN 0.10 ng/mL AFTER RADICAL PROSTATECTOMY. 4.0 ng/mL OR LESS IN HEALTHY MALES WITHOUT PROSTATECTOMY. PSA values obtained with different assay methods or kits cannot be used interchangeably. This test was performed using the Lynette Milana DxI method. PSA, ICMA is not to be used as a diagnostic procedure without confirmation of the diagnosis by another established product or procedure. The lower limit of accurate quantification for this assay is 0.02 ng/mL. PSA values less than 0.02 ng/mL cannot be accurately measured and will be reported as less than 0.02 ng/mL. Specimens with PSA levels below the lower limit of accurate quantification should be considered as negative. In patients with a negative result for post prostatectomy PSA, serial monitoring of PSA levels at regular intervals, along with physical examinations and other tests, may help to detect recurrent prostate cancer. PT Coag (Bld) [Time]on 06-22 INR Coag (PPP) [Relative time] 2.8 {INR} High [facility] Comment on above: Reference Range 0.9- 1.1 Moderate-intensity Warfarin Therapy 2.0-3.0 Higher-intensity Warfarin Therapy 3.0-4.0 PT Coag (PPP) [Time] 27.6 s [facility] Comment on above: For additional infor kalin, please refer to http://education.[employer]/faq/MUY302 (This link is being provided for informational/ educational purposes only.) Office Visiton 06-17-2024 Follow-up visit [id number] Viral Moctezuma carmela John 1950 M Date Provider Department Center 06/17/2024 [id number]-TNBOEXSIRYAN CANALES [facility] Family History Problem Relation Age of Onset Colon cancer Mother Comments: age 82 Prostate cancer Father Diabetes Father Coronary artery disease Father Comments: chf , age 85 Arrhythmia Sister No Known Problems Sister No Known Problems Sister No Known Problems Sister No Known Problems Brother Family Status - Relation Status Age at Mother 82 Father 85 Sister Alive Sister Alive Sister Alive Sister Alive Brother Alive Level of Service:25456 PA OFFICE/OUTPATIENT ESTABLISHED MOD MDM 30 MIN Reason for Visit and Comments: Follow-up [415808] - Med check Flu Vaccine [189] - Patient has agreed to receive influenza vaccine in the office today. Normal [facility] Progress Noteon 06-17-2024 Progress Note [facility] - [address] [facility] [address] Visit type: Established Patient Reason for Visit: Follow-up (Med check) and Flu Vaccine (Patient has agreed to receive influenza vaccine in the office today. ) Assessment / Plan: Lamin was seen today for follow-up and flu vaccine. Diagnoses and all orders for this visit: Primary hypertension (Primary) Comments: Uncontrolled but patient defers add on meds. BP check 4 weeks, continue Norvasc and metoprolol Anxiety associated with depression Comments: Improved, continues Zoloft Orders: - sertraline (Zoloft) 50 MG tablet; Take 1 tablet (50 mg) by mouth in the morning. Wants name brand Zoloft. History of prostate cancer - PSA Total (Diagnostic Post-Prostatectomy); Future - PSA Total (Diagnostic Post-Prostatectomy) Acquired right foot drop Comments: Stable, continue gabapentin History of atrial fibrillation Anticoagulant long-term use Comments: Stable, check lab and continue Coumadin and follow-up with cardiology Orders: - CBC auto differential; Future - Comprehensive metabolic panel; Future - Protime-INR; Future - CBC auto differential - Comprehensive metabolic panel - Protime-INR Hypercholesterolemia Comments: Stable, praise given on weight loss, continue Lipitor Orders: - Lipid panel; Future - Lipid panel Other orders - Flu vaccine (FLUAD), trivalent, adjuvanted, preservative-free (ages 65+) - amLODIPine (Norvasc) 10 MG tablet; Take 1 tablet (10 mg) by mouth daily. - atorvastatin (Lipitor) 10 MG tablet; Take 1 tablet (10 mg) by mouth daily. - furosemide (Lasix) 40 MG tablet; Take 1 tablet (40 mg) by mouth 2 times daily. - metoprolol tartrate (Lopressor) 50 MG tablet; Take 1 tablet (50 mg) by mouth 2 times daily. Subjective: Patient ID: Lamin Moctezuma is a 73 y.o. male. HPI hypertensive patient with history of A-fib and chronic anxiety and depression with low back pain presents for checkup. Recently back on Zoloft and improving. Had dental checkup and abscess resolved. Blood pressure generally better at home. He is actively walking more at the local rec center. Now involved with [employer]. Doing the best she can with walking. Chronic and severe lumbar stenosis and on gabapentin. Has chronic right foot drop. Review of Systems no recent earache sore throat or cough. No chest pain or palpitations. Denies PND orthopnea or change in mild leg edema. No heartburn or abdominal pain. Bowels are regular. No constipation diarrhea melena or blood. No dysuria hematuria. Overdue for PSA. Had prostate cancer 14 years ago. No active urology relationship. No change in weakness of the right foot or leg. No recent falls or injuries. No bladder incontinence Allergies Allergen Reactions Iodine Anaphylaxis and Rash Other Current Outpatient Medications on File Prior to Visit Medication Sig Dispense Refill gabapentin (Neurontin) 300 MG capsule TAKE 1 CAPSULE BY MOUTH DURING THE DAY NEEDED AND 2 CAPSULES AT BEDTIME DIRECTED potassium chloride CR (Klor-Con M20) 20 MEQ ER tablet Take 1 tablet by mouth 2 times daily. warfarin (Coumadin) 5 MG tablet Decrease to 5mg q day (Patient taking differently: Take 5 mg by mouth daily. Decrease to 5mg q day 4 days 2 days 1 09/10) 90 tablet 1 [DISCONTINUED] amLODIPine (Norvasc) 10 MG tablet TAKE 1 TABLET BY MOUTH DAILY 90 tablet 1 [DISCONTINUED] atorvastatin (Lipitor) 10 MG tablet TAKE 1 TABLET BY MOUTH DAILY 90 tablet 1 [DISCONTINUED] furosemide (Lasix) 40 MG tablet TAKE 1 TABLET BY MOUTH TWICE DAILY 180 tablet 1 [DISCONTINUED] metoprolol tartrate (Lopressor) 50 MG tablet TAKE 1 TABLET BY MOUTH TWICE DAILY 180 tablet 1 [DISCONTINUED] sertraline (Zoloft) 50 MG tablet Take 1 tablet (50 mg) by mouth in the morning. Wants name brand Zoloft. 90 tablet 1 acetaminophen (Tylenol) 160 MG/5ML suspension Take 650 mg by mouth. methocarbamol (Robaxin) 500 MG tablet Take 500 mg by mouth. No current facility-administered medications on file prior [...] FOCUS 2017 [employer] CHOLECYSTECTOMY 1999 COLONOSCOPY 2010 (more content not included)... Normal [facility] 36on 05-19-2024 36 Patient wants Zoloft brand only and NOT sertraline, patient said sertraline doesn't work like the Zoloft. Please send refill. RX loaded Next ov 06/17/24 Normal [facility] Office Visiton 05-19-2024 Follow-up visit [id number] Viral Moctezuma 1950 M Date Provider Department Center 05/19/2024 [id number] LEOS [facility] Family History Problem Relation Age of Onset Colon cancer Mother Comments: age 82 Prostate cancer Father Diabetes Father Coronary artery disease Father Comments: chf , age 85 Arrhythmia Sister No Known Problems Sister No Known Problems Sister No Known Problems Sister No Known Problems Brother Family Status - Relation Status Age at Mother 82 Father 85 Sister Alive Sister Alive Sister Alive Sister Alive Brother Alive Level of Service:64683 PA OFFICE/OUTPATIENT ESTABLISHED LOW MDM 20 MIN Reason for Visit and Comments: Facial Swelling [710213] - Jaw swelling Normal [facility] PATINSon 05-19-2024 PATIGRAYSON Rueda dentist. [address] [place] [address] Normal [facility] Progress Noteon 05-19-2024 Progress Note - Chronic and relati vely stable was on sertraline in the past and did well on it had run out of it was unable to get it previously and was started on Celexa he is requesting to stop Celexa and go back to sertraline as he feels like his Celexa is not controlling his symptoms well enough. Normal [facility] Progress Note [facility] [address] [place] [address] [address] [facility] [address] Dept: [phone] Dept Loc: [phone] Visit type: Established Patient Reason for Visit: Facial Swelling (Jaw swelling ) Assessment and Plan 1. Dental abscess Comments: acute new issue, right lower #30 carrous and diseased Orders: - amoxicillin (Amoxil) 500 MG capsule; Take 1 capsule (500 mg) by mouth 3 times daily for 10 days., Starting Sat05/19/2024, Until Sat05/29/2024, Normal - chlorhexidine (Peridex) 0.12 % solution; Use 15 mL in the mouth or throat 2 times daily for 4 days., Starting Sat05/19/2024, Until 05/23/2024, Normal - HYDROcodone-acetaminophen ([place]) 5-325 MG tablet; Take 1 tablet by mouth every 6 hours as needed for severe pain (7-10) for up to 5 days., Starting Sat05/19/2024, Until 05/24/2024 at 2359, Normal 2. Anxiety associated with depression Assessment & Plan: - Chronic and relatively stable was on sertraline in the past and did well on it had run out of it was unable to get it previously and was started on Celexa he is requesting to stop Celexa and go back to sertraline as he feels like his Celexa is not controlling his symptoms well enough. Orders: - sertraline (Zoloft) 50 MG tablet; Take 1 tablet (50 mg) by mouth in the morning. Wants name brand Zoloft., Starting Sat05/19/2024, Normal Follow up if symptoms worsen or fail to improve, for Next scheduled follow-up. Subjective HPI this is a 73-year-old male with underlying history of restless leg syndrome, hypertension, hyperlipidemia and a history of atrial fibrillation on chronic Coumadin who contacted the [facility] yesterday for next day appointment evaluation for concerns of jaw pain. Patient states that he bit into an apple in his jaw swollen and having a hard time opening his mouth. He states it happened once before and he had antibiotics for to resolve. Had a fall about 6 years ago and hit back of head and somehow messed up his jaw and now if he eats wrong, or pulls at food ate a caramel apple this time. Started eating it last week some time and then suddenly started having pain and swelling to the right cheek, patient had full dental extraction on the upper he only has several teeth remaining on the bottom. He does have some generalized pain over the right lower dentition. He did state this morning he got up that the swelling does not seem as pronounced and he did have a bad taste in his mouth and felt like something was draining further some discharge in his mouth. Citalopram not work, states he was on sertraline the past and that seemed to work better he would like to go back on sertraline rather than the citalopram. Review of Systems Constitutional: Negative for chills and fever. HENT: Positive for facial swelling (Primarily right cheek with dental pain). Negative for sore throat and trouble swallowing. Respiratory: Negative for cough and shortness of breath. Cardiovascular: Negative for chest pain. Gastrointestinal: Negative for abdominal pain, diarrhea, nausea and vomiting. Neurological: Negative for dizziness and light-headedness. All other systems reviewed and are negative. Allergies Allergen Reactions Iodine Anaphylaxis and Rash Other Outpatient Medications Prior to Visit Medication Sig Dispense Refill acetaminophen (Tylenol) 160 MG/5ML suspension Take 650 mg by mouth. amLODIPine (Norvasc) 10 MG tablet TAKE 1 TABLET BY MOUTH DAILY 90 tablet 1 atorvastatin (Lipitor) 10 MG tablet TAKE 1 TABLET BY MOUTH DAILY 90 tablet 1 furosemide (Lasix) 40 MG tablet TAKE 1 TABLET BY MOUTH TWICE DAILY 180 tablet 1 gabapentin (Neurontin) 300 MG capsule TAKE 1 CAPSULE BY MOUTH DURING THE DAY NEEDED AND 2 CAPSULES AT BEDTIME DIRECTED methocarbamol (Robaxin) 500 MG tablet Take 500 mg by mouth. metoprolol tartrate (Lopressor) 50 MG tablet TAKE 1 TABLET BY MOUTH TWICE DAILY 180 tablet 1 potassium chloride CR (Klor-Con M20) 20 MEQ ER tablet Take 1 tablet by mouth 2 times daily. warfarin (Coumadin) 5 MG tablet Decrease to 5mg q day 90 tablet 1 citalopram (CeleXA) 10 MG tablet Take 1 tablet (10 mg) by mouth daily. 30 tablet 5 sertraline (Zoloft) 50 MG tablet Take 50 mg by mouth in the morning. Wants name brand Zoloft. No facility-administered medications prior to visit. Past Medical History: Diagnosis Date A-fib (CMS/HCC) (HCC) 2014 Dr. Vernon -nml ECHO, EF- ablation 03/25 [...] due 2025 History of cardiac radiofrequency ablation 2016 History of pros (more content not included)... [facility] 36on 05-18-2024 36 Triage message revie wed with clinical staff. Patient appointment confirmed. PCP will assess at appointment visit. [facility] 36 S: Patient's kash jeferson with [facility] nurse regarding jaw pain. B: Onset of symptoms the other day. A: Bit into an apple and jaw is swollen and having a hard time opening his mouth, has happened before and after ATB it resolved. R: requesting ATB if possible. Appointment scheduled, address given to the patient, instructed to bring photo ID, insurance info and medication list to the appointment. Instructed ice pac for swelling, Tylenol for pain. Patient understands care advice. No further needs at this time. Patient instructed to call back with new or worsening symptoms. Reason for Disposition Face is swollen and no fever Protocols used: Mouth [id number] Normal [facility] Protime w/INR Fingerstickon 04-27-2024 INR Coag (PPP) [Relative time] 2.1 {INR} Normal [facility] Comment on above: Result Comment: Crit ical Value > 4.0 Performed By: #### L 9200.0000 #### [facility] [address] [place], [address] Protime [place] 22.3 SEC High 11.7-14.[address] [facility] Comment on above: Performed By: #### L 9200.0000 #### [facility] [address] [place], [place], [id number] Capillary blood internationa l normalized ratio (INR)Ordered By: Audie Franklin on 11-29-2023 INR Coag (BldC) [Relative time] 2.[address] [facility] Comment on above: Critical Value > 4.0 Whole blood prothrombin time Ordered By: Audie Franklin on 11-29-2023 PT Coag (Bld) [Time] 24.5 s 11.7-14.9 [facility] Capillary blood internationa l normalized ratio (INR)Ordered By: Compton Rigoberto on 11-01-2023 INR Coag (BldC) [Relative time] 2.[address] [facility] Comment on above: Critical Value > 4.0 Whole blood prothrombin time Ordered By: Compton Rigoberto on 11-01-2023 PT Coag (Bld) [Time] 24.1 s 11.7-14.9 [facility] Laboratory - CoagulationOrde red By: Compton Rigoberto on 10-28-2023 PT Coag (PPP) [Time] 45.7 s 11.7-14.9 [facility] INR in Blood by Coagulation assayOrdered By: Audie Rigoberto on 06-25-2023 INR Coag (Bld) [Relative time] 2.9 {INR} [facility] - CoagulationOrde red By: Audie Rigoberto on 06-25-2023 PT Coag (PPP) [Time] 30.8 s 11.7-14.9 [facility] INR in Blood by Coagulation assayOrdered By: Compton Rigoberto on 05-16-2023 INR Coag (Bld) [Relative time] 2.2 {INR} [facility] - CoagulationOrde red By: Compton Rigoberto on 05-16-2023 PT Coag (PPP) [Time] 24.5 s 11.7-14.9 [facility] INR in Blood by Coagulation assayOrdered By: Audie Rigoberto on 03-18-2023 INR Coag (Bld) [Relative time] 2.4 {INR} [facility] - CoagulationOrde red By: Audie Rigoberto on 03-18-2023 PT Coag (PPP) [Time] 26.0 s 11.7-14.9 [facility] US Retroperitoneumon 023 Unremarkable renal ultrasound. Report Dictated on Electronically Signed By: Matt Marte Electronically Signed Date/Time: 02/08/2023 2:59 PM EDT [facility] Patient Name: LAMIN MOCTEZUMA : 1950 Exam Date/Time: 02/08/2023 13:14 Procedure: US RETROPERITONEAL Ordering Provider: TAPIA JAMES Reason For Exam: HEMATURIA RENAL ULTRASOUND: INDICATION: Hematuria COMPARISON: No prior studies are available for comparison. Sonographic images of the bilateral kidneys and bladder were obtained. The right kidney measures 10.1 x 6.3 x 5.4 cm. Parenchymal echotexture is normal. No focal lesions are seen. There is no evidence of hydronephrosis or renal calculus. The left kidney measures 11.8 x 5.4 x 6.0 cm. Parenchymal echotexture is normal. No focal lesions are seen. There is no evidence of hydronephrosis or renal calculus. No mass or fluid collection is seen adjacent to the kidneys. The bladder is grossly unremarkable. [facility] Matt Marte DO - 02/08/2023 Patient Name: LAMIN MOCTEZUMA : 1950 [facility]#: [id number] Exam Date/Time: 02/08/2023 13:14 Procedure: US RETROPERITONEAL Ordering Provider: TAPIA JAMES Reason For Exam: HEMATURIA RENAL ULTRASOUND: INDICATION: Hematuria COMPARISON: No prior studies are available for comparison. Sonographic images of the bilateral kidneys and bladder were obtained. The right kidney measures 10.1 x 6.3 x 5.4 cm. Parenchymal echotexture is normal. No focal lesions are seen. There is no evidence of hydronephrosis or renal calculus. The left kidney measures 11.8 x 5.4 x 6.0 cm. Parenchymal echotexture is normal. No focal lesions are seen. There is no evidence of hydronephrosis or renal calculus. No mass or fluid collection is seen adjacent to the kidneys. The bladder is grossly unremarkable. IMPRESSION: Unremarkable renal ultrasound. Report Dictated on Electronically Signed By: Matt Marte Electronically Signed Date/Time: 02/08/2023 2:59 PM EDT [facility] Radiology Study observation (narrative) [facility] US RetroperitoneumOrdered By : Matt Marte on 02-08-2023 [facility] Work Phone: Laboratory - CoagulationOrde red By: Chicho Vernon on 02-07-2023 INR Coag (Bld) [Relative time] 2.0 {INR} [facility] Comment on above: Critical Value > 4.0 Whole blood prothrombin time Ordered By: Chicho Vernon on 02-07-2023 PT Coag (Bld) [Time] 21.5 s 11.7-14.9 [facility] AMB POC URINE DIP STICK MANU AL W/O MICROon 02-05-2023 Bilirubin, UA Large [facility] Blood, UA Large [facility] Glucose, UA 100 [facility] Interpretation and review of laboratory results Abnormal [facility] Ketones, UA Negative [facility] Leukocytes, UA Large [facility] Nitrite, UA Negative [facility] pH, UA 5.5 [facility] Protein, UA 300 [facility] Spec Grav, UA 1.020 [facility] Urobilinogen, UA 4.0 [facility] Laboratory - CoagulationOrde red By: Dr. Vernon on 12-17-2022 INR Coag (Bld) [Relative time] 2.9 {INR} [facility] Comment on above: Critical Value > 4.0 Whole blood prothrombin time Ordered By: Dr. Vernon on 12-17-2022 PT Coag (Bld) [Time] 31.1 s 11.7-14.9 [facility] Laboratory - CoagulationOrde red By: Dr. Vernon on 10-30-2022 INR Coag (Bld) [Relative time] 2.3 {INR} [facility] Comment on above: Critical Value > 4.0 Whole blood prothrombin time Ordered By: Dr. Vernon on 10-30-2022 PT Coag (Bld) [Time] 26.7 s 11.7-14.9 [facility] Laboratory - CoagulationOrde red By: Dr. Vernon on 08-29-2022 INR Coag (Bld) [Relative time] 2.4 {INR} [facility] Comment on above: Critical Value > 4.0 Whole blood prothrombin time Ordered By: Dr. Vernon on 08-29-2022 PT Coag (Bld) [Time] 28.3 s 11.7-14.9 [facility] Laboratory - Coagulationon 1 INR Coag (Bld) [Relative time] 2.0 {INR} [facility] Work Phone: Comment on above: Critical Value > 4.0 Whole blood prothrombin time on 06-22-2022 PT Coag (Bld) [Time] 24.1 s 11.7-14.9 [facility] Work Phone: Laboratory - Coagulationon 0 05-10-2022 INR Coag (Bld) [Relative time] 2.3 {INR} [facility] Work Phone: Comment on above: Critical Value > 4.0 Whole blood prothrombin time on 05-10-2022 PT Coag (Bld) [Time] 27.1 s 11.7-14.9 [facility] Work Phone: Laboratory - Coagulationon 0 04-23-2022 INR Coag (Bld) [Relative time] 2.2 {INR} [facility] Work Phone: Comment on above: Critical Value > 4.0 Whole blood prothrombin time on 04-23-2022 PT Coag (Bld) [Time] 25.8 s 11.7-14.9 [facility] Work Phone: Absolute lymphocyte counton 03-06-2022 Lymphocytes Auto (Unsp spec) [#/Vol] 1.16 10*3/uL 0.83-4.[address] [facility] Work Phone: Basophil percentageon 2021 Basophil percentage 0 SEEN /hpf 0-5 [facility] Work Phone: Basophils/100 WBC (Bld) 0.7 % 0-1 [facility] Work Phone: Bilirubin [Mass/Vol] 0.70 mg/dL 0.20-1.00 [facility] Work Phone: Comment on above: For patients on eltr ombopag therapy, use of Dimension [place] TBIL is not recommended. Chloride [Moles/Vol] 109 mmol/L 98-107 [facility] Work Phone: Eosinophils/100 WBC (Bld) 3.2 % 0-[address] [facility] Work Phone: Glucose [Mass/Vol] 126 mg/dL 74-106 [facility] Work Phone: Comment on above: Fasting Glucose resu lt greater than or equal to 126 mg/dL suggests DIABETES MELLITUS per A.D.A. criteria. Lactate [Moles/Vol] 1.2 mmol/L 0.4-2.0 [facility] Work Phone: Neutrophils (Bld) [#/Vol] 2.5 10*3/uL 2.0-7.[address] [facility] Work Phone: Neutrophils/100 WBC (Bld) 56.6 % 47-[address] [facility] Work Phone: Potassium [Moles/Vol] 3.7 mmol/L 3.5-5.1 [facility] Work Phone: Protein [Mass/Vol] 6.5 g/dL 6.4-8.2 [facility] Work Phone: Sodium [Moles/Vol] 142 mmol/L 136-145 [facility] Work Phone: WBC (Bld) [#/Vol] 4.4 10*3/uL 4.4-11.0 [facility] Work Phone: Bilirubin Test strip Ql (U)o n 03-06-2022 Bilirubin Ql (U) Negative Negative [facility] Work Phone: Blood erythrocytes count (nu mber/volume)on 03-06-2022 RBC (Bld) [#/Vol] 4.93 10*6/uL 4.6-6.2 [facility] Work [facility]: Blood hemoglobin measurement (mass/volume)on 03-06-2022 Hemoglobin (Bld) [Mass/Vol] 15.3 g/dL 13.0-16.[address] [facility] Work Phone: Blood lymphocytes/100 leukoc yteson 03-06-2022 Lymphocytes/100 WBC (Bld) 26.5 % 19-[address] [facility] Work Phone: Blood monocytes/100 leukocyt eson 03-06-2022 Monocytes/100 WBC (Bld) 13.0 % 0-10 [facility] Work Phone: Blood platelet mean volumeon 03-06-2022 Platelet mean volume (Bld) [Entitic vol] 9.6 fL 6.2-12.[address] [facility] Work Phone: Determination of erythrocyte mean corpuscular volume (MCV)on 03-06-2022 MCV (RBC) [Entitic vol] 92.1 fL 80-94 [facility] Work Phone: Hematocrit Auto (Bld) [Volum e fraction]on 03-06-2022 Hematocrit (Bld) [Volume fraction] 45.4 % 40-[address] [facility] Work Phone: INR in Blood by Coagulation assayon 03-06-2022 INR Coag (Bld) [Relative time] 1.6 {INR} [facility] Work Phone: Ketones Test strip Ql (U)on 03-06-2022 Ketones Ql (U) Negative Negative [facility] Work Phone: Laboratory - Chemistry and C hemistry - challengeon 03-06-2022 ALP [Catalytic activity/Vol] 125 U/L 45-[address] [facility] Work Phone: ALT [Catalytic activity/Vol] 26 U/L 16-[address] [facility] Work Phone: CO2 [Moles/Vol] 26.0 mmol/L 21.0-32.[address] [facility] Work Phone: Globulin (S) [Mass/Vol] 3.2 g/dL 2.2-4.2 [facility] Work Phone: Urea nitrogen/Creatinine [Mass ratio] 13.1 mg/mg 10-[address] [facility] Work Phone: Laboratory - Coagulationon 0 03-06-2022 PT Coag (PPP) [Time] 18.2 s 11.7-14.9 [facility] Work Phone: Laboratory - Hematology and Cell countson 03-06-2022 Erythrocyte distribution width (RBC) [Entitic vol] 48.2 fL 35.1-43.[address] [facility] Work Phone: Erythrocyte distribution width (RBC) [Ratio] 14.2 % 11.6-14.[address] [facility] Work Phone: Immature granulocytes/100 WBC (Bld) 0.000 % 0.0-0.[address] [facility] Work Phone: Comment on above: IG% - Immature Granu locytes (promyelocytes, myelocytes and metamyelocytes) > 1% indicates that a LEFT SHIFT is Present. MCH (RBC) [Entitic mass] 31.0 pg 27.0-32.[address] [facility] Work Phone: Nucleated RBC/100 WBC (Bld) [Ratio] 0 % 0-[address] [facility] Work Phone: MCHC Auto (RBC) [Mass/Vol]on 03-06-2022 MCHC (RBC) [Mass/Vol] 33.7 g/dL 32-36 [facility] Work Phone: Mucus LM Ql (Urine sed)on Mucus Ql (Urine sed) 0 SEEN /hpf [facility] Work Phone: Nitrite Test strip Ql (U)on 03-06-2022 Nitrite Ql (U) Negative Negative [facility] Work Phone: No Panel Informationon 03-06 Estimated Creatinine Clearance Calc 77.34 ml/min [facility] Work Phone: Estimated GFR (MDRD) Amer 95 mL/min >[address] [facility] Work Phone: Comment on above: GFR Calc Estimated GFR (MDRD) Non-Af Amer 79 mL/min >[address] [facility] Work Phone: Comment on above: Non- GFR Calc Troponin I High Sensitivity 8 pg/mL 3.0-78.[address] [facility] Work Phone: Comment on above: Please Note: New [place] t Units and Gender Specific Reference Ranges. For more information see Policy Stat Procedure [place] High Sensitivity Troponin (TNIH) and attachments. Platelets bldon 03-06-2022 Platelets (Bld) [#/Vol] 157 10*3/uL 150-[address] [facility] Work Phone: Protein Test strip Ql (U)on 03-06-2022 Protein Ql (U) Negative Negative [facility] Work Phone: Serum or plasma albumin kun urement (mass/volume)on 03-06-2022 Albumin [Mass/Vol] 3.3 g/dL 3.2-5.0 [facility] Work Phone: Serum or plasma albumin/glob ulin mass ratioon 03-06-2022 Albumin/Globulin [Mass ratio] 1.0 {ratio} 0.9-2.[address] [facility] Work Phone: Serum or plasma calcium kun urement (mass/volume)on 03-06-2022 Calcium [Mass/Vol] 8.4 mg/dL 8.5-10.1 [facility] Work Phone: Serum or plasma creatinine m easurement (mass/volume)on 03-06-2022 Creatinine [Mass/Vol] 0.99 mg/dL 0.70-1.30 [facility] ster [facility] [place] [place] Work Phone: Comment on above: The validity of the calculated GFR & GFRAA in patients over 70 years has not been determined. Clinical correlation is essential. Serum or plasma urea nitroge n measurement (mass/volume)on 03-06-2022 Urea nitrogen [Mass/Vol] 13 mg/dL 7-[address] [facility] Work Phone: Squamous epithelial cells de tection in urine sediment by light microscopyon 03-06-2022 Epithelial cells.squamous LM Ql (Urine sed) 0 SEEN /hpf 0-[address] [facility] Work Phone: Thin prep Papanicolaou smear with manual screeningon 03-06-2022 Thin prep Papanicolaou smear with manual screening 29 U/L 15-[address] [facility] Work Phone: Thin prep Papanicolaou smear with manual screening 7 5-[address] [facility] Work Phone: Urine blood detectionon 02-08 RBC Ql (U) Negative Negative [facility] Work Phone: RBC Ql (U) 0 SEEN /hpf 0-[address] [facility] Work Phone: Urine clarityon 03-06-2022 Clarity (U) Clear Clear [facility] Work Phone: Urine color determinationon 03-06-2022 Color (U) Yellow Yellow [facility] Work Phone: Urine glucose detectionon Glucose Ql (U) Normal mg/dl Normal [facility] Work Phone: Urine leukocyte esterase det ection by dipstickon 03-06-2022 Leukocyte esterase Test strip Ql (U) Negative Negative [facility] Work Phone: Urine pHon 03-06-2022 pH (U) 6.0 [pH] 5.0 - 8.[address] [facility] Work Phone: Urine sediment bacteria coun t by microscopy (number/high power field)on 03-06-2022 Bacteria LM.HPF (Urine sed) [#/Area] 0 /[HPF] None Seen [facility] Work Phone: Urine specific gravity measu rementon 03-06-2022 Specific gravity (U) [Rel density] 1.015 1.002-1.[address] [facility] Work Phone: Urobilinogen Auto test strip Ql (U)on 03-06-2022 Urobilinogen Ql (U) Normal mg/dl Normal [facility] Work Phone: Laboratory - Coagulationon 0 01-29-2022 INR Coag (Bld) [Relative time] 2.0 {INR} [facility] Work Phone: Comment on above: Critical Value > 4.0 Whole blood prothrombin time on 01-29-2022 PT Coag (Bld) [Time] 23.3 s 11.7-14.9 [facility] Work Phone: Laboratory - Coagulationon 0 12-19-2021 INR Coag (Bld) [Relative time] 2.0 {INR} [facility] Work Phone: Comment on above: Critical Value > 4.0 Whole blood prothrombin time on 12-19-2021 PT Coag (Bld) [Time] 23.8 s 11.7-14.9 [facility] Work Phone: Final Surgical Pathology Rep soha 07-26-2021 Final Surgical Pathology Report . 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 COMMENT: [facility] - [id number] CLINICAL INFORMATION: Procedure: FLEXIBLE SIGMOIDOSCOPY WITH BIOPSY AND ARGON PLASMA COAGULATION Preoperative diagnosis: HISTORY BROAD-BASED SESSILE POLYP Postoperative diagnosis: HISTORY BROAD-BASED SESSILE POLYP SPECIMEN: A POLYP @ 25 CM GROSS DESCRIPTION: A. Received in formalin, labeled with the patients name, Case #[id number], and polyp at 25 cm 3 shaw soft tissue fragments ranging from 0.1 to 0.2 cm. TS -1 Dictated by ALPESH LOPES MICROSCOPIC DESCRIPTION: Slides reviewed. Electronically Signed by Pathology Report verified by [facility] Electronically signed by HUE HUERTA MD Sign out Date: 07/26/2021 15:00 Performing Lab: [facility], [address] [place] [address] ([place]) CT Head or Brain w/o Contras ton 04-16-2021 CT Head or Brain w/o Contrast Patient Name: [facility] [id number] Computed Tomography ACCESSION EXAM DATE/TIME PROCEDURE ORDERING PROVIDER [id number] 04/16/2021 12:[address] Head or Brain w/o MD BENITA, AUGUSTINE Villalta Contrast CPT code 68210 Reason For Exam (CT Head or Brain w/o Contrast) fall, right facial and right head pain Report CT of the brain without intravenous contrast, 04/16/2021. Reason for examination: Head injury. COMPARISON: April 14, 2021. TECHNIQUE: 3 mm axial images were obtained through the brain. No intravenous contrast was administered. Coronal and sagittal reconstructions were created and reviewed. FINDINGS: There is relatively mild atrophy. No intracranial hemorrhage is identified. No extra-axial fluid collection is noted. No mass or mass effect is identified. There is no hydrocephalus or midline shift. There are patchy areas of leukomalacia in the hemispheric white matter bilaterally which are suggestive of chronic microangiopathic ischemic changes. There is no clear evidence of acute ischemia. No lesion is identified in the brainstem or cerebellum. Orbital contents appear grossly intact. No skull fracture is identified. Visualized portions of the paranasal sinuses and mastoid air cells are clear. IMPRESSION: No acute intracranial process identified. Report Dictated on Final Dictating Physician: MD SAUNDERS JOE M Signed Date and Time: 04/16/2021 12:44 pm Signed by: MD SUANDERS JOE M Transcribed Date and Time: 04/16/2021 12:45 Normal [facility] CT Maxillofacial w/o Contras ton 04-16-2021 CT Maxillofacial w/o Contrast Patient Name: LAMIN MOCTEZUMA Computed Tomography ACCESSION EXAM DATE/TIME PROCEDURE ORDERING PROVIDER [id number] 04/16/2021 12:[address] Maxillofacial w/o MD BENITA, AUGUSTINE Villalta Contrast CPT code 55257 Reason For Exam (CT Maxillofacial w/o Contrast) RIGHT zygomatic arch swelling and pain. previous ct did not cover whole face. fell in garage. morbidly obese. hematoma vs fx vs swelling from the trauma Report EXAMINATION: CT of the Facial Bones without Contrast. COMPARISON: None. REASON FOR STUDY: Right malar swelling after fall. TECHNIQUE: Contiguous axial 1 mm and orthogonal 2 mm images were obtained. I, concurrently, rendered and reviewed 4D images on a 3-D diagnostic workstation to enhance visualization of osseous structures. FINDINGS: No fracture line or bone displacement is detected. Orbits are symmetric and within normal limits. Intraorbital contents appear normal. There is asymmetric expansion of the right masseter muscle with overlying subcutaneous stranding. Temporomandibular joints are symmetric and within normal limits. Visualized paranasal sinuses and mastoid air cells are pneumatized. CONCLUSIONS: 1. Tear/intramuscular hematoma of the right masseter muscle with overlying soft tissue edema. 2. No bone injury identified. Report Dictated on Final Dictating Physician: MD HAILE B NELSON Signed Date and Time: 04/16/2021 12:37 pm Signed by: MD HAILE B NELSON Transcribed Date and Time: 04/16/2021 12:38 Normal [facility] CT Spine Cervical w/o Contra ston 04-16-2021 CT Spine Cervical w/o Contrast Patient Name: LAMIN MOCTEZUMA Computed Tomography ACCESSION EXAM DATE/TIME PROCEDURE ORDERING PROVIDER [id number] 04/16/2021 12:[address] Spine Cervical w/o MD BENITA, AUGUSTINE Villalta Contrast CPT code 50044 Reason For Exam (CT Spine Cervical w/o Contrast) fall, fails nexus Report EXAMINATION: CT of the Cervical Spine without Contrast. COMPARISON: None. REASON FOR STUDY: Traumatic fall. TECHNIQUE: Contiguous axial 1 mm and orthogonal 2 mm images were extended from the skull base through the upper thorax. I, concurrently, rendered and reviewed 4D images on a 3-D diagnostic workstation to enhance visualization of the vertebrae. FINDINGS: C5 through T1 are poorly visualized due to beam hardening artifacts. Vertebral bodies, facets, pedicles and posterior arches appear intact. Endplate osteophytes are present diffusely. Cc 34, C5-C6 and C6-C7 disc spaces are severely narrowed. Prevertebral and paravertebral soft tissues appear normal. Alignment is anatomic. The spinal canal and neural foramina are patent. CONCLUSION(S): 1. No evidence of acute bone injury or malalignment. 2. Multilevel degenerative disc disease, most severe at C3-C4, C5-C6 and C6-C7. Report Dictated on Final Dictating Physician: MD HAILE B NELSON Signed Date and Time: 04/16/2021 12:47 pm Signed by: MD HAILE B NELSON Transcribed Date and Time: 04/16/2021 12:48 Normal [facility] Basic Metabolic Panelon 08-0 Calcium [Mass/Vol] 9.0 mg/dL Normal 8.4-10.4 [facility] Comment on above: Performed By: #### H ASTER BMP3, PT #### [facility] [address] [place] [address] Glucose [Mass/Vol] 118 mg/dL High 70-100 [facility] Comment on above: Performed By: #### H DEE RODARTE3, PT #### [facility] [address] [place] [address] Urea nitrogen [Mass/Vol] 16 mg/dL Normal 7-20 [facility] Comment on above: Performed By: #### H ASTER BMP3, PT #### [facility] [address] [place] [address] Anion gap [Moles/Vol] 2 mmol/L Low 3-13 [facility] Comment on above: Performed By: #### H DEE RODARTE3, PT #### [facility] [address] [place] [address] CO2 [Moles/Vol] 29 mmol/L Normal 22-30 [facility] Comment on above: Performed By: #### H DEE RODARTE3, PT #### [facility] [address] [place] [address] Creatinine [Mass/Vol] 0.91 mg/dL Normal 0.52-1.25 [facility] Comment on above: Performed By: #### H DEE RODARTE3, PT #### [facility] [address] [place] [address] GFR/1.73 sq M.predicted among blacks MDRD (S/P/Bld) [Vol rate/Area] mL/min/{1.73_m2} Normal >60 [facility] Comment on above: Performed By: #### H DEE RODARTE3, PT #### [facility] [address] [place] [address] GFR/1.73 sq M.predicted among non-blacks MDRD (S/P/Bld) [Vol rate/Area] 84.8 mL/min/{1.73_m2} Normal >60 [facility] Comment on above: Result Comment: KDIG O guidelines provide the following GFR categories: Stage GFR(ml/min/1.73 m2) Terms G1 >=90 Normal or high G2 60-89 Mildly decreased* G3a 45-59 Mildly to moderately decreased G3b 30-44 Moderately to severely decreased G4 15-29 Severely decreased G5 <15 Kidney failure *Relative to young adult level. In the absence of evidence of kidney damage, neither GFR category G1 nor G2 fulfill the criteria for CKD. The CKD-EPI equation is validated in individuals 18 years of age and older. Currently the best equation for estimating glomerular filtration rate (GFR) from serum creatinine in children is the Bedside Herrera equation. It is less accurate in patients with extremes of muscle mass, restriction of dietary protein, ingestion of creatine, extra-renal metabolism of creatinine, or treatment with medications that affect renal tubular creatinine secretion. Performed By: #### H HECTOR RODARTE, PT #### [facility] [address] [place] [address] Potassium [Moles/Vol] 4.5 mmol/L Normal 3.5-5.1 [facility] Comment on above: Performed By: #### H HECTOR RODARTE, PT #### [facility] [address] [place] [address] Chloride [Moles/Vol] 108 mmol/L High 98-[address] [facility] Comment on above: Performed By: #### H HECTOR RODARTE, PT #### [facility] [address] [place] [address] Sodium [Moles/Vol] 139 mmol/L Normal 135-145 [facility] Comment on above: Performed By: #### H HECTOR RODARTE, PT #### [facility] [address] [place] [address] Basic Metabolic PanelOrdered By: Kerry Guerrero on 04-14-2021 Anion gap [Moles/Vol] 2 mmol/L Low 3 - 13 mmol/L [facility] Work Phone: Calcium [Mass/Vol] 9.0 mg/dL 8.4 - 10. 4 mg/dL [facility] Work Phone: Chloride [Moles/Vol] 108 mmol/L High 98 - 10 7 mmol/L [facility] Work Phone: CO2 [Moles/Vol] 29 mmol/L 22 - 30 mmol/L [facility] Work Phone: Creatinine [Mass/Vol] 0.91 mg/dL 0.52 - 1.25 mg/dL [facility] Work Phone: EGFR IF NonAfrican [place] 84.8 mL/min >60 [facility] Work Phone: Comment on above: KDIGO guidelines pro vide the following GFR categories: Stage GFR(ml/min/1.73 m2) Terms G1 >=90 Normal or high G2 60-89 Mildly decreased* G3a 45-59 Mildly to moderately decreased G3b 30-44 Moderately to severely decreased G4 15-29 Severely decreased G5 <15 Kidney failure *Relative to young adult level. In the absence of evidence of kidney damage, neither GFR category G1 nor G2 fulfill the criteria for CKD. The CKD-EPI equation is validated in individuals 18 years of age and older. Currently the best equation for estimating glomerular filtration rate (GFR) from serum creatinine in children is the Bedside Herrera equation. It is less accurate in patients with extremes of muscle mass, restriction of dietary protein, ingestion of creatine, extra-renal metabolism of creatinine, or treatment with medications that affect renal tubular creatinine secretion. GFR/1.73 sq M.predicted among blacks MDRD (S/P/Bld) [Vol rate/Area] mL/min/{1.73_m2} >60 mL/min [facility] Work Phone: Glucose [Mass/Vol] 118 mg/dL High 70 - 100 mg/dL [facility] Work Phone: Potassium [Moles/Vol] 4.5 mmol/L 3.5 - 5.1 mmol/L [facility] Work Phone: Sodium [Moles/Vol] 139 mmol/L 135 - 145 mmol/L [facility] Work Phone: Urea nitrogen (BldV) [Mass/Vol] 16 mg/dL 7 - 20 mg/dL [facility] Work Phone: CT Cervical Spine WO Contras tOrdered By: Kerry Guerrero on 04-14-2021 Patient Name: LAMIN LIRA [facility] [id number] Computed Tomography ACCESSION EXAM DATE/TIME PROCEDURE ORDERING PROVIDER [id number] 04/14/2021 12:[address] Spine Cervical w/o MD BEV, KERRY Contrast CPT code 57997 Reason For Exam (CT Spine Cervical w/o Contrast) neck strain, fall decreased rom of neck Addendum Addendum: Additional CT images through the cervical thoracic level demonstrate normal alignment of the inferior cervical spine with anterior endplate osteophytes. No vertebral compression fracture or malalignment is seen. Posterior elements are unremarkable. Prevertebral soft tissues are normal. IMPRESSION: Cervical degenerative spondylosis. No cervical fracture or subluxation is seen. Report Dictated on ---Final Addendum--- Addendum Dictating Physician: MEET PIRES DO, I Signed Date and Time: 04/14/2021 12:12 pm Signed by: MEET PIRES DO, I Transcribed Date and Time: 04/14/2021 12:[address] CERVICAL SPINE: CLINICAL INDICATION: Fall from chair. Posterior head and neck pain. TECHNIQUE: 3 mm axial images of the cervical spine were obtained. Coronal and sagittal reconstruction images were provided for review. COMPARISON: None. FINDINGS: The C7-T1 vertebral bodies are not entirely included on the image. Disc space narrowing at C3-C4, C4-C5 and C5-C6 with uncovertebral and endplate osteophytes is observed. Cervical vertebra are in near anatomic alignment. There is trace retrolisthesis of C3 on C4 and trace anterolisthesis of C4 and C5. Vertebral body heights are maintained. Mild bilateral facet osteoarthritis. The surrounding soft tissues of the neck are grossly unremarkable on this noncontrast study. Evaluation for a disc herniation is limited with CT imaging. IMPRESSION: 1. Limited study did not include the T1 vertebral body. 2. No fracture or subluxation of the cervical vertebrae. Computed Tomography Report 3. Moderate cervical degenerative spondylosis with facet osteoarthritis. Report Dictated on --- Final --- Dictating Physician: MEET PIRES DO, I Signed Date and Time: 04/14/2021 11:56 am Signed by: MEET PIRES DO, I Transcribed Date and Time: 04/14/2021 12:07 Report last revised on 04/14/2021 12:12 EDT by MEET PIRES DO Work Phone: [facility] Incoming Radiology Results From [facility] - 04/14/2021 12:13 PM EDT Patient Name: LAMIN MOCTEZUMA Computed Tomography ACCESSION EXAM DATE/TIME PROCEDURE ORDERING PROVIDER [id number] 04/14/2021 12:[address] Spine Cervical w/o MD BEV, KERRY Contrast CPT code 59852 Reason For Exam (CT Spine Cervical w/o Contrast) neck strain, fall decreased rom of neck Addendum Addendum: Additional CT images through the cervical thoracic level demonstrate normal alignment of the inferior cervical spine with anterior endplate osteophytes. No vertebral compression fracture or malalignment is seen. Posterior elements are unremarkable. Prevertebral soft tissues are normal. IMPRESSION: Cervical degenerative spondylosis. No cervical fracture or subluxation is seen. Report Dictated on ---Final Addendum--- Addendum Dictating Physician: MEET PIRES DO, I Signed Date and Time: 04/14/2021 12:12 pm Signed by: MEET PIRES DO, I Transcribed Date and Time: 04/14/2021 12:[address] CERVICAL SPINE: CLINICAL INDICATION: Fall from chair. Posterior head and neck pain. TECHNIQUE: 3 mm axial images of the cervical spine were obtained. Coronal and sagittal reconstruction images were provided for review. COMPARISON: None. FINDINGS: The C7-T1 vertebral bodies are not entirely included on the image. Disc space narrowing at C3-C4, C4-C5 and C5-C6 with uncovertebral and endplate osteophytes is observed. Cervical vertebra are in near anatomic alignment. There is trace retrolisthesis of C3 on C4 and trace anterolisthesis of C4 and C5. Vertebral body heights are maintained. Mild bilateral facet osteoarthritis. The surrounding soft tissues of the neck are grossly unremarkable on this noncontrast study. Evaluation for a disc herniation is limited with CT imaging. IMPRESSION: 1. Limited study did not include the T1 vertebral body. 2. No fracture or subluxation of the cervical vertebrae. Computed Tomography Report 3. Moderate cervical degenerative spondylosis with facet osteoarthritis. Report Dictated on --- Final --- Dictating Physician: MEET PIRES DO, I Signed Date and Time: 04/14/2021 11:56 am Signed by: MEET PIRES DO, I Transcribed Date and Time: 04/14/2021 12:07 Report last revised on 04/14/2021 12:12 EDT by MEET PRIES DO, I [facility] Work Phone: [facility] Work Phone: CT HEAD WO CONTRASTOrdered B y: Kerry Guerrero on 04-14-2021 Patient Name: LAMIN MOCTEZUMA Computed Tomography ACCESSION EXAM DATE/TIME PROCEDURE ORDERING PROVIDER [id number] 04/14/2021 10:[address] Head or Brain w/o MD BEV, KERRY Contrast CPT code 05560 Reason For Exam (CT Head or Brain w/o Contrast) FALL, ON ANTICOAGULANT Report Exam Type: CT Head or Brain w/o Contrast Exam Date and Time: 04/14/2021 10:23 AM EDT Indication: Headache, fall Comparison: CT head on 12/01/2014 TECHNIQUE: Noncontrast CT of the head. FINDINGS: Ventricles and sulci are normal in size and configuration for patients age. No extra axial collection. No acute intracranial hemorrhage. Scattered foci of hypoattenuation in the cerebral white matter are nonspecific but most compatible with microangiopathy. No CT evidence of acute large territorial infarct. No mass effect, cerebral edema, or midline shift. Atherosclerotic vascular calcifications visualized at the skull base. Imaged portions of the paranasal sinuses and mastoid air cells are well aerated. No depressed calvarial fracture. IMPRESSION: No acute intracranial hemorrhage or mass effect. Report Dictated on --- Final --- Dictating Physician: MD BLAKE NEIL Signed Date and Time: 04/14/2021 10:36 am Signed by: MD BLAKE NEIL Transcribed Date and Time: 04/14/2021 10:38 [facility] Work Phone: [facility] Incoming Radiology Results From [facility] - 04/14/2021 10:38 AM EDT Patient Name: LAMIN MOCTEZUMA [facility] [id number] Computed Tomography ACCESSION EXAM DATE/TIME PROCEDURE ORDERING PROVIDER [id number] 04/14/2021 10:[address] Head or Brain w/o MD BEV, KERRY Contrast CPT code 83895 Reason For Exam (CT Head or Brain w/o Contrast) FALL, ON ANTICOAGULANT Report Exam Type: CT Head or Brain w/o Contrast Exam Date and Time: 04/14/2021 10:23 AM EDT Indication: Headache, fall Comparison: CT head on 12/01/2014 TECHNIQUE: Noncontrast CT of the head. FINDINGS: Ventricles and sulci are normal in size and configuration for patients age. No extra axial collection. No acute intracranial hemorrhage. Scattered foci of hypoattenuation in the cerebral white matter are nonspecific but most compatible with microangiopathy. No CT evidence of acute large territorial infarct. No mass effect, cerebral edema, or midline shift. Atherosclerotic vascular calcifications visualized at the skull base. Imaged portions of the paranasal sinuses and mastoid air cells are well aerated. No depressed calvarial fracture. IMPRESSION: No acute intracranial hemorrhage or mass effect. Report Dictated on --- Final --- Dictating Physician: MD BLAKE NEIL Signed Date and Time: 04/14/2021 10:36 am Signed by: MD BLAKE NEIL Transcribed Date and Time: 04/14/2021 10:38 [facility] Work Phone: [facility] Work Phone: CT Head or Brain w/o Contras ton 04-14-2021 CT Head or Brain w/o Contrast Patient Name: LAMIN MOCTEZUMA Computed Tomography ACCESSION EXAM DATE/TIME PROCEDURE ORDERING PROVIDER [id number] 04/14/2021 10:[address] Head or Brain w/o MD BEV, KERRY Contrast CPT code 27711 Reason For Exam (CT Head or Brain w/o Contrast) FALL, ON ANTICOAGULANT Report Exam Type: CT Head or Brain w/o Contrast Exam Date and Time: 04/14/2021 10:23 AM EDT Indication: Headache, fall Comparison: CT head on 12/01/2014 TECHNIQUE: Noncontrast CT of the head. FINDINGS: Ventricles and sulci are normal in size and configuration for patients age. No extra axial collection. No acute intracranial hemorrhage. Scattered foci of hypoattenuation in the cerebral white matter are nonspecific but most compatible with microangiopathy. No CT evidence of acute large territorial infarct. No mass effect, cerebral edema, or midline shift. Atherosclerotic vascular calcifications visualized at the skull base. Imaged portions of the paranasal sinuses and mastoid air cells are well aerated. No depressed calvarial fracture. IMPRESSION: No acute intracranial hemorrhage or mass effect. Report Dictated on Final Dictating Physician: MD BLAKE NEIL Signed Date and Time: 04/14/2021 10:36 am Signed by: MD BLAKE NEIL Transcribed Date and Time: 04/14/2021 10:38 Normal [facility] CT Spine Cervical w/o Contra ston 04-14-2021 CT Spine Cervical w/o Contrast Patient Name: LAMIN MOCTEZUMA Computed Tomography ACCESSION EXAM DATE/TIME PROCEDURE ORDERING PROVIDER [id number] 04/14/2021 12:[address] Spine Cervical w/o MD BEV, KERRY Contrast CPT code 92269 Reason For Exam (CT Spine Cervical w/o Contrast) neck strain, fall decreased rom of neck Addendum Addendum: Additional CT images through the cervical thoracic level demonstrate normal alignment of the inferior cervical spine with anterior endplate osteophytes. No vertebral compression fracture or malalignment is seen. Posterior elements are unremarkable. Prevertebral soft tissues are normal. IMPRESSION: Cervical degenerative spondylosis. No cervical fracture or subluxation is seen. Report Dictated on Final Addendum Addendum Dictating Physician: MEET PIRES DO, I Signed Date and Time: 04/14/2021 12:12 pm Signed by: MEET PIRES DO, I Transcribed Date and Time: 04/14/2021 12:[address] CERVICAL SPINE: CLINICAL INDICATION: Fall from chair. Posterior head and neck pain. TECHNIQUE: 3 mm axial images of the cervical spine were obtained. Coronal and sagittal reconstruction images were provided for review. COMPARISON: None. FINDINGS: The C7-T1 vertebral bodies are not entirely included on the image. Disc space narrowing at C3-C4, C4-C5 and C5-C6 with uncovertebral and endplate osteophytes is observed. Cervical vertebra are in near anatomic alignment. There is trace retrolisthesis of C3 on C4 and trace anterolisthesis of C4 and C5. Vertebral body heights are maintained. Mild bilateral facet osteoarthritis. The surrounding soft tissues of the neck are grossly unremarkable on this noncontrast study. Evaluation for a disc herniation is limited with CT imaging. IMPRESSION: 1. Limited study did not include the T1 vertebral body. 2. No fracture or subluxation of the cervical vertebrae. Computed Tomography Report 3. Moderate cervical degenerative spondylosis with facet osteoarthritis. Report Dictated on Final Dictating Physician: MEET PIRES DO, I Signed Date and Time: 04/14/2021 11:56 am Signed by: MEET PIRES DO, I Transcribed Date and Time: 04/14/2021 12:07 Report last revised on 04/14/2021 12:12 EDT by MEET PIRES DO, I Normal [facility] Hemogramon 04-14-2021 Erythrocyte distribution width (RBC) [Ratio] 13.8 % Normal 11.5-14.5 [facility] Comment on above: Performed By: #### H DEE RODARTE3, PT #### [facility] [address] [address] Hematocrit (Bld) [Volume fraction] 45.2 % Normal 40.0-52.0 [facility] Comment on above: Performed By: #### H DEE RODARTE3, PT #### [facility] [address] [place] [address] Hemoglobin (Bld) [Mass/Vol] 15.4 g/dL Normal 13.0-18.0 [facility] Comment on above: Performed By: #### H DEE RODARTE3, PT #### [facility] [address] [place] [address] MCH (RBC) [Entitic mass] 31.5 pg Normal 26.0-34.0 [facility] Comment on above: Performed By: #### H DEE RODARTE3, PT #### [facility] [address] [place] [address] MCHC 34.0 % Normal 32.0-36.0 [facility] Comment on above: Performed By: #### H ASTER BMP3, PT #### [facility] [address] [place] [address] MCV (RBC) [Entitic vol] 92.6 fL Normal 80.0-98.0 [facility] Comment on above: Performed By: #### H DEE RODARTE3, PT #### [facility] [address] [place] [address] Platelet mean volume (Bld) [Entitic vol] 7.3 fL Low 7.4-10.4 [facility] Comment on above: Performed By: #### H DEE RODARTE3, PT #### [facility] [address] [place] [address] Platelets (Bld) [#/Vol] 155 10*3/uL Normal 140-440 [facility] Comment on above: Performed By: #### H DEE RODARTE3, PT #### [facility] [address] [place] [address] RBC (Bld) [#/Vol] 4.88 10*6/uL Normal 4.40-5.90 [facility] Comment on above: Performed By: #### H DEE RODARTE3, PT #### [facility] [address] [place] [address] WBC (Bld) [#/Vol] 5.0 10*3/uL Normal 3.6-10.7 [facility] Comment on above: Performed By: #### H DEE RODARTE3, PT #### [facility] [address] [place] [address] Hemogram (CBC)Ordered By: Lottie Guerrero on 04-14-2021 Hematocrit (Bld) [Volume fraction] 45.2 % 40.0 - 52.0 % [facility] Work Phone: Hemoglobin.gastrointesti nal spec 1 Ql (Stl) 15.4 g/dL 13.0 - 18.0 g/dL [facility] Work Phone: Interpretation and review of laboratory results Abnormal [facility] Work Phone: MCH (RBC) [Entitic mass] 31.5 pg 26. 0 - 34.0 pg [facility] Work Phone: MCHC (RBC) [Mass/Vol] 34.0 % 32.0 - 36.0 % [facility] Work Phone: [phone] MCV (RBC) [Entitic vol] 92.6 fL 80.0 - 98.0 fL [facility] Work Phone: 1 Platelet distribution width (Bld) [Ratio] 13.8 % 11.5 - 14.5 % [facility] Work Phone: 1( Platelet mean volume (Bld) [Entitic vol] 7.3 fL Low 7.4 - 10.4 fL [facility] Work Phone: 1() Platelets (Bld) [#/Vol] 155 10*3/uL 140 - 440 10*3/uL [facility] Work Phone: 1() RBC (Bld) [#/Vol] 4.88 10*6/uL 4.40 - 5.90 10*6/uL [facility] Work Phone: 1() WBC (Bld) [#/Vol] 5.0 10*3/uL 3.6 - 10.7 10*3/uL [facility] Work Phone: 1 Test Performed by [employer] [facility], [address] [place] [address] [facility] Work Phone: 1 [facility] Work Phone: [phone] No Panel InformationOrdered By: Kerry Guerrero on 04-14-2021 Interpretation and review of laboratory results Abnormal [facility] Work Phone: 1 Test Performed by [facility], [address] [place] [address] [facility] Work Phone: [phone] [facility] Work Phone: [phone] Prothrombin Timeon 1 INR 2.0 High 0.9-1.1 [facility] Comment on above: Result Comment: Joseph mmended Anticoagulant Therapy: SEE BELOW ----- INR of 2.0 - 3.0 : - Prophylaxis of Venous Thrombosis (high-risk surgery) - Treatment of Venous Thrombosis - Treatment of Pulmonary Embolism (Includes tissue heart valves, Acute Myocardial Infarction to prevent systemic embolism, Valvular Heart Disease, and Atrial Fibrillation) ----- INR of 2.5 - 3.5 : - Mechanical Prosthetic Valves (high risk) - If oral anticoagulant therapy is used to prevent Myocardial Infarction Performed By: #### H EMOG, BMP3, PT #### [facility] [address] [place] [address] PT Coag (PPP) [Time] 20.3 s High 9.0-12.0 [facility] Comment on above: Result Comment: . Performed By: #### H EMOG, BMP3, PT #### [facility] [address] [place] [address] Protime-INROrdered By: Tonya Guerrero on 04-14-2021 INR Coag (Bld) [Relative time] 2.0 {INR} High [facility] Work Phone: Comment on above: Recommended Anticoag ulant Therapy: SEE BELOW ----- INR of 2.0 - 3.0 : - Prophylaxis of Venous Thrombosis (high-risk surgery) - Treatment of Venous Thrombosis - Treatment of Pulmonary Embolism (Includes tissue heart valves, Acute Myocardial Infarction to prevent systemic embolism, Valvular Heart Disease, and Atrial Fibrillation) ----- INR of 2.5 - 3.5 : - Mechanical Prosthetic Valves (high risk) - If oral anticoagulant therapy is used to prevent Myocardial Infarction PT Coag (PPP) [Time] 20.3 s High 9.0 - 1 2.0 s [facility] Work Phone: Comment on above: . Lab Report: Prothrombin Time w/INRon 11-04-2017 Coagulation tissue factor induced in platelet poor plasma 27.1 s High 11.7-14.9 [facility] Work Phone: INR in blood by coagulation 2.6 {INR} Invalid Interpretation Code [facility] Work Phone: [phone] Lab Report: Prothrombin Time w/INRon 10-05-2017 Coagulation tissue factor induced in platelet poor plasma 28.2 s High 11.7-14.9 [facility] Work Phone: INR in blood by coagulation 2.8 {INR} Invalid Interpretation Code [employer] Work Phone: [phone] Lab Report: PSA,Total- Diagn osticon 09-10-2017 prostate specific antigen, total 0.02 ng/mL Invalid Interpretation Code 0.0-4.0 [facility] Work Phone: [phone] PSA, DIAGNOSTIC 0.02 ng/mL Invalid Interpretation Code 0.0-4.0 [facility] Work Phone: [phone] Lab Report: Prothrombin Time w/INRon 09-10-2017 Coagulation tissue factor induced in platelet poor plasma 24 s High 11.7-14.9 [facility] Work Phone: [phone] INR Coag RelTime (PPP) 2.3 {INR} Invalid Interpretation Code [facility] Work Phone: [phone] INR in blood by coagulation 2.3 {INR} Invalid Interpretation Code [facility] Work Phone: [phone] Lab Report: Prothrombin Time w/INRon 08-20-2017 Coagulation tissue factor induced in platelet poor plasma 23.2 s High 11.7-14.9 [facility] Work Phone: [phone] INR in blood by coagulation 2.2 {INR} Invalid Interpretation Code [facility] Work Phone: [phone] Coumadin Management: Warfari n Calcon 07-29-2017 INR Coag RelTime (Bld) Hospital lab Invalid Interpretation Code [facility] [employer] Work Phone: [phone] INR Coag RelTime (Bld) 2.0 - 3.5 Invalid Interpretation Code [facility] Work Phone: [phone] INR Coag RelTime (PPP) 2.6 {INR} Invalid Interpretation Code [facility] Work Phone: [phone] Prothrombin time (PT) Coag time (PPP) 26.9 s Invalid Interpretation Code [facility] Work Phone: [phone] Lab Report: Prothrombin Time w/INRon 07-29-2017 Prothrombin time (PT) Coag time (PPP) 26.9 s High 11.7-14.9 [facility] Work Phone: [phone] CTA CHEST (NONGATED) WO/W IV CONon 07-26-2017 CTA CHEST (NONGATED) WO/W IV CON Performed at [facility] APPROVED BY: Kleber Chaves MD EXAM TITLE: CT ANGIOGRAPHY OF THE CHEST WITH ATTENTION TO THE PULMONARY VEINS AND CT OF THE CHEST WITH INTRAVENOUS CONTRAST DATE: 07/26/2017 13:12 COMPARISON: None. CLINICAL INDICATION/HISTORY: Patient has a history of atrial fibrillation. The patient is status post pulmonary vein ablation. TECHNIQUE: Helical scanning was obtained from the base of the lungs to above the level of the aortic arch while the patient received a rapid intravenous bolus of iodinated contrast. Transaxial images are reconstructed at 1.25 mm intervals. In addition, coronal and sagittal reconstructions of the pulmonary veins are presented. Subsequently, helical scanning was obtained from the lung apex through the lung bases. Transaxial images were reconstructed at 5 mm intervals. Images are viewed with mediastinal and lung windows. FINDINGS:There are two right and two left pulmonary veins. The right superior pulmonary vein measures 11.9 x 10.4 mm. The right inferior pulmonary vein measures 15.8 x 15.3 mm. The left superior pulmonary vein measures 15.0 x 16.5 mm. The left inferior pulmonary vein measures 15.2 x 15.1 mm. There is no evidence of pulmonary vein stenosis. The pulmonary arteries are well opacified. No intraluminal filling defects or abrupt cutoffs consistent pulmonary emboli are identified. The thoracic aorta is without evidence of aneurysmal dilatation or dissection. The thoracic aorta measures 3.0 cm in diameter. The pulmonary artery measures 3.0 cm in diameter. There are some punctate coronary artery calcifications. There is no evidence of cardiomegaly.. There is no evidence of pericardial effusion or pericardial thickening. There is no evidence of pulmonary nodules, masses, infiltrates or effusions. There are several small pretracheal, precarinal, subcarinal and AP window lymph nodes. These are below the size of clinical concern. The patient is status post cholecystectomy. The visualized portions of the liver, spleen, pancreas, adrenal glands and kidneys are within normal limits. . There are degenerative changes of the thoracic spine with prominent osteophyte formation. IMPRESSION: 1. There are 2 right and 2 left pulmonary veins without evidence of pulmonary vein stenosis. 2. There are a few small scattered coronary artery calcifications. 3. Status post cholecystectomy. 4. Otherwise, negative CT angiography of the chest with attention to the pulmonary veins Normal [facility] Coumadin Management: Fabian Duval 07-16-2017 INR Coag RelTime (Bld) Hospital lab Invalid Interpretation Code [facility] Work Phone: INR Coag RelTime (Bld) 2.0 - 3.5 Invalid Interpretation Code [facility] Work Phone: [phone] INR Coag RelTime (PPP) 2.0 {INR} Invalid Interpretation Code [facility] Work Phone: [phone] Prothrombin time (PT) Coag time (PPP) 21.9 s Invalid Interpretation Code [facility] Work Phone: [phone] Lab Report: Prothrombin Time w/INRon 07-16-2017 Prothrombin time (PT) Coag time (PPP) 21.9 s High 11.7-14.9 [facility] Work Phone: [phone] Coumadin Management: Counterceptsgenoveva vila Calcon 07-09-2017 INR Coag RelTime (Bld) Hospital lab Invalid Interpretation Code [facility] Work Phone: [phone] INR Coag RelTime (Bld) 2.0 - 3.5 Invalid Interpretation Code [facility] Work Phone: [phone] INR Coag RelTime (PPP) 1.8 {INR} Invalid Interpretation Code [facility] Work Phone: [phone] Prothrombin time (PT) Coag time (PPP) 20.0 s Invalid Interpretation Code [facility] Work Phone: [phone] Lab Report: Prothrombin Time w/INRon 07-09-2017 Prothrombin time (PT) Coag time (PPP) 20 s High 11.7-14.9 [facility] Work Phone: [phone] Coumadin Management: Counterceptsgenoveva vila Calcon 06-17-2017 INR Coag RelTime (Bld) Hospital lab Invalid Interpretation Code [facility] Work Phone: [phone] INR Coag RelTime (PPP) 2.4 {INR} Invalid Interpretation Code [facility] Work Phone: [phone] international normalized ratio (INR) range 2.0 - 3.5 Invalid Interpretation Code [facility] Work Phone: [phone] Prothrombin time (PT) Coag time (PPP) 25.3 s Invalid Interpretation Code [facility] Work Phone: [phone] Lab Report: Prothrombin Time w/INRon 06-17-2017 Prothrombin time (PT) Coag time (PPP) 25.3 s High 11.7-14.9 [facility] Work Phone: [phone] Coumadin Management: [facility] n [place] 06-03-2017 Coagulation tissue factor induced in platelet poor plasma 24.0 s Invalid Interpretation Code [facility] Work Phone: [phone] INR in blood by coagulation Hospital lab Invalid Interpretation Code [facility] Work Phone: [phone] INR in blood by coagulation 2.3 {INR} Invalid Interpretation Code [facility] Work Phone: [phone] INR in blood by coagulation 2.0 - 3.5 Invalid Interpretation Code [facility] Work Phone: [phone] Replaced Document: Prothromb in Time w/INRon 06-03-2017 Coagulation tissue factor induced in platelet poor plasma 24 s High 11.7-14.9 [facility] Work Phone: [phone] Coumadin Management: Counterceptsgenoveva n Cal[place] 05-14-2017 Coagulation tissue factor induced in platelet poor plasma 22.3 s Invalid Interpretation Code [facility] Work Phone: [phone] INR in blood by coagulation Hospital lab Invalid Interpretation Code [facility] Work Phone: [phone] INR in blood by coagulation 2.1 {INR} Invalid Interpretation Code [facility] Work Phone: [phone] INR in blood by coagulation 2.0 - 3.5 Invalid Interpretation Code [facility] Work Phone: [phone] Lab Report: Prothrombin Time w/INRon 05-14-2017 Coagulation tissue factor induced in platelet poor plasma 22.3 s High 11.7-14.9 [facility] Work Phone: Coumadin Management: Counterceptsari n Calcon 05-07-2017 Coagulation tissue factor induced in platelet poor plasma 21.2 s Invalid Interpretation Code [facility] Work Phone: INR in blood by coagulation Hospital lab Invalid Interpretation Code [facility] Work Phone: INR in blood by coagulation 1.9 {INR} Invalid Interpretation Code [facility] Work Phone: [phone] INR in blood by coagulation 2.0 - 3.5 Invalid Interpretation Code [facility] Work Phone: [phone] Lab Report: Prothrombin Time w/INRon 05-07-2017 Coagulation tissue factor induced in platelet poor plasma 21.2 s High 11.7-14.9 [facility] Work Phone: [phone] Coumadin Management: Warfari n Calcon 04-29-2017 Coagulation tissue factor induced in platelet poor plasma 19.7 s Invalid Interpretation Code [facility] Work Phone: [phone] INR in blood by coagulation Hospital lab Invalid Interpretation Code [facility] Work Phone: [phone] INR in blood by coagulation 1.7 {INR} Invalid Interpretation Code [facility] Work Phone: [phone] INR in blood by coagulation 2.0 - 3.5 Invalid Interpretation Code [facility] Work Phone: [phone] Lab Report: Prothrombin Time w/INRon 04-29-2017 Coagulation tissue factor induced in platelet poor plasma 19.7 s High 11.7-14.9 [facility] Work Phone: [phone] Coumadin Management: Warfari n Calcon 04-22-2017 Coagulation tissue factor induced in platelet poor plasma 18.9 s Invalid Interpretation Code [facility] Work Phone: [phone] INR in blood by coagulation Hospital lab Invalid Interpretation Code [facility] Work Phone: [phone] INR in blood by coagulation 1.7 {INR} Invalid Interpretation Code [facility] Work Phone: [phone] INR in blood by coagulation 2.0 - 3.5 Invalid Interpretation Code [facility] Work Phone: [phone] Lab Report: Basic Metabolic Profile (BMP)on 04-22-2017 Anion gap 7 mmol/L Invalid Interpretation Code 5-15 [facility] Work Phone: [phone] Anion gap 4 molar conc 7 Invalid Interpretation Code 5-15 [facility] Work Phone: [phone] BUN/Creatinine Ratio 19.2 RATIO Invalid Interpretation Code 10-20 [facility] Work Phone: [phone] Calcium 8.6 mg/dL Invalid Interpretation Code 8.5-10.1 [facility] Work Phone: [phone] Chloride 105 mmol/L Invalid Interpretation Code 98-107 [facility] Work Phone: [phone] CO2 27.0 mmol/L Invalid Interpretation Code 21.0-32.0 [facility] Work Phone: [phone] CO2 ppres (BldV) 27.0 mmol/L Invalid Interpretation Code 21.0-32.0 [facility] Work Phone: [phone] Creatinine 1.04 mg/dL Invalid Interpretation Code 0.70-1.30 [facility] Work Phone: [phone] eGFR (non-black) 76 mL/min/{1.73_m2} Invalid Interpretation Code >60 [facility] Work Phone: [phone] eGFR (non-black) 92 mL/min/{1.73_m2} Invalid Interpretation Code >60 [facility] Work Phone: [phone] EST GFR - AA 92 mL/min Invalid Interpretation Code >60 [facility] Work Phone: [phone] Glucose 95 mg/dL Invalid Interpretation Code 70-110 [facility] Work Phone: [phone] Glucose mass conc 95 mg/dL Invalid Interpretation Code 70-110 [facility] Work Phone: [phone] Potassium 4.1 mmol/L Invalid Interpretation Code 3.5-5.1 [facility] Work Phone: [phone] Sodium 139 mmol/L Invalid Interpretation Code 136-145 [facility] Work Phone: [phone] Urea nitrogen 20 mg/dL High 7-18 [facility] Work Phone: [phone] Lab Report: Prothrombin Time w/INRon 04-22-2017 Coagulation tissue factor induced in platelet poor plasma 18.9 s High 11.7-14.9 [facility] Work Phone: [phone] Kary 04-21-2017 ACT 196 sec High 89-153 [facility] Comment on above: Performed By: #### P 8 ####[place] [address] ACT 358 sec High 89-153 [facility] Comment on above: Performed By: #### P 8 ####[facility] [place], [place] [address] ACT 292 sec High 89-153 [facility] Comment on above: Performed By: #### P 8 ####[facility] [place], [place] [address] ACT 278 sec High 89-153 [facility] Comment on above: Performed By: #### P 8 ####[facility] [place], [place] [address] ACT 307 sec High 89-153 [facility] Comment on above: Performed By: #### P 8 ####[facility] [place], [place] [address] ACT 365 sec High 89-153 [facility] Comment on above: Performed By: #### P 8 ####[facility] [place], [place] [address] ACT 281 sec High 89-153 [facility] Comment on above: Performed By: #### P 8 ####[facility] [place], [place] [address] ACT 192 sec High 89-153 [facility] Comment on above: Performed By: #### A CT ####[address] [address] INR, POCT Whole Bloodon 04-09 INR Coag RelTime (Bld) 2.30 {INR} High 0.90-1.10 [facility] Comment on above: Result Comment: Vishal dard Therapy 2.0-3.0High Dose 2.5-3.5 Performed By: #### P 8 ####[address] [address] DISCHARGE SUMMARYon 04-19-20 17 DISCHARGE SUMMARY The required clinica l documentation could not be extracted for this report. Please refer to the [facility] Record or contact the [facility] Department at [facility] ([phone]) to obtain a copy of this report. Normal [facility] DISCHARGE SUMMARY PDF Normal [facility] HISTORY & PHYSICALon 017 HISTORY & PHYSICAL The required clinica l documentation could not be extracted for this report. Please refer to the [facility] Record or contact the HIM Department at [facility] ([phone]) to obtain a copy of this report. Normal [facility] HISTORY & PHYSICAL PDF Normal [facility] Coumadin Management: Fabian vila Calcon 04-15-2017 Coagulation tissue factor induced in platelet poor plasma 18.3 s [facility] Work Phone: INR Coag RelTime (PPP) 1.6 {INR} [facility] Work Phone: [phone] INR in blood by coagulation 2.0 - 3.5 Invalid Interpretation Code [facility] Work Phone: [phone] INR in blood by coagulation Hospital lab [facility] Work Phone: [phone] INR in blood by coagulation 1.6 {INR} Invalid Interpretation Code [facility] Work Phone: [phone] international normalized ratio (INR) range 2.0 - 3.5 [facility] Work Phone: Lab Report: Prothrombin Time w/INRon 04-15-2017 Coagulation tissue factor induced in platelet poor plasma 18.3 s High 11.7-14.9 [facility] Work Phone: Basic Panelon 04-11-2017 Creatinine 0.96 mg/dL Normal 0.67-1.17 [facility] Comment on above: Performed By: #### P 8 ####[facility] [place] [address] Anion gap 10 mmol/L Normal 8-16 [facility] Comment on above: Performed By: #### P 8 ####[facility] [place] [address] Calcium 7.7 mg/dL Low 8.5-10.1 [facility] Comment on above: Performed By: #### P 8 ####[facility] [place] [address] CO2 26 mmol/L Normal 21-32 [facility] Comment on above: Performed By: #### P 8 ####[place] [address] Glucose mass conc 106 mg/dL High 70-99 [facility] Comment on above: Performed By: #### P 8 ####[facility] [place], [place] [address] Urea nitrogen 22 mg/dL High 7-18 [facility] Comment on above: Performed By: #### P 8 ####[facility] [place], [place] [address] Chloride 104 mmol/L Normal 98-107 [facility] Comment on above: Performed By: #### P 8 ####[address] [address] Potassium molar conc 3.4 mmol/L Low 3.5-5.1 [facility] Comment on above: Performed By: #### P 8 ####[place] [address] Sodium 137 mmol/L Normal 136-145 [facility] Comment on above: Performed By: #### P 8 ####[place] [address] Hemogramon 04-11-2017 Erythrocyte distribution width Auto Ratio (RBC) 13.9 % Normal 11.6-14.4 [facility] Comment on above: Performed By: #### C BC1 ####[place] [address] Erythrocytes (RBC) 4.90 mil/cmm Normal 4.63-6.08 [facility] Comment on above: Performed By: #### C BC1 ####[place] [address] Hematocrit (HCT) 46.2 % Normal 40.1-51.0 [facility] Comment on above: Performed By: #### C BC1 ####[address] [address] Hemoglobin mass conc (Bld) 15.5 g/dL Normal 13.7-17.5 [facility] Comment on above: Performed By: #### C BC1 ####[address] [address] MCH 31.6 pg Normal 25.7-32.2 [facility] Comment on above: Performed By: #### C BC1 ####[facility] [place], [place] [address] MCHC mass conc (RBC) 33.5 % Normal 32.3-36.5 [facility] Comment on above: Performed By: #### C BC1 ####[address] [address] MCV 94.3 fL Normal 83.2-95.6 [facility] Comment on above: Performed By: #### C BC1 ####[address] [address] Platelet mean volume (PMV) 9.7 fL Normal 8.7-12.0 [facility] Comment on above: Performed By: #### C BC1 ####[place] [id number] Platelets 185 thou/cmm Normal 141-365 [facility] Comment on above: Performed By: #### C BC1 ####[place] [address] RDW SD 47.8 fl High 36.1-45.8 [facility] Comment on above: Performed By: #### C BC1 ####[place] [id number] WBC (Leukocytes) 11.15 thou/cmm High 4.23-9.07 [facility] Comment on above: Performed By: #### C BC1 ####[place] [id number] MDRD GFRon 04-11-2017 eGFR (non-black) mL/min/{1.73_m2} Normal >60mL/m in/ 1.73m2 [facility] Comment on above: Result Comment: If t he patient is , multiply the result by 1.210. Performed By: #### G FR ####[place] [id number] Protimeon 04-11-2017 INR Coag RelTime (PPP) 2.90 {INR} Normal [facility] Comment on above: Result Comment: Vishal dard Therapy 2.0-3.0High Dose 2.5-3.5 Performed By: #### P T ####[place] [address] Prothrombin time (PT) Coag time (PPP) 29.0 s High 9.3-11.9 [facility] Comment on above: Performed By: #### P T ####[place] [address] ABO/Rh Confirmationon 2016 ABO group B Normal [facility] Comment on above: Performed By: #### A RAFA ####[place] [address] RH Type Positive Normal [facility] Comment on above: Performed By: #### A RAFA ####[place] [address] Basic Panelon 04-10-2017 Urea nitrogen 21 mg/dL High 7-18 [facility] Comment on above: Performed By: #### P 8 ####[place] [address] Creatinine 0.89 mg/dL Normal 0.67-1.17 [facility] Comment on above: Performed By: #### P 8 ####[place] [address] Anion gap 8 mmol/L Normal 8-16 [facility] Comment on above: Performed By: #### P 8 ####[place] [address] CO2 25 mmol/L Normal 21-32 [facility] Comment on above: Performed By: #### P 8 ####[place] [address] Glucose mass conc 137 mg/dL High 70-99 [facility] Comment on above: Performed By: #### P 8 ####[place] [address] Calcium 8.4 mg/dL Low 8.5-10.1 [facility] Comment on above: Performed By: #### P 8 ####[place] [address] Chloride 109 mmol/L High 98-107 [facility] Comment on above: Performed By: #### P 8 ####[facility] [place] [address] Potassium molar conc 4.5 mmol/L Normal 3.5-5.1 [facility] Comment on above: Performed By: #### P 8 ####[facility] [place] [address] Sodium 137 mmol/L Normal 136-145 [facility] Comment on above: Performed By: #### P 8 ####[place] [address] Hemogramon 04-10-2017 Erythrocyte distribution width Auto Ratio (RBC) 13.5 % Normal 11.6-14.4 [facility] Comment on above: Performed By: #### C BC1 ####[place] [address] Erythrocytes (RBC) 5.46 mil/cmm Normal 4.63-6.08 [facility] Comment on above: Performed By: #### C BC1 ####[place] [address] Hematocrit (HCT) 49.9 % Normal 40.1-51.0 [facility] Comment on above: Performed By: #### C BC1 ####[place] [address] Hemoglobin mass conc (Bld) 17.2 g/dL Normal 13.7-17.5 [facility] Comment on above: Performed By: #### C BC1 ####[place] [address] MCH 31.5 pg Normal 25.7-32.2 [facility] Comment on above: Performed By: #### C BC1 ####[place] [address] MCHC mass conc (RBC) 34.5 % Normal 32.3-36.5 [facility] Comment on above: Performed By: #### C BC1 ####[place] [address] MCV 91.4 fL Normal 83.2-95.6 [facility] Comment on above: Performed By: #### C BC1 ####[place] [address] Platelet mean volume (PMV) 9.2 fL Normal 8.7-12.0 [facility] Comment on above: Performed By: #### C BC1 ####[place] [address] Platelets 169 thou/cmm Normal 141-365 [facility] Comment on above: Performed By: #### C BC1 ####[place] [address] RDW SD 46.0 fl High 36.1-45.8 [facility] Comment on above: Performed By: #### C BC1 ####[place] [address] WBC (Leukocytes) 9.92 thou/cmm High 4.23-9.07 [facility] Comment on above: Performed By: #### C BC1 ####[place] [address] MDRD GFRon 04-10-2017 eGFR (non-black) mL/min/{1.73_m2} Normal >60mL/m in/ 1.73m2 [facility] Comment on above: Result Comment: If t he patient is , multiply the result by 1.210. Performed By: #### G FR ####[place] [address] Type and Screenon 04-10-2017 ABO group B Normal [facility] Comment on above: Performed By: #### T &S ####[place] [address] Antibody Screen Negative Normal [facility] Comment on above: Performed By: #### T &S ####[place] [address] Comment See Below Normal [facility] Comment on above: Result Comment: Scre en &/or Xmatch expires in 3 days at 12 midnight. Redrawpatient at that time. Performed By: #### T &S ####[facility] [place], [place] [address] Type Positive Normal [facility] Comment on above: Performed By: #### T &S ####[facility] [place], [place] [address] Coumadin Management: Fabian vila Calcon 04-01-2017 INR Coag RelTime (Bld) Hospital lab [facility] Work Phone: [phone] INR Coag RelTime (PPP) 2.2 {INR} [facility] Work Phone: [phone] international normalized ratio (INR) range 2.0 - 3.5 [facility] Work Phone: [phone] Prothrombin time (PT) Coag time (PPP) 23.2 s [facility] Work Phone: [phone] Lab Report: Prothrombin Time w/INRon 04-01-2017 Prothrombin time (PT) Coag time (PPP) 23.2 s High 11.7-14.9 [facility] Work Phone: [phone] Coumadin Management: Warfari n Calcon 03-25-2017 INR Coag RelTime (Bld) Hospital lab [facility] Work Phone: [phone] INR Coag RelTime (PPP) 2.1 {INR} [facility] Work Phone: [phone] international normalized ratio (INR) range 2.0 - 3.5 [facility] Work Phone: [phone] Prothrombin time (PT) Coag time (PPP) 22.7 s [facility] Work Phone: Lab Report: Prothrombin Time w/INRon 03-25-2017 Prothrombin time (PT) Coag time (PPP) 22.7 s High 11.7-14.9 [facility] Work Phone: Coumadin Management: Fabian n Calcon 03-18-2017 Coagulation tissue factor induced in platelet poor plasma 33.0 s [facility] Work Phone: [phone] INR Coag RelTime (PPP) 3.5 {INR} [facility] Work Phone: [phone] INR in blood by coagulation 2.0 - 3.5 Invalid Interpretation Code [facility] Work Phone: [phone] INR in blood by coagulation Hospital lab [facility] Work Phone: [phone] INR in blood by coagulation 3.5 {INR} Invalid Interpretation Code [facility] Work Phone: [phone] international normalized ratio (INR) range 2.0 - 3.5 [facility] Work Phone: [phone] Lab Report: Prothrombin Time w/INRon 03-18-2017 Coagulation tissue factor induced in platelet poor plasma 33.4 s High 11.7-14.9 [facility] Work Phone: [phone] Coumadin Management: Fabian vila Calcon 03-11-2017 Coagulation tissue factor induced in platelet poor plasma 20.8 s Invalid Interpretation Code [facility] Work Phone: [phone] INR in blood by coagulation Hospital lab Invalid Interpretation Code [facility] Work Phone: [phone] INR in blood by coagulation 1.9 {INR} Invalid Interpretation Code [facility] Work Phone: [phone] Lab Report: Prothrombin Time w/INRon 03-11-2017 Coagulation tissue factor induced in platelet poor plasma 20.8 s High 11.7-14.9 [facility] Work Phone: [phone] Office Visit: Left knee pain on 12-14-2016 Dietary management education, guidance, and counseling (procedure) yes Invalid Interpretation Code [facility] Work Phone: [phone] Documentation of current medications (procedure) Done Invalid Interpretation Code [facility] Work Phone: [phone] Protein mass conc Done Invalid Interpretation Code [facility] Work Phone: [phone] Tobacco smoking status NHIS Tobacco smoking status NHIS Invalid Interpretation Code [facility] Work Phone: [phone] Tobacco smoking status NHIS Former smoker Invalid Interpretation Code [facility] Work Phone: [phone] Tobacco use [facility] Former smoker Invalid Interpretation Code [facility] Work Phone: [phone] Append: EP/Cardiac Referralo n 12-19-2016 Clinical consultation report (record artifact) [id number]^07/05/2016 Invalid Interpretation Code [facility] [employer] Phone: [phone] 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 ABNORMAL Invalid Interpretation Code [facility] [employer] Phone: GE use only - for [employer] import when terms are not otherwise specified 444 ms Invalid Interpretation Code [facility] [employer] Phone: [phone] Interpretation Atrial flutter-fibrillation Low voltage in precordial leads. ABNORMAL Invalid Interpretation Code [employer] Phone: [phone] P [place] 90 deg Invalid Interpretation Code [employer] Phone: [phone] P wave axis, electrocardiogram 90 deg Invalid Interpretation Code [employer] [employer] Phone: [phone] PA Interval 0 ms Invalid Interpretation Code [facility] [employer] Phone: [phone] PA interval, electrocardiogram 0 ms Invalid Interpretation Code [facility] [employer] Phone: Pulse (Heart Rate) 75 /min Invalid Interpretation Code [facility] [employer] Phone: [phone] QRS axis, electrocardiogram 7 deg Invalid Interpretation Code [facility] [employer] Phone: [phone] QRS Duration 106 ms Invalid Interpretation Code [facility] Work Phone: QRS duration, electrocardiogram 106 ms Invalid Interpretation Code [facility] [employer] Phone: QT Interval new path ms Invalid Interpretation Code [facility] [employer] Phone: QT interval, electrocardiogram new path ms Invalid Interpretation Code [facility] [employer] Phone: QTc Dey 444 ms Invalid Interpretation Code [facility] [employer] Phone: T [place] 29 deg Invalid Interpretation Code [facility] [employer] Phone: T wave axis, electrocardiogram 29 deg Invalid Interpretation Code [facility] Work Phone: [phone] Lab Report: Basic Metabolic Profile (BMP)on 05-07-2016 Anion gap 2 mmol/L Low 5-15 [facility] Work Phone: [phone] Anion gap molar conc 2 mmol/L Low 5-[address] [facility] Work Phone: [phone] Calcium mass conc 8.7 mg/dL 8.5-10.1 [facility] Work Phone: [phone] Chloride molar conc 107 mmol/L 98-107 [facility] Work Phone: [phone] CO2 30.0 mmol/L Invalid Interpretation Code 21.0-32.0 [facility] Work Phone: [phone] CO2 ppres (BldV) 30.0 mmol/L 21.0-32.0 [facility] Work Phone: [phone] Creatinine mass conc 1.19 mg/dL 0.70-1.[address] [facility] Work Phone: [phone] eGFR (non-black) 79 mL/min/{1.73_m2} Invalid Interpretation Code >60 [facility] Work Phone: [phone] EST GFR - AA 79 mL/min >60 [facility] Work Phone: [phone] GFR/1.73 sq M predicted among non-blacks MDRD vol rate/area (S/P/Bld) 65 mL/min/{1.73_m2} >[address] [facility] Work Phone: [phone] Glucose 100 mg/dL Invalid Interpretation Code 70-110 [facility] Work Phone: [phone] Glucose mass conc 100 mg/dL 70-110 [facility] Work Phone: [phone] Potassium molar conc 3.8 mmol/L 3.5-5.[address] [facility] Work Phone: [phone] Sodium molar conc 139 mmol/L 136-145 [facility] Work Phone: [phone] Urea nitrogen mass conc 17 mg/dL 7-18 [facility] Work Phone: [phone] Urea nitrogen/Creatinine mass ratio 14.3 RATIO 10-20 [facility] Work Phone: [phone] Clinical Lists Updateon 12-09 Hematocrit (HCT) 51.1 % Invalid Interpretation Code [facility] Work Phone: [phone] Hematocrit Volume Fraction (Bld) 51.1 % [facility] Work Phone: [phone] Hemoglobin mass conc (Bld) 16.6 g/dL Invalid Interpretation Code [facility] Work Phone: [phone] Office Visiton 10-27-2015 General cardiovascular disease 10Y risk [#] Meno.D'Agostino 11 % Invalid Interpretation Code [facility] Work Phone: [phone] Office Visiton 04-06-2015 cardiac risk group C Invalid Interpretation Code [facility] Work Phone: [phone] Clinical Lists Update: 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 Cholesterol in HDL mass conc 49 mg/dL Invalid Interpretation Code [facility] Work Phone: [phone] Cholesterol in LDL mass conc 102 mg/dL Invalid Interpretation Code [facility] Work Phone: [phone] Cholesterol mass conc 177 mg/dL Invalid Interpretation Code [facility] Work Phone: [phone] Erythrocytes (RBC) 5.01 10*6/uL Invalid Interpretation Code [facility] Work Phone: [phone] Platelets 107 10*3/mm3 Low [facility] Work Phone: [phone] Platelets #/vol (Bld) 107 10*3/mm3 Low [facility] Work Phone: [phone] RBC #/vol (Bld) 5.01 10*6/uL [facility] Work Phone: [phone] Triglyceride mass conc 129 mg/dL Invalid Interpretation Code [facility] Work Phone: [phone] WBC #/vol (Bld) 4.4 10*3/uL [facility] Work Phone: [phone] WBC (Leukocytes) 4.4 10*3/uL Invalid Interpretation Code [facility] Work Phone: [phone] Vital Signs Date Time Vital Sign Value Performing Clinician Facility 02-09-2025 07:36-0400 Body height 185.[address] Ryan Canales DO Work Phone: [facility] 02-09-2025 07:36-0400 Body mass index (BMI) [Ratio] 44.3 kg/m2 Dr. Ryan Canales DO Work Phone: [facility] 02-09-2025 07:36-0400 Body weight 152.[address] Ryan Canales DO Work Phone: [facility] 02-09-2025 07:36-0400 Diastolic blood pressure 77 mm[Hg] Dr. Ryan Cnaales DO Work Phone: [facility] 02-09-2025 07:36-0400 Heart rate 52 /min Dr. Ryan Canales DO Work Phone: [facility] 02-09-2025 07:36-0400 Respiratory rate 18 /min Dr. Ryan Canales DO Work Phone: [facility] 02-09-2025 07:36-0400 Systolic blood pressure 144 mm[Hg] Dr. Ryan Canales DO Work Phone: [facility] 02-07-2025 19:12-0400 Body mass index (BMI) [Ratio] 46.8 kg/m2 Dr. Ryan Canales DO Work Phone: [facility] 12-16-2024 09:29-0400 Body height 185.4 cm Ryan Canales DO Work Phone: [facility] 12-16-2024 09:29-0400 Body mass index (BMI) [Ratio] 44.75 kg/m2 Ryan Canales DO Work Phone: [facility] 12-16-2024 09:29-0400 Body temperature 97.81 [degF] Ryan Canales DO Work Phone: [facility] 12-16-2024 09:29-0400 Body weight 153.86 kg Ryan Canales DO Work Phone: [facility] 12-16-2024 09:29-0400 Diastolic blood pressure 68 mm[Hg] Ryan Canales DO Work Phone: [facility] 12-16-2024 09:29-0400 Heart rate 50 /min Ryan Ally DO Work Phone: [facility] 12-16-2024 09:29-0400 SaO2% (BldA) [Mass fraction] 96 % Ryan Marquezmackenziemary DO Work Phone: [facility] 12-16-2024 09:29-0400 Systolic blood pressure 118 mm[Hg] Ryan Canales DO Work Phone: [facility] 09-09-2024 04:46-0500 Body mass index (BMI) [Ratio] 46.8 kg/m2 Dr. Ryan Canales DO Work Phone: [facility] 06-17-2024 09:07-0400 Body height 185.4 cm Ryan Jimmydarrian DO Work Phone: [facility] 06-17-2024 09:07-0400 Body mass index (BMI) [Ratio] 43.67 kg/m2 Ryan Jimmydarrian DO Work Phone: [facility] 06-17-2024 09:07-0400 Body temperature 98.1 [degF] Ryan Canales DO Work Phone: [facility] 06-17-2024 09:07-0400 Body weight 150.14 kg Ryan Jimmydarrian DO Work Phone: [facility] 06-17-2024 09:07-0400 Diastolic blood pressure 71 mm[Hg] Ryan Canales DO Work Phone: [facility] 06-17-2024 09:07-0400 Heart rate 59 /min Ryan Canales DO Work Phone: [facility] 06-17-2024 09:07-0400 SaO2% (BldA) [Mass fraction] 97 % Ryan Canales DO Work Phone: [facility] 06-17-2024 09:07-0400 Systolic blood pressure 144 mm[Hg] Ryan Canales DO Work Phone: [facility] 05-19-2024 08:11-0400 Body height 185.4 cm Ashleigh Hernandezo PA-C Work Phone: [facility] 05-19-2024 08:11-0400 Body mass index (BMI) [Ratio] 43.43 kg/m2 Ashleigh Tapia PA-C Work Phone: [facility] 05-19-2024 08:11-0400 Body temperature 98.4 [degF] Ashleigh Tapia PA-C Work Phone: [facility] 05-19-2024 08:11-0400 Body weight 149.32 kg Ashleigh Tapia PA-C Work Phone: [facility] 05-19-2024 08:11-0400 Diastolic blood pressure 60 mm[Hg] Ashleigh Tapia PA-C Work Phone: [facility] 05-19-2024 08:11-0400 Heart rate 62 /min Ashleigh Tapia PA-C Work Phone: [facility] 05-19-2024 08:11-0400 SaO2% (BldA) [Mass fraction] 95 % Ashleigh Tapia PA-C Work Phone: [facility] 05-19-2024 08:11-0400 Systolic blood pressure 120 mm[Hg] Ashleigh Hernandezo PA-C Work Phone: [facility] 11-08-2023 00:10-0500 Body mass index (BMI) [Ratio] 46.8 kg/m2 Dr. Ryan Canales Work Phone: [facility] 09-24-2023 17:51-0500 Body height 185.[address] Ryan Canales Work Phone: [facility] 09-24-2023 17:51-0500 Body temperature 97.2 [degF] Dr. Ryan Canales Work Phone: [facility] 09-24-2023 17:51-0500 Diastolic blood pressure 86 mm[Hg] Dr. Ryan Canales Work Phone: [facility] 09-24-2023 17:51-0500 Heart rate 92 /min Dr. Ryan Canales Work Phone: [facility] 09-24-2023 17:51-0500 Respiratory rate 18 /min Dr. Ryan Canales Work Phone: [facility] 09-24-2023 17:51-0500 SaO2% (BldA) [Mass fraction] 97 % Dr. Ryan Canales Work Phone: [facility] 09-24-2023 17:51-0500 Systolic blood pressure 184 mm[Hg] Dr. Ryan Canales Work Phone: [facility] 09-19-2023 09:47-0500 Body mass index (BMI) [Ratio] 46.3 kg/m2 Dr. Ryan Canales Work Phone: [facility] 09-19-2023 09:47-0500 Body weight 159.[address] Ryan Canales Work Phone: [facility] 09-18-2023 12:57-0500 Body height 185.4 cm Ryan Canales DO Work Phone: [facility] 09-18-2023 12:57-0500 Body mass index (BMI) [Ratio] 46.97 kg/m2 Ryan Canales DO Work Phone: [facility] 09-18-2023 12:57-0500 Body temperature 98.4 [degF] Ryan Canales DO Work Phone: [facility] 09-18-2023 12:57-0500 Body weight 161.48 kg Ryan Canales DO Work Phone: [facility] 09-18-2023 12:57-0500 Diastolic blood pressure 58 mm[Hg] Ryan Canales DO Work Phone: [facility] 09-18-2023 12:57-0500 Heart rate 66 /min Ryan Canales DO Work Phone: [facility] 09-18-2023 12:57-0500 SaO2% (BldA) [Mass fraction] 96 % Ryan Canales DO Work Phone: [facility] 09-18-2023 12:57-0500 Systolic blood pressure 110 mm[Hg] Ryan Canales DO Work Phone: [facility] 09-14-2023 03:20-0500 Body mass index (BMI) [Ratio] 45.6 kg/m2 [facility] 09-14-2023 03:20-0500 Body weight 157.01 kg [facility] 09-14-2023 01:36-0500 Body height 185.42 cm [facility] 09-14-2023 01:36-0500 Body temperature 97.8 [degF] [facility] 09-14-2023 01:36-0500 Diastolic blood pressure 70 mm[Hg] [facility] 09-14-2023 01:36-0500 Heart rate 59 /min [facility] 09-14-2023 01:36-0500 Respiratory rate 18 /min [facility] 09-14-2023 01:36-0500 SaO2% (BldA) [Mass fraction] 97 % [facility] 09-14-2023 01:36-0500 Systolic blood pressure 154 mm[Hg] [facility] 07-09-2023 22:41-0400 Body mass index (BMI) [Ratio] 46.8 kg/m2 Dr. Ryan Canales Work Phone: [facility] 06-09-2023 04:19-0400 Body mass index (BMI) [Ratio] 46.8 kg/m2 [facility] 04-09-2023 01:08-0400 Body mass index (BMI) [Ratio] 46.8 kg/m2 [facility] 03-19-2023 12:55-0400 Diastolic blood pressure 72 mm[Hg] Ryan Canales DO Work Phone: [facility] 03-19-2023 12:55-0400 Heart rate 60 /min Ryan Canales DO Work Phone: [facility] 03-19-2023 12:55-0400 Systolic blood pressure 128 mm[Hg] Ryan Canales Work Phone: [facility] 03-19-2023 12:14-0400 Body height 185.4 cm Ryan Marquezdarrian Work Phone: [facility] 03-19-2023 12:14-0400 Body mass index (BMI) [Ratio] 46.44 kg/m2 Ryan Uriartemary DO Work Phone: [facility] 03-19-2023 12:14-0400 Body temperature 98.2 [degF] Ryan Canales Work Phone: [facility] 03-19-2023 12:14-0400 Body weight 159.67 kg Ryan Canales DO Work Phone: [facility] 03-19-2023 12:14-0400 SaO2% (BldA) [Mass fraction] 96 % Ryan Jimmydarrian DO Work Phone: [facility] 03-09-2023 01:33-0400 Body mass index (BMI) [Ratio] 46.8 kg/m2 [facility] 02-07-2023 13:25-0400 Body height 185.[address] Ryan Canales Work Phone: [facility] 02-07-2023 13:25-0400 Body mass index (BMI) [Ratio] 45.4 kg/m2 Dr. Ryan Canales Work Phone: [facility] 02-07-2023 13:25-0400 Body weight 156.[address] Ryan Canales Work Phone: [facility] 02-07-2023 13:25-0400 Diastolic blood pressure 77 mm[Hg] Dr. Ryan Canales Work Phone: [facility] 02-07-2023 13:25-0400 Heart rate 52 /min Dr. Ryan Canales Work Phone: [facility] 02-07-2023 13:25-0400 Respiratory rate 16 /min Dr. Ryan Canales Work Phone: [facility] 02-07-2023 13:25-0400 Systolic blood pressure 135 mm[Hg] Dr. Ryan Canales Work Phone: [facility] 02-05-2023 10:32-0400 Body height 185.4 cm Ashleigh Tapia PA-C Work Phone: [facility] 02-05-2023 10:32-0400 Body mass index (BMI) [Ratio] 44.86 kg/m2 Ashleigh Tapia PA-C Work Phone: [facility] 02-05-2023 10:32-0400 Body temperature 97.7 [degF] Ashleigh Tapia PA-C Work Phone: [facility] 02-05-2023 10:32-0400 Body weight 154.22 kg Ashleigh Tapia PA-C Work Phone: [facility] 02-05-2023 10:32-0400 Diastolic blood pressure 69 mm[Hg] Ashleigh Tapia PA-C Work Phone: [facility] 02-05-2023 10:32-0400 Heart rate 55 /min Ashleigh Tapia PA-C Work Phone: [facility] 02-05-2023 10:32-0400 SaO2% (BldA) [Mass fraction] 96 % Ashleigh Tapia PA-C Work Phone: [facility] 02-05-2023 10:32-0400 Systolic blood pressure 134 mm[Hg] Ashleigh Tapia PA-C Work Phone: [facility] 01-06-2023 02:16-0400 Body mass index (BMI) [Ratio] 46.8 kg/m2 Dr. Ryan Canales Work Phone: [facility] 11-06-2022 22:46-0500 Body mass index (BMI) [Ratio] 46.8 kg/m2 [facility] 09-18-2022 12:18-0500 Body height 185.4 cm Ryan Canales DO Work Phone: [facility] 09-18-2022 12:18-0500 Body mass index (BMI) [Ratio] 46.18 kg/m2 Ryan Jimmydarrian DO Work Phone: [facility] 09-18-2022 12:18-0500 Body temperature 97.7 [degF] Ryan Canales DO Work Phone: [facility] 09-18-2022 12:18-0500 Body weight 158.76 kg Ryan Jimmydarrian DO Work Phone: [facility] 09-18-2022 12:18-0500 Diastolic blood pressure 70 mm[Hg] Ryan Canales Work Phone: [facility] 09-18-2022 12:18-0500 Heart rate 64 /min Ryan Jimmydarrian Work Phone: [facility] 09-18-2022 12:18-0500 SaO2% (BldA) [Mass fraction] 96 % Ryan Jimmymackenziemary DO Work Phone: [facility] 09-18-2022 12:18-0500 Systolic blood pressure 136 mm[Hg] Ryan Canales Work Phone: [facility] 09-09-2022 05:22-0500 Body mass index (BMI) [Ratio] 46.8 kg/m2 Dr. Ryan Canales Work Phone: [facility] 07-10-2022 10:06-0400 Body mass index (BMI) [Ratio] 46.8 kg/m2 Dr. Ryan Canales Work Phone: [facility] 07-09-2022 14:33-0400 Body height 185.[address] Ryan Canales Work Phone: [facility] 07-09-2022 14:33-0400 Body mass index (BMI) [Ratio] 45.2 kg/m2 Dr. Ryan Canales Work Phone: [facility] 07-09-2022 14:33-0400 Body weight 155.[address] Ryan Canales Work Phone: [facility] 06-08-2022 23:27-0400 Body mass index (BMI) [Ratio] 46.8 kg/m2 Dr. Ryan Canales Work Phone: [facility] Work Phone: 05-10-2022 00:20-0400 Body mass index (BMI) [Ratio] 46.8 kg/m2 [facility] Work Phone: 03-06-2022 17:09-0400 Diastolic blood pressure 88 mm[Hg] Dr. Ryan Canales Work Phone: [facility] Work Phone: 03-06-2022 17:09-0400 Heart rate 58 /min Dr. Ryan Canales Work Phone: [facility] Work Phone: 03-06-2022 17:09-0400 SaO2% (BldA) [Mass fraction] 96 % Dr. Ryan Canales Work Phone: [facility] Work Phone: 03-06-2022 17:09-0400 Systolic blood pressure 176 mm[Hg] Dr. Ryan Canales Work Phone: [facility] Work Phone: 03-06-2022 15:39-0400 Body height 185.[address] Ryan Canales Work Phone: [facility] Work Phone: 03-06-2022 15:39-0400 Body mass index (BMI) [Ratio] 45.6 kg/m2 Dr. Ryan Canales Work Phone: [facility] Work Phone: 03-06-2022 15:39-0400 Body temperature 97.6 [degF] Dr. Ryan Canales Work Phone: [facility] Work Phone: 03-06-2022 15:39-0400 Body weight 156.[address] Ryan Canales Work Phone: [facility] Work Phone: 03-06-2022 15:39-0400 Respiratory rate 17 /min Dr. Ryan Canales Work Phone: [facility] Work Phone: 02-06-2022 21:23-0400 Body mass index (BMI) [Ratio] 46.8 kg/m2 [facility] Work Phone: 01-07-2022 04:42-0400 Body mass index (BMI) [Ratio] 46.8 kg/m2 Dr. Ryan Canales Work Phone: [facility] Work Phone: 11-29-2021 12:58-0400 Body weight 156.[address] Ryan Canales Work Phone: [facility] Work Phone: 11-29-2021 12:58-0400 Diastolic blood pressure 78 mm[Hg] Dr. Ryan Canales Work Phone: [facility] Work Phone: 11-29-2021 12:58-0400 Heart rate 56 /min Dr. Ryan Canales Work Phone: [facility] Work Phone: 11-29-2021 12:58-0400 Respiratory rate 16 /min Dr. Ryan Canales Work Phone: [facility] Work Phone: 11-29-2021 12:58-0400 Systolic blood pressure 148 mm[Hg] Dr. Ryan Canales Work Phone: [facility] Work Phone: 11-29-2021 12:58-0400 Body height 185.[address] Ryan Canales Work Phone: [facility] Work Phone: 11-29-2021 12:58-0400 Body weight 156.[address] Ryan Canales Work Phone: [facility] Work Phone: 11-29-2021 12:58-0400 Diastolic blood pressure 78 mm[Hg] Dr. Ryan Canales Work Phone: [facility] Work Phone: 11-29-2021 12:58-0400 Heart rate 56 /min Dr. Ryan Canales Work Phone: [facility] Work Phone: 11-29-2021 12:58-0400 Respiratory rate 16 /min Dr. Ryan Canales Work Phone: [facility] Work Phone: 11-29-2021 12:58-0400 Systolic blood pressure 148 mm[Hg] Dr. Ryan Canales Work Phone: [facility] Work Phone: 11-07-2021 10:27-0500 Body mass index (BMI) [Ratio] 46.8 kg/m2 Dr. Ryan Canales Work Phone: [facility] Work Phone: 11-07-2021 09:27-0500 Body mass index (BMI) [Ratio] 46.8 kg/m2 Dr. Ryan Canales Work Phone: [facility] Work Phone: 09-11-2021 01:31-0500 Body mass index (BMI) [Ratio] 46.8 kg/m2 Dr. Ryan Canales Work Phone: [facility] Work Phone: 07-24-2021 10:15-0500 Diastolic Blood Pressure NBP [address] VÍCTOR SOUTH MD [facility] 07-24-2021 10:15-0500 Heart rate 58 /min DR VÍCTOR SOUTH MD [facility] 07-24-2021 10:15-0500 Respiratory rate 24 /min DR VÍCTOR SOUTH MD [facility] 07-24-2021 10:15-0500 Systolic Blood Pressure NBP [address] VÍCTOR SOUTH MD [facility] 07-24-2021 10:08-0500 Diastolic Blood Pressure NBP [address] VÍCTOR SOUTH MD [facility] 07-24-2021 10:08-0500 Heart rate 58 /min DR VÍCTOR SOUTH MD [facility] 07-24-2021 10:08-0500 Respiratory rate 19 /min DR VÍCTOR SOUTH MD [facility] 07-24-2021 10:08-0500 Systolic Blood Pressure NBP [address] VÍCTOR SOUTH MD [facility] 07-24-2021 10:00-0500 Diastolic Blood Pressure NBP [address] VÍCTOR SOUTH MD [facility] 07-24-2021 10:00-0500 Heart rate 59 /min DR VÍCTOR SOUTH MD [facility] 07-24-2021 10:00-0500 Respiratory rate 17 /min DR VÍCTOR SOUTH MD [facility] 07-24-2021 10:00-0500 Systolic Blood Pressure NBP [address] VÍCTOR SOUTH MD [facility] 07-24-2021 09:03-0500 Body height 185.[address] VÍCTOR SOUTH MD [facility] 07-24-2021 09:03-0500 Body temperature 98.24 [degF] DR VÍCTOR SOUTH MD [facility] 07-24-2021 09:03-0500 Body weight [address] VÍCTOR SOUTH MD [facility] 07-24-2021 09:03-0500 Heart rate 67 /min DR VÍCTOR SOUTH MD [facility] 04-14-2021 12:46-0400 Diastolic blood pressure 66 mm[Hg] Kerry Guerrero MD Work Phone: [facility] Work Phone: 04-14-2021 12:46-0400 Heart rate 97 /min Kerry Guerrero MD Work Phone: [facility] Work Phone: 04-14-2021 12:46-0400 Respiratory rate 12 /min Kerry Guerrero MD Work Phone: [facility] Work Phone: 04-14-2021 12:46-0400 SaO2% (BldA) [Mass fraction] 98 % Kerry Guerrero MD Work Phone: [facility] Work Phone: 04-14-2021 12:46-0400 Systolic blood pressure 128 mm[Hg] Kerry Guerrero MD Work Phone: [facility] Work Phone: 04-14-2021 11:12-0400 Body mass index (BMI) [Ratio] 46.45 kg/m2 Kerry Guerrero MD Work Phone: [facility] Work Phone: 04-14-2021 11:12-0400 Body weight 159.7 kg Kerry Guerrero MD Work Phone: [facility] Work Phone: 04-14-2021 10:12-0400 Body temperature 98.01 [degF] Kerry Guerrero MD Work Phone: [facility] Work Phone: 01-19-2021 14:04-0400 Body mass index (BMI) [Ratio] 46.8 kg/m2 Dr. Ryan Canales Work Phone: [facility] Work Phone: 01-19-2021 14:04-0400 Body mass index (BMI) [Ratio] 46.8 kg/m2 Dr. Ryan Canales Work Phone: [facility] Work Phone: 12-14-2016 13:29-0400 BMI (Body Mass Index) 42.72 kg/m2 [facility] Work Phone: 12-14-2016 13:29-0400 Weight 146.88 kg [facility] Work Phone: 10-23-2016 13:56-0500 BP Diastolic 80 mm[Hg] [facility] Work Phone: 10-23-2016 13:56-0500 BP Systolic 140 mm[Hg] Emeli Garcia RN [facility] Work Phone: 10-23-2016 13:56-0500 BSA (Body Surface Area) 2.68 m2 Emeli Garcia [facility] Work Phone: 10-23-2016 13:56-0500 Pulse (Heart Rate) 88 /min [facility] Work Phone: 10-23-2016 13:56-0500 Respiratory Rate 20 /min [facility] Work Phone: 07-03-2016 14:16-0400 Heart rate 75 /min Emeli Garcia RN [facility] Work Phone: 02-24-2015 13:03-0400 Height 185.42 cm Emeli Garcia [facility] Work Phone: Encounters Encounter Date Encounter Type Care Provider Facility Start: 03-10-2025 ambulatory Ryan Canales Facilit y:[facility] Start: 03-08-2025 End: 03-09-2025 Refill Ryan Canales DO Work Phone: [facility] [place] Comment on above: Anxiety associated w ith depression Start: 02-16-2025 End: 02-16-[address] Audie Franklin MD -Laboratory Work Phone: Start: 02-16-2025 End: 02-16-2025 ambulatory Ryan Canales Facility:[facility] Start: 02-09-2025 End: 02-09-[address] Kenroy Barney MD -[facility] Work Phone: Start: 02-09-2025 End: 02-09-[address] Ryan Canales DO Work Phone: [facility] Work Phone: Start: 01-27-2025 End: 01-27-2025 Telephone encounter Ryan Canales DO Work Phone: [facility] [employer] Comment on above: Durable Medical [employer]i pment Start: 01-14-2025 End: 01-14-[address] Audie Franklin MD -Laboratory Work Phone: Start: 01-14-2025 End: 01-14-[address] Ryan Canales DO Work Phone: [facility] Work Phone: Start: 01-14-2025 ambulatory Ryan Marquezdarrian Facilit y:[facility] Start: 01-14-2025 Non-patient / Non-visit Dr. Ryan eaton DO -[facility] Work Phone: Start: 12-17-2024 End: 12-17-2024 Telephone encounter Ryan Rachel Ally MAX Work Phone: [facility] [place] Comment on above: Referral (Dr Andi Aggarwal) Start: 12-16-2024 End: 12-16-2024 Office outpatient visit 25 minutes Ryan Canales DO Work Phone: [facility] [employer] Comment on above: Primary hypertension (Primary Dx); Anxiety associated with depression; History of atrial fibrillation; Degeneration of intervertebral disc of lumbar region, unspecified whether pain present; Anticoagulant long-term use; Hypercholesterolemia; Bilateral primary osteoarthritis of knee Start: 12-16-2024 End: 12-16-[facility] Start: 11-22-2024 End: 11-23-2024 Refill Ryan Rachel Ally MAX Work Phone: [facility] [employer] Start: 10-23-2024 End: 10-23-2024 Orders Only Ryan Canales DO Work Phone: [facility] [employer] Comment on above: COVID-19 (Primary Dx ) Start: 09-16-2024 End: 09-16-2024 Telephone encounter Marva Gutierrez MD Work Phone: [facility] [place] Start: 09-07-2024 End: 09-07-2024 ambulatory Ryan Canales Facility:[facility] Start: 09-07-2024 End: 09-07-2024 ambulatory Ryan Canales Facility:[facility] Start: 08-10-2024 End: 08-10-2024 Telephone encounter Ryan Canales DO Work Phone: [facility] [employer] Comment on above: Med Refill Start: 07-28-2024 End: 07-28-2024 ambulatory Ryan Canales Facility:[facility] Start: 07-09-2024 End: 07-09-2024 ambulatory Sivan Basali Facility:[facility] Start: 06-17-2024 End: 06-17-2024 ambulatory RYAN CANALES [facility] Start: 06-17-2024 End: 06-17-2024 Office outpatient visit 25 minutes Ryan Canales DO Work Phone: [facility] [employer] Comment on above: Primary hypertension (Primary Dx); Anxiety associated with depression; History of prostate cancer; Acquired right foot drop; History of atrial fibrillation; Anticoagulant long-term use; Hypercholesterolemia Start: 05-19-2024 End: 05-19-2024 Office outpatient visit 15 minutes Ashleigh Tapia PA-C Work Phone: [facility] [employer] Comment on above: Dental abscess (Prim german Dx); Anxiety associated with depression Start: 05-19-2024 End: 05-19-2024 Orders Only Ryan Canales DO Work Phone: [facility] [employer] Comment on above: Anxiety associated w ith depression Start: 04-27-2024 End: 04-27-2024 ambulatory Ryan Canales Facility:[facility] Start: 03-09-2024 End: 03-09-2024 Orders Only Ryan Canales DO Work Phone: [facility] Start: 02-04-2024 Refill Ryan lovell DO Work Phone: [facility] Start: 12-03-2023 End: 12-03-2023 ambulatory GHAZAL Kameron WILDER Not Available Start: 11-29-2023 End: 12-08-[address] Ryan Canales Work Phone: [facility] Work Phone: Start: 11-29-2023 End: 12-08-[address] Ryan Canales Work Phone: [facility] Work Phone: Start: 11-01-2023 End: 11-07-[address] Ryan Canales Work Phone: [facility] Work Phone: Start: 11-01-2023 End: 11-07-[address] Ryan Canales Work Phone: [facility] Work Phone: Start: 09-24-2023 End: 09-24-2023 Emergency department patient visit Dr. Ryan Canales Work Phone: [facility]Emergency Department Work Phone: Start: 09-22-2023 Orders Only Ryan lovell DO Work Phone: [facility] Start: 09-19-2023 End: 09-19-[address] Ryan Canales Work Phone: [facility] Work Phone: Start: 09-18-2023 Telephone encounter Ryan eaton DO Work Phone: [facility] Comment on above: Orders (Spinal Surge on ) Start: 09-18-2023 End: 09-18-2023 Office outpatient visit 25 minutes Ryan Canales DO Work Phone: [facility] Comment on above: Compression fracture of L1 vertebra with routine healing, subsequent encounter (Primary Dx); Hypercholesteremia; Primary hypertension; History of atrial fibrillation; Anxiety associated with depression; RLS (restless legs syndrome) Start: 09-14-2023 End: 09-14-2023 Emergency department patient visit [facility] Work Phone: Start: 09-04-2023 Refill Ryan lovell DO Work Phone: [facility] Start: 06-25-2023 End: 06-25-[address] [facility] Work Phone: Start: 05-20-2023 Refill Ryan lovell DO Work Phone: [facility] Start: 05-16-2023 End: 05-16-[address] [facility] Work Phone: Start: 05-16-2023 End: 05-16-[address] [facility] Work Phone: Start: 03-19-2023 End: 03-19-2023 Office outpatient visit 15 minutes Ryan Canales DO Work Phone: [facility] Comment on above: Primary hypertension (Primary Dx); Chronic diastolic (congestive) heart failure (HCC); Morbid obesity (HCC); Anxiety associated with depression; Hypercholesteremia; History of hematuria Start: 03-18-2023 End: 04-08-[address] [facility] Work Phone: Start: 02-08-2023 End: 02-08-2023 Subsequent hospital visit by physician Ashleigh Tapia PA-C Work Phone: [facility] Comment on above: Hematuria, unspecifi ed type Start: 02-07-2023 End: 02-07-[address] Ryan Canales Work Phone: [facility] Work Phone: Start: 02-07-2023 End: 02-07-[address] Ryan Canales Work Phone: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 Electrocardiogram, complete EKG (In office) [facility] Work Phone: Start: 10-27-2015 End: 10-27-2015 Follow Up Appt 6 months Follow Up Appt 6 months [facility] Work Phone: Start: 10-27-2015 End: 10-27-2015 MMM MMM [facility] Work Phone: Start: 06-10-2015 End: 04-12-2016 *BMP *BMP [facility] Work Phone: Start: 06-10-2015 End: 06-10-2015 Ecg routine ecg w/least 12 lds w/i&r EKG (In office) [facility] Work Phone: Start: 06-10-2015 End: 06-10-2015 Follow Up Appt 3 months Follow Up Appt 3 months [facility] Work Phone: Start: 06-10-2015 End: 06-10-2015 PFM PFM [facility] Work Phone: Start: 06-10-2015 End: 04-12-2016 *BMP *BMP [facility] Work Phone: Start: 06-10-2015 End: 06-10-2015 Electrocardiogram, complete EKG (In office) [facility] Work Phone: Start: 06-10-2015 End: 06-10-2015 Follow Up Appt 3 months Follow Up Appt 3 months [facility] Work Phone: Start: 06-10-2015 End: 06-10-2015 PFM PFM [facility] Work Phone: Start: 04-27-2015 End: 06-10-2015 *BMP *BMP [facility] Work Phone: Start: 04-27-2015 End: 06-10-2015 *BMP *BMP [facility] Work Phone: Start: 04-20-2015 End: 04-20-2015 *BMP *BMP [facility] Work Phone: Start: 04-20-2015 End: 04-20-2015 *BMP *BMP [facility] Work Phone: Start: 04-13-2015 End: 04-13-2015 Follow Up Appt 1 month Follow Up Appt 1 month [facility] Work Phone: Start: 04-13-2015 End: 04-27-2015 Follow Up Appt Other Follow Up Appt Other [facility] Work Phone: Start: 04-13-2015 End: 04-13-2015 MMM MMM [facility] Work Phone: Start: 04-13-2015 End: 04-13-2015 Follow Up Appt 1 month Follow Up Appt 1 month [facility] Work Phone: Start: 04-13-2015 End: 04-27-2015 Follow Up Appt Other Follow Up Appt Other [facility] Work Phone: Start: 04-13-2015 End: 04-13-2015 MMM MMM [facility] Work Phone: Start: 04-06-2015 End: 04-06-2015 *BMP *BMP [facility] Work Phone: Start: 04-06-2015 End: 04-06-2015 Ecg routine ecg w/least 12 lds w/i&r EKG (In office) [facility] Work Phone: Start: 04-06-2015 End: 04-06-2015 Follow Up Appt Other Follow Up Appt Other [facility] Work Phone: Start: 04-06-2015 End: 04-06-2015 MMM MMM [facility] Work Phone: Start: 04-06-2015 End: 04-06-2015 *BMP *BMP [facility] Work Phone: Start: 04-06-2015 End: 04-06-2015 Electrocardiogram, complete EKG (In office) [facility] Work Phone: Start: 04-06-2015 End: 04-06-2015 Follow Up Appt Other Follow Up Appt Other [facility] Work Phone: Start: 04-06-2015 End: 04-06-2015 MMM MMM [facility] Work Phone: Start: 02-24-2015 End: 02-24-2015 Ecg routine ecg w/least 12 lds w/i&r EKG (In office) [facility] Work Phone: Start: 02-24-2015 End: 04-05-2015 Follow Up Appt 6 weeks Follow Up Appt 6 weeks [facility] Work Phone: Start: 02-24-2015 End: 02-24-2015 Follow Up Appt Other Follow Up Appt Other [facility] Work Phone: Start: 02-24-2015 End: 04-05-2015 MMM MMM [facility] Work Phone: Start: 02-24-2015 End: 03-01-2015 Nuclear stress test -Lexiscan Nuclear stress test -Lexiscan [facility] Work Phone: Start: 02-24-2015 End: 02-24-2015 Electrocardiogram, complete EKG (In office) [facility] Work Phone: Start: 02-24-2015 End: 04-05-2015 Follow Up Appt 6 weeks Follow Up Appt 6 weeks [facility] Work Phone: Start: 02-24-2015 End: 02-24-2015 Follow Up Appt Other Follow Up Appt Other [facility] Work Phone: Start: 02-24-2015 End: 04-05-2015 MMM MMM [facility] Work Phone: Start: 02-24-2015 End: 03-01-2015 Nuclear stress test -Lexiscan Nuclear stress test -Lexiscan [facility] Work Phone: Start: 2010 Hepatitis B Vaccines (1 of 3 - Risk 3-dose series) Hepatitis B Vaccines (1 of 3 - Risk 3-dose series) [facility] Start: 2010 RSV Immunization aged 60 or older (1 - 1-dose 60+ series) RSV Immunization aged 60 or older (1 - 1-dose 60+ series) [facility] Start: 2010 RSV Immunization for Adults (1 - Risk 60-74 years 1-dose series) RSV Immunization for Adults (1 - Risk 60-74 years 1-dose series) [facility] Start: 2000 Shingles Vaccine (1 of 2) Shingles Vaccine (1 of 2) [facility] Work Phone: Start: 2000 Shingrix Vaccine (1 of 2) Shingrix Vaccine (1 of 2) [facility] Start: 2000 Zoster Vaccines (1 of 2) Zoster Vaccines (1 of 2) [facility] Start: 11-12-1995 Screening for malignant neoplasm of colon [facility] Start: 1990 Diabetes screen Diabetes screen [facility] Work Phone: Start: 1969 DTaP/Tdap/Td vaccine (1 - Tdap) DTaP/Tdap/Td vaccine (1 - Tdap) [facility] Work Phone: Start: 1969 DTaP/Tdap/Td Vaccines (1 - Tdap) DTaP/Tdap/Td Vaccines (1 - Tdap) [facility] Start: 1969 Hepatitis A Vaccines (1 of 2 - Risk 2-dose series) Hepatitis A Vaccines (1 of 2 - Risk 2-dose series) [facility] Start: 1969 Urine microalbumin profile DTaP,Tdap,Td Vaccine (1 - Tdap) [facility] Start: 1968 Anxiety Screening Anxiety Screening [facility] Start: 1968 Depression Screening Depression Screening [facility] Start: 1968 Diabetes mellitus screening Diabetes Screening [facility] Start: 1968 Hepatitis C screening Hepatitis C Screening [facility] Start: 1962 Depression Monitoring Depression Monitoring [facility] Start: 1962 Depresssion Monitoring Depresssion Monitoring [facility] Start: 11-12-1951 Hepatitis A Vaccines (1 of 2 - Risk 2-dose series) Hepatitis A Vaccines (1 of 2 - Risk 2-dose series) [facility] Start: 1950 Echocardiography Echocardiogram [facility] Start: 1950 Hepatitis C screening Hepatitis C screen [facility] Work Phone: Start: 1950 Medicare Annual Wellness (AWV) Medicare Annual Wellness (AWV) [facility] Start: 1950 Screening for malignant neoplasm of colon [facility] Heart Views W str ess and W radionuclide IV [facility] Patient Education [facility] Work Phone: Patient referral [facility] Work Phone: XR Lumbar spine 2 or [address] [facility] Work Phone: Immunizations Immunization Date Immunization Notes Care Provider Aurea dudley 06-17-2024 Seasonal trivalent influenza vaccine, adjuvanted, preservative free Ryan Jimmydarrian DO Work Phone: [facility] 06-17-2024 influenza virus vacc ine, unspecified formulation Ryan Marquezdarrian DO Work Phone: [facility] 09-18-2023 Influenza, Seasonal, Quadrivalent, Adjuvanted Ryan Jimmydarrian DO Work Phone: [facility] 09-18-2023 influenza virus vacc ine, unspecified formulation Ryna Jimmydarrian DO Work Phone: [facility] 08-14-2022 influenza, high dose seasonal, preservative-free Ryan Canales DO Work Phone: [facility] 08-14-2022 influenza virus vacc ine, unspecified formulation Ryan Canales DO Work Phone: [facility] 08-22-2021 Influenza, High-dose Seasonal, Quadrivalent, Preservative Free Ryan Canales DO Work Phone: [facility] 07-06-2020 Influenza, High-dose , Quadv, 65 yrs +, IM (Fluzone) Kerry Guerrero MD Work Phone: [facility] 06-17-2019 influenza, high dose seasonal, preservative-free Kerry Guerrero MD Work Phone: [facility] 06-17-2019 Influenza, High-dose Seasonal, Quadrivalent, Preservative Free Ryan Canales DO Work Phone: [facility] 06-16-2018 influenza, high dose seasonal, preservative-free Kerry Guerrero MD Work Phone: [facility] 06-10-2017 influenza, injectabl e, quadrivalent, contains preservative Kerry Guerrero MD Work Phone: [facility] 06-10-2017 pneumococcal polysaccharide vaccine, 23 valent Kerry Guerrero MD Work Phone: [facility] 11-28-2015 pneumococcal conjuga te vaccine, 13 valent Kerry Guerrero MD Work Phone: [facility] Work Phone: 06-09-[address] Ryan Canales Work Phone: [facility] 06-09-2015 influenza virus vacc ine, unspecified formulation Ryan Canales DO Work Phone: [facility] 06-09-2015 influenza, seasonal, injectable Ryan Canales DO Work Phone: [facility] 06-09-2015 influenza, seasonal, injectable, preservative free Ryan Canales DO Work Phone: [facility] Payers Date Payer Category Payer Self-pay [id number] 2021 Medicare supplementa l policy (as second payer) O MEDICARE SUPPLEMENT [id number] 2021 Unknown 2018 Unknown [id number] 2016 Private Health Insurance [facility] AARP SUPPLEMENT [id number] 2016-Present [phone] [address] [place] [address] Indemnity [id number] 2015 Medicare [id number] 2015 Medicare [id number] 1950 Unknown [id number] Medicare [id number] Unknown [id number] Unknown [id number] Unknown [id number] Unknown [id number] Unknown [id number] Unknown [id number] Unknown [id number] .462 Unknown [id number] .462 Unknown [id number] .462 Unknown [id number] .462 Unknown [id number] Unknown [id number] Social History Date Type Detail Facility Start: 03-26-2021 End: 09-24-2023 Tobacco smoking status [facility] Never smoker [employer] Phone: Start: 07-24-2016 End: 03-26-2021 Tobacco use and exposure Never used [employer] Phone: Start: 03-26-2021 End: 12-16-2024 Alcohol intake Current drinker of alcohol (finding) [facility] Work Phone: Start: 03-26-2021 End: 12-16-2024 Alcohol intake [facility] Work Phone: Start: 12-19-2018 History SDOH Alcohol Frequency 2 [employer] Work Phone: Start: 12-19-2018 End: 03-15-2021 History SDOH Alcohol Std Drinks 1 [employer] Work Phone: Start: 12-19-2018 History SDOH Social Connections Hinduism 3 [employer] Work Phone: Start: 12-19-2018 History SDOH Physica l Activity DPW 6 [facility] Work Phone: Start: 03-15-2021 History SDOH Financial 5 [facility] Work Phone: Start: 1950 Sex Assigned At Not on file [facility] Work Phone: Start: 09-08-2022 End: 03-19-2023 Exposure to SARS-CoV-2 (event) Not sure [facility] Sex Assigned At [facility] Start: 11-29-2021 End: 09-24-2023 Tobacco smoking status NHIS Unknown if ever smoked [facility] Start: 11-23-2015 Rare [facility] Start: 11-23-2015 Non-smoker [facility] Start: 1950 Sex Assigned At Male [facility] Start: 02-05-2023 End: 12-16-2024 Tobacco use panel [facility] Start: 09-18-2023 Gender identity Identifies as male gender (finding) [facility] Start: 09-18-2023 Sexual orientation Heterosexual (fin ding) [facility] Start: 04-09-2022 Sex Male (finding) [facility] alth History of tobacco use Cigarette Smoker C [facility] National Score (1-10 0), lower number is lower risk Not on file [facility] Start: 04-04-2017 Alcohol Comment social, rare [facility] Mental Status Date Assessment Result Facility 03-06-2022 Cognitive function Level Of Cons ciousness Awake;Alert;Appropriate;Follow s Commands [facility] Work Phone: Clinical Notes 07-24-2021 to 03-08-2025 Telephone Encounter - Tiffany Zepeda - 03/08/2025 12:50 PM EDTTelephone Encounter - Tiffany Zepeda - 03/08/2025 12:50 PM EDT Note Date & Type Note Facility 03-08-2025 Miscellaneous Notes Formattin g of this note might be different from the original. Medication name: sertraline (Zoloft) 50 MG tablet Medication dosage: 50 mg (Miligrams Monthly quantity needed: 30 How many day supply requestin days Medication route: oral (PO) Medication administration time(s): daily If taking medication PRN, reason for taking medication: N/A If this is a controlled substance do you receive this or any other controlled medication from any other doctor or facility: N/A Ordering provider: Dr. Canales Date of last office visit: 12/16/24 Date of next office visit: 06/16/25 Date of last refill: (see medication tab): 12/16/24 Updated/Validated preferred pharmacy: Yes Patient instructed to contact the pharmacy prior to picking up the medication: Yes documented in this encounter [facility] 03-08-2025 Telephone encounter Note Form atting of this note might be different from the original. Medication name: sertraline (Zoloft) 50 MG tablet Medication dosage: 50 mg (Miligrams Monthly quantity needed: 30 How many day supply requestin days Medication route: oral (PO) Medication administration time(s): daily If taking medication PRN, reason for taking medication: N/A If this is a controlled substance do you receive this or any other controlled medication from any other doctor or facility: N/A Ordering provider: Dr. 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 Work Phone: [phone]) 467-840806-03-2025 [facility] [address] [place], [place] [address]e. [address] [place] [address] OFFICE VISIT Date of Service: 02/09/25 MR#: [id number] Acct: [id number] Name: LAMIN MOCTEZUMA Rep #: [id number] : 1950 Provider: Dr. Obie Barney MD Age/Sex: 74/M Location: [facility] Status: Signed HPI HPI History of Present Illness Details: This gentleman with history of atrial fibrillation, status post A-fib ablation, hypertension, dyslipidemia and morbid obesity is here for follow-up visit. Denies any chest pains either at rest or with exertion. He does complain of shortness of breath with moderate to strenuous exertion. Denies any p alpitations. No orthopnea or PND. Denies ankle edema. Intake Vital Signs 07/28/24 08:34 02/09/25 07:36 Height 6 ft 1 in 6 ft 1 in Weight: 336 lb BMI 44.3 BP 144/77 H Blood Pressure Location Lt brachial Position Sitting Respiration 18 Pulse 52 L Pulse Source NIBP Intake Visit Reasons: 6 M FU Teletypist Required: No Accompanied by: Self Is patient in pain?: No Allergies iodine Allergy (Intermediate, Verified 02/09/25 12:51) rash Medications ?Medication ?Instructions ?Recorded ?Confirmed ?Type amlodipine 10 mg tablet 10 mg PO DAILY #90 tabs 02/0702/09/25 Rx furosemide 40 mg tablet 40 mg PO BID 08/23/17 History atorvastatin 10 mg tablet 10 mg PO DAILY 07/13/2012/01 History gabapentin 300 mg capsule 300 mg PO .COMPLEX 07/13/20 02/09/25 History metoprolol tartrate 50 mg tablet 50 mg PO BID 07/13/20 02/09/25 History sertraline 50 mg tablet 50 mg PO DAILY 07/13/2012/01 History potassium chloride 20 mEq 40 meq (2 x 20 mEq) PO QDAY #180 07/28/24 02/09/25 Rx tablet,extended release(part/cryst) tabs warfarin 5 mg tablet 5 mg PO DAILY #90 TABLETS 02/09/25 Rx Ejection fraction %: 65 Have you fallen in the past year?: No [facility] Medical History Closed L1 vertebral fracture Edema Essential hypertension History of left heart catheterization 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 Obstructive sleep apnea Paroxysmal atrial fibrillation Vertigo Surgical History History of cholecystectomy History of lumbar surgery Status post catheter ablation of atrial fibrillation (~04/10/17) Family History Father CAD (coronary artery disease) Mother Colon cancer Sister Atrial fibrillation Sleep apnea Sister Sleep apnea Hypertension Social History Smoking Status: Never smoker alcohol intake: current alcohol intake frequency: holidays/special occasions only caffeine: Yes Type: coffee Number of servings: 1 ROS Const Const: Negative for fatigue, weakness, headache(s) or weight gain ENT ENT: Positive for balance problems (drop foot per pt RLE; knee problems LLE); Negative for headache(s), dizziness or Nosebleed/epistaxis Cardio Chest Pain: No Palpitations: No Edema: None Muscle aches with walking: None Resp Respiratory: Positive for SOB with activity; Negative for SOB at rest or SOB orthopneaundefinedSOB lying down GI GI: Negative nausea, vomiting or heartburn Musc Musc: Positive for balance problems (drop foot per pt RLE; knee problems LLE); Negative for muscle aches/ myalgia, muscle weakness or joint pain Neuro Neuro: Negative for dizziness, lightheadedness, near syncope, syncope, headache(s) or weakness Endo Endo: Negative for fatigue Cardiology Exam Const Appearance: comfortable and no acute distress Nutritional Appearance: obese Neck Neck: no JVD Carotids: Negative bruit Chest Auscultation: Bilateral: Clear to Auscultation Cardio Rate: regular rate Rhythm: regular rhythm Heart sounds: S1 normal and S2 normal 2/6 systolic murmur at base. GI GI: obese Neuro General: patient alert, patient awake and patient oriented x3 Extremities Lower Extremity Edema: Trace: Bilateral Supplemental Info Supplemental Information Echo Complete w/ Contrast 09/07/2024: Interpretation Summary Moderate concentric left ventricular hypertrophy. The left ventricular ejection fraction is 65 %. Stage 1 diastolic dysfunction. The left atrium is moderately enlarged. Mild mitral annular calcification. The study was technically difficult. Transthoracic Echocardiogram: 02/19/2015: Interpretation Summary Normal LV size. Left ventricular systolic function is normal. The estimated ejection fraction is 60 %. The study was technically limited. The study was technically difficult. Contrastinjection was performed. Cardiac Catheterization 11/24/2015: CONCLUSION: 1. Angiographically normal left main coronary artery. 2. Left anterior descending artery, which demonstrates no significant stenosis. 3. Left circumflex artery with no high-grade stenosis. 4. Dominant right coronary artery with no high-grade stenosis. 5. Preserved ejection fraction. Assessment and Plan Assessment and Plan (1) History of atrial fibrillation: Status: Resolved Plan: Patient has had A-fib ablation done in 2017. Maintaining sinus rhythm. His CHADS2?VASc score is 2. Recommend continuing anticoagulation. Patient in agreement. Warfarin management as per PCP. 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 (3) Essential hypertension: Status: Chronic Plan: Blood pressure mildly above goal. Continue amlodipine, furosemide and metoprolol. Add valsartan. (4) Dyslipidemia: Status: Chronic Plan: Atorvastatin. PCP following. (5) Morbid obesity with BMI of 40.0-44.9, adult: Status: Chronic Plan: Lose weight. (6) Dyspnea on exertion: Status: Chronic Plan: I believe it is mostly because of his morbid obesity and deconditioning. However given his risk factors, will check a Lexiscan stress Myoview to rule outischemia. 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 Z79.01 Essential hypertension I10 Dyslipidemia E78.5 Morbid obesity with BMI of 40.0-44.9, adult E66.01; Z68.41 Dyspnea on exertion R06.09 Coding Level of Care Code Off vis,est,level 4 Diagnoses History of atrial fibrillation Z86.79 intermediate (current) use of anticoagulants Z79.01 Essential hypertension I10 Dyslipidemia E78.5 Morbid obesity with BMI of 40.0-44.9, adult E66.01; Z68.41 Dyspnea on exertion R06.09 Clinical Quality Measures Falls Risk Screening/Assistive Devices Have you fallen in the past year?: No Cardiac Ejection fraction %: 65 02/09/25 1322 MD> Date _ Kenroy Barney MD Cosigner Signature: Date (if applicable) CC: Dr. Ryan Canales, ~ [facility]06-02-2025 Telephone encounter Note* Telephone Encounter - Summer Lackey - 02/08/2025 1:38 PM EDT Message released to patient as written. Patient's further questions if applicable: Pt states that [place] [facility] do have information. Please send needed information Were all questions from office addressed or relayed to the patient from encounter: Yes [facility] [id number] Miscellaneous Notes* Telephone Encounter - Summer Lackey - 02/08/2025 1:38 PM EDT Message released to patient as written. Patient's further questions if applicable: Pt states that [place] do have information. Please send needed information Were all questions from office addressed or relayed to the patient from encounter: Yes * Telephone Encounter - Liliane Mullen MA - 01/27/2025 1:22 PM EDT Spoke with pt and advised her we need his last office note and last cpap order from his previous place. She says she will call and see what she can do. * Telephone Encounter - Regina Chowdary - 01/27/2025 1:13 PM EDT Name of caller: Sammi Contact phone number: [phone] Relationship to Patient: spouse/SO Provider: Dr Canales Practice: [facility] Chief Complaint/Reason for Call: Caller stated that the doctor who ordered patients C=PAP and supplies has retired. She is requesting if Dr Canales can take over. She stated that the patient needs anew order for C-PAP supplies sent to [facility]. They also need an addended OV stating his usage and why. Please advise Best time of day caller can be reached: any Patient advised that office/PCP has 24-48 business hours to return their call: Yes documented in this encounterSUpper Valley Medical [id number] Telephone encounter Note* Telephone Encounter - Liliane Mullen MA - 01/27/2025 1:22 PM EDT Spoke with pt and advised her we need his last office note and last cpap order from his previous place. She says she will call and see what she can do. [facility] [id number] Miscellaneous Notes* Telephone Encounter - Liliane Mullen MA - 01/27/2025 1:22 PM EDT Spoke with pt and advised her we need his last office note and last cpap order from his previous place. She says she will call and see what she can do. * Telephone Encounter - Regina Chowdary - 01/27/2025 1:13 PM EDT Name of caller: Sammi Contact phone number: [phone] Relationship to Patient: spouse/SO Provider: Dr Canales Practice: [facility] Chief Complaint/Reason for Call: Caller stated that the doctor who ordered patients C=PAP and supplies has retired. She is requesting if Dr Canales can take over. She stated that the patient needs anew order for C-PAP supplies sent to [facility] [facility]. They also need an addended OV stating his usage and why. Please advise Best time of day caller can be reached: any Patient advised that office/PCP has 24-48 business hours to return their call: Yes documented in this [facility]05-21-2025 Telephone encounter Note* Telephone Encounter - Regina Chowdary - 01/27/2025 1:13 PM EDT Name of caller: Sammi Contact phone number: [phone] Relationship to Patient: spouse/SO Provider: Dr Canales Practice: [facility] Chief Complaint/Reason for Call: Caller stated that the doctor who ordered patients C=PAP and supplies has retired. She is requesting if Dr Canales can take over. She stated that the patient needs anew order for C-PAP supplies sent to [facility] [facility]. They also need an addended OV stating his usage and why. Please advise Best time of day caller can be reached: any Patient advised that office/PCP has 24-48 business hours to return their call: Yes [facility] [id number] NoteReferral pended for dx and doctor's signatureSKarmanos Cancer Center04-10-2025 Telephone encounter Note* Telephone Encounter - Luz Elena Heck - 12/17/2024 11:02 AM EDT Referral pended for dx and doctor's signature [facility] [id number] Miscellaneous Notes* Telephone Encounter - Luz Elena Heck - 12/17/2024 11:02 AM EDT Referral pended for dx and doctor's signature documented in this [facility]04-09-2025 History of Present illness Narrative* Ryan Canales DO - 12/16/2024 9:30 AM EDT Images from the original note were not included. [facility] - [address] [facility] [id number] Visit type: Established Patient Reason for Visit: 6 Month Follow-up Assessment / Plan: Lamin was seen today for 6 month follow-up. Diagnoses and all orders for this visit: Primary hypertension (Primary) Comments: Stable on Lopressor, Lasix and Norvasc Orders: - Comprehensive metabolic panel; Future - Comprehensive metabolic panel Anxiety associated with depression Comments: Improved, continues Zoloft Orders: - sertraline (Zoloft) 50 MG tablet; Take 1 tablet (50 mg) by mouth daily. Wants name brand Zoloft History of atrial fibrillation Comments: Stable on Coumadin Orders: - CBC auto differential; Future - CBC auto differential Degeneration of intervertebral disc of lumbar region, unspecified whether pain present Comments: Stable on gabapentin Anticoagulant long-term use Comments: Continue Coumadin, discussed CHADS2 score 2 w/ hx of HTN and age. Urged monthly INR monitoring Orders: - Protime-INR; Future - Protime-INR Hypercholesterolemia Comments: Stable on Lipitor Orders: - Lipid panel; Future - Lipid panel Bilateral primary osteoarthritis of knee Comments: Worsening, refer Ortho referral for left knee replacement Other orders - amLODIPine (Norvasc) 10 MG tablet; Take 1 tablet (10 mg) by mouth daily. - atorvastatin (Lipitor) 10 MG tablet; Take 1 tablet (10 mg) by mouth daily. - furosemide (Lasix) 40 MG tablet; Take 1 tablet (40 mg) by mouth 2 times daily. - metoprolol tartrate (Lopressor) 50 MG tablet; Take 1 tablet (50 mg) by mouth 2 times daily. - triamcinolone (Kenalog) 0.1 % cream; Apply to affected area 1-2 times daily as needed. Avoid faceand groin. Reviewed patient's [id number] 2 score of 2 and I did recommend him staying on long-term Coumadin.History of hypertension and age is between 65 and 74. 35 Minutes spent on reviewing pertinent medical, surgical, family and social history, patient interview, physical exam, discussion of diagnosis, treatment and work-up options. Subjective: Patient ID: Lamin Moctezuma is a 74 y.o. male. HPI obese hypertensive male with hyperlipidemia and atrial fibrillation status post successful cardioversion presents for refill on Coumadin and also Zoloft for depression. Sees pain management for severe lumbar arthritis. Takes gabapentin for that and restless leg syndrome. Has been compliant with sleep apnea treatment. 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 He was referred to a take away attendant through telephone consultation, who recommended lifelong anticoagulation. Review of Systems overall feeling well. No change in quality of pain. No recent earache sore throator cough. Did get over COVID few months ago. Denies chest pain or palpitations or lightheadedness. Of note echocardiogram done in August showed preserved left ventricular ejection fraction but milddiastolic dysfunction. Had some mild LVH as well. No heartburn or abdominal pain. Bowels are regular. No constipation diarrhea. No change in urine flow. History of prostate cancer due for surveillance PSA in the fall. That is now to be done once a year. He defers seeing urologist. Having worsening left knee pain and would like an opinion on whether he is able to get a knee replacement. Allergies Allergen Reactions Iodine Anaphylaxis and Rash Other Current Outpatient Medications on File Prior to Visit Medication Sig Dispense Refill acetaminophen (Tylenol) 160 MG/5ML suspension Take 650 mg by mouth. gabapentin (Neurontin) 300 MG capsule TAKE 1 CAPSULE BY MOUTH DURING THE DAY NEEDED AND 2 CAPSULES AT BEDTIME DIRECTED potassium chloride CR (Klor-Con M20) 20 MEQ ER tablet Take 1 tablet by mouth 2 times daily. warfarin (Coumadin) 5 MG tablet Decrease to 5mg q day (Patient taking differently: Take 5 mg by mouth daily. Decrease to 5mg q day 4 days 2 days 09/10) 90 tablet 1 [DISCONTINUED] amLODIPine (Norvasc) 10 MG tablet TAKE 1 TABLET BY MOUTH DAILY 90 tablet 1 [DISCONTINUED] atorvastatin (Lipitor) 10 MG tablet TAKE 1 TABLET BY MOUTH DAILY 90 tablet 1 [DISCONTINUED] furosemide (Lasix) 40 MG tablet TAKE 1 TABLET BY MOUTH TWICE DAILY 180 tablet 1 [DISCONTINUED] metoprolol tartrate (Lopressor) 50 MG tablet TAKE 1 TABLET BY MOUTH TWICE DAILY 180 tablet 1 [DISCONTINUED] sertraline (Zoloft) 50 MG tablet Take 1 tablet (50 mg) by mouth in the morning. Wants name brand Zoloft. 90 tablet 1 [DISCONTINUED] methocarbamol (Robaxin) 500 MG tablet Take 500 mg by mouth. [DISCONTINUED] triamcinolone (Kenalog) 0.1 % cream Apply to affected area 1-2 times daily as needed. Avoid face and groin. 80 g 2 No current facility-administered medications on file prior [...] use Chronic diastolic (congestive) heart failure (HCC) Bilateral primary osteoarthritis of knee Hypercholesterolemia Social History Tobacco Use Smoking status: Never Smokeless tobacco: Never Substance Use Topics Alcohol use: Yes Alcohol/week: 0.0 standard drinks of alcohol Past Surgical History: Procedure Laterality Date ABLATION OF DYSRHYTHMIC FOCUS 2016 [place] CHOLECYSTECTOMY 1999 COLONOSCOPY 2010 COLONOSCOPY 2014 [...] No Known Problems Brother Gurinder Objective: BP 118/68 Pulse 50 Temp 36.6 C (97.8 F) (Temporal) Ht 6' 1 (1.854 m) Wt (!) 339 lb 3.2 oz (154 kg) SpO2 96% BMI 44.75 kg/m Physical Exam pleasant. No acute distress. Normal eardrums and oropharynx. No JVD adenopathy or thyroid lesions. No carotid bruits. Heart is regular without ectopy or new murmurs. Lungs are diminished but clear. Abdomen hugely obese without pain hepatosplenomegaly masses bruits or ascites. Femoral pulses are fair. No change in lower extremity strength. Trace pretibial edema is evident. Posterior pulses are adequate. Diminished range of motion of left knee flexion. Substantial OA changes of that left knee is evident. No skin abrasions erythema or induration. documented in this [facility]03-17-2025 Telephone encounter Note* Telephone Encounter - June Aggarwal, WENDY - 11/23/2024 11:18 AM EDT Recent Visits Date Type Provider Dept 06/17/24 Office Visit Ryan Canales DO [facility] 05/19/24 Office Visit Ashleigh Tapia PA-C [facility] Showing recent visits within past 365 days and meeting all other requirements Future Appointments Date Type Provider Dept 12/16/24 Appointment [address] Canales DO [facility] Showing future appointments within next 90 days and meeting all other requirements Requested Prescriptions Pending Prescriptions Disp Refills metoprolol tartrate (Lopressor) 50 MG tablet [Pharmacy Med Name: Metoprolol Tartrate 50 MG Oral Tablet] 180 tablet 1 Sig: TAKE 1 TABLET BY MOUTH TWICE DAILY atorvastatin (Lipitor) 10 MG tablet [Pharmacy Med Name: Atorvastatin Calcium 10 MG Oral Tablet] 90 tablet 1 Sig: TAKE 1 TABLET BY MOUTH DAILY amLODIPine (Norvasc) 10 MG tablet [Pharmacy Med Name: amLODIPine Besylate 10 MG Oral Tablet] 90 tablet 1 Sig: TAKE 1 TABLET BY MOUTH DAILY furosemide (Lasix) 40 MG tablet [Pharmacy Med Name: Furosemide 40 MG Oral Tablet] 180 tablet 1 Sig: TAKE 1 TABLET BY MOUTH TWICE DAILY Provider: Ryan Canales DO Verified pharmacy: yes Verified day(s) supplied: yes Verified refill(s) needed (previous prescription showing no refills in chart): Yes Have you received any controlled medications from any other provider? No Overdue for visit: No If yes - patient scheduled? Yes Most recent labs completed in chart? Yes Hypertension: Lab Results Component Value Date NA 139 09/21/2021 K 4.6 09/21/2021 EGFR 90 06/17/2024 BUN 20 06/17/2024 CREATININE 0.90 06/17/2024 and Cholesterol: Lab Results Component Value Date CHOLESTEROLT 140 06/17/2024 HDLCHOLESTER 49 06/17/2024 TRIGLYCERIDE 94 06/17/2024 LDLCHOLESTER 73 06/17/2024 CHOLHDLCRATI 2.9 06/17/2024 NONHDLCHOLES 91 06/17/2024 [facility] [id number] Miscellaneous Notes* Telephone Encounter - June Aggarwal LPN - 11/23/2024 11:18 AM EDT Recent Visits Date Type Provider Dept 06/17/24 Office Visit Ryan Canales DO [facility] 05/19/24 Office Visit Ashleigh Tapia PA-C [facility] Showing recent visits within past 365 days and meeting all other requirements Future Appointments Date Type Provider Dept 12/16/24 Appointment Ryan Canales DO [facility] Showing future appointments within next 90 days and meeting all other requirements Requested Prescriptions Pending Prescriptions Disp Refills metoprolol tartrate (Lopressor) 50 MG tablet [Pharmacy Med Name: Metoprolol Tartrate 50 MG Oral Tablet] 180 tablet 1 Sig: TAKE 1 TABLET BY MOUTH TWICE DAILY atorvastatin (Lipitor) 10 MG tablet [Pharmacy Med Name: Atorvastatin Calcium 10 MG Oral Tablet] 90 tablet 1 Sig: TAKE 1 TABLET BY MOUTH DAILY amLODIPine (Norvasc) 10 MG tablet [Pharmacy Med Name: amLODIPine Besylate 10 MG Oral Tablet] 90 tablet 1 Sig: TAKE 1 TABLET BY MOUTH DAILY furosemide (Lasix) 40 MG tablet [Pharmacy Med Name: Furosemide 40 MG Oral Tablet] 180 tablet 1 Sig: TAKE 1 TABLET BY MOUTH TWICE DAILY Provider: Ryan Canales DO Verified pharmacy: yes Verified day(s) supplied: yes Verified refill(s) needed (previous prescription showing no refills in chart): Yes Have you received any controlled medications from any other provider? No Overdue for visit: No If yes - patient scheduled? Yes Most recent labs completed in chart? Yes Hypertension: Lab Results Component Value Date NA 139 09/21/2021 K 4.6 09/21/2021 EGFR 90 06/17/2024 BUN 20 06/17/2024 CREATININE 0.90 06/17/2024 and Cholesterol: Lab Results Component Value Date CHOLESTEROLT 140 06/17/2024 HDLCHOLESTER 49 06/17/2024 TRIGLYCERIDE 94 06/17/2024 LDLCHOLESTER 73 06/17/2024 CHOLHDLCRATI 2.9 06/17/2024 NONHDLCHOLES 91 06/17/2024 documented in this encounterSUpper [facility] Medical [id number] Telephone encounter Note* Telephone Encounter - Ranjan Salmon - 09/16/2024 1:54 PM EST Received referral from [facility], Pt declined scheduling at this time. Referral scanned in. Ranjan Salmon [facility]01-08-2025 Miscellaneous Notes* Telephone Encounter - Ranjan Salmon - 09/16/2024 1:54 PM EST Received referral from [facility], Pt declined scheduling at this time. Referral scanned in. Ranjan Salmon documented in this [facility]Ohio[facility] Miscellaneous Notes* Telephone Encounter - June Aggarwal LPN - 08/11/2024 10:18 AM EST Talked to pharmacist Kelsie Mancuso To clarify RX to be for generic only and she was able to take a verbal order. Talked to patient and let her know pharmacy was able to get it ready and sent out. * Telephone Encounter - Regina Ricarda - 08/11/2024 9:23 AM EST Name of caller: Sammi Contact phone number: [phone] Relationship to Patient: spouse/SO Provider: Dr Canales Practice: [facility] Chief Complaint/Reason for Call: Caller stated that she spoke with [facility] regarding sertraline. Theydidn't request brand name. She stated that they need a new prescription sent over to the pharmacy for sertraline , not the brand name Zoloft. Please advise Best time of day caller can be reached: Patient advised that office/PCP has 24-48 business hours to return their call * Telephone Encounter - Alexandria Herr MA - 08/10/2024 10:41 AM EST Patient should still have refills at their pharmacy. * Telephone Encounter - Kirsty Guido - 08/10/2024 9:40 AM EST Medication name: sertraline (Zoloft) 50 MG tablet Medication dosage: 50 mg (Miligrams Monthly quantity needed: 90 How many day supply requestin months Medication route: oral (PO) Medication administration time(s): daily If taking medication PRN, reason for taking medication: N/A If this is a controlled substance do you receive this or any other controlled medication from any other doctor or facility: No Ordering provider: Dr. Canales Date of last office visit: 06.17.2024 Date of next office visit: 12.16.2024 Date of last refill: (see medication tab): 06.17.2024 Updated/Validated preferred pharmacy: Yes Patient instructed to contact the pharmacy prior to picking up the medication: Yes Caller requesting generic Rx documented in this encounterSUpper Valley Medical [id number] Telephone encounter Note* Telephone Encounter - June Aggarwal LPN - 08/11/2024 10:18 AM EST Talked to pharmacist Kelsie Mancuso To clarify RX to be for generic only and she was able to take a verbal order. Talked to patient and let her know pharmacy was able to get it ready and sent out. [facility] [id number] Telephone encounter Note* Telephone Encounter - Regina Chowdary - 08/11/2024 9:23 AM EST Name of caller: Sammi Contact phone number: [phone] Relationship to Patient: spouse/SO Provider: Dr Canales Practice: [facility] Chief Complaint/Reason for Call: Caller stated that she spoke with [facility] regarding sertraline. Theydidn't request brand name. She stated that they need a new prescription sent over to the pharmacy for sertraline , not the brand name Zoloft. Please advise Best time of day caller can be reached: Patient advised that office/PCP has 24-48 business hours to return their call [facility] [id number] Telephone encounter Note* Telephone Encounter - Alexandria Herr MA - 08/10/2024 10:41 AM EST Patient should still have refills at their pharmacy. [facility] [id number] Miscellaneous Notes* Telephone Encounter - Alexandria Herr MA - 08/10/2024 10:41 AM EST Patient should still have refills at their pharmacy. * Telephone Encounter - Kirsty Guido - 08/10/2024 9:40 AM EST Medication name: sertraline (Zoloft) 50 MG tablet Medication dosage: 50 mg (Miligrams Monthly quantity needed: 90 How many day supply requestin months Medication route: oral (PO) Medication administration time(s): daily If taking medication PRN, reason for taking medication: N/A If this is a controlled substance do you receive this or any other controlled medication from any other doctor or facility: No Ordering provider: Dr. Canales Date of last office visit: 06.17.2024 Date of next office visit: 12.16.2024 Date of last refill: (see medication tab): 06.17.2024 Updated/Validated preferred pharmacy: Yes Patient instructed to contact the pharmacy prior to picking up the medication: Yes Caller requesting generic Rx documented in this [facility]12-02-2024 Telephone encounter Note* Telephone Encounter - Kirsty Guido - 08/10/2024 9:40 AM EST Medication name: sertraline (Zoloft) 50 MG tablet Medication dosage: 50 mg (Miligrams Monthly quantity needed: 90 How many day supply requestin months Medication route: oral (PO) Medication administration time(s): daily If taking medication PRN, reason for taking medication: N/A If this is a controlled substance do you receive this or any other controlled medication from any other doctor or facility: No Ordering provider: Dr. Canales Date of last office visit: 06.17.2024 Date of next office visit: 12.16.2024 Date of last refill: (see medication tab): 06.17.2024 Updated/Validated preferred pharmacy: Yes Patient instructed to contact the pharmacy prior to picking up the medication: Yes Caller requesting generic Rx [facility] [id number] History of Present illness Narrative* Ryan Canales, - 06/17/2024 9:00 AM EDT Images from the original note were not included. [facility] - [address] [facility] [address] Visit type: Established Patient Reason for Visit: Follow-up (Med check) and Flu Vaccine (Patient has agreed to receive influenza vaccine in the office today. ) Assessment / Plan: Lamin was seen today for follow-up and flu vaccine. Diagnoses and all orders for this visit: Primary hypertension (Primary) Comments: Uncontrolled but patient defers add on meds. BP check 4 weeks, continue Norvasc and metoprolol Anxiety associated with depression Comments: Improved, continues Zoloft Orders: - sertraline (Zoloft) 50 MG tablet; Take 1 tablet (50 mg) by mouth in the morning. Wants name Cici. History of prostate cancer - PSA Total (Diagnostic Post-Prostatectomy); Future - PSA Total (Diagnostic Post-Prostatectomy) Acquired right foot drop Comments: Stable, continue gabapentin History of atrial fibrillation Anticoagulant long-term use Comments: Stable, check lab and continue Coumadin and follow-up with cardiology Orders: - CBC auto differential; Future - Comprehensive metabolic panel; Future - Protime-INR; Future - CBC auto differential - Comprehensive metabolic panel - Protime-INR Hypercholesterolemia Comments: Stable, praise given on weight loss, continue Lipitor Orders: - Lipid panel; Future - Lipid panel Other orders - Flu vaccine (FLUAD), trivalent, adjuvanted, preservative-free (ages 65+) - amLODIPine (Norvasc) 10 MG tablet; Take 1 tablet (10 mg) by mouth daily. - atorvastatin (Lipitor) 10 MG tablet; Take 1 tablet (10 mg) by mouth daily. - furosemide (Lasix) 40 MG tablet; Take 1 tablet (40 mg) by mouth 2 times daily. - metoprolol tartrate (Lopressor) 50 MG tablet; Take 1 tablet (50 mg) by mouth 2 times daily. Subjective: Patient ID: Lamin Moctezuma is a 73 y.o. male. HPI hypertensive patient with history of A-fib and chronic anxiety and depression with low back pain presents for checkup. Recently back on Zoloft and improving. Had dental checkup and abscess resolved. Blood pressure generally better at home. He is actively walking more at the local rec center. Now involved with [employer]. Doing the best she can with walking. Chronic and severe lumbar stenosis and on gabapentin. Has chronic right foot drop. Review of Systems no recent earache sore throat or cough. No chest pain or palpitations. Denies PNDorthopnea or change in mild leg edema. No heartburn or abdominal pain. Bowels are regular. No constipation diarrhea melena or blood. No dysuria hematuria. Overdue for PSA. Had prostate cancer 14 years ago. No active urology relationship. No change in weakness of the right foot or leg. No recent falls or injuries. No bladder incontinence Allergies Allergen Reactions Iodine Anaphylaxis and Rash Other Current Outpatient Medications on File Prior to Visit Medication Sig Dispense Refill gabapentin (Neurontin) 300 MG capsule TAKE 1 CAPSULE BY MOUTH DURING THE DAY NEEDED AND 2 CAPSULES AT BEDTIME DIRECTED potassium chloride CR (Klor-Con M20) 20 MEQ ER tablet Take 1 tablet by mouth 2 times daily. warfarin (Coumadin) 5 MG tablet Decrease to 5mg q day (Patient taking differently: Take 5 mg by mouth daily. Decrease to 5mg q day 4 days 2 days 1 09/10) 90 tablet 1 [DISCONTINUED] amLODIPine (Norvasc) 10 MG tablet TAKE 1 TABLET BY MOUTH DAILY 90 tablet 1 [DISCONTINUED] atorvastatin (Lipitor) 10 MG tablet TAKE 1 TABLET BY MOUTH DAILY 90 tablet 1 [DISCONTINUED] furosemide (Lasix) 40 MG tablet TAKE 1 TABLET BY MOUTH TWICE DAILY 180 tablet 1 [DISCONTINUED] metoprolol tartrate (Lopressor) 50 MG tablet TAKE 1 TABLET BY MOUTH TWICE DAILY 180 tablet 1 [DISCONTINUED] sertraline (Zoloft) 50 MG tablet Take 1 tablet (50 mg) by mouth in the morning. Wants name brand Zoloft. 90 tablet 1 acetaminophen (Tylenol) 160 MG/5ML suspension Take 650 mg by mouth. methocarbamol (Robaxin) 500 MG tablet Take 500 mg by mouth. No current facility-administered medications on file prior [...] No Known Problems Brother Gurinder Objective: BP (!) 144/71 (BP Location: Left arm, Patient Position: Sitting, BP Cuff Size: Large adult) Pulse59 Temp 36.7 C (98.1 F) (Temporal) Ht 6' 1 (1.854 m) Wt (!) 331 lb (150 kg) SpO2 97% BMI43.67 kg/m Physical Exam Pleasant and cooperative. No acute distress. Normal eardrums and oropharynx. Nonicteric. No JVD adenopathy or thyroid lesions. No carotid bruits. Heart is slightly irregular without new murmurs. Lungs are clear. Abdomen obese without pain hepatosplenomegaly masses or bruits. Femoral pulses good. Modest bilateral thigh flexion weakness. Chronic right foot drop unchanged. Trace pretibial edema is stable. Posterior tibial pulses are adequate. No skin breakdowns documented in this [facility]10-09-2024 History of Present illness Narrative* Ryan Canales DO - 06/17/2024 9:00 AM EDT Images from the original note were not included. [facility] - [address] [facility] [address] Visit type: Established Patient Reason for Visit: Follow-up (Med check) and Flu Vaccine (Patient has agreed to receive influenza vaccine in the office today. ) Assessment / Plan: Lamin was seen today for follow-up and flu vaccine. Diagnoses and all orders for this visit: Primary hypertension (Primary) Comments: Uncontrolled but patient defers add on meds. BP check 4 weeks, continue Norvasc and metoprolol Anxiety associated with depression Comments: Improved, continues Zoloft Orders: - sertraline (Zoloft) 50 MG tablet; Take 1 tablet (50 mg) by mouth in the morning. Wants name Cici. History of prostate cancer - PSA Total (Diagnostic Post-Prostatectomy); Future - PSA Total (Diagnostic Post-Prostatectomy) Acquired right foot drop Comments: Stable, continue gabapentin History of atrial fibrillation Anticoagulant long-term use Comments: Stable, check lab and continue Coumadin and follow-up with cardiology Orders: - CBC auto differential; Future - Comprehensive metabolic panel; Future - Protime-INR; Future - CBC auto differential - Comprehensive metabolic panel - Protime-INR Hypercholesterolemia Comments: Stable, praise given on weight loss, continue Lipitor Orders: - Lipid panel; Future - Lipid panel Other orders - Flu vaccine (FLUAD), trivalent, adjuvanted, preservative-free (ages 65+) - amLODIPine (Norvasc) 10 MG tablet; Take 1 tablet (10 mg) by mouth daily. - atorvastatin (Lipitor) 10 MG tablet; Take 1 tablet (10 mg) by mouth daily. - furosemide (Lasix) 40 MG tablet; Take 1 tablet (40 mg) by mouth 2 times daily. - metoprolol tartrate (Lopressor) 50 MG tablet; Take 1 tablet (50 mg) by mouth 2 times daily. Subjective: Patient ID: Lamin Moctezuma is a 73 y.o. male. HPI hypertensive patient with history of A-fib and chronic anxiety and depression with low back pain presents for checkup. Recently back on Zoloft and improving. Had dental checkup and abscess resolved. Blood pressure generally better at home. He is actively walking more at the local rec center. Now involved with [employer]. Doing the best she can with walking. Chronic and severe lumbar stenosis and on gabapentin. Has chronic right foot drop. Review of Systems no recent earache sore throat or cough. No chest pain or palpitations. Denies PNDorthopnea or change in mild leg edema. No heartburn or abdominal pain. Bowels are regular. No constipation diarrhea melena or blood. No dysuria hematuria. Overdue for PSA. Had prostate cancer 14 years ago. No active urology relationship. No change in weakness of the right foot or leg. No recent falls or injuries. No bladder incontinence Allergies Allergen Reactions Iodine Anaphylaxis and Rash Other Current Outpatient Medications on File Prior to Visit Medication Sig Dispense Refill gabapentin (Neurontin) 300 MG capsule TAKE 1 CAPSULE BY MOUTH DURING THE DAY NEEDED AND 2 CAPSULES AT BEDTIME DIRECTED potassium chloride CR (Klor-Con M20) 20 MEQ ER tablet Take 1 tablet by mouth 2 times daily. warfarin (Coumadin) 5 MG tablet Decrease to 5mg q day (Patient taking differently: Take 5 mg by mouth daily. Decrease to 5mg q day 4 days 2 days 1 09/10) 90 tablet 1 [DISCONTINUED] amLODIPine (Norvasc) 10 MG tablet TAKE 1 TABLET BY MOUTH DAILY 90 tablet 1 [DISCONTINUED] atorvastatin (Lipitor) 10 MG tablet TAKE 1 TABLET BY MOUTH DAILY 90 tablet 1 [DISCONTINUED] furosemide (Lasix) 40 MG tablet TAKE 1 TABLET BY MOUTH TWICE DAILY 180 tablet 1 [DISCONTINUED] metoprolol tartrate (Lopressor) 50 MG tablet TAKE 1 TABLET BY MOUTH TWICE DAILY 180 tablet 1 [DISCONTINUED] sertraline (Zoloft) 50 MG tablet Take 1 tablet (50 mg) by mouth in the morning. Wants name brand Zoloft. 90 tablet 1 acetaminophen (Tylenol) 160 MG/5ML suspension Take 650 mg by mouth. methocarbamol (Robaxin) 500 MG tablet Take 500 mg by mouth. No current facility-administered medications on file prior [...] No Known Problems Brother Gurinder Objective: BP (!) 144/71 (BP Location: Left arm, Patient Position: Sitting, BP Cuff Size: Large adult) Pulse59 Temp 36.7 C (98.1 F) (Temporal) Ht 6' 1 (1.854 m) Wt (!) 331 lb (150 kg) SpO2 97% BMI43.67 kg/m Physical Exam Pleasant and cooperative. No acute distress. Normal eardrums and oropharynx. Nonicteric. No JVD adenopathy or thyroid lesions. No carotid bruits. Heart is slightly irregular without new murmurs. Lungs are clear. Abdomen obese without pain hepatosplenomegaly masses or bruits. Femoral pulses good. Modest bilateral thigh flexion weakness. Chronic right foot drop unchanged. Trace pretibial edema is stable. Posterior tibial pulses are adequate. No skin breakdowns documented in this [facility]09-10-2024 Evaluation + Plan note* Assessment & Plan Note - Ashleigh Tapia PA-C - 05/19/2024 8:47 AM EDTAssociated Problem(s): Anxiety associated with depression - Chronic and relatively stable was on sertraline in the past and did well on it had run out of it was unable to get it previously and was started on Celexa he is requesting to stop Celexa and go back to sertraline as he feels like his Celexa is not controlling his symptoms well enough. [facility] [id number] Miscellaneous Notes* Assessment & Plan Note - Ashleigh Tapia PA-C - 05/19/2024 8:47 AM EDTAssociated Problem(s): Anxiety associated with depression - Chronic and relatively stable was on sertraline in the past and did well on it had run out of it was unable to get it previously and was started on Celexa he is requesting to stop Celexa and go back to sertraline as he feels like his Celexa is not controlling his symptoms well enough. documented in this [facility]09-10-2024 History of Present illness Narrative* Ashleigh Tapia PA-C - 05/19/2024 8:20 AM EDT Images from the original note were not included. [facility] [address] [place] [address] [address] [facility] [address] Dept: [phone] Dept Loc: [phone] Visit type: Established Patient Reason for Visit: Facial Swelling (Jaw swelling ) Assessment and Plan 1. Dental abscess Comments: acute new issue, right lower #30 carrous and diseased Orders: - amoxicillin (Amoxil) 500 MG capsule; Take 1 capsule (500 mg) by mouth 3 times daily for 10 days.,Starting Sat05/19/2024, Until Sat05/29/2024, Normal - chlorhexidine (Peridex) 0.12 % solution; Use 15 mL in the mouth or throat 2 times daily for 4 days., Starting Sat05/19/2024, Until Sat05/23/2024, Normal - HYDROcodone-acetaminophen ([place]) 5-325 MG tablet; Take 1 tablet by mouth every 6 hours as neededfor severe pain (7-10) for up to 5 days., Starting Sat05/19/2024, Until Sat05/24/2024 at 2359, Normal 2. Anxiety associated with depression Assessment & Plan: - Chronic and relatively stable was on sertraline in the past and did well on it had run out of it was unable to get it previously and was started on Celexa he is requesting to stop Celexa and go back to sertraline as he feels like his Celexa is not controlling his symptoms well enough. Orders: - sertraline (Zoloft) 50 MG tablet; Take 1 tablet (50 mg) by mouth in the morning. Wants name Cici., Starting Sat05/19/2024, Normal Follow up if symptoms worsen or fail to improve, for Next scheduled follow-up. Subjective HPI this is a 73-year-old male with underlying history of restless leg syndrome, hypertension, hyperlipidemia and a history of atrial fibrillation on chronic Coumadin who contacted the [facility] yesterday for next day appointment evaluation for concerns of jaw pain. Patient states that he bit into an apple in his jaw swollen and having a hard time opening his mouth. He states it happened once before and he had antibiotics for to resolve. Had a fall about 6 years ago and hit back of head and somehow messed up his jaw and now if he eats wrong, or pulls at food ate a caramel apple this time. Started eating it last week some time and then suddenly started having pain and swelling to the right cheek, patient had full dental extraction on the upper he only has several teeth remaining on the bottom. He does have some generalized pain over the right lower dentition. He did state this morning he got up that the swelling does not seem as pronounced and he did have a bad taste in his mouth and felt like something was draining further some discharge in his mouth. Citalopram not work, states he was on sertraline the past and that seemed to work better he would like to go back on sertraline rather than the citalopram. Review of Systems Constitutional: Negative for chills and fever. HENT: Positive for facial swelling (Primarily right cheek with dental pain). Negative for sore throat and trouble swallowing. Respiratory: Negative for cough and shortness of breath. Cardiovascular: Negative for chest pain. Gastrointestinal: Negative for abdominal pain, diarrhea, nausea and vomiting. Neurological: Negative for dizziness and light-headedness. All other systems reviewed and are negative. Allergies Allergen Reactions Iodine Anaphylaxis and Rash Other Outpatient Medications Prior to Visit Medication Sig Dispense Refill acetaminophen (Tylenol) 160 MG/5ML suspension Take 650 mg by mouth. amLODIPine (Norvasc) 10 MG tablet TAKE 1 TABLET BY MOUTH DAILY 90 tablet 1 atorvastatin (Lipitor) 10 MG tablet TAKE 1 TABLET BY MOUTH DAILY 90 tablet 1 furosemide (Lasix) 40 MG tablet TAKE 1 TABLET BY MOUTH TWICE DAILY 180 tablet 1 gabapentin (Neurontin) 300 MG capsule TAKE 1 CAPSULE BY MOUTH DURING THE DAY NEEDED AND 2 CAPSULES AT BEDTIME DIRECTED methocarbamol (Robaxin) 500 MG tablet Take 500 mg by mouth. metoprolol tartrate (Lopressor) 50 MG tablet TAKE 1 TABLET BY MOUTH TWICE DAILY 180 tablet 1 potassium chloride CR (Klor-Con M20) 20 MEQ ER tablet Take 1 tablet by mouth 2 times daily. warfarin (Coumadin) 5 MG tablet Decrease to 5mg q day 90 tablet 1 citalopram (CeleXA) 10 MG tablet Take 1 tablet (10 mg) by mouth daily. 30 tablet 5 sertraline (Zoloft) 50 MG tablet Take 50 mg by mouth in the morning. Wants name brand Zoloft. No facility-administered medications prior to visit. Past Medical History: Diagnosis Date A-fib (CMS/HCC) (HCC) 2014 Dr. Vernon -nml ECHO, EF- ablation 03/25 [...] due 2025 History of cardiac radiofrequency ablation 2016 History of prostate cancer 2009 Madhuri/ Ramiro/ Brad---rads implant-PSA 08/29 Hypercholesteremia 2019 lipitor rx Knee osteoarthritis Lumbar spinal stenosis 2014 Or 12/[address] 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 Higginbotham, Neurologist Social History Tobacco Use Smoking status: Never Smokeless tobacco: Never Substance Use Topics Alcohol use: Yes Alcohol/week: 0.0 standard drinks of alcohol Past Surgical History: Procedure Laterality Date ABLATION OF DYSRHYTHMIC FOCUS 2017 Janeen CHOLECYSTECTOMY 1999 COLONOSCOPY 2010 COLONOSCOPY 2014 [...] No Known Problems Brother Gurinder Objective BP 120/60 Pulse 62 Temp 36.9 C (98.4 F) (Temporal) Ht 6' 1 (1.854 m) Wt (!) 329 lb 3.2 oz (149 kg) SpO2 95% BMI 43.43 kg/m Physical Exam Vitals reviewed. Constitutional: General: He is not in acute distress. Appearance: Normal appearance. He is obese. He is not ill-appearing or toxic-appearing. HENT: Right Ear: Tympanic membrane and ear canal normal. Left Ear: Tympanic membrane and ear canal normal. Mouth/Throat: Comments: Swelling was noted to the right buccal margin. He has tenderness over tooth remaining #30to percussion and palpation of the alveolar ridge in the gingival line. There is no signs of obvious purulent drainage or discharge at this time that is amenable to incision and drainage. Eyes: General: No scleral icterus. Conjunctiva/sclera: Conjunctivae normal. Pupils: Pupils are equal, round, and reactive to light. Cardiovascular: Rate and Rhythm: Normal rate and regular rhythm. Heart sounds: Normal heart sounds. Pulmonary: Effort: Pulmonary effort is normal. No respiratory distress. Breath sounds: Normal breath sounds. No wheezing or rales. Musculoskeletal: Cervical back: Normal range of motion and neck supple. Skin: General: Skin is warm and dry. Neurological: Mental Status: He is alert. Psychiatric: Mood and Affect: Mood normal. Data Reviewed and Summarized Labs: Imaging/Testing: Ashleigh Tapia PA-C 05/19/2024 Please note that portions of this note may have been completed with voice recognition software. Documentation reviewed prior to signing but minor errors in chef kitchen manager may have occurred. documented in this [facility]09-10-2024 Instructions* Patient Instructions* Ashleigh Tapia PA-C - 05/19/2024 8:[address] Rueda dentist. [address] [place] [address] documented in this [facility]05-28-2024 Telephone encounter Note* Telephone Encounter - Crista Thao MA - 02/04/2024 3:28 PM EDT Recent Visits Date Type Provider Dept 09/18/23 Office Visit DO Julia Mota Ser[facility]io 03/19/23 Office Visit DO Julia Mota [facility] Showing recent visits within past 365 days and meeting all other requirements Future Appointments Date Type Provider Dept 03/18/24 Appointment Ryan Canales DO [facility] Showing future appointments within next 90 days and meeting all other requirements Requested Prescriptions Pending Prescriptions Disp Refills atorvastatin (Lipitor) 10 MG tablet [Pharmacy Med Name: Atorvastatin Calcium 10 MG Oral Tablet] 90 tablet 3 Sig: TAKE 1 TABLET BY MOUTH DAILY metoprolol tartrate (Lopressor) 50 MG tablet [Pharmacy Med Name: Metoprolol Tartrate 50 MG Oral Tablet] 180 tablet 3 Sig: TAKE 1 TABLET BY MOUTH TWICE DAILY amLODIPine (Norvasc) 10 MG tablet [Pharmacy Med Name: amLODIPine Besylate 10 MG Oral Tablet] 90 tablet 3 Sig: TAKE 1 TABLET BY MOUTH DAILY sertraline (Zoloft) 50 MG tablet [Pharmacy Med Name: Sertraline HCl 50 MG Oral Tablet] 90 tablet 3 Sig: TAKE 1 TABLET BY MOUTH DAILY furosemide (Lasix) 40 MG tablet [Pharmacy Med Name: Furosemide 40 MG Oral Tablet] 180 tablet 3 Sig: TAKE 1 TABLET BY MOUTH TWICE DAILY Provider: Ryan Canales DO Verified pharmacy: yes Verified day(s) supplied: yes Verified refill(s) needed (previous prescription showing no refills in chart): Yes Have you received any controlled medications from any other provider? N/A Overdue for visit: No If yes - patient scheduled? Yes Most recent labs completed in chart? Yes Hypertension: Lab Results Component Value Date NA 139 09/21/2021 K 4.6 09/21/2021 EGFR 92 09/18/2023 BUN 12 09/18/2023 CREATININE 0.86 09/18/2023 [id number] Miscellaneous Notes* Telephone Encounter - Crista Thao MA - 02/04/2024 3:28 PM EDT Recent Visits Date Type Provider Dept 09/18/23 Office Visit Ryan Canales DO [facility] 03/19/23 Office Visit DO Julia Mota Showing recent visits within past 365 days and meeting all other requirements Future Appointments Date Type Provider Dept 03/18/24 Appointment Ryan Canales DO [facility] Showing future appointments within next 90 days and meeting all other requirements Requested Prescriptions Pending Prescriptions Disp Refills atorvastatin (Lipitor) 10 MG tablet [Pharmacy Med Name: Atorvastatin Calcium 10 MG Oral Tablet] 90 tablet 3 Sig: TAKE 1 TABLET BY MOUTH DAILY metoprolol tartrate (Lopressor) 50 MG tablet [Pharmacy Med Name: Metoprolol Tartrate 50 MG Oral Tablet] 180 tablet 3 Sig: TAKE 1 TABLET BY MOUTH TWICE DAILY amLODIPine (Norvasc) 10 MG tablet [Pharmacy Med Name: amLODIPine Besylate 10 MG Oral Tablet] 90 tablet 3 Sig: TAKE 1 TABLET BY MOUTH DAILY sertraline (Zoloft) 50 MG tablet [Pharmacy Med Name: Sertraline HCl 50 MG Oral Tablet] 90 tablet 3 Sig: TAKE 1 TABLET BY MOUTH DAILY furosemide (Lasix) 40 MG tablet [Pharmacy Med Name: Furosemide 40 MG Oral Tablet] 180 tablet 3 Sig: TAKE 1 TABLET BY MOUTH TWICE DAILY Provider: Ryan Canales DO Verified pharmacy: yes Verified day(s) supplied: yes Verified refill(s) needed (previous prescription showing no refills in chart): Yes Have you received any controlled medications from any other provider? N/A Overdue for visit: No If yes - patient scheduled? Yes Most recent labs completed in chart? Yes Hypertension: Lab Results Component Value Date NA 139 09/21/2021 K 4.6 09/21/2021 EGFR 92 09/18/2023 BUN 12 09/18/2023 CREATININE 0.86 09/18/2023 documented in this [facility]01-16-2024 Discharge summary Author Cleve An [facility] September 24, 2023 8:19pm Note Date/Time September 24, 2023 6 :13pm [facility] Medical Records Department [address] [place] [address] Emergency Department Summary 09/24/23 MR#: [id number] Acct: [id number] Name: LAMIN MOCTEZUMA Rep #:[id number] : 1950 72 From: Cleve An MD PCP: Dr. Ryan Canales DO Status:RE G ER Location: ED HPI History of Present Illness Chief Complaint: Lower Extremity Injury Narrative Narrative: 72-year-old male past medical history of hypertension obstructive sleep apnea, chronic low back pain, was at Dr. Rosa's office earlier today getting an injection into his back. When he was getting off the table, he fell and injuredhis left foot and ankle. He denies hitting his head or loss of consciousness. He states that while he was at the office he was having numbness of his bilateral lower extremities which resolved. After he had fallen, he did not want to come to the emergency department and get checked out, and went home instead. He has been using a walker but now has pain with weightbearing on his left foot and ankle. He denies other injury. He noticed bruising on the top ofhis left foot as well. He took an oxycodone which he usually takes for pain. He presents for evaluation of his left foot and ankle from falling off the tableat his pain management physician's office today. [facility] Medical History Closed L1 vertebral fracture Edema Essential hypertension History of left heart catheterization Hypokalemia intermediate (current) use of anticoagulants Obstructive sleep apnea Paroxysmal atrial fibrillation Vertigo Home Medications amlodipine 10 mg tablet 10 mg PO DAILY #90 tabs 02/19/15 [Rx Last Taken 05/10/16] furosemide 40 mg tablet 40 mg PO BID 08/23/17 [History Last Taken Unknown] atorvastatin 10 mg tablet 10 mg PO DAILY 07/13/20 [History Last Taken Unknown] gabapentin 300 mg capsule 300 mg PO .COMPLEX 07/13/20 [History Last Taken Unknown] metoprolol tartrate 50 mg tablet 50 mg PO BID 07/13/20 [History Last Taken Unknown] sertraline 50 mg tablet 50 mg PO DAILY 07/13/20 [History Last Taken Unknown] warfarin 5 mg tablet 5 mg PO .COMPLEX 90 days #180 tabs 10/23/22 [Rx Last Taken Unknown] potassium chloride 20 mEq tablet,extended release(part/cryst) 40 meq (2 x 20 mEq) PO QDAY #180 tabs 03/22/23 [Rx Last Taken Unknown] methocarbamol 500 mg tablet 500 mg PO 4X/DAY PRN PRN Muscle pain/spasm 10 days #40 tabs 09/14/23 [Rx Last Taken Unknown] oxycodone-acetaminophen 5 mg-325 mg tablet (Percocet) 1 tab PO Q6H PRN pain 3 days #12 tabs 09/14/23 [Rx Last Taken Unknown] Allergy/AdvReac Type Severity Reaction Status Date / Time iodine Allergy Intermediate rash Verified 09/24/23 17:51 Family History Father CAD (coronary artery disease) Mother Colon cancer Sister Atrial fibrillation Sleep apnea Sister Sleep apnea Hypertension Surgical History History of cholecystectomy History of lumbar surgery Status post catheter ablation of atrial fibrillation (~04/10/17) Social History Smoking Status: Never smoker alcohol intake: current alcohol intake frequency: holidays/special occasions only caffeine: Yes Type: coffee Number of servings: 1 ROS ROS ED ROS Narrative Constitutional: No fever, no chills. HEENT: No sore throat. No neck pain. No loss of vision. No rhinorrhea. Cardiovascular: No chest pain. No palpitations. No pedal edema. Respiratory: No cough, no shortness of breath. Abdominal: No abdominal pain. No nausea. No vomiting. Genitourinary: No dysuria. No hematuria. Musculoskeletal: No myalgias. Foot and ankle pain. Noted bruising on top of left foot at base of second and third toes Neurologic: No headaches. No dizziness. No lightheadedness. Skin: No rash. No change in color. Psychiatric: No depression. No anxiety. EXAM Physical Exam Narrative Exam Narrative: Afebrile. Vital signs noted. HEENT: Normocephalic. Atraumatic. PERRL, EOMI. Neck soft and supple. No pointtenderness or step off. Cardiovascular: Regular rate and rhythm. No murmurs, rubs, or gallops appreciated. Respiratory: No tachypnea. Lungs clear to auscultation bilaterally. Gastrointestinal: Abdomen soft, nontender, pes, with normoactive bowel sounds. No rebound or guarding. Neurological: Awake. Alert. Nonfocal, nonlateralizing. Skin: No rash. Normal color exception of noted ecchymosis and tenderness on dorsum of left foot at base of second and third toes mainly. Capillary refill of toes left foot. No pallor. Musculoskeletal: No pedal edema. Full range of motion extremities. Extension left knee intact. No proximal fibular tenderness. Mild tenderness to palpationdiffusely left ankle, mainly left lateral malleolus. No crepitance. Const Vital Signs: 09/24/23 17:51 Temperature 97.2 F L Temperature Source Temporal Pulse Rate 92 Respiratory Rate 18 Blood Pressure 184/86 H Blood Pressure Mean 118 Pulse Ox 97 Oxygen Delivery Method Room Air MDM MDM MDM Narrative Medical decision making narrative: Concern is for foot fracture versus fracture of foot and ankle sprain versus fracture. Patient has already taken his analgesic here and declines ice pack. X- rays were obtained of the left ankle and left foot and 3 views each and interpreted by myself independently. My interpretation of his left ankle x-ray shows oblique fracture/Stubbs B type of the distal fibula with a tiny avulsion fracture of the inferior aspect of the medial malleolus of the tibia. My interpretation of his foot x-ray shows proximal metatarsal fractures of numbers 2 and 4. At this point in time, I advised him to probably hold his Coumadin cindy extra day until advised by podiatry. I discussed patient with Dr. Herrera who is on-call. He would like him placed in a posterior and stirrup type splintof the left lower extremity and he will see him tomorrow. Patient is continuingice and elevation at home and nonweightbearing on his left lower extremity. He has a walker at home. He will call his pain management doctor to see if there needs to be an increase in his narcotic pain medication. I feel he can be discharged safely home with follow-up to podiatry. Return instructions to the emergency department were reviewed. Disposition is discharged home in stable condition. History & Record Review Discussion w/independent historian: Patient and Family Additional record(s) reviewed:: Prior ED visit Radiography Diagnostic Testing: Clinical Impression(s) from Imaging Studies Ankle X-Ray 09/24/23 18:15 IMPRESSION: 1. Slightly laterally displaced spiral fracture of the distal shaft of the fibula proximal to the tibial plafond with lateral soft tissue swelling. 2. Tiny avulsion fracture the inferior aspect of the medial malleolus the tibia. Electronically Signed: Hue Ramos MD at 19:04 EST , Foot X-Ray 09/24/23 18:15 IMPRESSION: Acute nondisplaced fractures of the base of the second and fourth metatarsal bones. CT or MRI may be useful. Electronically Signed: Hue Ramos MD at 19:03 EST , Discharge Plan Triage Chief Complaint: Lower Extremity Injury ED Provider: Cleve An Dx/Rx/DC Orders Clinical Impression: Fracture of left foot, Fall, Fracture of ankle, left, closed Instructions: ED Ankle Fracture, ED Fracture, Foot Prescriptions: No Action metoprolol tartrate 50 mg tablet 50 mg PO BID sertraline 50 mg tablet 50 mg PO DAILY atorvastatin 10 mg tablet 10 mg PO DAILY amlodipine 10 MG tablet 10 mg PO DAILY Qty: 90 0RF Patient Comments: blood pressure gabapentin 300 mg capsule 300 mg PO .COMPLEX Patient Comments: 300 mg PO twice daily AND 2-3 capsules at bedtime Rx Instructions: 300 mg PO 2-3 capsules at bedtime; furosemide 40 MG tablet 40 mg PO BID oxycodone-acetaminophen [Percocet] 5-325 mg tablet 1 tab PO Q6H PRN (Reason: pain) 3 Days Qty: 12 0RF methocarbamol 500 mg tablet 500 mg PO 4X/DAY PRN PRN (Reason: Muscle pain/spasm) 10 Days Qty: 40 0RF warfarin 5 mg tablet 5 mg PO .COMPLEX 90 Days Qty: 180 3RF Protocol: Dose Management Condition: Saturday Dose/Route: 5 mg Instruction: 1 x 5 mg tablet Condition: Saturday Dose/Route: 5 mg Instruction: 1 x 5 mg tablet Condition: Saturday Dose/Route: 7.5 mg Instruction: 1.5 x 5 mg tablets Condition: Saturday Dose/Route: 7.5 mg Instruction: 1.5 x 5 mg tablets Condition: Dose/Route: 7.5 mg Instruction: 1.5 x 5 mg tablets Condition: Saturday Dose/Route: 5 mg Instruction: 1 x 5 mg tablet Condition: Saturday Dose/Route: 5 mg Instruction: 1 x 5 mg tablet Protocol Text: Adjustment Start Date: Saturday06/25/23 INR Value: 2.9 INR Date: 10/17/23 Recheck Date: 07/25/23 Rx Instructions: 5 mg PO 1.5 tablets daily to = 7.5mg, except on Saturday take 1 tablet only, or otherwise as directed potassium chloride 20 mEq tablet,ER particles/crystals 40 meq PO QDAY Qty: 180 3RF Primary Care Provider: Ryan Canales Referrals: Ej Herrera DPM [Med Staff - Active Staff] - 1 Day Ryan Canales DO [Primary Care Provider] - Activity Restrictions/Additional Instructions: Continue ice and elevation of your left foot at home. I would hold your Coumadin an extra day given that you have fractures currently. Restart when advised by Dr. Herrera. Call his office tomorrow to be seen. Continue your oxycodone as prescribed by Dr. Vela. You may need to call them and have him increase your narcotic pain medication. Do not weight-bear on your left lower extremity/leg. Use a walker. Disposition Disposition: Home, Self Care Capacity Legal Material Man Reflex Medical hold order details:: IF a medical hold is selected below, a suggested order for a MEDICAL HOLD will reflex upon signing the document. Next of kin: [place] law dictates a PRIORITY LIST for identifying legal decision-maker/legal next of kin in the following order (LNOK): 1st: The patient?s legal guardian, if any 2nd: The patient's spouse (if status is questionable, consult Risk Management) 3rd: The patient?s adult child(john) (majority, if multiple children) 4th: The patient?s parents 5th: The patient?s adult siblings (majority, if multiple children siblings) What to do if you have Problems For any increased pain, shortness of breath, bleeding, nausea or vomiting, chestpain, or any unexpected problems, contact your Primary Care Provider. Call [facility] ([phone]) or report to the closest Emergency Room. Call 911 if necessary. 09/24/232018 <Electronically signed by Cleve An MD> Parul Signature (if applicable): CC: Dr. Ryan Canales DO ~ Signed [facility] Work Phone: [phone]) 752-134101-10-2024 Telephone encounter Note* Telephone Encounter - Jennifer Brandon - 09/18/2023 1:36 PM EST Orders pended for doctor signature [facility] [id number] Miscellaneous Notes* Telephone Encounter - Jennifer Brandon - 09/18/2023 1:36 PM EST Orders pended for doctor signature documented in this encounterSUpper [facility] Medical [id number] History of Present illness Narrative* Ryan Canales, DO - 09/18/2023 1:00 PM EST Images from the original note were not included. [facility] [address] [place] [address] [address] [facility] [id number] Visit type: Established Patient Reason for Visit: Follow-up (6 month med check) and Back Pain (And muscle spasms ) Assessment / Plan: Lamin was seen today for follow-up and back [...] treatment and workup options. Subjective: Patient ID: Lamin Moctezuma is a 72 y.o. male. HPI hypertension patient with history of atrial fibrillation and severe lumbar spinal stenosis withchronic right foot drop presents with acute upper [...] was referred to a spine surgeon in [place] but his does not know the name. He was a part into his previous aerodynamic consultant Dr. Dotson. Of note history of prostate cancer but his PSAs have been very well. No sense of palpitations cough or congestion. No dysuria or hematuria. INR is being followed by cardiology. No recent change in his meds. He does feel Zoloft is helpful for anxiety depression. 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 No skin breakdowns documented in this [facility]12-27-2023 Telephone encounter Note* Telephone Encounter - Liliane Mullen MA - 09/04/2023 3:15 PM EST Sammi would like to know if Dr. Canales would be able to prescribe Patient something for back pain as they are moving and Patient has been lifting and they are in pain. Sammi declined nurse triage. Please advise. Rx loaded [facility] [id number] Miscellaneous Notes* Telephone Encounter - Liliane Mullen MA - 09/04/2023 3:15 PM EST Sammi would like to know if Dr. Canales would be able to prescribe Patient something for back pain as they are moving and Patient has been lifting and they are in pain. Sammi declined nurse triage. Please advise. Rx loaded * Telephone Encounter - Evi Wolf - 09/04/2023 2:39 PM EST Ordering provider: Dr. Canales Date of last [...] nurse triage. Please advise. documented in this [facility]12-27-2023 Telephone encounter Note* Telephone Encounter - Evi Wolf - 09/04/2023 2:39 PM EST Ordering provider: Dr. Canales Date of last [...] pain. Sammi declined nurse triage. Please advise. [facility] [id number] History of Present illness Narrative* Ryan Canales, DO - 03/19/2023 12:30 PM EDT Images from the original note were not included. [facility] [id number] Visit type: Established Patient Reason for Visit: Follow-up (6 month med check) Assessment / Plan: Lamin was seen today for follow-up. Diagnoses and [...] daily for 180 doses. Subjective: Patient ID: Lamin Moctezuma is a 72 y.o. male. HPI [...] at home. No chest pain palpitations PND orthopneaor change in mild leg edema. No heartburn or dysphagia. No melena or blood. No dysuria or hematuria. No change in chronic low back pain and right foot weakness. On gabapentin for pain management. Hadadverse effects with urinary incontinence with most recent [...] cardiology and urology notes. documented in this [facility]07-11-2023 Instructions* Patient Instructions* Ryan Canales DO - 03/19/2023 12:30 PM EDT Call Urologist for checkup if bloody urine recurs again documented in this [facility]05-30-2023 History of Present illness Narrative* Ashleigh Tapia PA-C - 02/05/2023 10:40 AM EDT Images from the original note were not included. [address] [address] Dept: [phone] Dept Loc: [phone] Visit type: Established Patient Reason for Visit: [...] on chronic anticoagulation (Coumadin) who contacted the [facility] 5 days ago for sensation of heart fluttering as well as blood in his urine. Symptoms started Eben, states he was having someneck pain so he used a vibrating massaging [...] level was 3 weeks ago, 2.2, at [facility], No current urinary symptoms, denies any frequency urgency or burning with urination. He did state he occasionally getssome abdominal pain around the umbilicus but is not currently experiencing any abdominal pain he isscheduled to see his urologist on the of [...] information states she was concerned given his h istory of prostate cancer with sudden onset of [...] History of prostate cancer 2009 Madhuri/ Ramiro/ Brad---rads implant-PSA 08/29 Hypercholesteremia 06/2019 lipitor rx Knee osteoarthritis Lumbar spinal stenosis 2014 Or 12/[address] 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 Higginbotham, Neurologist Social History Tobacco Use Smoking status: Never Smokeless tobacco: Never Substance Use Topics Alcohol use: Yes Alcohol/week: 0.0 standard drinks Past Surgical History: Procedure Laterality Date ABLATION OF DYSRHYTHMIC FOCUS 03/2017 Janeen CHOLECYSTECTOMY 2000 COLONOSCOPY 2010 COLONOSCOPY 2014 LGI bleed w/u [...] He is obese. He is not ill-appearing, toxic- appearing or diaphoretic. Eyes: General: No scleral icterus. 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 documented in this [facility]05-30-2023 Instructions* Patient Instructions* Ashleigh Tapia PA-C - 02/05/2023 10:40 AM [...] to get it scheduled. Their number is [phone]. documented in this [facility]01-11-2023 Telephone encounter Note* Telephone Encounter - June Aggarwal LPN - 09/19/2022 8:06 AM EST Rx needed to be corrected, [id number] Miscellaneous Notes* Telephone Encounter - June Aggarwal LPN - 09/19/2022 8:06 AM EST Rx needed to be corrected, Rx loaded documented in this [facility]01-10-2023 Telephone encounter Note* Telephone Encounter - Comfort Vela RN - 09/18/2022 3:32 PM EST [facility] [id number] Miscellaneous Notes* Telephone Encounter - Comfort Vela RN - 09/18/2022 3:32 PM EST Rx loaded * Telephone Encounter - Loco Romeo - 09/18/2022 3:16 PM EST Name of caller: Sammi Contact phone number: [phone] Relationship to Patient: Provider: Dr Canales Practice: [facility] Chief Complaint/Reason for Call: Caller stated that pharmacy [facility] informed her that they did not receive the prescription for: metoprolol succinate XL (Toprol-XL) 50 MG sent on 09/11/22. Please advise Best time of day caller can be reached: Any Patient advised that office/PCP has 24-48 business hours to return their call: Yes [facility] [id number] Telephone encounter Note* Telephone Encounter - Loco Romeo - 09/18/2022 3:16 PM EST Name of caller: Sammi Contact phone number: [phone] Relationship to Patient: Provider: Dr Canales Practice: [facility] Chief Complaint/Reason for Call: Caller stated that pharmacy [facility] informed her that they did not receive the prescription for: metoprolol succinate XL (Toprol-XL) 50 MG sent on 09/11/22. Please advise Best time of day caller can be reached: Any Patient advised that office/PCP has 24-48 business hours to return their call: Yes [facility] [id number] History of Present illness Narrative* Ryan Canales, - 09/18/2022 12:20 PM EST Images from the original note were not included. [facility] [address] [place] [address] [phone] Visit type: Established Patient Reason for Visit: Follow-up (6 month) Subjective: Patient ID: Lamin Moctezuma is a 71 y.o. male. HPI hypertensive obese non-smoker with history of atrial fibrillation presents for checkup on hypertension meds, Lipitor and Zoloft. Has been feeling well. No recent arrhythmia exacerbation heart failure or edema. Feels well on meds. Needs a refill for some anti-itch cream for his itchy spots on his legs. Review of Systems denies recent earache sore throat or cough. No chest pain or palpitations. No PNDorthopnea claudication or change in mild leg edema. Has scaly lesions on his legs that are itchy. Not indurated or painful. Has good appetite. Weight has been stable. Difficult losing weight due to his back pain and right foot drop. Colonoscopy up-to-date. Due in 3 more years No heartburn or dysphagia. No melena or blood. History of prostate cancer and due for PSA in February. His levels have been very low over the last 12 years. Chronic low back pain and neuropathy treated with gabapentin per pain management. Allergies Allergen Reactions Iodine Anaphylaxis Current Outpatient Medications on File Prior to [...] mg) by mouth daily. 90 tablet 1 warfarin (Coumadin) 5 MG tablet TAKE 1 & 1/2 (ONE & ONE-HALF) TABLETS BY MOUTH ONCE DAILY AND 1 TABLET ON SATURDAY DIRECTED [DISCONTINUED] metoprolol succinate XL (Toprol-XL) 50 MG 24 hr tablet One BID Strength: 50 mg 90 tablet 1 No current facility-administered medications on file prior to visit. Patient Active Problem List Diagnosis Family history of prostate cancer in father Family history of colon cancer in mother RLS (restless legs syndrome) History of atrial fibrillation Morbid obesity (CMS/HCC) (HCC) Acquired right foot drop Knee osteoarthritis History of prostate cancer Anxiety associated with depression Allergic rhinitis Hypertension ED (erectile dysfunction) Radiation proctitis JONATHAN on CPAP Fatty liver Lumbar degenerative disc disease Anticoagulant long-term use Social History Tobacco Use Smoking status: Never [...] No Known Problems Brother Gurinder Objective: BP 136/70 (BP Location: Left arm, Patient Position: Sitting, BP Cuff Size: Large adult) Pulse 64 Temp 36.5 C (97.7 F) (Temporal) Ht 6' 1 (1.854 m) Wt (!) 350 lb (159 kg) SpO2 96% BMI 46.18 kg/m Physical Exam alert cooperative. Blood pressure excellent. Normal oropharynx and eardrums. No JVD adenopathy or carotid bruits. No neck or thyroid masses. Heart is regular with occasional ectopic. No new murmurs. Lungs are clear. Abdomen hugely obese without pain hepatosplenomegaly masses or bruits. No ascites. Femoral pulses are fair. Trace pretibial edema. Some scaly dry spots but no worrisome lesions. Pulses are fair. He is a right chronic foot drop. Remaining motor exam of his legs is normal. He is alert and pleasant. Good insight and eye contact. He is well-groomed Assessment / Plan: Lamin was seen today for follow-up. Diagnoses and all orders for this visit: Primary hypertension (Primary) Comments: Stable, continue Norvasc and metoprolol Orders: - CBC auto differential; Future - Comprehensive metabolic panel; Future - CBC auto differential - Comprehensive metabolic panel Lumbar degenerative disc disease History of atrial fibrillation Comments: Stable, continue Coumadin indefinitely Hypercholesteremia Comments: Stable, continue Lipitor check labs soon Orders: - Lipid panel; Future - Lipid panel History of prostate cancer Anxiety associated with depression Comments: Stable, continue sertraline Dry skin dermatitis Other orders - triamcinolone (Kenalog) 0.1 % cream; Apply to affected area 1-2 times daily as needed. Avoid faceand groin. Of note refills were made on Norvasc, Lipitor, Lasix, and Zoloft and metoprolol after the patient was called and prescriptions confirmed documented in this [facility]11-15-2021 Evaluation + Plan note Extracted from: Title:Clinical Document Author:AKOSUAVÍCTOR Jena Handley Date:07/24/21 WACONIA ADMISSION HISTORY A ND PHYSICIAL CHIEF COMPLAINT: HISTORY OF PRESENT ILLNESS: REVIEW OF SYSTEMS: ACTIVE PROBLEMS: (3) Prostate ca ([id number]) Rectal bleeding ([id number]) Sleep apnea ([id number]) MEDICATIONS: Active Inpt Meds: None Active PRN Meds: None One Time Meds: None Active IV Meds: Lactated Ringers Infusion 1,000 mL (LR 1,000 mL) Start: 07/24/21 9:08:00 EST, Rate: 50 mL/hr ALLERGIES: (1) iodine topical FAMILY HISTORY: SOCIAL HISTORY: PHYSICAL EXAM: VITALS: CwadbpFhauKEFshsdCYIxC2TRS9XdojDx(kg) 07/24 09:[id number]/[id number] 24 Hr Tmax: 36.8 at 07/24 09:03 [...] changes to the H&P unless noted below. [facility] 11-15-2021 Hospital Discharge instructions Patient Education 07/24/2021 [...] before eating solid foods. General instructions Take xbut-pau-lcwtgxa and prescription medicines only as told by [...] 12/16/2016 Document Revised: 11/24/2018 Document Reviewed: 12/16/2016 Drawn to Scale Patient Education 2020 [employer]. 07/24/2021 10:21:48 Flexible Sigmoidoscopy, Care After Flexible [...] biopsy. Follow these instructions at home: Take krco-enz-ulyygis and prescription medicines only as told by [...] 08/31/2014 Document Revised: 04/18/2017 Document Reviewed: 11/24/2016 Drawn to Scale Patient Education 2020 [employer]. 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 Work Phone: Evaluation noteNo assessment information available [facility] Work Phone: Evaluation note* Diagnosis Onset Date Resolution Status Spinal stenosis of lumbar region acute Status post laminectomy acut e 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 Work Phone: evaluation note* Diagnosis Primary hypertension- Primary Unspecified essential hypertension Chronic diastolic (congestive) heart failure (HCC) Morbid obesity (HCC) Morbid obesity Anxiety associated with depression Dysthymic disorder Hypercholesteremia Pure hypercholesterolemia History of hematuria Personal history of other disorder of urinary system [facility]* Diagnosis Compression fracture of L1 vertebra with routine healing, subsequent encounter [facility]* Diagnosis Compression fracture of L1 vertebra with routine healing, subsequent encounter- Primary Hypercholesteremia Pure hypercholesterolemia Primary hypertension Unspecified essential hypertension History of atrial fibrillation Personal history of other diseases of circulatory system Anxiety associated with depression Dysthymic disorder RLS (restless legs syndrome) Restless legs syndrome (RLS) [facility]* Diagnosis Dental abscess- Primary Periapical abscess without sinus Anxiety associated with depression Dysthymic disorder [facility]* Diagnosis Anxiety associated with depression Dysthymic disorder [facility]* Diagnosis Primary hypertension- Primary Unspecified essential hypertension Anxiety associated with depression Dysthymic disorder History of prostate cancer Personal history of malignant neoplasm of prostate Acquired right foot drop History of atrial fibrillation Personal history of other diseases of circulatory system Anticoagulant long-term use Encounter for long-term (current) use of anticoagulants Hypercholesterolemia Pure hypercholesterolemia [facility]* Diagnosis Dental abscess- Primary Periapical abscess without sinus Anxiety associated with depression Dysthymic disorder Anxiety associated with depression Dysthymic disorder [facility]* Diagnosis Primary hypertension- Primary Unspecified essential hypertension Lumbar degenerative disc disease History of atrial fibrillation Personal history of other diseases of circulatory system Hypercholesteremia Pure hypercholesterolemia History of prostate cancer Personal history of malignant neoplasm of prostate Anxiety associated with depression Dysthymic disorder Dry skin dermatitis Contact dermatitis and other eczema due to other specified agent [facility] this [facility]* Diagnosis Dental abscess- Primary Periapical abscess without sinus Anxiety associated with depression Dysthymic disorder Primary hypertension- Primary Unspecified essential hypertension Anxiety associated with depression Dysthymic disorder History of prostate cancer Personal history of malignant neoplasm of prostate Acquired right foot drop History of atrial fibrillation Personal history of other diseases of circulatory system Anticoagulant long-term use Encounter for long-term (current) use of anticoagulants Hypercholesterolemia Pure hypercholesterolemia documented in this encounter [facility]* Diagnosis Dental abscess- Primary Periapical abscess without sinus Anxiety associated with depression Dysthymic disorder COVID-19- Primary documented in this encounter [facility]* Diagnosis Dental abscess- Primary Periapical abscess without sinus Anxiety associated with depression Dysthymic disorder Primary hypertension- Primary Unspecified essential hypertension Anxiety associated with depression Dysthymic disorder History of atrial fibrillation Personal history of other diseases of circulatory system Degeneration of intervertebral disc of lumbar region, unspecified whether pain present Anticoagulant long-term use Encounter for long-term (current) use of anticoagulants Hypercholesterolemia Pure hypercholesterolemia Bilateral primary osteoarthritis of knee documented in this encounter [facility] note* Diagnosis Dental abscess- Primary Periapical abscess without sinus Anxiety associated with depression Dysthymic disorder Bilateral primary osteoarthritis of knee- Primary documented in this encounter [facility] note* Diagnosis Onset Date Resolution Status Admit Date Dyslipidemia chronic February 09 12:52pm Dyspnea on exertion chronic February 09, 2025 12:52pm Essential hypertension chronic Ju 2024 12:52pm 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 Work Phone: Evaluation note* Diagnosis Dental abscess- Primary Periapical abscess without sinus Anxiety associated with depression Dysthymic disorder Anxiety associated with depression Dysthymic disorder documented in this encounter [facility] course Narrative No data available for this section [facility] Hospital Discharge instructions* Instructions* Kerry Guerrero MD - 04/14/2021 Decrease metoprolol XL to 50 mg daily * Attachments The following attachments cannot be sent through Care Everywhere. * Head Injury: Closed: General Info (Czech) documented in this [facility] Work Phone: Hospital Discharge instructions Additional Instructions Your CAT scans of the thoracic and lumbar spine showed chronic degeneration and spinal stenosis along with an L1 compression fracture which appears old in nature. Please take the prescribed medication as directed as well as your normal home medication to help control symptoms. Please follow-up with your family doctor and/or orthopedics for repeat evaluation and return to the ER should you have any further concerns.[facility] Work Phone: Hospital Discharge instructions Additional Instructions Continue ice and elevation of your left foot at home. I would hold your Coumadin an extra day given that you have fractures currently. Restart when advised by Dr. Herrera. Call his office tomorrow to be seen. Continue your oxycodone as prescribed by Dr. Vela. You may need to call them and have him increase your narcotic pain medication. Do not weight-bear on your left lower extremity/leg. Use a walker.[facility] Work Phone: Progress note Author Kenroy Barney [facility] Note Date/Time February 09, 2025 1:22p m [facility] [address] [place] [address]. [address] [place] [address] OFFICE VISIT Date of Service: 02/09/25 MR#: [id number] Acct: [id number] Name: LAMIN MOCTEZUMA Rep #: [id number] : 1950 Provider: Dr. Obie Barney MD Age/Sex: 74/M [facility] Status: Signed HPI HPI History of Present Illness Details: This gentleman with history of atrial fibrillation, status post A-fib ablation, hypertension, dyslipidemia and morbid obesity is here for follow-up visit. Denies any chest pains either at rest or with exertion. He does complain of shortness of breath with moderate to strenuous exertion. Denies any palpitations. No orthopnea or PND. Denies ankle edema. Intake Vital Signs 07/28/24 08:34 02/09/25 07:36 Height 6 ft 1 in 6 ft 1 in Weight: 336 lb BMI 44.3 BP 144/77 H Blood Pressure Location Lt brachial Position Sitting Respiration 18 Pulse 52 L Pulse Source NIBP Intake Visit Reasons: 6 M FU Teletypist Required: No Accompanied by: Self Is patient in pain?: No Allergies iodine Allergy (Intermediate, Verified 02/09/25 12:51) rash Medications ?Medication ?Instructions ?Recorded ?Confirmed ?Type amlodipine 10 mg tablet 10 mg PO DAILY #90 tabs 02/0702/09/25 Rx furosemide 40 mg tablet 40 mg PO BID 08/23/17 History atorvastatin 10 mg tablet 10 mg PO DAILY 07/13/2012/01 History gabapentin 300 mg capsule 300 mg PO .COMPLEX 07/13/20 02/09/25 History metoprolol tartrate 50 mg tablet 50 mg PO BID 07/13/20 02/09/25 History sertraline 50 mg tablet 50 mg PO DAILY 07/13/2012/01 History potassium chloride 20 mEq 40 meq (2 x 20 mEq) PO QDAY #180 07/28/24 02/09/25 Rx tablet,extended release(part/cryst) tabs warfarin 5 mg tablet 5 mg PO DAILY #90 TABLETS 02/09/25 Rx Ejection fraction %: 65 Have you fallen in the past year?: No PFSH Medical History Closed L1 vertebral fracture Edema Essential hypertension History of left heart catheterization 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 Obstructive sleep apnea Paroxysmal atrial fibrillation Vertigo Surgical History History of cholecystectomy History of lumbar surgery Status post catheter ablation of atrial fibrillation (~04/10/17) Family History Father CAD (coronary artery disease) Mother Colon cancer Sister Atrial fibrillation Sleep apnea Sister Sleep apnea Hypertension Social History Smoking Status: Never smoker alcohol intake: current alcohol intake frequency: holidays/special occasions only caffeine: Yes Type: coffee Number of servings: 1 ROS Const Const: Negative for fatigue, weakness, headache(s) or weight gain ENT ENT: Positive for balance problems (drop foot per pt RLE; knee problems LLE); Negative for headache(s), dizziness or Nosebleed/epistaxis Cardio Chest Pain: No Palpitations: No Edema: None Muscle aches with walking: None Resp Respiratory: Positive for SOB with activity; Negative for SOB at rest or SOB orthopneaundefinedSOB lying down GI GI: Negative nausea, vomiting or heartburn Musc Musc: Positive for balance problems (drop foot per pt RLE; knee problems LLE); Negative for muscle aches/ myalgia, muscle weakness or joint pain Neuro Neuro: Negative for dizziness, lightheadedness, near syncope, syncope, headache(s) or weakness Endo Endo: Negative for fatigue Cardiology Exam Const Appearance: comfortable and no acute distress Nutritional Appearance: obese Neck Neck: no JVD Carotids: Negative bruit Chest Auscultation: Bilateral: Clear to Auscultation Cardio Rate: regular rate Rhythm: regular rhythm Heart sounds: S1 normal and S2 normal 2/6 systolic murmur at base. GI GI: obese Neuro General: patient alert, patient awake and patient oriented x3 Extremities Lower Extremity Edema: Trace: Bilateral Supplemental Info Supplemental Information Echo Complete w/ Contrast 09/07/2024: Interpretation Summary Moderate concentric left ventricular hypertrophy. The left ventricular ejection fraction is 65 %. Stage 1 diastolic dysfunction. The left atrium is moderately enlarged. Mild mitral annular calcification. The study was technically difficult. Transthoracic Echocardiogram: 02/19/2015: Interpretation Summary Normal LV size. Left ventricular systolic function is normal. The estimated ejection fraction is 60 %. The study was technically limited. The study was technically difficult. Contrastinjection was performed. Cardiac Catheterization 11/24/2015: CONCLUSION: 1. Angiographically normal left main coronary artery. 2. Left anterior descending artery, which demonstrates no significant stenosis. 3. Left circumflex artery with no high-grade stenosis. 4. Dominant right coronary artery with no high-grade stenosis. 5. Preserved ejection fraction. Assessment and Plan Assessment and Plan (1) History of atrial fibrillation: Status: Resolved Plan: Patient has had A-fib ablation done in 2017. Maintaining sinus rhythm. His CHADS2?VASc score is 2. Recommend continuing anticoagulation. Patient in agreement. Warfarin management as per PCP. 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 (3) Essential hypertension: Status: Chronic Plan: Blood pressure mildly above goal. Continue amlodipine, furosemide and metoprolol. Add valsartan. (4) Dyslipidemia: Status: Chronic Plan: Atorvastatin. PCP following. (5) Morbid obesity with BMI of 40.0-44.9, adult: Status: Chronic Plan: Lose weight. (6) Dyspnea on exertion: Status: Chronic Plan: I believe it is mostly because of his morbid obesity and deconditioning. However given his risk factors, will check a Lexiscan stress Myoview to rule outischemia. 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 Ryan Canales, ~ [facility] [employer] Work Phone: Reason for referral (narrative)* Consultation (Urgent) - Pending Review Specialty Diagnoses / Procedures Referred By Jossy t Referred To Contact Orthopedic Surgery Diagnoses Compression fracture of L1 vertebra with routine healing, subsequent encounter Procedures PA OFFICE/OUTPATIENT NEW HIGH MDM 60 MINUTES Ryan Canales DO [address] [place] [address] Jose Dotson [address] [place] [address] Referral ID Status Reason Start Date Expiration Date Visits Requested Visits Authorized [id number] Pending Review Specialty Services Required 09/18/2023 09/17/2024 1 1 [facility] for referral (narrative)No reason for referral information availableWSelect [facility] [place] Work Phone: Summary Purpose Family History No Family History Records Found Relationship Condition Age at Onset Recorded Date/T merissa father Coronary artery disease Unknown mother Malignant neoplasm of colon Unknown sister Atrial fibrillation Unknown Sleep apnea Unknown sister Sleep apnea Unknown Hypertension Unknown Advance Directives No Advanced Directives Records FoundDocuments on File Type Date Recorded Patient Material Man Expl anation ACP-Advance Directive ACP-Power of Rn Emergency Room Advance Directive Response Recorded Date/ Time Advance Directives Yes November 22 12:08am Living Will No May 10 7:43am Power of Rn Emergency Room Yes May 10, 2016 7:43am Advance Directive Response Recorded Date/ Time Advance Directives Yes November 22 12:08am Living Will No March 06, 2022 4:27pm Power of Rn Emergency Room No March 06 4:27pm Advance Directive Response Recorded Date/ Time Advance Directives Yes November 21 11:08pm Living Will No March 06, 2022 3:27pm Power of Rn Emergency Room No March 06 3:27pm Advance Directive Response Recorded Date/ Time Advance Directives Yes November 21 11:08pm Living Will No September 14 1:40am Power of Rn Emergency Room No September 14 1:40am Advance Directive Response Recorded Date/ Time Advance Directives Yes November 21 11:08pm Living Will No September 24 6:12pm Power of Rn Emergency Room No September 24, 2023 6:12pm Advance Directive Response Recorded Date/ Time Advance Directives Yes November 22 12:08am Living Will No September 24 7:12pm Power of Rn Emergency Room No September 24, 2023 7:12pm Advance Directive Response Recorded Date/ Time Living Will No September 09 5:46am Do you have a Healthcare Power of Rn Emergency Room? No September 09, 2024 5:46am Advance Directives Yes November 22 12:08am Advance Directive Response Recorded Date/ Time Living Will No February 07, 2025 7 :12pm Do you have a Healthcare Power of Rn Emergency Room? No February 07, 2025 7:12pm Living Will No September 09 5:46am Do you have a Healthcare Power of Rn Emergency Room? 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 Status post catheter ablation of atrial fibrillation Chief Complaint 10 m fu S/O S/O flank pain Reason for Visit CHF (congestive hear t failure) Paroxysmal atrial fibrillation Essential hypertension intermediate (current) use of anticoagulants Status post catheter ablation of atrial fibrillation Chief Complaint S/O flank pain S/O Chief Complaint flank pain S/O S/O Radiculopathy, lumbar region Chief Complaint S/O S/O Radiculopathy, lumbar region S/O LUMBER SPINE Rm 6 xray Reason for Visit Spinal stenosis of l umbar region Status post laminectomy Chief Complaint Radiculopathy, lumba r region S/O LUMBER SPINE Rm 6 xray Amb Documentation S/O Reason for Visit Spinal stenosis of l umbar region Status post laminectomy Chief Complaint LUMBER SPINE Rm 6 xray Amb Documentation S/O S/O Reason for Visit Spinal stenosis of l umbar region Status post laminectomy Chief Complaint S/O S/O Chief Complaint S/O 1 y fu PREV PFM PT S/O Reason for Visit Paroxysmal atrial fi brillation CHF (congestive heart failure) 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 Chief Complaint S/O back pain Chief Complaint S/O back pain LUMBAR SPINE room 1 ankle injury Reason for Visit Spinal stenosis of l umbar region Status post laminectomy Chief Complaint back pain LUMBAR SPINE room 1 ankle injury I480 Reason for Visit Spinal stenosis of l umbar region Status post laminectomy Chief Complaint back pain LUMBAR SPINE room 1 ankle injury I480 I480 Reason for Visit Spinal stenosis of l umbar region Status post laminectomy Chief Complaint Admit Date S/O January 14, 2025 12:30p m Chief Complaint Admit Date S/O January 14, 2025 12:30p m 6 M FU February 09, 2025 12:52 pm Reason for Visit Admit Date Dyslipidemia February 09, 2025 12:52 pm Dyspnea on exertion February 09, 2025 12:52 pm Essential hypertension February 09, 2025 12 :52pm intermediate (current) use of anticoagulant s February 09, 2025 12:52pm Morbid obesity with BMI of 40.0-44.9, ad ult February 09, 2025 12:52pm History of atrial fibrillation February 09, 2025 12:52pm Chief Complaint Admit Date S/O January 14, 2025 12:30p m 6 M FU February 09, 2025 12:52 pm S/O-ADDITL ORDER 06.10.25 February 16, 2025 2:21pm Additional Source Comments (unrecognized sect ion and content) No Status Records FoundNo Status Records FoundNo Status Records FoundNo Status Records FoundNo Status Records FoundNo Status Records FoundNo Status Records FoundNo Status Records Found INFORMATION SOURCE (unrecogn ized section and content) DATE CREATED AUTHOR 02/25/2018 [facility] DATE CREATED AUTHOR AUTHOR'S ORGANIZ ATION 03/05/[address] [facility] DATE CREATED AUTHOR AUTHOR'S ORGANIZ ATION 04/17/2021 [facility] DATE CREATED AUTHOR AUTHOR'S ORGANIZ ATION 08/02/2021 [facility] ([place]) DATE CREATED AUTHOR AUTHOR'S ORGANIZ ATION 12/04/2023 [facility] DATE CREATED AUTHOR AUTHOR'S ORGANIZ ATION 09/22/2024 [facility] DATE CREATED AUTHOR AUTHOR'S ORGANIZ ATION 03/04/2025 [facility] DATE CREATED AUTHOR AUTHOR'S ORGANIZ ATION 03/09/2025 [facility] Reason for Visit (unrecogniz ed section and content) Reason Comments Fall Head Injury Reason Comments Blood in Urine Since Saturday little back pain in the morning Reason Comments Follow-up 6 month med check Reason Comments Med Refill Reason Onset Date Comments Med Refill 09/04/2023 Multiple medicat ions New Med Request 09/04/2023 Reason Onset Date Comments Orders 09/18/2023 Spinal Surgeon Reason Comments Follow-up 6 month med check Back Pain And muscle spasms Reason Comments Facial Swelling Jaw swelling Reason Comments Follow-up Med check Flu Vaccine Patient has agreed t o receive influenza vaccine in the office today. Reason Onset Date Comments Med Refill 08/10/2024 Reason Onset Date Comments Medication Problem 09/18/2022 Pharmacy did not receive Reason Comments Follow-up 6 month Reason Onset Date Comments Med Refill 09/19/2022 Reason Comments 6 Month Follow-up Reason Onset Date Comments Referral 12/17/2024 Dr Andi Aggarwal Reason Onset Date Comments Durable Medical Equipment 01/27/2025 Reason Onset Date Comments Med Refill 03/08/2025 Scheduled Active and Recently Administ ered Medications (unrecognized section and content) Medication Order 04/12/2021 04/13/2021 04/14/2021 acetaminophen (TYLENOL) tablet 1,000 mg (COMPLETED) 1,000 mg, Oral, ONCE, On Sat04/14/21 at 1113, For 1 dose, Maximum dose of acetaminophen is 4000 mg from all sources in 24 hours. 1119 (Given - Provid er: Briseida Younger RN) traMADol (ULTRAM) tablet 75 mg (COMPLETED) 75 mg, Oral, ONCE, On Sat04/14/21 at 1113, For 1 dose 1119 (Given - Provid er: Briseida Younger RN) Goals (unrecognized section and content) Goals may be documented in a n alternate section Care Teams (unrecognized sec tion and content) Team Status: Active Member Role Status Dates Dr. Ryan Canales , DO Family Provider Active Dr. Ryan Canales , DO Primary Care Provider Active Team Status: Inactive Member Role Status Dates Dr. Ryan Canales , DO Primary Care Provider, Referr ing Provider Active Dr. Jose Dotson , DO Attending Provider Active Team Status: Inactive Member Role Status Dates Dr. Ryan Canales , DO Primary Care Provider Active Dr. Audie Franklin MD Attending Provider Active Team Status: Active Member Role Status Dates Dr. Ryan Canales , DO Primary Care Provider Active Emeli Garcia Attending Provider Active Team Status: Inactive Member Role Status Dates Dr. Ryan Canales DO Primary Care Provider, Family Provider Active Dr. Chicho Vernon MD Attending Provider, Referring Provider Active BRAD EVANS Other Provider Active [employer] Relationship Specialty Start Date End Date Jimmydarrian Ryan Ramos, DO [address] [place] [address] PCP - General 02/07/19 [employer] Relationship Specialty Start Date End Date JimmyRyan lovell Rachel, DO [address] [place] [address] PCP - General 02/07/19 Team Status: Inactive Member Role Status Dates Dr. 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 Ryan Canales , Primary Care Provider, Family Provider Active BRAD EVANS Other Provider Active Dr. Audie Franklin MD Attending Provider, Referring Pro vider Active [employer]aving Relationship Specialty Start Date End Date Ryan Canales Rachel DO [address] [place] [address] [address] [place] [address] PCP - General 02/07/19 Team Status: Inactive Member Role Status Dates Dr. Ryan Canales , DO Primary Care Provider Active Dr. 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 Ryan Canales , DO Primary Care Provider Active Cleve An MD Emergency Provider Active Team Status: Inactive Member Role Status Dates Dr. Ryan Canales , Primary Care Provider Active Dr. Daron Anne , DO Attending Provider , Referring Provider, Emergency Provider Active Team Status: Inactive Member Role Status Dates Dr. 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 Ryan Canales DO Primary Care Provider Active Start: January 14, 2025 End: January 14, 2025 Dr. Ryan Canales DO Family Provider Active Start: January 14, 2025 End: January 14, 2025 BRAD EVANS Other Provider Active Start: Jena dorado 2024 End: January 14, 2025 Dr. Audie Franklin MD Attending Provider Active S tart: January 14, 2025 End: January 14, 2025 Dr. 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 Ryan Canales DO Primary Care Provider Active Team Status: Inactive Member Role Status Dates Dr. Ryan Canales DO Primary Care Provider Active Start: February 09, 2025 End: February 09, 2025 Dr. Ryan Canales DO Referring Provider Active Start: February 09, 2025 End: February 09, 2025 Dr. Kenroy Barney MD Attending Provider Active Start: February 09, 2025 End: February 09, 2025 Team Status: Active Member Role/Relationship Status Dates Dr. Ryan Canales DO Family Provider Active Dr. Ryan Canales DO Primary Care Provider Active Team Status: Active Member Role/Relationship Status Dates Dr. Ryan Canales DO Primary Care Provider Active Start: January 14, 2025 Dr. Ryan Canales DO Attending Provider Active Start: January 14, 2025 Team Status: Inactive Member Role/Relationship Status Dates Dr. Ryan Canales DO Primary Care Provider Active Start: January 14, 2025 End: January 14, 2025 Dr. Ryan Canales DO Family Provider Active Start: January 14, 2025 End: January 14, 2025 BRAD EVANS Other Provider Active Start: 2024 End: January 14, 2025 Dr. Audie Franklin MD Attending Provider Active S tart: January 14, 2025 End: January 14, 2025 Dr. Audie Franklin MD Referring Provider Active S tart: January 14, 2025 End: January 14, 2025 Team Status: Inactive Member Role/Relationship Status Dates Dr. Ryan Canales DO Primary Care Provider Active Start: February 09, 2025 End: February 09, 2025 Dr. Ryan Canales DO Referring Provider Active Start: February 09, 2025 End: February 09, 2025 Dr. Kenroy Barney MD Attending Provider Active Start: February 09, 2025 End: February 09, 2025 Team Status: Inactive Member Role/Relationship Status Dates Dr. Ryan Canales DO Primary Care Provider Active Start: February 16, 2025 End: February 16, 2025 Dr. Ryan Canales DO Family Provider Active Start: February 16, 2025 End: February 16, 2025 BRAD EVANS Other Provider Active Start: J 2024 End: February 16, 2025 Dr. Audie Franklin MD Attending Provider Active S tart: February 16, 2025 End: February 16, 2025 Dr. 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 [employer] provides no warranty or guarantee of the accuracy or completeness of information in this document.
--- OUTSIDE RECORDS SUMMARY | 2025-03-10 06:51 | XMS RPT_ITS | CCD ---
Author Organization [facility] CliniSyal Care Team Providers Care Ranch Rider Name Role Phone [facility] Nurse Unavailable Unavailable Radha RN, Emeli Alex Unavailable [phone] Radha RN, Emeli Alex Unavailable [phone] Radha RN, Emeli Alex Unavailable [phone] Radha RN, Emeli Alex Unavailable [phone] [facility] Nurse Unavailable Unavailable Dodie RN, Nicky Bella Unavailable Unavaildelmy Stoll RN, Nicky Bella Unavailable Unavaildelmy Garcia RN, Emeli Alex Unavailable 1(330) Radha RN, Emeli Alex Unavailable [phone] Radha RN, Emeli Alex Unavailable [phone] [facility] Nurse Unavailable Unavailable Pau RN, Yumiko [...] [phone] Dr. Ryan Canales Referring Provider Roof HUB CUTTER, HUB CUTTER-C Gianluca H Attending Provider Ally DO, Ryan F Primary Care Provider Chapitomary DO, Ryan F Primary Care Provider Dr. Ryan Canales Primary Care Provider Ally, Dr. Davis Referring Provider Dr. Jose Dotson Attending Provider Dr. Audie Franklin Attending Provider GHAZAL WILDER Attending Unavailable Ally, Dr. Davis Primary Care Provider [phone] Ally, Dr. Davis Referring Provider Dr. Jose Dotson Attending Provider Rigoberto, Dr. Bronson Attending Provider [phone] Ally MAX, Ryan Anmol Primary Care Provide r Janeen PANCHAL, Chicho F Unavailable Janeen PANCHAL, Chicho F Unavailable Dr. Ryan Canales DO Primary Care Provider [phone] HIRAM SALINAS Other Provider Rigoberto PANCHAL, Dr. [...] Care Unavailable Rigoberto, Audie Attending Unavailable Rigoberto, [place] Referring Unavailable BLAS KRISHNAMURTHY Consulting Unavailable Rigoberto, [place] Referring Unavailable Petrilla, Ryan Primary Care Unavailable BLAS KRISHNAMURTHY Consulting Unavailable RigobertoAudie ambrose Attending Unavailable Petrilla, Ryan Primary Care Unavailable Ector, Kenroy Attending Unavailable Ector, Kenroy Referring Unavailable Basali, Ayman Attending Unavailable Basali, Ayman Referring Unavailable Petria, Garden Primary Care Unavailable Petrilla, Garden Primary Care Unavailable Rigoberto, [place] Attending Unavailable Rigoberto, Audie Referring Unavailable KRISHNAMURTHY, BR Consulting Unavailable Petria, Garden Primary Care Unavailable KRISHNAMURTHY, BR Consulting Unavailable Rigoberto, Audie Attending Unavailable Ector, Kenroy Referring Unavailable Petrilla, Ryan Referring Unavailable Petria, Garden Primary Care Unavailable Ector, Kenroy Attending Unavailable Petrilla, Ryan Attending Unavailable Petrilla, Garden Primary Care Unavailable Petrilla Dr. Ryan MAX Primary Care Provider Dr. Ryan Canales DO Attending Provider Ector PANCHAL, Dr. Jasmine Referring Provider ASHLEIGH TAPIA Attending Unavailable PETRILLA, [place] Primary Care Unavailable PETRILLA, RYAN Attending Unavailable PETRILLA, [place] Primary Care Unavailable PETRILLA, RYAN Attending Unavailable PETRILLA, [place] Primary Care Unavailable Allergies Allergy Classification Reported Allergen(s) Allergy Type Date of Onset Reaction(s) Facility Iodine (and Iodine containting drugs) (2 sources) Iodine Drug Allergy 6 Anaphylaxis [facility] (20 sources) iodine; Translations: [IODINE] drug allergy 5 Anaphylaxis, Rash [facility] Work Phone: Comment on above: rash (18 sources) NKDA drug allergy [address] [facility] Work Phone: (1 source) BETAGEN (POVIDONE-IO; Translations: [BETAGEN (POVIDONE-IO] Propensity to adverse reactions (disorder) [facility] Repository (20 sources) Other Allergy to substance 5 [facility] Medications Current Medications Medication Drug Class(es) Dates [...] six hours as needed for pain HYDROcodone-acetaminophen ([place]) 5-325 MG tablet Indications: Dental abscess Take [...] TABS One tablet by mouth daily FUROSEMIDE [id number] Chihco Vernon MD gabapentin 300 mg oral capsule [...] once daily METOPROLOL SUCCINATE ER 200 MG [id number] One tablet by mouth daily METOPROLOL SUCCINATE [id number] Chicho Vernon MD Start: 02-22-2015 take 1 tablet by nestor th twice daily METOPROLOL TARTRATE 100 MG TABS One tablet by mouth twice daily METOPROLOL TARTRATE [id number] Nicky Stoll RN Nirmatrelvir&Ritonavir 300/100 (Paxlovid, 300/100,) [...] Start: 04-06-2015 take 2 tablets by mo [facility] twice daily POTASSIUM CHLORIDE ER 20 MEQ CR-TABS Two tablets by mouth twice daily POTASSIUM CHLORIDE [id number] Emeli Estrada PA-C Start: 04-06-2015 take 1 tablet by nestor once daily POTASSIUM CHLORIDE ER 20 MEQ CR-TABS One tablet by mouth daily POTASSIUM CHLORIDE [id number] Chicho Vernon MD sertraline 50 mg oral [...] mouth three times daily as needed OXYCODONE-ACETAMINOPHEN [id number] Bijan Melo Jamey Aspirin (20 sources) Platelet Aggregation Inhibitor, Nonsteroidal Anti-inflammatory Drug Start: 02-22-2015 End: 05-24-2015 take 1 tablet by mouth once daily ASPIR-81 81 MG TBEC One tablet by mouth daily ASPIRIN [id number] Candi Babin RN Start: 02-22-2015 take 1 tablet by nestor th once daily ASPIR-81 81 MG TBEC One tablet by mouth daily ASPIRIN [id number] Chicho Vernon MD Start: 02-22-2015 take 1 tablet by nestor th once daily ASPIRIN 81 MG TABS One tablet by mouth daily (on HOLD) ASPIRIN 72306337465 Chicho Vernon MD Start: 02-22-2015 End: 05-24-2015 take 1 tablet by mouth once daily ASPIR-81 81 MG TBEC One tablet by mouth daily ASPIRIN 26120976855 Candi Babin RN Start: 02-22-2015 take 1 tablet by nestor th once daily ASPIRIN 81 MG TABS One tablet by mouth daily (on HOLD) ASPIRIN [id number] Chicho Vernon MD Start: 02-22-2015 End: 05-24-2015 take 1 tablet by mouth once daily ASPIR-81 81 MG TBEC One tablet by mouth daily ASPIRIN 20315739526 Candi Babin RN Start: 02-22-2015 take 1 tablet by nestor th once daily ASPIR-81 81 MG TBEC One tablet by mouth daily ASPIRIN 65648559300 Chicho Vernon MD celecoxib 100 mg oral capsule (20 sources) Nonsteroidal Anti-inflammatory Drug Start: 05-25-2015 End: 10-27-2015 take 2 tablets by mouth once daily CELEBREX 100 MG CAPS Two tablets by mouth daily CELECOXIB 65563878765 Chicho Vernon MD Start: 05-25-2015 take 1 tablet by nesotr once daily CELEBREX 100 MG CAPS One tablet by mouth daily CELECOXIB [id number] Nicky Stoll RN cephalexin 500 mg oral [...] tablet by mouth daily as needed DIAZEPAM [id number] Nicky Stoll RN glucosamine 1000 mg oral [...] three times daily As needed MECLIZINE HCL [id number] Chicho Vernon MD methocarbamol 500 mg oral [...] Two tablets by mouth twice daily NABUMETONE 66160634284 Chicho Vernon MD oxymetazoline hydrochloride 0.5 mg/ml [...] MG TABS Take as Directed SILDENAFIL CITRATE [id number] Chicho Vernon MD SALINE (20 sources) Start: 02-24-2015 End: 12-14-2016 SALINE NASAL SPRAY 0.65 % SOLN as needed SALINE 38231705292 Bijan Concepcion Start: 02-24-2015 SALINE NASAL S PRAY 0.65 % SOLN as needed SALINE [id number] Chicho Vernon MD Start: 02-24-2015 End: 12-14-2016 SALINE NASAL SPRAY 0.65 % SO LN as needed SALINE 70057532777 Bijan Concepcion Start: 02-24-2015 SALINE NASAL S PRAY 0.65 % SOLN as needed SALINE [id number] Chicho Vernon MD Start: 02-24-2015 End: 12-14-2016 SALINE NASAL SPRAY 0.65 % SO LN as needed SALINE [id number] Bijan Concepcion Start: 02-24-2015 End: 12-14-2016 SALINE NASAL SPRAY 0.65 % SO LN as needed SALINE 86388809041 Bijan Concepcion Start: 02-24-2015 SALINE NASAL S PRAY 0.65 % SOLN as needed SALINE [id number] Chicho Vernon MD traMADol hydrochloride 50 mg [...] 12-15-2015 Chronic Comment on above: Ablation 04/10/2017, [facility] per Dr. Gutierrez; Cardiac dysrhythmias (1 source) [...] above: 11/24/[address] Abigail melgar @ [facility] Residual codes; unclassified (8 sources) Other specified [...] Unclassified (10 sources) Warfarin therapy started; Translations: [halfway (current) use of anticoagulants] Onset: 03-05-2017 03-05-2017 [...] 05-19-2024 05-19-2024 Episodic Other aftercare (20 sources) halfway (current) use of anticoagulants; Translations: [Long-term (current) use of anticoagulants] Onset: 03-05-2017 03-05-2017 Episodic Other aftercare (20 sources) Long-term current use of anticoagulant; Translations: [halfway (current) use of anticoagulants] Onset: 04-25-2022 08-23-2017 [...] 04-09-2017 03-19-2019 Episodic Comment on above: 04/10/2017, [facility] per Dr. Gutierrez Unclassified (1 source) Morbid [...] to picking up the medication: Yes Normal [facility] Anion gap in Serum or Plasma Ordered By: Kenroy Barney on 02-16-2025 Anion gap [Moles/Vol] 12 mmol/L 5-15 [facility] BUN/creatinine ratioOrdered By: Kenroy Barney on 02-16-2025 Urea nitrogen/Creatinine [Mass ratio] 21.5 mg/mg High 10- [facility] Basic Metabolic Profile (BMP )on 02-16-2025 BUN/CRE 21.5 RATIO High - [facility] Comment on above: Performed By: #### L 500.2500 #### [facility] [address] [place], [address] Calcium [Mass/Vol] 9.2 mg/dL Normal 7.6-11.0 [facility] Comment on above: Performed By: #### L 500.2500 #### [facility] [address] [place], [address] Chloride [Moles/Vol] 108 mmol/L Normal 98-108 [facility] Comment on above: Performed By: #### L 500.2500 #### [facility] [address] [place], [address] CO2 [Moles/Vol] 22.6 mmol/L Normal 21.0-32.0 [facility] Comment on above: Performed By: #### L 500.2500 #### [facility] [address] [place], [address] Creatinine [Mass/Vol] 0.94 mg/dL Normal 0.70-1.20 [facility] Comment on above: Performed By: #### L 500.2500 #### [facility] [address] [place], [address] GAP 12 Normal 5-15 [facility] Comment on above: Performed By: #### L 500.2500 #### [facility] [address] [place], [address] GFR/1.73 sq M.predicted among non-blacks MDRD (S/P/Bld) [Vol rate/Area] 85 mL/min/{1.73_m2} Normal >60 [facility] Comment on above: Result Comment: mL/m in/1.73m2 CKD-EPI Creatinine Equation (2020) Performed By: #### L 500.2500 #### [facility] [address] [place], [address] Glucose [Mass/Vol] 92 mg/dL Normal 70-99 [facility] Comment on above: Performed By: #### L 500.2500 #### [facility] [address] [place], [address] Potassium [Moles/Vol] 4.4 mmol/L Normal 3.3-5.1 [facility] Comment on above: Performed By: #### L 500.2500 #### [facility] [address] [place], [address] Sodium [Moles/Vol] 142 mmol/L Normal 133-145 [facility] Comment on above: Performed By: #### L 500.2500 #### [facility] [address] [place], [address] Urea nitrogen [Mass/Vol] 20 mg/dL High 4-19 [facility] Comment on above: Performed By: #### L 500.2500 #### [facility] [address] [place], [address] Carbon dioxide, total [Moles /volume] in Central venous bloodOrdered By: Kenroy Barney on 02-16-2025 CO2 [Moles/Vol] 22.6 mmol/L 21.0-32.0 [facility] Chloride assayOrdered By: Darryl Barney on 02-16-2025 Chloride [Moles/Vol] 108 mmol/L 98-108 [facility] Glomerular filtration rate ( GFR) estimation/1.73 sq m using serum, plasma, or whole bOrdered By: Kenroy Barney on 02-16-2025 GFR/1.73 sq M.predicted among non-blacks MDRD (S/P/Bld) [Vol rate/Area] 85 mL/min/{1.73_m2} >60 [facility] Comment on above: mL/min/1.73m2 CKD-EP I Creatinine Equation (2020) International normalized rat io (INR) calculationOrdered By: Audie Franklin on 02-16-2025 INR Coag (Bld) [Relative time] 2.3 {INR} [facility] Potassium measurement (mass/ volume)Ordered By: Kenroy Barney on 02-16-2025 Potassium (Unsp spec) [Mass/Vol] 4.4 mmol/L 3.3-5.1 [facility] Prothrombin Time w/INRon INR Coag (PPP) [Relative time] 2.3 {INR} Normal [facility] Comment on above: Performed By: #### L 300.3900 #### [facility] [address] [place], [place], [id number] PT Coag (PPP) [Time] 25.4 s High 11.7-14.9 [facility] Comment on above: Performed By: #### L 300.3900 #### [facility] [address] [place], [address] Prothrombin timeOrdered By: Audie Franklin on 02-16-2025 PT Coag (PPP) [Time] 25.4 s High 11.7-14.9 [facility] Serum creatinine measurement (mass/volume)Ordered By: Kenroy Barney on 02-16-2025 Creatinine [Mass/Vol] 0.94 mg/dL 0.70-1.20 [facility] Serum glucose measurement (m ass/volume)Ordered By: Kenroy Barney on 02-16-2025 Glucose [Mass/Vol] 92 mg/dL 70-99 [facility] Serum or plasma calcium kun urement (mass/volume)Ordered By: Kenroy Barney on 02-16-2025 Calcium [Mass/Vol] 9.2 mg/dL 7.6-11.0 [facility] Serum or plasma urea nitroge n measurement (mass/volume)Ordered By: Kenroy Barney on 02-16-2025 Urea nitrogen [Mass/Vol] 20 mg/dL High 4-19 [facility] Sodium levelOrdered By: Obie Barney on 02-16-2025 Sodium [Moles/Vol] 142 mmol/L 133-145 [facility] Cardiology Visit Reporton Cardiology Visit Report [facility] [address] [place], [place] [address] OFFICE VISIT Date of Service: 02/09/25 MR#: [id number] Acct: [id number] Name: LAMIN MOCTEZUMA Rep #: [id number] : 1950 Provider: Dr. 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 An (more content not included)... Normal [facility] 3602-08-2025 36 Message released to patient as written. Patient's further questions if applicable: Pt states that [facility] do have information. Please send needed information Were all questions from office addressed or relayed to the patient from encounter: Yes [facility] 36on 01-27-2025 36 Spoke with pt mary nd advised her we need his last office note and last cpap order from his previous place. She says she will call and see what she can do. [facility] 36 Name of caller: Tish sanchez Contact phone number: [phone] Relationship to Patient: spouse/SO Provider: Dr Canales Practice: [facility] Chief Complaint/Reason for Call: Caller stated that the doctor who ordered patients C=PAP and supplies has retired. She is requesting if Dr Canales can take over. She stated that the patient needs a new order for C-PAP supplies sent to [facility] They also need an addended OV stating his usage and why. Please advise Best time of day caller can be reached: any Patient advised that office/PCP has 24-48 business hours to return their call: Yes Normal [facility] International normalized rat io (INR) calculationOrdered By: Audie Franklin on 01-14-2025 INR Coag (Bld) [Relative time] 1.7 {INR} [facility] No Panel Informationon 01-14 INR International Normalized Ratio 1.7 [facility] Prothrombin Time w/INRon INR Coag (PPP) [Relative time] 1.7 {INR} Normal [facility] Comment on above: Performed By: #### L 300.3900 #### [facility] [address] [place], [place], [id number] ([phone] PT Coag (PPP) [Time] 20.5 s High 11.7-14.9 [facility] Comment on above: Performed By: #### L 300.3900 #### [facility] [address] [place], [address] Prothrombin timeOrdered By: Audie Franklin on 01-14-2025 PT Coag (PPP) [Time] 20.5 s High 11.7-14.9 [facility] Office Visiton 12-16-2024 Follow-up visit [id number] Viral Moctezuma 1950 M Date Provider Department Center 12/16/2024 [id number] GARRIDO [facility] Family History Problem Relation Age of Onset [...] Alive Sister Alive Brother Alive Level of Service:42315 MT OFFICE/OUTPATIENT ESTABLISHED MOD MDM 30 MIN Reason for Visit and Comments: 6 Month Follow-up [671] Normal [facility] Progress Noteon 12-16-2024 Progress Note [facility] [address] [facility] [address] Visit type: Established Patient Reason [...] needed. Avoid face and groin. Reviewed patient's [id number]-YNFr 2 score of 2 and I did [...] compliant with sleep apnea treatment. Recently new clinical account liaison in [place] questioned the indications for long-term anticoagulation therapy. He was referred to a energy and conservation technician through telephone consultation, who recommended lifelong anticoagulation. [...] of prostate cance (more content not included)... [facility] 36on 11-23-2024 36 Recent Visits Date Type Provider Dept 06/17/24 Office Visit Ryan Canales DO [facility] 05/19/24 Office Visit Ashleigh Tapia PA-C [facility] Showing recent visits within past 365 days and meeting all other requirements Future Appointments Date Type Provider Dept 12/16/24 Appointment Ryan Canales DO [facility] Showing future appointments within next 90 [...] 06/17/2024 CHOLHDLCRATI 2.9 06/17/2024 NONHDLCHOLES 91 06/17/2024 [facility] 36on 10-23-2024 36 Talked to and relayed message and she verbalized understanding. [facility] 36 Name of caller: Tish sanchez Contact phone number: [phone] Relationship to Patient: spouse/SO Provider: Dr Canales Practice: [facility] Chief Complaint/Reason for Call: Caller stated that patient has tested positive for Covid as well. She is asking if patient can be prescribed the same thing she was prescribed. She stated Paxlovid and a cough syrup. Please advise Best time of day caller can be reached: Patient advised that office/PCP has 24-48 business hours to return their call: N/A [facility] CNPNon 09-16-2024 CNPN Telephone (AGCARDPOB ) ----- LAMIN MOCTEZUMA ([id number]) 1950 M Date Time Provider Department 09/16/24 MARVA GUTIERREZGCARDPOB During your visit today, we recorded the following information about you: Ranjan Salmon 09/16/2024 1:56 PM Signed Received referral from [facility], Pt declined scheduling at this time. [...] Encounter Status:Closed by RANJAN SALMON on 09/16/24 [facility] Echo Complete W/ Contraston 09-07-2024 Echo Complete W/ Contrast [facility] [address] [place] [address] Echo Complete W/ Contrast 09/07/24 1300 MR#: [id number] Acct: [id number] Name: LAMIN MOCTEZUMA Rep #: [id number] : 1950 73 From: Kenroy Barney MD Attending Dr: Dr. Kenroy Barney MD Status: REG CLI Ordering Dr: Kenroy Barney MD Date: 09/07/24 Location: [facility] Sex: M C Admitted: Reason For Study: [...] Date Dictated: 09/07/24 1300 Date Transcribed: 09/08/24913 Police Sergeant Precinct: Signed [facility] Protime w/INR Fingerstickon 09-07-2024 INR Coag (PPP) [Relative time] 2.6 {INR} [facility] Comment on above: Result Comment: Crit ical Value > 4.0 Performed By: #### L 9200.0000 #### [facility] [address] [place], [place], [address] Protime [place] 27.9 SEC High 11.7-14.9 [facility] Comment on above: Performed By: #### L 9200.0000 #### [facility] [address] [place], [address] 36on 08-11-2024 36 Talked to pharmacist Kelsie Mancuso To clarify RX to be for generic only and she was able to take a verbal order. Talked to patient and let her know pharmacy was able to get it ready and sent out. [facility] 36 Name of caller: Tish sanchez Contact phone number: [phone] Relationship to Patient: spouse/SO Provider: Dr Canales Practice: [facility] Chief Complaint/Reason for Call: Caller stated that she spoke with [facility] regarding sertraline. They didn't request brand name. She stated that they need a new prescription sent over to the pharmacy for sertraline , not the brand name Zoloft. Please advise Best time of day caller can be reached: Patient advised that office/PCP has 24-48 business hours to return their call [facility] 36on 08-10-2024 36 Patient should still have refills at their pharmacy. [facility] 36 Medication name: sertraline (Zoloft) 50 MG [...] medication: Yes Caller requesting generic Rx Normal [facility] Cardiology Visit Reporton Cardiology Visit Report [facility] [address] [place], [place] [address] OFFICE VISIT Date of Service: 07/28/24 MR#: [id number] Acct: [id number] Name: LAMIN MOCTEZUMA Rep #: [id number] : 1950 Provider: Dr. Kenroy Barney MD Age/Sex: 73/M [place] [facility] [place] Status: Signed HPI HPI History of Present Illness Details: This gentleman has a history of hypertension and atrial fibrillation status post ablation by Dr. Gtuierrez in 2017. 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 Normal [facility] Prothrombin Time w/INRon INR Coag (PPP) [Relative time] 1.3 {INR} Normal [facility] Comment on above: Performed By: #### L 300.3900 #### [facility] [address] [place], [place], [id number] PT Coag (PPP) [Time] 16.2 s High 11.7-14.9 [facility] Comment on above: Performed By: #### L 300.3900 #### [facility] [address] [place], [address] 36on 06-22-2024 36 Message released to patient as written. Yes Patient's further questions if applicable: No Were all questions from office addressed or relayed to the patient from encounter: Yes Normal [facility] 36 Placed call to patijohn nt. Unable to reach them by phone to discuss lab results. Left detailed message to return call to discuss results. Please release information to patient [facility] 36 ----- Message from Sheila Melo sent at 06/22/2024 5:28 AM EDT ----- ----- Message ----- From: Ryan Canales DO Sent: 06/21/2024 2:32 PM EDT To: [facility] Clinical Time Clock Mechanic All labs stable including INR and lipid panel. Do remind him he needs a monthly INR of his Coumadin. No prescription changes necessary Normal [facility] CBC W Auto Differential pane l (Bld)on 06-22-2024 Basophils (Bld) [#/Vol] 51 10*3/uL [facility] Basophils/100 WBC (Bld) 1.3 % [facility] Eosinophils (Bld) [#/Vol] 250 10*3/uL [facility] Eosinophils/100 WBC (Bld) 6.4 % [facility] Erythrocyte distribution width (RBC) [Ratio] 13.4 % 11.0 - 15.0 % [facility] Hematocrit (Bld) [Volume fraction] 48.3 % 38.5 - 50.0 % [facility] Hemoglobin (Bld) [Mass/Vol] 16.3 g/dL 13.2 - 17.1 g/dL [facility] Lymphocytes (Bld) [#/Vol] 1151 10*3/uL [facility] Lymphocytes/100 WBC (Bld) 29.5 % [facility] MCH (RBC) [Entitic mass] 32 pg 27. 0 - 33.0 pg [facility] MCHC (RBC) [Mass/Vol] 33.7 g/dL 32.0 - 36.0 g/dL [facility] Comment on above: For adults, a slight decrease in the calculated MCHC value (in the range of 30 to 32 g/dL) is most likely not clinically significant; however, it should be interpreted with caution in correlation with other red cell parameters and the patient's clinical condition. MCV (RBC) [Entitic vol] 94.7 fL 80.0 - 100.0 fL [facility] Monocytes (Bld) [#/Vol] 456 10*3/uL [facility] Monocytes/100 WBC (Bld) 11.7 % [facility] Neutrophils (Bld) [#/Vol] 1992 10*3/uL [facility] Neutrophils/100 WBC (Bld) 51.1 % [facility] Platelet mean volume (Bld) [Entitic vol] 9.7 fL 7.5 - 12.5 fL [facility] Platelets (Bld) [#/Vol] 142 10*3/uL [facility] RBC (Bld) [#/Vol] 5.1 10*6/uL [facility] WBC (Bld) [#/Vol] 3.9 10*3/uL [facility] Comprehensive metabolic 1998 panelon 06-22-2024 Albumin [Mass/Vol] 4 g/dL 3.6 - 5.1 g/dL [facility] Albumin/Globulin [Mass ratio] 2 {ratio} [facility] ALP [Catalytic activity/Vol] 107 U/L 35 - 144 U/L [facility] ALT [Catalytic activity/Vol] 17 U/L 9 - 46 U/L [facility] AST [Catalytic activity/Vol] 26 U/L 10 - 35 U/L [facility] Bilirubin [Mass/Vol] 0.8 mg/dL 0.2 - 1 .2 mg/dL [facility] Calcium [Mass/Vol] 8.8 mg/dL 8.6 - 10. 3 mg/dL [facility] Chloride [Moles/Vol] 108 mmol/L 98 - 11 0 mmol/L [facility] CO2 [Moles/Vol] 25 mmol/L 20 - 32 mmol/L [facility] Creatinine [Mass/Vol] 0.9 mg/dL 0.70 - 1.28 mg/dL [facility] GFR/1.73 sq M.predicted among non-blacks MDRD (S/P/Bld) [Vol rate/Area] 90 mL/min/{1.73_m2} > OR = 60 mL/min/1.7 3m2 [facility] Globulin (S) [Mass/Vol] 2 g/dL [facility] Glucose [Mass/Vol] 99 mg/dL 65 - 99 mg/dL [facility] Comment on above: Fasting reference interval Potassium [Moles/Vol] 4 mmol/L 3.5 - 5.3 mmol/L [facility] Protein [Mass/Vol] 6 g/dL Low 6.1 - 8.1 g/dL [facility] Sodium [Moles/Vol] 143 mmol/L 135 - 146 mmol/L [facility] Urea nitrogen [Mass/Vol] 20 mg/dL 7 - 25 mg/dL [facility] Urea nitrogen/Creatinine [Mass ratio] SEE NOTE: [facility] Comment on above: Not Reported: BUN an d Creatinine are within reference range. Lipid 1996 panelon 4 Cholesterol [Mass/Vol] 140 mg/dL NINF - 200 mg/dL [facility] Cholesterol in HDL [Mass/Vol] 49 mg/dL > OR = 40 [facility] Cholesterol in LDL [Mass/Vol] 73 mg/dL mg/dL (calc) [facility] Comment on above: Reference range: <10 0 Desirable range <100 mg/dL for primary prevention; <70 mg/dL for patients with CHD or diabetic patients with > or = 2 CHD risk factors. LDL-C is now calculated using the Aki calculation, which is a validated novel method providing better accuracy than the Friedewald equation in the estimation of LDL-C. Hiram PEREIRA et al. YUMIKO. 2013;310(19): 6947-2288 (http://AudioCompass.InflowControl.eTask.it/faq/DEU391) Cholesterol non HDL [Mass/Vol] 91 mg/dL [facility] Comment on above: For patients with di abetes plus 1 major ASCVD risk factor, treating to a non-HDL-C goal of <100 mg/dL (LDL-C of <70 mg/dL) is considered a therapeutic option. Cholesterol.total/Choles terol in HDL [Mass ratio] 2.9 {ratio} [facility] Triglyceride [Mass/Vol] 94 mg/dL [facility] - 150 mg/dL [facility] No Panel Informationon 06-22 Interpretation and review of laboratory results Abnormal [facility] PSA Total (Diagnostic Post-P rostatectomy)on 06-22-2024 Prostate specific Ag DL <= 0.01 ng/mL [Mass/Vol] ug/L ng/mL [facility] Comment on above: REFERENCE RANGES for PSA: [...] Coag (PPP) [Relative time] 2.8 {INR} High [facility] Comment on above: Reference Range 0.9- 1.1 Moderate-intensity Warfarin Therapy 2.0-3.0 Higher-intensity Warfarin Therapy 3.0-4.0 PT Coag (PPP) [Time] 27.6 s [facility] [employer] Comment on above: For additional infor kalin, please refer to http://education.Airpowered/faq/SCH142 (This link is being provided for informational/ educational purposes only.) Office Visiton 06-17-2024 Follow-up visit [id number] Viral Moctezuma carmela John 1950 M Date Provider Department Center 06/17/2024 [id number]-HKJPJFGARYAN CANALES [facility] Family History Problem Relation Age of Onset [...] Alive Sister Alive Brother Alive Level of Service:13802 MT OFFICE/OUTPATIENT ESTABLISHED MOD MDM 30 MIN Reason for Visit and Comments: Follow-up [239081] - Med check Flu Vaccine [189] - Patient has agreed to receive influenza vaccine in the office today. Normal [facility] Progress Noteon 06-17-2024 Progress Note [facility] - [address] [facility] [address] Visit type: Established Patient Reason for Visit: Follow-up (Med check) and Flu Vaccine (Patient has agreed to receive influenza vaccine in the office today. ) Assessment / Plan: [place] was seen today for follow-up and flu [...] the local rec center. Now involved with [employer]. Doing the best she can with walking. [...] COLONOSCOPY 2010 (more content not included)... Normal [facility] 36on 05-19-2024 36 Patient wants Zoloft brand only and NOT sertraline, patient said sertraline doesn't work like the Zoloft. Please send refill. RX loaded Next ov 06/17/24 Normal [facility] Office Visiton 05-19-2024 Follow-up visit [id number] Viral Moctezuma 1950 M Date Provider Department Center 05/19/2024 [id number] LEOS [facility] Family History Problem Relation Age of Onset [...] Alive Sister Alive Brother Alive Level of Service:66306 MT OFFICE/OUTPATIENT ESTABLISHED LOW MDM 20 MIN Reason for Visit and Comments: Facial Swelling [647936] - Jaw swelling Normal [facility] PATINSon 05-19-2024 PATIGRAYSON Rueda dentist. [address] [place] [address] Normal [facility] Progress Noteon 05-19-2024 Progress Note - Chronic and relati vely stable was on sertraline in the past and did well on it had run out of it was unable to get it previously and was started on Celexa he is requesting to stop Celexa and go back to sertraline as he feels like his Celexa is not controlling his symptoms well enough. Normal [facility] Progress Note [facility] [address] [place] [address] [address] [facility] [address] Dept: [phone] Dept Loc: [phone] Visit type: Established Patient Reason for Visit: [...] Starting Sat05/19/2024, Until 05/23/2024, Normal - HYDROcodone-acetaminophen ([place]) 5-325 MG tablet; Take 1 tablet by [...] fibrillation on chronic Coumadin who contacted the [facility] yesterday for next day appointment evaluation for [...] History of pros (more content not included)... [facility] 36on 05-18-2024 36 Triage message revie wed with clinical staff. Patient appointment confirmed. PCP will assess at appointment visit. [facility] 36 S: Patient's kash jeferson with CAC [...] swollen and no fever Protocols used: Mouth [id number] Normal [facility] Protime w/INR Fingerstickon 04-27-2024 INR Coag (PPP) [Relative time] 2.1 {INR} Normal [facility] Comment on above: Result Comment: Crit ical Value > 4.0 Performed By: #### L 9200.0000 #### [facility] [address] [place], [address] Protime Coagsen 22.3 SEC High 11.7-14.9 [facility] Comment on above: Performed By: #### L 9200.0000 #### [facility] [address] [place], [place], [id number] Capillary blood internationa l normalized ratio (INR)Ordered By: Audie Franklin on 11-29-2023 INR Coag (BldC) [Relative time] 2.4 [facility] Comment on above: Critical Value > 4.0 Whole blood prothrombin time Ordered By: Audie Franklin on 11-29-2023 PT Coag (Bld) [Time] 24.5 s 11.7-14.9 [facility] Capillary blood internationa l normalized ratio (INR)Ordered By: [place] Rigoberto on 11-01-2023 INR Coag (BldC) [Relative time] 2.3 [facility] Comment on above: Critical Value > 4.0 Whole blood prothrombin time Ordered By: [place] Rigoberto on 11-01-2023 PT Coag (Bld) [Time] 24.1 s 11.7-14.9 [facility] Laboratory - CoagulationOrde red By: [place] Rigoberto on 10-28-2023 PT Coag (PPP) [Time] 45.7 s 11.7-14.9 [facility] INR in Blood by Coagulation assayOrdered By: Audie Rigoberto on 06-25-2023 INR Coag (Bld) [Relative time] 2.9 {INR} [facility] - CoagulationOrde red By: Audie Rigoberto on 06-25-2023 PT Coag (PPP) [Time] 30.8 s 11.7-14.9 [facility] INR in Blood by Coagulation assayOrdered By: [place] Rigoberto on 05-16-2023 INR Coag (Bld) [Relative time] 2.2 {INR} [facility] Laboratory - CoagulationOrde red By: [place] Rigoberto on 05-16-2023 PT Coag (PPP) [Time] 24.5 s 11.7-14.9 [facility] INR in Blood by Coagulation assayOrdered By: Audie Rigoberto on 03-18-2023 INR Coag (Bld) [Relative time] 2.4 {INR} [facility] - CoagulationOrde red By: Audie Rigoberto on 03-18-2023 PT Coag (PPP) [Time] 26.0 s 11.7-14.9 [facility] US Retroperitoneumon 023 Unremarkable renal ultrasound. Report Dictated on Electronically Signed By: Matt Marte Electronically Signed Date/Time: 02/08/2023 2:59 PM EDT [facility] [employer] Patient Name: LAMIN MOCTEZUMA : 1950 [...] the kidneys. The bladder is grossly unremarkable. [facility] [employer] Matt Marte DO - 02/08/2023 Patient Name: LAMIN MOCTEZUMA : 1950 [facility]#: [id number] Exam Date/Time: 02/08/2023 13:14 Procedure: US RETROPERITONEAL [...] Electronically Signed Date/Time: 02/08/2023 2:59 PM EDT [facility] Radiology Study observation (narrative) [facility] US RetroperitoneumOrdered By : Matt Marte on 02-08-2023 [facility] Work Phone: Laboratory - CoagulationOrde red By: Chicho Vernon on 02-07-2023 INR Coag (Bld) [Relative time] 2.0 {INR} [facility] Comment on above: Critical Value > 4.0 Whole blood prothrombin time Ordered By: Chicho Vernon on 02-07-2023 PT Coag (Bld) [Time] 21.5 s 11.7-14.9 [facility] AMB POC URINE DIP STICK MANU AL W/O MICROon 02-05-2023 Bilirubin, UA Large [facility] Blood, UA Large [facility] Glucose, UA 100 [facility] Interpretation and review of laboratory results Abnormal [facility] Ketones, UA Negative [facility] Leukocytes, UA Large [facility] Nitrite, UA Negative [facility] pH, UA 5.5 [facility] Protein, UA 300 [facility] Spec Grav, UA 1.020 [facility] Urobilinogen, UA 4.0 [facility] Laboratory - CoagulationOrde red By: Dr. Vernon on 12-17-2022 INR Coag (Bld) [Relative time] 2.9 {INR} [facility] Comment on above: Critical Value > 4.0 Whole blood prothrombin time Ordered By: Dr. Vernon on 12-17-2022 PT Coag (Bld) [Time] 31.1 s 11.7-14.9 [facility] Laboratory - CoagulationOrde red By: Dr. Vernon on 10-30-2022 INR Coag (Bld) [Relative time] 2.3 {INR} [facility] Comment on above: Critical Value > 4.0 Whole blood prothrombin time Ordered By: Dr. Vernon on 10-30-2022 PT Coag (Bld) [Time] 26.7 s 11.7-14.9 [facility] Laboratory - CoagulationOrde red By: Dr. Vernon on 08-29-2022 INR Coag (Bld) [Relative time] 2.4 {INR} [facility] Comment on above: Critical Value > 4.0 Whole blood prothrombin time Ordered By: Dr. Vernon on 08-29-2022 PT Coag (Bld) [Time] 28.3 s 11.7-14.9 [facility] Laboratory - Coagulationon 1 INR Coag (Bld) [Relative time] 2.0 {INR} [facility] Work Phone: Comment on above: Critical Value > 4.0 Whole blood prothrombin time on 06-22-2022 PT Coag (Bld) [Time] 24.1 s 11.7-14.9 [facility] Work Phone: Laboratory - Coagulationon 0 05-10-2022 INR Coag (Bld) [Relative time] 2.3 {INR} [facility] Work Phone: Comment on above: Critical Value > 4.0 Whole blood prothrombin time on 05-10-2022 PT Coag (Bld) [Time] 27.1 s 11.7-14.9 [facility] Work Phone: Laboratory - Coagulationon 0 04-23-2022 INR Coag (Bld) [Relative time] 2.2 {INR} [facility] Work Phone: Comment on above: Critical Value > 4.0 Whole blood prothrombin time on 04-23-2022 PT Coag (Bld) [Time] 25.8 s 11.7-14.9 [facility] Work Phone: Absolute lymphocyte counton 03-06-2022 Lymphocytes Auto (Unsp spec) [#/Vol] 1.16 10*3/uL 0.83-4.51 [facility] Work Phone: Basophil percentageon 2021 Basophil percentage 0 SEEN /hpf 0-5 [facility] Work Phone: Basophils/100 WBC (Bld) 0.7 % 0-1 [facility] Work Phone: Bilirubin [Mass/Vol] 0.70 mg/dL 0.20-1.00 [facility] Work Phone: Comment on above: For patients on eltr ombopag therapy, use of Dimension [place] TBIL is not recommended. Chloride [Moles/Vol] 109 mmol/L 98-107 [facility] Work Phone: Eosinophils/100 WBC (Bld) 3.2 % 0-5 [facility] Work Phone: Glucose [Mass/Vol] 126 mg/dL 74-106 [facility] Work Phone: Comment on above: Fasting Glucose resu lt greater than or equal to 126 mg/dL suggests DIABETES MELLITUS per A.D.A. criteria. Lactate [Moles/Vol] 1.2 mmol/L 0.4-2.[address] [facility] Work Phone: Neutrophils (Bld) [#/Vol] 2.5 10*3/uL 2.0-7.7 [facility] Work Phone: Neutrophils/100 WBC (Bld) 56.6 % 47-70 [facility] Work Phone: Potassium [Moles/Vol] 3.7 mmol/L 3.5-5.1 [facility] Work Phone: Protein [Mass/Vol] 6.5 g/dL 6.4-8.2 [facility] Work Phone: Sodium [Moles/Vol] 142 mmol/L 136-145 [facility] Work Phone: WBC (Bld) [#/Vol] 4.4 10*3/uL 4.4-11.0 [facility] Work Phone: Bilirubin Test strip Ql (U)o n 03-06-2022 Bilirubin Ql (U) Negative Negative [facility] Work Phone: Blood erythrocytes count (nu mber/volume)on 03-06-2022 RBC (Bld) [#/Vol] 4.93 10*6/uL 4.6-6.2 [facility] Work Phone: Blood hemoglobin measurement (mass/volume)on 03-06-2022 Hemoglobin (Bld) [Mass/Vol] 15.3 g/dL 13.0-16.5 [facility] Work Phone: Blood lymphocytes/100 leukoc yteson 03-06-2022 Lymphocytes/100 WBC (Bld) 26.5 % 19-41 [facility] Work Phone: [phone] Blood monocytes/100 leukocyt eson 03-06-2022 Monocytes/100 WBC (Bld) 13.0 % 0-10 [facility] Work Phone: Blood platelet mean volumeon 03-06-2022 Platelet mean volume (Bld) [Entitic vol] 9.6 fL 6.2-12.0 [facility] Work Phone: Determination of erythrocyte mean corpuscular volume (MCV)on 03-06-2022 MCV (RBC) [Entitic vol] 92.1 fL 80-94 [facility] Work Phone: Hematocrit Auto (Bld) [Volum e fraction]on 03-06-2022 Hematocrit (Bld) [Volume fraction] 45.4 % 40-54 [facility] Work Phone: INR in Blood by Coagulation assayon 03-06-2022 INR Coag (Bld) [Relative time] 1.6 {INR} [facility] Work Phone: Ketones Test strip Ql (U)on 03-06-2022 Ketones Ql (U) Negative Negative [facility] Work Phone: Laboratory - Chemistry and C hemistry - challengeon 03-06-2022 ALP [Catalytic activity/Vol] 125 U/L 45-117 [facility] Work Phone: ALT [Catalytic activity/Vol] 26 U/L 16-61 [facility] Work Phone: CO2 [Moles/Vol] 26.0 mmol/L 21.0-32.0 [facility] Work Phone: Globulin (S) [Mass/Vol] 3.2 g/dL 2.2-4.2 [facility] Work Phone: Urea nitrogen/Creatinine [Mass ratio] 13.1 mg/mg 10-20 [facility] Work Phone: Laboratory - Coagulationon 0 03-06-2022 PT Coag (PPP) [Time] 18.2 s 11.7-14.9 [facility] Work Phone: Laboratory - Hematology and Cell countson 03-06-2022 Erythrocyte distribution width (RBC) [Entitic vol] 48.2 fL 35.1-43.9 [facility] Work Phone: Erythrocyte distribution width (RBC) [Ratio] 14.2 % 11.6-14.6 [facility] Work Phone: Immature granulocytes/100 WBC (Bld) 0.000 % 0.0-0.9 [facility] Work Phone: Comment on above: IG% - Immature Granu locytes (promyelocytes, myelocytes and metamyelocytes) > 1% indicates that a LEFT SHIFT is Present. MCH (RBC) [Entitic mass] 31.0 pg 27.0-32.0 [facility] Work Phone: Nucleated RBC/100 WBC (Bld) [Ratio] 0 % 0-5 [facility] Work Phone: MCHC Auto (RBC) [Mass/Vol]on 03-06-2022 MCHC (RBC) [Mass/Vol] 33.7 g/dL 32-36 [facility] Work Phone: Mucus LM Ql (Urine sed)on Mucus Ql (Urine sed) 0 SEEN /hpf [facility] Work Phone: Nitrite Test strip Ql (U)on 03-06-2022 Nitrite Ql (U) Negative Negative [facility] Work Phone: No Panel Informationon 03-06 Estimated Creatinine Clearance Calc 77.34 ml/min [facility] Work Phone: Estimated GFR (MDRD) Amer 95 mL/min >60 [facility] Work Phone: Comment on above: GFR Calc Estimated GFR (MDRD) Non-Af Amer 79 mL/min >60 [facility] Work Phone: Comment on above: Non- GFR Calc Troponin I High Sensitivity 8 pg/mL 3.0-78.0 [facility] Work Phone: Comment on above: Please Note: New [place] t Units and Gender Specific Reference Ranges. For more information see Policy Stat Procedure [place] High Sensitivity Troponin (TNIH) and attachments. Platelets bldon 03-06-2022 Platelets (Bld) [#/Vol] 157 10*3/uL 150-450 [facility] Work Phone: Protein Test strip Ql (U)on 03-06-2022 Protein Ql (U) Negative Negative [facility] Work Phone: Serum or plasma albumin kun urement (mass/volume)on 03-06-2022 Albumin [Mass/Vol] 3.3 g/dL 3.2-5.0 [facility] Work Phone: Serum or plasma albumin/glob ulin mass ratioon 03-06-2022 Albumin/Globulin [Mass ratio] 1.0 {ratio} 0.9-2.4 [facility] Work Phone: Serum or plasma calcium kun urement (mass/volume)on 03-06-2022 Calcium [Mass/Vol] 8.4 mg/dL 8.5-10.1 [facility] Work Phone: Serum or plasma creatinine m easurement (mass/volume)on 03-06-2022 Creatinine [Mass/Vol] 0.99 mg/dL 0.70-1.30 [facility] ster [facility] Work Phone: Comment on above: The validity of the calculated GFR & GFRAA in patients over 70 years has not been determined. Clinical correlation is essential. Serum or plasma urea nitroge n measurement (mass/volume)on 03-06-2022 Urea nitrogen [Mass/Vol] 13 mg/dL 7-18 [facility] Work Phone: Squamous epithelial cells de tection in urine sediment by light microscopyon 03-06-2022 Epithelial cells.squamous LM Ql (Urine sed) 0 SEEN /hpf 0-5 [facility] Work Phone: Thin prep Papanicolaou smear with manual screeningon 03-06-2022 Thin prep Papanicolaou smear with manual screening 29 U/L 15-37 [facility] Work Phone: Thin prep Papanicolaou smear with manual screening 7 5-15 [facility] Work Phone: Urine blood detectionon 02-08 RBC Ql (U) Negative Negative [facility] Work Phone: RBC Ql (U) 0 SEEN /hpf 0-5 [facility] Work Phone: Urine clarityon 03-06-2022 Clarity (U) Clear Clear [facility] Work Phone: Urine color determinationon 03-06-2022 Color (U) Yellow Yellow [facility] Work Phone: Urine glucose detectionon Glucose Ql (U) Normal mg/dl Normal [facility] Work Phone: Urine leukocyte esterase det ection by dipstickon 03-06-2022 Leukocyte esterase Test strip Ql (U) Negative Negative [facility] Work Phone: Urine pHon 03-06-2022 pH (U) 6.0 [pH] 5.0 - 8.0 [facility] Work Phone: Urine sediment bacteria coun t by microscopy (number/high power field)on 03-06-2022 Bacteria LM.HPF (Urine sed) [#/Area] 0 /[HPF] None Seen [facility] Work Phone: Urine specific gravity measu rementon 03-06-2022 Specific gravity (U) [Rel density] 1.015 1.002-1.03 0 [facility] Work Phone: Urobilinogen Auto test strip Ql (U)on 03-06-2022 Urobilinogen Ql (U) Normal mg/dl Normal [facility] Work Phone: Laboratory - Coagulationon 0 01-29-2022 INR Coag (Bld) [Relative time] 2.0 {INR} [facility] Work Phone: Comment on above: Critical Value > 4.0 Whole blood prothrombin time on 01-29-2022 PT Coag (Bld) [Time] 23.3 s 11.7-14.9 [facility] Work Phone: Laboratory - Coagulationon 0 12-19-2021 INR Coag (Bld) [Relative time] 2.0 {INR} [facility] Work Phone: Comment on above: Critical Value > 4.0 Whole blood prothrombin time on 12-19-2021 PT Coag (Bld) [Time] 23.8 s 11.7-14.9 [facility] Work Phone: Final Surgical Pathology Rep soha 07-26-2021 Final Surgical Pathology Report . 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 COMMENT: [facility] - [id number] CLINICAL INFORMATION: Procedure: FLEXIBLE SIGMOIDOSCOPY WITH BIOPSY [...] Electronically Signed by Pathology Report verified by [facility] Electronically signed by HUE HUERTA MD Sign out Date: 07/26/2021 15:00 Performing Lab: [facility], [address] [place] [address] ([place]) CT Head or Brain w/o Contras ton 04-16-2021 CT Head or Brain w/o Contrast [facility]: [id number] ACCESSION EXAM DATE/TIME PROCEDURE ORDERING PROVIDER [id number] 04/16/2021 12:[address] Head or Brain w/o MD BENITA, AUGUSTINE Villalta Contrast CPT code 14037 Reason For Exam (CT Head or Brain [...] Time: 04/16/2021 12:44 pm Signed by: MD SAUNDERS JOE M Transcribed Date and Time: 04/16/2021 12:45 Normal [facility] CT Maxillofacial w/o Contras ton 04-16-2021 CT Maxillofacial w/o Contrast Patient Name: LAMIN MOCTEZUMA Computed Tomography ACCESSION EXAM DATE/TIME PROCEDURE ORDERING PROVIDER [id number] 04/16/2021 12:[address] Maxillofacial w/o MD BENITA, AUGUSTINE Villalta Contrast CPT code 06975 Reason For Exam (CT Maxillofacial w/o Contrast) [...] Transcribed Date and Time: 04/16/2021 12:38 Normal [facility] CT Spine Cervical w/o Contra ston 04-16-2021 CT Spine Cervical w/o Contrast Patient Name: LAMIN MOCTEZUMA Computed Tomography ACCESSION EXAM DATE/TIME PROCEDURE ORDERING PROVIDER [id number] 04/16/2021 12:[address] Spine Cervical w/o MD BENITA, AUGUSTINE Villalta Contrast CPT code 76521 Reason For Exam (CT Spine Cervical w/o [...] Transcribed Date and Time: 04/16/2021 12:48 Normal [facility] Basic Metabolic Panelon 08-0 Calcium [Mass/Vol] 9.0 mg/dL Normal 8.4-10.4 [facility] Comment on above: Performed By: #### H ASTER BMP3, PT #### [facility] [address] [place] [address] Glucose [Mass/Vol] 118 mg/dL High 70-100 [facility] Comment on above: Performed By: #### H DEE RODARTE3, PT #### [facility] [address] [place] [address] Urea nitrogen [Mass/Vol] 16 mg/dL Normal 7-20 [facility] Comment on above: Performed By: #### H ASTER BMP3, PT #### [facility] [address] [place] [address] Anion gap [Moles/Vol] 2 mmol/L Low 3-13 [facility] Comment on above: Performed By: #### H DEE RODARTE3, PT #### [facility] [address] [place] [address] CO2 [Moles/Vol] 29 mmol/L Normal 22-30 [facility] Comment on above: Performed By: #### H DEE RODARTE3, PT #### [facility] [facility] [address] [place] [address] Creatinine [Mass/Vol] 0.91 mg/dL Normal 0.52-1.25 [facility] Comment on above: Performed By: #### H DEE RODARTE3, PT #### [facility] [address] [place] [address] GFR/1.73 sq M.predicted among blacks MDRD (S/P/Bld) [Vol rate/Area] mL/min/{1.73_m2} Normal >60 [facility] Comment on above: Performed By: #### H DEE RODARTE3, PT #### [facility] [address] [place] [address] GFR/1.73 sq M.predicted among non-blacks MDRD (S/P/Bld) [Vol rate/Area] 84.8 mL/min/{1.73_m2} Normal >60 [facility] Comment on above: Result Comment: KDIG [...] By: #### H HECTOR RODARTE, PT #### [facility] [address] [place] [place] [address] Potassium [Moles/Vol] 4.5 mmol/L Normal 3.5-5.1 [facility] Comment on above: Performed By: #### H HECTOR RODARTE, PT #### [facility] [address] [place] [address] Chloride [Moles/Vol] 108 mmol/L High 98-[address] [facility] Comment on above: Performed By: #### H HECTOR RODARTE, PT #### [facility] [address] [place] [address] Sodium [Moles/Vol] 139 mmol/L Normal 135-145 [facility] Comment on above: Performed By: #### H HECTOR RODARTE, PT #### [facility] [address] [place] [place] [address] Basic Metabolic PanelOrdered By: Kerry Guerrero on 04-14-2021 Anion gap [Moles/Vol] 2 mmol/L Low 3 - 13 mmol/L [facility] Work Phone: [phone] Calcium [Mass/Vol] 9.0 mg/dL 8.4 - 10. 4 mg/dL [facility] Work Phone: Chloride [Moles/Vol] 108 mmol/L High 98 - 10 7 mmol/L [facility] Work Phone: CO2 [Moles/Vol] 29 mmol/L 22 - 30 mmol/L [facility] Work Phone: Creatinine [Mass/Vol] 0.91 mg/dL 0.52 - 1.25 mg/dL [facility] Work Phone: EGFR IF NonAfrican Chadian 84.8 mL/min >60 [facility] Work Phone: Comment on above: KDIGO guidelines [...] Guerrero on 04-14-2021 [facility]: [id number] Tomography ACCESSION EXAM DATE/TIME PROCEDURE ORDERING PROVIDER [id number] 04/14/2021 12:[address] Spine Cervical w/o MD BEV, KERRY Contrast CPT code 68142 Reason For Exam (CT Spine Cervical w/o [...] Phone: Craig, Mc Incoming Radiology Results From [facility] - 04/14/2021 12:13 PM EDT Patient Name: LAMIN MOCTEZUMA Computed Tomography ACCESSION EXAM DATE/TIME PROCEDURE ORDERING PROVIDER [id number] 04/14/2021 12:[address] Spine Cervical w/o MD BEV, KERRY Contrast CPT code 15238 Reason For Exam (CT Spine Cervical w/o [...] 12:12 EDT by MEET PIRES DO, I [facility] Work Phone: [facility] Work Phone: CT HEAD WO CONTRASTOrdered B y: Kerry Guerrero on 04-14-2021 Patient Name: LAMIN MOCTEZUMA Computed Tomography ACCESSION EXAM DATE/TIME PROCEDURE ORDERING PROVIDER [id number] 04/14/2021 10:[address] Head or Brain w/o MD BEV, KERRY Contrast CPT code 21615 Reason For Exam (CT Head or Brain [...] and Time: 04/14/2021 10:38 [facility] Work Phone: [facility] Incoming Radiology Results From [facility] - 04/14/2021 10:38 AM EDT Patient Name: [id number] Computed Tomography ACCESSION EXAM DATE/TIME PROCEDURE ORDERING PROVIDER [id number] 04/14/2021 10:[address] Head or Brain w/o MD BEV, KERRY Contrast CPT code 90684 Reason For Exam (CT Head or Brain [...] Tomography ACCESSION EXAM DATE/TIME PROCEDURE ORDERING PROVIDER [id number] 04/14/2021 10:[address] Head or Brain w/o MD BEV, KERRY Contrast CPT code 75921 Reason For Exam (CT Head or Brain [...] Transcribed Date and Time: 04/14/2021 10:38 [address] [facility] CT Spine Cervical w/o Contra ston 04-14-2021 CT Spine Cervical w/o Contrast Patient Name: LAMIN MOCTEZUMA Computed Tomography ACCESSION EXAM DATE/TIME PROCEDURE ORDERING PROVIDER [id number] 04/14/2021 12:[address] Spine Cervical w/o MD BEV, KERRY Contrast CPT code 63512 Reason For Exam (CT Spine Cervical w/o [...] EDT by MEET PIRES DO, I Normal [facility] Hemogramon 04-14-2021 Erythrocyte distribution width (RBC) [Ratio] 13.8 % Normal 11.5-14.5 [facility] Comment on above: Performed By: #### H DEE RODARTE3, PT #### [facility] [address] [facility] [address] Hematocrit (Bld) [Volume fraction] 45.2 % Normal 40.0-52.0 [facility] Comment on above: Performed By: #### H DEE RODARTE3, PT #### [facility] [address] [facility] [place] [address] Hemoglobin (Bld) [Mass/Vol] 15.4 g/dL Normal 13.0-18.0 [facility] Comment on above: Performed By: #### H DEE RODARTE3, PT #### [facility] [address] [facility] [address] MCH (RBC) [Entitic mass] 31.5 pg Normal 26.0-34.0 [facility] Comment on above: Performed By: #### H DEE RODARTE3, PT #### [facility] [address] [place] [address] MCHC 34.0 % Normal 32.0-36.0 [facility] Comment on above: Performed By: #### H ASTER BMP3, PT #### [facility] [address] [facility] [place] [address] MCV (RBC) [Entitic vol] 92.6 fL Normal 80.0-98.0 [facility] Comment on above: Performed By: #### H DEE RODARTE3, PT #### [facility] [address] [place] [address] Platelet mean volume (Bld) [Entitic vol] 7.3 fL Low 7.4-10.4 [facility] Comment on above: Performed By: #### H DEE RODARTE3, PT #### [facility] [address] [place] [address] Platelets (Bld) [#/Vol] 155 10*3/uL Normal 140-440 [facility] Comment on above: Performed By: #### H DEE RODARTE3, PT #### [facility] [address] [place] [address] RBC (Bld) [#/Vol] 4.88 10*6/uL Normal 4.40-5.90 [facility] Comment on above: Performed By: #### H DEE RODARTE3, PT #### [facility] [address] [place] [address] WBC (Bld) [#/Vol] 5.0 10*3/uL Normal 3.6-10.7 [facility] Comment on above: Performed By: #### H DEE RODARTE3, PT #### [facility] [address] [place] [address] Hemogram (CBC)Ordered By: Lottie Guerrero on 04-14-2021 Hematocrit (Bld) [Volume fraction] 45.2 % 40.0 - 52.0 % [facility] Work Phone: Hemoglobin.gastrointesti nal spec 1 Ql (Stl) 15.4 g/dL 13.0 - 18.0 g/dL [facility] Work Phone: Interpretation and review of laboratory results Abnormal [facility] Work Phone: MCH (RBC) [Entitic mass] 31.5 pg 26. 0 - 34.0 pg [facility] Work Phone: MCHC (RBC) [Mass/Vol] 34.0 % 32.0 - 36.0 % [facility] Work Phone: 1 MCV (RBC) [Entitic vol] 92.6 fL 80.0 - 98.0 fL [facility] Work Phone: 1 Platelet distribution width (Bld) [Ratio] 13.8 % 11.5 - 14.5 % [facility] Work Phone: 1( Platelet mean volume (Bld) [Entitic vol] 7.3 fL Low 7.4 - 10.4 fL [facility] Work Phone: 1() Platelets (Bld) [#/Vol] 155 10*3/uL 140 - 440 10*3/uL [facility] Work Phone: 1() RBC (Bld) [#/Vol] 4.88 10*6/uL 4.40 - 5.90 10*6/uL [facility] Work Phone: 1() WBC (Bld) [#/Vol] 5.0 10*3/uL 3.6 - 10.7 10*3/uL [facility] Work Phone: 1 Test Performed by [employer] [facility], [address] [place] [address] [facility] Work Phone: 1 [facility] Work Phone: [phone] No Panel InformationOrdered By: Kerry Guerrero on 04-14-2021 Interpretation and review of laboratory results Abnormal [employer] Work Phone: 1 Test Performed by [employer], [address] [place] [address] [employer] Work Phone: 1 [facility] Work Phone: [phone] Prothrombin Timeon 1 INR 2.0 High 0.9-1.1 [facility] Comment on above: Result Comment: Joseph mmended [...] By: #### H EMOG, BMP3, PT #### [facility] [employer] [facility] [address] [place] [address] PT Coag (PPP) [Time] 20.3 s High 9.0-12.0 [facility] [employer] [facility] Comment on above: Result Comment: . Performed By: #### H EMOG, BMP3, PT #### [facility] [address] [place] [place] [address] Protime-INROrdered By: Tonya Guerrero on 04-14-2021 INR Coag (Bld) [Relative time] 2.0 {INR} High [facility] Work Phone: Comment on above: Recommended Anticoag [...] s High 9.0 - 1 2.0 s [facility] Work Phone: Comment on above: . Lab Report: Prothrombin Time w/INRon 11-04-2017 Coagulation tissue factor induced in platelet poor plasma 27.1 s High 11.7-14.9 [facility] Work Phone: INR in blood by coagulation 2.6 {INR} Invalid Interpretation Code [facility] Work Phone: [phone] Lab Report: Prothrombin Time w/INRon 10-05-2017 Coagulation tissue factor induced in platelet poor plasma 28.2 s High 11.7-14.9 [facility] Work Phone: INR in blood by coagulation 2.8 {INR} Invalid Interpretation Code [facility] Work Phone: [phone] Lab Report: PSA,Total- Diagn osticon 09-10-2017 prostate specific antigen, total 0.02 ng/mL Invalid Interpretation Code 0.0-4.[address] [facility] Work Phone: [phone] PSA, DIAGNOSTIC 0.02 ng/mL Invalid Interpretation Code 0.0-4.[address] [facility] Work Phone: [phone] Lab Report: Prothrombin Time w/INRon 09-10-2017 Coagulation tissue factor induced in platelet poor plasma 24 s High 11.7-14.[address] [facility] Work Phone: [phone] INR Coag RelTime (PPP) 2.3 {INR} Invalid Interpretation Code [facility] Work Phone: [phone] INR in blood by coagulation 2.3 {INR} Invalid Interpretation Code [facility] Work Phone: [phone] Lab Report: Prothrombin Time w/INRon 08-20-2017 Coagulation tissue factor induced in platelet poor plasma 23.2 s High 11.7-14.9 [facility] Work Phone: [phone] INR in blood by coagulation 2.2 {INR} Invalid Interpretation Code [facility] Work Phone: [phone] Coumadin Management: Warfari n Calcon 07-29-2017 INR Coag RelTime (Bld) Hospital lab Invalid Interpretation Code [facility] Work Phone: [phone] INR Coag RelTime (Bld) 2.0 - 3.5 Invalid Interpretation Code [facility] Work Phone: [phone] INR Coag RelTime (PPP) 2.6 {INR} Invalid Interpretation Code [facility] Work Phone: [phone] Prothrombin time (PT) Coag time (PPP) 26.9 s Invalid Interpretation Code [facility] Work Phone: [phone] Lab Report: Prothrombin Time w/INRon 07-29-2017 Prothrombin time (PT) Coag time (PPP) 26.9 s High 11.7-14.[address] [facility] Work Phone: [phone] CTA CHEST (NONGATED) WO/W IV CONon 07-26-2017 CTA CHEST (NONGATED) WO/W IV CON Performed at [facility] APPROVED BY: Kleber Chaves [...] with attention to the pulmonary veins Normal [facility] Coumadin Management: Fabian Duval 07-16-2017 INR Coag RelTime (Bld) Hospital lab Invalid Interpretation Code [facility] Work Phone: INR Coag RelTime (Bld) 2.0 - 3.5 Invalid Interpretation Code [facility] Work Phone: [phone] INR Coag RelTime (PPP) 2.0 {INR} Invalid Interpretation Code [facility] Work Phone: [phone] Prothrombin time (PT) Coag time (PPP) 21.9 s Invalid Interpretation Code [facility] Work Phone: [phone] Lab Report: Prothrombin Time w/INRon 07-16-2017 Prothrombin time (PT) Coag time (PPP) 21.9 s High 11.7-14.9 [facility] Work Phone: [phone] Coumadin Management: Gazemetrixgenoveva vila Calcon 07-09-2017 INR Coag RelTime (Bld) Hospital lab Invalid Interpretation Code [facility] Work Phone: [phone] INR Coag RelTime (Bld) 2.0 - 3.5 Invalid Interpretation Code [facility] Work Phone: [phone] INR Coag RelTime (PPP) 1.8 {INR} Invalid Interpretation Code [facility] Work Phone: [phone] Prothrombin time (PT) Coag time (PPP) 20.0 s Invalid Interpretation Code [facility] Work Phone: [phone] Lab Report: Prothrombin Time w/INRon 07-09-2017 Prothrombin time (PT) Coag time (PPP) 20 s High 11.7-14.9 [facility] Work Phone: [phone] Coumadin Management: Gazemetrixgenoveva vila Calcon 06-17-2017 INR Coag RelTime (Bld) Hospital lab Invalid Interpretation Code [facility] Work Phone: [phone] INR Coag RelTime (PPP) 2.4 {INR} Invalid Interpretation Code [facility] Work Phone: [phone] international normalized ratio (INR) range 2.0 - 3.5 Invalid Interpretation Code [facility] Work Phone: [phone] Prothrombin time (PT) Coag time (PPP) 25.3 s Invalid Interpretation Code [facility] Work Phone: [phone] Lab Report: Prothrombin Time w/INRon 06-17-2017 Prothrombin time (PT) Coag time (PPP) 25.3 s High 11.7-14.9 [facility] Work Phone: [phone] [facility] 06-03-2017 Coagulation tissue factor induced in platelet poor plasma 24.0 s Invalid Interpretation Code [facility] Work Phone: [phone] INR in blood by coagulation Hospital lab Invalid Interpretation Code [facility] Work Phone: [phone] INR in blood by coagulation 2.3 {INR} Invalid Interpretation Code [facility] Work Phone: [phone] INR in blood by coagulation 2.0 - 3.5 Invalid Interpretation Code [facility] Work Phone: [phone] Replaced Document: Prothromb in Time w/INRon 06-03-2017 Coagulation tissue factor induced in platelet poor plasma 24 s High 11.7-14.9 [facility] Work Phone: [phone] Coumadin Management: Gazemetrixgenoveva n Calcon 05-14-2017 Coagulation tissue factor induced in platelet poor plasma 22.3 s Invalid Interpretation Code [facility] Work Phone: [phone] INR in blood by coagulation Hospital lab Invalid Interpretation Code [facility] Work Phone: [phone] INR in blood by coagulation 2.1 {INR} Invalid Interpretation Code [facility] Work Phone: [phone] INR in blood by coagulation 2.0 - 3.5 Invalid Interpretation Code [facility] Work Phone: [phone] Lab Report: Prothrombin Time w/INRon 05-14-2017 Coagulation tissue factor induced in platelet poor plasma 22.3 s High 11.7-14.9 [facility] Work Phone: Coumadin Management: Gazemetrixari n Calcon 05-07-2017 Coagulation tissue factor induced in platelet poor plasma 21.2 s Invalid Interpretation Code [facility] Work Phone: INR in blood by coagulation Hospital lab Invalid Interpretation Code [facility] Work Phone: INR in blood by coagulation 1.9 {INR} Invalid Interpretation Code [facility] Work Phone: [phone] INR in blood by coagulation 2.0 - 3.5 Invalid Interpretation Code [facility] Work Phone: [phone] Lab Report: Prothrombin Time w/INRon 05-07-2017 Coagulation tissue factor induced in platelet poor plasma 21.2 s High 11.7-14.9 [facility] Work Phone: [phone] Coumadin Management: Warfari n Calcon 04-29-2017 Coagulation tissue factor induced in platelet poor plasma 19.7 s Invalid Interpretation Code [facility] Work Phone: [phone] INR in blood by coagulation Hospital lab Invalid Interpretation Code [facility] Work Phone: [phone] INR in blood by coagulation 1.7 {INR} Invalid Interpretation Code [facility] Work Phone: [phone] INR in blood by coagulation 2.0 - 3.5 Invalid Interpretation Code [facility] Work Phone: [phone] Lab Report: Prothrombin Time w/INRon 04-29-2017 Coagulation tissue factor induced in platelet poor plasma 19.7 s High 11.7-14.9 [facility] Work Phone: [phone] Coumadin Management: Warfari n Calcon 04-22-2017 Coagulation tissue factor induced in platelet poor plasma 18.9 s Invalid Interpretation Code [facility] Work Phone: [phone] INR in blood by coagulation Hospital lab Invalid Interpretation Code [facility] Work Phone: [phone] INR in blood by coagulation 1.7 {INR} Invalid Interpretation Code [facility] Work Phone: [phone] INR in blood by coagulation 2.0 - 3.5 Invalid Interpretation Code [facility] Work Phone: [phone] Lab Report: Basic Metabolic Profile (BMP)on 04-22-2017 Anion gap 7 mmol/L Invalid Interpretation Code 5-15 [facility] Work Phone: [phone] Anion gap 4 molar conc 7 Invalid Interpretation Code 5-15 [facility] Work Phone: [phone] BUN/Creatinine Ratio 19.2 RATIO Invalid Interpretation Code 10-20 [facility] Work Phone: [phone] Calcium 8.6 mg/dL Invalid Interpretation Code 8.5-10.1 [facility] Work Phone: [phone] Chloride 105 mmol/L Invalid Interpretation Code 98-107 [facility] Work Phone: [phone] CO2 27.0 mmol/L Invalid Interpretation Code 21.0-32.0 [facility] Work Phone: [phone] CO2 ppres (BldV) 27.0 mmol/L Invalid Interpretation Code 21.0-32.0 [facility] Work Phone: [phone] Creatinine 1.04 mg/dL Invalid Interpretation Code 0.70-1.30 [facility] Work Phone: [phone] eGFR (non-black) 76 mL/min/{1.73_m2} Invalid Interpretation Code >60 [facility] Work Phone: [phone] eGFR (non-black) 92 mL/min/{1.73_m2} Invalid Interpretation Code >60 [facility] Work Phone: [phone] EST GFR - AA 92 mL/min Invalid Interpretation Code >60 [facility] Work Phone: [phone] Glucose 95 mg/dL Invalid Interpretation Code 70-110 [facility] Work Phone: [phone] Glucose mass conc 95 mg/dL Invalid Interpretation Code 70-110 [facility] Work Phone: [phone] Potassium 4.1 mmol/L Invalid Interpretation Code 3.5-5.1 [facility] Work Phone: [phone] Sodium 139 mmol/L Invalid Interpretation Code 136-145 [facility] Work Phone: [phone] Urea nitrogen 20 mg/dL High 7-18 [facility] Work Phone: [phone] Lab Report: Prothrombin Time w/INRon 04-22-2017 Coagulation tissue factor induced in platelet poor plasma 18.9 s High 11.7-14.9 [facility] Work Phone: [phone] Kary 04-21-2017 ACT 196 sec High 89-153 [facility] Comment on above: Performed By: #### P 8 ####[place] [address] ACT 358 sec High 89-153 [facility] Comment on above: Performed By: #### P 8 ####[facility] [place], [place] [address] ACT 292 sec High 89-153 [facility] Comment on above: Performed By: #### P 8 ####[facility] [place], [place] [address] ACT 278 sec High 89-153 [facility] Comment on above: Performed By: #### P 8 ####[facility] [place], [place] [address] ACT 307 sec High 89-153 [facility] Comment on above: Performed By: #### P 8 ####[facility] [place], [place] [address] ACT 365 sec High 89-153 [facility] Comment on above: Performed By: #### P 8 ####[facility] [place], [place] [address] ACT 281 sec High 89-153 [facility] Comment on above: Performed By: #### P 8 ####[facility] [place], [place] [address] ACT 192 sec High 89-153 [facility] Comment on above: Performed By: #### A CT ####[address] [address] INR, POCT Whole Bloodon 04-09 INR Coag RelTime (Bld) 2.30 {INR} High 0.90-1.10 [facility] Comment on above: Result Comment: Vishal dard Therapy 2.0-3.0High Dose 2.5-3.5 Performed By: #### P 8 ####[address] [address] DISCHARGE SUMMARYon 04-19-20 17 DISCHARGE SUMMARY The required clinica l documentation could not be extracted for this report. Please refer to the [facility] Record or contact the [facility] Department at [facility] ([phone]) to obtain a copy of this report. Normal [facility] DISCHARGE SUMMARY PDF Normal [facility] HISTORY & PHYSICALon 017 HISTORY & PHYSICAL The required clinica l documentation could not be extracted for this report. Please refer to the [facility] Record or contact the HIM Department at [facility] ([phone]) to obtain a copy of this report. Normal [facility] HISTORY & PHYSICAL PDF Normal [facility] Coumadin Management: Fabian vila Calcon 04-15-2017 Coagulation tissue factor induced in platelet poor plasma 18.3 s [facility] Work Phone: INR Coag RelTime (PPP) 1.6 {INR} [facility] Work Phone: [phone] INR in blood by coagulation 2.0 - 3.5 Invalid Interpretation Code [facility] Work Phone: [phone] INR in blood by coagulation Hospital lab [facility] Work Phone: [phone] INR in blood by coagulation 1.6 {INR} Invalid Interpretation Code [facility] Work Phone: [phone] international normalized ratio (INR) range 2.0 - 3.5 [facility] Work Phone: Lab Report: Prothrombin Time w/INRon 04-15-2017 Coagulation tissue factor induced in platelet poor plasma 18.3 s High 11.7-14.9 [facility] Work Phone: Basic Panelon 04-11-2017 Creatinine 0.96 mg/dL Normal 0.67-1.17 [facility] Comment on above: Performed By: #### P 8 ####[facility] [place] [address] Anion gap 10 mmol/L Normal 8-16 [facility] Comment on above: Performed By: #### P 8 ####[facility] [place] [address] Calcium 7.7 mg/dL Low 8.5-10.1 [facility] Comment on above: Performed By: #### P 8 ####[facility] [place] [address] CO2 26 mmol/L Normal 21-32 [facility] Comment on above: Performed By: #### P 8 ####[place] [address] Glucose mass conc 106 mg/dL High 70-99 [facility] Comment on above: Performed By: #### P 8 ####[facility] [place], [place] [address] Urea nitrogen 22 mg/dL High 7-18 [facility] Comment on above: Performed By: #### P 8 ####[facility] [place], [place] [address] Chloride 104 mmol/L Normal 98-107 [facility] Comment on above: Performed By: #### P 8 ####[address] [address] Potassium molar conc 3.4 mmol/L Low 3.5-5.1 [facility] Comment on above: Performed By: #### P 8 ####[place] [address] Sodium 137 mmol/L Normal 136-145 [facility] Comment on above: Performed By: #### P 8 ####[place] [address] Hemogramon 04-11-2017 Erythrocyte distribution width Auto Ratio (RBC) 13.9 % Normal 11.6-14.4 [facility] Comment on above: Performed By: #### C BC1 ####[place] [address] Erythrocytes (RBC) 4.90 mil/cmm Normal 4.63-6.08 [facility] Comment on above: Performed By: #### C BC1 ####[place] [address] Hematocrit (HCT) 46.2 % Normal 40.1-51.0 [facility] Comment on above: Performed By: #### C BC1 ####[address] [address] Hemoglobin mass conc (Bld) 15.5 g/dL Normal 13.7-17.5 [facility] Comment on above: Performed By: #### C BC1 ####[address] [address] MCH 31.6 pg Normal 25.7-32.2 [facility] Comment on above: Performed By: #### C BC1 ####[facility] [place], [place] [address] MCHC mass conc (RBC) 33.5 % Normal 32.3-36.5 [facility] Comment on above: Performed By: #### C BC1 ####[address] [address] MCV 94.3 fL Normal 83.2-95.6 [facility] Comment on above: Performed By: #### C BC1 ####[address] [address] Platelet mean volume (PMV) 9.7 fL Normal 8.7-12.0 [facility] Comment on above: Performed By: #### C BC1 ####[place] [place] [id number] Platelets 185 thou/cmm Normal 141-365 [facility] Comment on above: Performed By: #### C BC1 ####[place] [address] RDW SD 47.8 fl High 36.1-45.8 [facility] Comment on above: Performed By: #### C BC1 ####[place] [id number] WBC (Leukocytes) 11.15 thou/cmm High 4.23-9.07 [facility] Comment on above: Performed By: #### C BC1 ####[place] [id number] MDRD GFRon 04-11-2017 eGFR (non-black) mL/min/{1.73_m2} Normal >60mL/m in/ 1.73m2 [facility] Comment on above: Result Comment: If t he patient is , multiply the result by 1.210. Performed By: #### G FR ####[place] [id number] Protimeon 04-11-2017 INR Coag RelTime (PPP) 2.90 {INR} Normal [facility] Comment on above: Result Comment: Vishal dard Therapy 2.0-3.0High Dose 2.5-3.5 Performed By: #### P T ####[place] [address] Prothrombin time (PT) Coag time (PPP) 29.0 s High 9.3-11.9 [facility] Comment on above: Performed By: #### P T ####[place] [address] ABO/Rh Confirmationon 2016 ABO group B Normal [facility] Comment on above: Performed By: #### A RAFA ####[place] [address] RH Type Positive Normal [facility] Comment on above: Performed By: #### A RAFA ####[place] [address] Basic Panelon 04-10-2017 Urea nitrogen 21 mg/dL High 7-18 [facility] Comment on above: Performed By: #### P 8 ####[place] [address] Creatinine 0.89 mg/dL Normal 0.67-1.17 [facility] Comment on above: Performed By: #### P 8 ####[place] [address] Anion gap 8 mmol/L Normal 8-16 [facility] Comment on above: Performed By: #### P 8 ####[place] [address] CO2 25 mmol/L Normal 21-32 [facility] Comment on above: Performed By: #### P 8 ####[place] [address] Glucose mass conc 137 mg/dL High 70-99 [facility] Comment on above: Performed By: #### P 8 ####[place] [address] Calcium 8.4 mg/dL Low 8.5-10.1 [facility] Comment on above: Performed By: #### P 8 ####[place] [address] Chloride 109 mmol/L High 98-107 [facility] Comment on above: Performed By: #### P 8 ####[facility] [place] [address] Potassium molar conc 4.5 mmol/L Normal 3.5-5.1 [facility] Comment on above: Performed By: #### P 8 ####[facility] [place] [address] Sodium 137 mmol/L Normal 136-145 [facility] Comment on above: Performed By: #### P 8 ####[place] [address] Hemogramon 04-10-2017 Erythrocyte distribution width Auto Ratio (RBC) 13.5 % Normal 11.6-14.4 [facility] Comment on above: Performed By: #### C BC1 ####[place] [address] Erythrocytes (RBC) 5.46 mil/cmm Normal 4.63-6.08 [facility] Comment on above: Performed By: #### C BC1 ####[place] [address] Hematocrit (HCT) 49.9 % Normal 40.1-51.0 [facility] Comment on above: Performed By: #### C BC1 ####[place] [address] Hemoglobin mass conc (Bld) 17.2 g/dL Normal 13.7-17.5 [facility] Comment on above: Performed By: #### C BC1 ####[place] [address] MCH 31.5 pg Normal 25.7-32.2 [facility] Comment on above: Performed By: #### C BC1 ####[place] [address] MCHC mass conc (RBC) 34.5 % Normal 32.3-36.5 [facility] Comment on above: Performed By: #### C BC1 ####[place] [address] MCV 91.4 fL Normal 83.2-95.6 [facility] Comment on above: Performed By: #### C BC1 ####[place] [address] Platelet mean volume (PMV) 9.2 fL Normal 8.7-12.0 [facility] Comment on above: Performed By: #### C BC1 ####[place] [address] Platelets 169 thou/cmm Normal 141-365 [facility] Comment on above: Performed By: #### C BC1 ####[place] [address] RDW SD 46.0 fl High 36.1-45.8 [facility] Comment on above: Performed By: #### C BC1 ####[place] [address] WBC (Leukocytes) 9.92 thou/cmm High 4.23-9.07 [facility] Comment on above: Performed By: #### C BC1 ####[place] [address] MDRD GFRon 04-10-2017 eGFR (non-black) mL/min/{1.73_m2} Normal >60mL/m in/ 1.73m2 [facility] Comment on above: Result Comment: If t he patient is , multiply the result by 1.210. Performed By: #### G FR ####[place] [address] Type and Screenon 04-10-2017 ABO group B Normal [facility] Comment on above: Performed By: #### T &S ####[place] [address] Antibody Screen Negative Normal [facility] Comment on above: Performed By: #### T &S ####[place] [address] Comment See Below Normal [facility] Comment on above: Result Comment: Scre en &/or Xmatch expires in 3 days at 12 midnight. Redrawpatient at that time. Performed By: #### T &S ####[facility] [place], [place] [address] RH Type Positive Normal [facility] Comment on above: Performed By: #### T &S ####[facility] [place], [place] [address] Coumadin Management: Fabian vila Calcon 04-01-2017 INR Coag RelTime (Bld) Hospital lab [facility] Work Phone: [phone] INR Coag RelTime (PPP) 2.2 {INR} [facility] Work Phone: [phone] international normalized ratio (INR) range 2.0 - 3.5 [facility] Work Phone: [phone] Prothrombin time (PT) Coag time (PPP) 23.2 s [facility] Work Phone: [phone] Lab Report: Prothrombin Time w/INRon 04-01-2017 Prothrombin time (PT) Coag time (PPP) 23.2 s High 11.7-14.9 [facility] Work Phone: [phone] Coumadin Management: Warfari n Calcon 03-25-2017 INR Coag RelTime (Bld) Hospital lab [facility] Work Phone: [phone] INR Coag RelTime (PPP) 2.1 {INR} [facility] Work Phone: [phone] international normalized ratio (INR) range 2.0 - 3.5 [facility] Work Phone: [phone] Prothrombin time (PT) Coag time (PPP) 22.7 s [facility] Work Phone: Lab Report: Prothrombin Time w/INRon 03-25-2017 Prothrombin time (PT) Coag time (PPP) 22.7 s High 11.7-14.9 [facility] Work Phone: Coumadin Management: Fabian n Calcon 03-18-2017 Coagulation tissue factor induced in platelet poor plasma 33.0 s [facility] Work Phone: [phone] INR Coag RelTime (PPP) 3.5 {INR} [facility] Work Phone: [phone] INR in blood by coagulation 2.0 - 3.5 Invalid Interpretation Code [facility] Work Phone: [phone] INR in blood by coagulation Hospital lab [facility] Work Phone: [phone] INR in blood by coagulation 3.5 {INR} Invalid Interpretation Code [facility] Work Phone: [phone] international normalized ratio (INR) range 2.0 - 3.5 [facility] Work Phone: [phone] Lab Report: Prothrombin Time w/INRon 03-18-2017 Coagulation tissue factor induced in platelet poor plasma 33.4 s High 11.7-14.9 [facility] Work Phone: [phone] Coumadin Management: Fabian vila Calcon 03-11-2017 Coagulation tissue factor induced in platelet poor plasma 20.8 s Invalid Interpretation Code [facility] Work Phone: [phone] INR in blood by coagulation Hospital lab Invalid Interpretation Code [facility] Work Phone: [phone] INR in blood by coagulation 1.9 {INR} Invalid Interpretation Code [facility] Work Phone: [phone] Lab Report: Prothrombin Time w/INRon 03-11-2017 Coagulation tissue factor induced in platelet poor plasma 20.8 s High 11.7-14.9 [facility] Work Phone: [phone] Office Visit: Left knee pain on 12-14-2016 Dietary management education, guidance, and counseling (procedure) yes Invalid Interpretation Code [facility] Work Phone: [phone] Documentation of current medications (procedure) Done Invalid Interpretation Code [facility] Work Phone: [phone] Protein mass conc Done Invalid Interpretation Code [facility] Work Phone: [phone] Tobacco smoking status NHIS Tobacco smoking status NHIS Invalid Interpretation Code [facility] Work Phone: [phone] Tobacco smoking status NHIS Former smoker Invalid Interpretation Code [facility] Work Phone: [phone] Tobacco use [facility] Former smoker Invalid Interpretation Code [facility] Work Phone: [phone] Append: EP/Cardiac Referralo n 12-19-2016 Clinical consultation report (record artifact) [id number]^07/05/2016 Invalid Interpretation Code [facility] Phone: [phone] Clinical Lists Update: 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 ABNORMAL Invalid Interpretation Code [facility] Phone: GE use only - for [employer] import when terms are not otherwise specified 444 ms Invalid Interpretation Code [facility] Phone: [phone] Interpretation Atrial flutter-fibrillation Low voltage in precordial leads. ABNORMAL Invalid Interpretation Code [facility] Phone: [phone] P Callender 90 deg Invalid Interpretation Code [facility] Phone: [phone] P wave axis, electrocardiogram 90 deg Invalid Interpretation Code [facility] Phone: [phone] MT Interval 0 ms Invalid Interpretation Code [facility] Phone: [phone] MT interval, electrocardiogram 0 ms Invalid Interpretation Code [facility] Phone: Pulse (Heart Rate) 75 /min Invalid Interpretation Code [facility] Phone: [phone] QRS axis, electrocardiogram 7 deg Invalid Interpretation Code [facility] Phone: [phone] QRS Duration 106 ms Invalid Interpretation Code [facility] Work Phone: QRS duration, electrocardiogram 106 ms Invalid Interpretation Code [facility] Phone: QT Interval new path ms Invalid Interpretation Code [facility] Phone: QT interval, electrocardiogram new path ms Invalid Interpretation Code [facility] Phone: QTc Dey 444 ms Invalid Interpretation Code [facility] Phone: T Callender 29 deg Invalid Interpretation Code [facility] Phone: T wave axis, electrocardiogram 29 deg Invalid Interpretation Code [facility] Work Phone: [phone] Lab Report: Basic Metabolic Profile (BMP)on 05-07-2016 Anion gap 2 mmol/L Low 5-15 [facility] Work Phone: [phone] Anion gap molar conc 2 mmol/L Low 5-[address] [facility] Work Phone: [phone] Calcium mass conc 8.7 mg/dL 8.5-10.1 [facility] Work Phone: [phone] Chloride molar conc 107 mmol/L 98-107 [facility] Work Phone: [phone] CO2 30.0 mmol/L Invalid Interpretation Code 21.0-32.0 [facility] Work Phone: [phone] CO2 ppres (BldV) 30.0 mmol/L 21.0-32.0 [facility] Work Phone: [phone] Creatinine mass conc 1.19 mg/dL 0.70-1.[address] [facility] Work Phone: [phone] eGFR (non-black) 79 mL/min/{1.73_m2} Invalid Interpretation Code >60 [facility] Work Phone: [phone] EST GFR - AA 79 mL/min >60 [facility] Work Phone: [phone] GFR/1.73 sq M predicted among non-blacks MDRD vol rate/area (S/P/Bld) 65 mL/min/{1.73_m2} >[address] [facility] Work Phone: [phone] Glucose 100 mg/dL Invalid Interpretation Code 70-110 [facility] Work Phone: [phone] Glucose mass conc 100 mg/dL 70-110 [facility] Work Phone: [phone] Potassium molar conc 3.8 mmol/L 3.5-5.[address] [facility] Work Phone: [phone] Sodium molar conc 139 mmol/L 136-145 [facility] Work Phone: [phone] Urea nitrogen mass conc 17 mg/dL 7-18 [facility] Work Phone: [phone] Urea nitrogen/Creatinine mass ratio 14.3 RATIO 10-20 [facility] Work Phone: [phone] Clinical Lists Updateon 12-09 Hematocrit (HCT) 51.1 % Invalid Interpretation Code [facility] Work Phone: [phone] Hematocrit Volume Fraction (Bld) 51.1 % [facility] Work Phone: [phone] Hemoglobin mass conc (Bld) 16.6 g/dL Invalid Interpretation Code [facility] Work Phone: [phone]) Office Visiton 10-27-2015 General cardiovascular disease 10Y risk [#] [place] 11 % Invalid Interpretation Code [facility] Work Phone: [phone] Office Visiton 04-06-2015 cardiac risk group C Invalid Interpretation Code [facility] Work Phone: [phone] Clinical Lists Update: 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 Cholesterol in HDL mass conc 49 mg/dL Invalid Interpretation Code [facility] Work Phone: [phone] Cholesterol in LDL mass conc 102 mg/dL Invalid Interpretation Code [facility] Work Phone: [phone] Cholesterol mass conc 177 mg/dL Invalid Interpretation Code [facility] Work Phone: [phone] Erythrocytes (RBC) 5.01 10*6/uL Invalid Interpretation Code [facility] Work Phone: [phone] Platelets 107 10*3/mm3 Low [facility] Work Phone: [phone] Platelets #/vol (Bld) 107 10*3/mm3 Low [facility] Work Phone: [phone] RBC #/vol (Bld) 5.01 10*6/uL [facility] Work Phone: [phone] Triglyceride mass conc 129 mg/dL Invalid Interpretation Code [facility] Work Phone: [phone] WBC #/vol (Bld) 4.4 10*3/uL [facility] Work Phone: [phone] WBC (Leukocytes) 4.4 10*3/uL Invalid Interpretation Code [facility] Work Phone: [phone] Vital Signs Date Time Vital Sign Value Performing Clinician Facility 02-09-2025 07:36-0400 Body height 185.[address] Ryan Canales DO Work Phone: [facility] 02-09-2025 07:36-0400 Body mass index (BMI) [Ratio] 44.3 kg/m2 Dr. Ryan Canales DO Work Phone: [facility] 02-09-2025 07:36-0400 Body weight 152.[address] Ryan Canales DO Work Phone: [facility] 02-09-2025 07:36-0400 Diastolic blood pressure 77 mm[Hg] Dr. Ryan Canales DO Work Phone: [facility] 02-09-2025 07:36-0400 Heart rate 52 /min Dr. Ryan Canales DO Work Phone: [facility] 02-09-2025 07:36-0400 Respiratory rate 18 /min Dr. Ryan Canales DO Work Phone: [facility] 02-09-2025 07:36-0400 Systolic blood pressure 144 mm[Hg] Dr. Ryan Canales DO Work Phone: [facility] 02-07-2025 19:12-0400 Body mass index (BMI) [Ratio] 46.8 kg/m2 Dr. Ryan Canales DO Work Phone: [facility] 12-16-2024 09:29-0400 Body height 185.4 cm Ryan Canales DO Work Phone: [facility] 12-16-2024 09:29-0400 Body mass index (BMI) [Ratio] 44.75 kg/m2 Ryan Canales DO Work Phone: [facility] 12-16-2024 09:29-0400 Body temperature 97.81 [degF] Ryan Canales DO Work Phone: [facility] 12-16-2024 09:29-0400 Body weight 153.86 kg Ryan Canales DO Work Phone: [facility] 12-16-2024 09:29-0400 Diastolic blood pressure 68 mm[Hg] Ryan Canales DO Work Phone: [facility] [employer] 12-16-2024 09:29-0400 Heart rate 50 /min Ryan Ally DO Work Phone: [facility] [employer] 12-16-2024 09:29-0400 SaO2% (BldA) [Mass fraction] 96 % Ryan Marquezmackenziemary DO Work Phone: [facility] [employer] 12-16-2024 09:29-0400 Systolic blood pressure 118 mm[Hg] Ryan Canales DO Work Phone: [facility] [employer] 09-09-2024 04:46-0500 Body mass index (BMI) [Ratio] 46.8 kg/m2 Dr. Ryan Canales DO Work Phone: [facility] 06-17-2024 09:07-0400 Body height 185.4 cm Ryan Jimmydarrian DO Work Phone: [facility] [employer] 06-17-2024 09:07-0400 Body mass index (BMI) [Ratio] 43.67 kg/m2 Ryan Jimmydarrian DO Work Phone: [facility] [employer] 06-17-2024 09:07-0400 Body temperature 98.1 [degF] Ryan Canales DO Work Phone: [facility] [employer] 06-17-2024 09:07-0400 Body weight 150.14 kg Ryan Jimmydarrian DO Work Phone: [facility] [employer] 06-17-2024 09:07-0400 Diastolic blood pressure 71 mm[Hg] Ryan Canales DO Work Phone: [facility] 06-17-2024 09:07-0400 Heart rate 59 /min Ryan Canales DO Work Phone: [facility] [employer] 06-17-2024 09:07-0400 SaO2% (BldA) [Mass fraction] 97 % Ryan Canales DO Work Phone: [facility] 06-17-2024 09:07-0400 Systolic blood pressure 144 mm[Hg] Ryan Canales DO Work Phone: [facility] 05-19-2024 08:11-0400 Body height 185.4 cm Ashleigh Hernandezo PA-C Work Phone: [facility] 05-19-2024 08:11-0400 Body mass index (BMI) [Ratio] 43.43 kg/m2 Ashleigh Tapia PA-C Work Phone: [facility] 05-19-2024 08:11-0400 Body temperature 98.4 [degF] Ashleigh Tapia PA-C Work Phone: [facility] 05-19-2024 08:11-0400 Body weight 149.32 kg Ashleigh Tapia PA-C Work Phone: [facility] 05-19-2024 08:11-0400 Diastolic blood pressure 60 mm[Hg] Ashleigh Tapia PA-C Work Phone: [facility] 05-19-2024 08:11-0400 Heart rate 62 /min Ashleigh Tapia PA-C Work Phone: [facility] 05-19-2024 08:11-0400 SaO2% (BldA) [Mass fraction] 95 % Ashleigh Tapia PA-C Work Phone: [facility] 05-19-2024 08:11-0400 Systolic blood pressure 120 mm[Hg] Ashleigh Hernandezo PA-C Work Phone: [facility] 11-08-2023 00:10-0500 Body mass index (BMI) [Ratio] 46.8 kg/m2 Dr. Ryan Canales Work Phone: [facility] 09-24-2023 17:51-0500 Body height 185.[address] Ryan Canales Work Phone: [facility] 09-24-2023 17:51-0500 Body temperature 97.2 [degF] Dr. Ryan Canales Work Phone: [facility] 09-24-2023 17:51-0500 Diastolic blood pressure 86 mm[Hg] Dr. Ryan Canales Work Phone: [facility] 09-24-2023 17:51-0500 Heart rate 92 /min Dr. Ryan Canales Work Phone: [facility] 09-24-2023 17:51-0500 Respiratory rate 18 /min Dr. Ryan Canales Work Phone: [facility] 09-24-2023 17:51-0500 SaO2% (BldA) [Mass fraction] 97 % Dr. Ryan Canales Work Phone: [facility] 09-24-2023 17:51-0500 Systolic blood pressure 184 mm[Hg] Dr. Ryan Canales Work Phone: [facility] 09-19-2023 09:47-0500 Body mass index (BMI) [Ratio] 46.3 kg/m2 Dr. Ryan Canales Work Phone: [facility] 09-19-2023 09:47-0500 Body weight 159.[address] Ryan Canales Work Phone: [facility] 09-18-2023 12:57-0500 Body height 185.4 cm Ryan Canales DO Work Phone: [facility] 09-18-2023 12:57-0500 Body mass index (BMI) [Ratio] 46.97 kg/m2 Ryan Canales DO Work Phone: [facility] 09-18-2023 12:57-0500 Body temperature 98.4 [degF] Ryan Canales DO Work Phone: [facility] 09-18-2023 12:57-0500 Body weight 161.48 kg Ryan Canales DO Work Phone: [facility] 09-18-2023 12:57-0500 Diastolic blood pressure 58 mm[Hg] Ryan Canales DO Work Phone: [facility] 09-18-2023 12:57-0500 Heart rate 66 /min Ryan Canales DO Work Phone: [facility] 09-18-2023 12:57-0500 SaO2% (BldA) [Mass fraction] 96 % yRan Canales DO Work Phone: [facility] 09-18-2023 12:57-0500 Systolic blood pressure 110 mm[Hg] Ryan Canales DO Work Phone: [facility] 09-14-2023 03:20-0500 Body mass index (BMI) [Ratio] 45.6 kg/m2 [facility] 09-14-2023 03:20-0500 Body weight 157.01 kg [facility] 09-14-2023 01:36-0500 Body height 185.42 cm [facility] 09-14-2023 01:36-0500 Body temperature 97.8 [degF] [facility] 09-14-2023 01:36-0500 Diastolic blood pressure 70 mm[Hg] [facility] 09-14-2023 01:36-0500 Heart rate 59 /min [facility] 09-14-2023 01:36-0500 Respiratory rate 18 /min [facility] 09-14-2023 01:36-0500 SaO2% (BldA) [Mass fraction] 97 % [facility] 09-14-2023 01:36-0500 Systolic blood pressure 154 mm[Hg] [facility] 07-09-2023 22:41-0400 Body mass index (BMI) [Ratio] 46.8 kg/m2 Dr. Ryan Canales Work Phone: [facility] 06-09-2023 04:19-0400 Body mass index (BMI) [Ratio] 46.8 kg/m2 [facility] 04-09-2023 01:08-0400 Body mass index (BMI) [Ratio] 46.8 kg/m2 [facility] 03-19-2023 12:55-0400 Diastolic blood pressure 72 mm[Hg] Ryan Canales DO Work Phone: [facility] 03-19-2023 12:55-0400 Heart rate 60 /min Ryan Canales DO Work Phone: [facility] 03-19-2023 12:55-0400 Systolic blood pressure 128 mm[Hg] Ryan Canales Work Phone: [facility] 03-19-2023 12:14-0400 Body height 185.4 cm Ryan Marquezdarrian Work Phone: [facility] 03-19-2023 12:14-0400 Body mass index (BMI) [Ratio] 46.44 kg/m2 Ryan Uriartemary DO Work Phone: [facility] 03-19-2023 12:14-0400 Body temperature 98.2 [degF] Ryan Canales Work Phone: [facility] 03-19-2023 12:14-0400 Body weight 159.67 kg Ryan Canales DO Work Phone: [facility] 03-19-2023 12:14-0400 SaO2% (BldA) [Mass fraction] 96 % Ryan Jimmydarrian DO Work Phone: [facility] 03-09-2023 01:33-0400 Body mass index (BMI) [Ratio] 46.8 kg/m2 [facility] 02-07-2023 13:25-0400 Body height 185.[address] Ryan Canales Work Phone: [facility] 02-07-2023 13:25-0400 Body mass index (BMI) [Ratio] 45.4 kg/m2 Dr. Ryan Canales Work Phone: [facility] 02-07-2023 13:25-0400 Body weight 156.[address] Ryan Canales Work Phone: [facility] 02-07-2023 13:25-0400 Diastolic blood pressure 77 mm[Hg] Dr. Ryan Canales Work Phone: [facility] 02-07-2023 13:25-0400 Heart rate 52 /min Dr. Ryan Canales Work Phone: [facility] 02-07-2023 13:25-0400 Respiratory rate 16 /min Dr. Ryan Canales Work Phone: [facility] 02-07-2023 13:25-0400 Systolic blood pressure 135 mm[Hg] Dr. Ryan Canales Work Phone: [facility] 02-05-2023 10:32-0400 Body height 185.4 cm Ashleigh Tapia PA-C Work Phone: [facility] 02-05-2023 10:32-0400 Body mass index (BMI) [Ratio] 44.86 kg/m2 Ashleigh Tapia PA-C Work Phone: [facility] 02-05-2023 10:32-0400 Body temperature 97.7 [degF] Ashleigh Tapia PA-C Work Phone: [facility] 02-05-2023 10:32-0400 Body weight 154.22 kg Ashleigh Tapia PA-C Work Phone: [facility] 02-05-2023 10:32-0400 Diastolic blood pressure 69 mm[Hg] Ashleigh Tapia PA-C Work Phone: [facility] 02-05-2023 10:32-0400 Heart rate 55 /min Ashleigh Tapia PA-C Work Phone: [facility] 02-05-2023 10:32-0400 SaO2% (BldA) [Mass fraction] 96 % Ashleigh Tapia PA-C Work Phone: [facility] 02-05-2023 10:32-0400 Systolic blood pressure 134 mm[Hg] Ashleigh Tapia PA-C Work Phone: [facility] 01-06-2023 02:16-0400 Body mass index (BMI) [Ratio] 46.8 kg/m2 Dr. Ryan Canales Work Phone: [facility] 11-06-2022 22:46-0500 Body mass index (BMI) [Ratio] 46.8 kg/m2 [facility] 09-18-2022 12:18-0500 Body height 185.4 cm Ryan Canales DO Work Phone: [facility] 09-18-2022 12:18-0500 Body mass index (BMI) [Ratio] 46.18 kg/m2 Ryan Jimmydarrian DO Work Phone: [facility] 09-18-2022 12:18-0500 Body temperature 97.7 [degF] Ryan Canales DO Work Phone: [facility] 09-18-2022 12:18-0500 Body weight 158.76 kg Ryan Jimmydarrian DO Work Phone: [facility] 09-18-2022 12:18-0500 Diastolic blood pressure 70 mm[Hg] Ryan Canales Work Phone: [facility] 09-18-2022 12:18-0500 Heart rate 64 /min Ryan Jimmydarrian Work Phone: [facility] 09-18-2022 12:18-0500 SaO2% (BldA) [Mass fraction] 96 % Ryan Jimmymackenziemary DO Work Phone: [facility] 09-18-2022 12:18-0500 Systolic blood pressure 136 mm[Hg] Ryan Canales Work Phone: [facility] 09-09-2022 05:22-0500 Body mass index (BMI) [Ratio] 46.8 kg/m2 Dr. Ryan Canales Work Phone: [facility] 07-10-2022 10:06-0400 Body mass index (BMI) [Ratio] 46.8 kg/m2 Dr. Ryan Canales Work Phone: [facility] 07-09-2022 14:33-0400 Body height 185.[address] Ryan Canales Work Phone: [facility] 07-09-2022 14:33-0400 Body mass index (BMI) [Ratio] 45.2 kg/m2 Dr. Ryan Canales Work Phone: [facility] 07-09-2022 14:33-0400 Body weight 155.[address] Ryan Canales Work Phone: [facility] 06-08-2022 23:27-0400 Body mass index (BMI) [Ratio] 46.8 kg/m2 Dr. Ryan Canales Work Phone: [facility] Work Phone: 05-10-2022 00:20-0400 Body mass index (BMI) [Ratio] 46.8 kg/m2 [facility] Work Phone: 03-06-2022 17:09-0400 Diastolic blood pressure 88 mm[Hg] Dr. Ryan Canales Work Phone: [facility] Work Phone: 03-06-2022 17:09-0400 Heart rate 58 /min Dr. Ryan Canales Work Phone: [facility] Work Phone: 03-06-2022 17:09-0400 SaO2% (BldA) [Mass fraction] 96 % Dr. Ryan Canales Work Phone: [facility] Work Phone: 03-06-2022 17:09-0400 Systolic blood pressure 176 mm[Hg] Dr. Ryan Canales Work Phone: [facility] Work Phone: 03-06-2022 15:39-0400 Body height 185.[address] Ryan Canales Work Phone: [facility] Work Phone: 03-06-2022 15:39-0400 Body mass index (BMI) [Ratio] 45.6 kg/m2 Dr. Ryan Canales Work Phone: [facility] Work Phone: 03-06-2022 15:39-0400 Body temperature 97.6 [degF] Dr. Ryan Canales Work Phone: [facility] Work Phone: 03-06-2022 15:39-0400 Body weight 156.[address] Ryan Canales Work Phone: [facility] Work Phone: 03-06-2022 15:39-0400 Respiratory rate 17 /min Dr. Ryan Canales Work Phone: [facility] Work Phone: 02-06-2022 21:23-0400 Body mass index (BMI) [Ratio] 46.8 kg/m2 [facility] Work Phone: 01-07-2022 04:42-0400 Body mass index (BMI) [Ratio] 46.8 kg/m2 Dr. Ryan Canales Work Phone: [facility] Work Phone: 11-29-2021 12:58-0400 Body weight 156.[address] Ryan Canales Work Phone: [facility] Work Phone: 11-29-2021 12:58-0400 Diastolic blood pressure 78 mm[Hg] Dr. Ryan Canales Work Phone: [facility] Work Phone: 11-29-2021 12:58-0400 Heart rate 56 /min Dr. Ryan Canales Work Phone: [facility] Work Phone: 11-29-2021 12:58-0400 Respiratory rate 16 /min Dr. Ryan Canales Work Phone: [facility] Work Phone: 11-29-2021 12:58-0400 Systolic blood pressure 148 mm[Hg] Dr. Ryan Canales Work Phone: [facility] Work Phone: 11-29-2021 12:58-0400 Body height 185.[address] Ryan Canales Work Phone: [facility] Work Phone: 11-29-2021 12:58-0400 Body weight 156.[address] Ryan Canales Work Phone: [facility] Work Phone: 11-29-2021 12:58-0400 Diastolic blood pressure 78 mm[Hg] Dr. Ryan Canales Work Phone: [facility] Work Phone: 11-29-2021 12:58-0400 Heart rate 56 /min Dr. Ryan Canales Work Phone: [facility] Work Phone: 11-29-2021 12:58-0400 Respiratory rate 16 /min Dr. Ryan Canales Work Phone: [facility] Work Phone: 11-29-2021 12:58-0400 Systolic blood pressure 148 mm[Hg] Dr. Ryan Canales Work Phone: [facility] Work Phone: 11-07-2021 10:27-0500 Body mass index (BMI) [Ratio] 46.8 kg/m2 Dr. Ryan Canales Work Phone: [facility] Work Phone: 11-07-2021 09:27-0500 Body mass index (BMI) [Ratio] 46.8 kg/m2 Dr. Ryan Canales Work Phone: [facility] Work Phone: 09-11-2021 01:31-0500 Body mass index (BMI) [Ratio] 46.8 kg/m2 Dr. Ryan Canales Work Phone: [facility] Work Phone: 07-24-2021 10:15-0500 Diastolic Blood Pressure NBP [address] VÍCTOR SOUTH MD [facility] 07-24-2021 10:15-0500 Heart rate 58 /min DR VÍCTOR SOUTH MD [facility] 07-24-2021 10:15-0500 Respiratory rate 24 /min DR VÍCTOR SOUTH MD [facility] 07-24-2021 10:15-0500 Systolic Blood Pressure NBP [address] ÍVCTOR SOUTH MD [facility] 07-24-2021 10:08-0500 Diastolic Blood Pressure NBP [address] VÍCTOR SOUTH MD [facility] 07-24-2021 10:08-0500 Heart rate 58 /min DR VÍCTOR SOUTH MD [facility] 07-24-2021 10:08-0500 Respiratory rate 19 /min DR VÍCTOR SOUTH MD [facility] 07-24-2021 10:08-0500 Systolic Blood Pressure NBP [address] VÍCTOR SOUTH MD [facility] 07-24-2021 10:00-0500 Diastolic Blood Pressure NBP [address] VÍCTOR SOUTH MD [facility] 07-24-2021 10:00-0500 Heart rate 59 /min DR VÍCTOR SOUTH MD [facility] 07-24-2021 10:00-0500 Respiratory rate 17 /min DR VÍCTOR SOUTH MD [facility] 07-24-2021 10:00-0500 Systolic Blood Pressure NBP [address] VÍCTOR SOUTH MD [facility] 07-24-2021 09:03-0500 Body height 185.[address] VÍCTOR SOUTH MD [facility] 07-24-2021 09:03-0500 Body temperature 98.24 [degF] DR VÍCTOR SOUTH MD [facility] 07-24-2021 09:03-0500 Body weight [address] VÍCOTR SOUTH MD [facility] 07-24-2021 09:03-0500 Heart rate 67 /min DR VÍCTOR SOUTH MD [facility] 04-14-2021 12:46-0400 Diastolic blood pressure 66 [...] 46.45 kg/m2 Kerry Guerrero MD [facility] Work Phone: 04-14-2021 11:12-0400 Body weight 159.7 kg Kerry Guerrero MD [facility] Work Phone: 04-14-2021 10:12-0400 Body temperature 98.01 [degF] Kerry Guerrero MD Work Phone: [facility] Work Phone: 01-19-2021 14:04-0400 Body mass index (BMI) [Ratio] 46.8 kg/m2 Dr. Ryan Canales Work Phone: [facility] Work Phone: 01-19-2021 14:04-0400 Body mass index (BMI) [Ratio] 46.8 kg/m2 Dr. Ryan Canales Work Phone: [facility] Work Phone: 12-14-2016 13:29-0400 BMI (Body Mass Index) 42.72 kg/m2 [facility] Work Phone: 12-14-2016 13:29-0400 Weight 146.88 kg [facility] Work Phone: 10-23-2016 13:56-0500 BP Diastolic 80 mm[Hg] [facility] Work Phone: 10-23-2016 13:56-0500 BP Systolic 140 mm[Hg] Emlei Garcia RN [facility] Work Phone: 10-23-2016 13:56-0500 BSA (Body Surface Area) 2.68 m2 Emeli Garcia RN [facility] Work Phone: 10-23-2016 13:56-0500 Pulse (Heart Rate) 88 /min [facility] Work Phone: 10-23-2016 13:56-0500 Respiratory Rate 20 /min [facility] Work Phone: 07-03-2016 14:16-0400 Heart rate 75 /min Emeli Garcia RN [facility] Work Phone: 02-24-2015 13:03-0400 Height 185.42 cm Emeli Garcia RN [facility] Work Phone: Encounters Encounter Date Encounter Type Care Provider Facility Start: 03-10-2025 ambulatory Ryan Canales Facilit y:[facility] Start: 03-08-2025 End: 03-09-2025 Refill Ryan Canales DO Work Phone: [facility] [place] Comment on above: Anxiety associated w ith depression Start: 02-16-2025 End: 02-16-[address] Audie Franklin MD -Laboratory Work Phone: Start: 02-16-2025 End: 02-16-2025 ambulatory Ryan Canales Facility:[facility] Start: 02-09-2025 End: 02-09-[address] Kenroy Barney MD -[facility] Work Phone: Start: 02-09-2025 End: 02-09-[address] Ryan Canales DO Work Phone: [facility] Work Phone: Start: 01-27-2025 End: 01-27-2025 Telephone encounter Ryan Canales DO Work Phone: [facility] Comment on above: Durable Medical Equi pment Start: 01-14-2025 End: 01-14-[address] Audie Franklin MD -Laboratory Work Phone: Start: 01-14-2025 End: 01-14-[address] Ryan Canales DO Work Phone: [facility] Work Phone: Start: 01-14-2025 ambulatory Ryan Marquezdarrian Facilit y:[facility] Start: 01-14-2025 Non-patient / Non-visit Dr. Ryan eaton DO -[facility] Work Phone: Start: 12-17-2024 End: 12-17-2024 Telephone encounter Ryan Rachel Ally MAX Work Phone: [facility] [place] Comment on above: Referral (Dr Andi Aggarwal) Start: 12-16-2024 End: 12-16-2024 Office outpatient visit 25 minutes Ryan Canales DO Work Phone: [facility] [employer] Comment on above: Primary hypertension (Primary Dx); Anxiety associated with depression; History of atrial fibrillation; Degeneration of intervertebral disc of lumbar region, unspecified whether pain present; Anticoagulant long-term use; Hypercholesterolemia; Bilateral primary osteoarthritis of knee Start: 12-16-2024 End: 12-16[facility]24 [facility] Start: 11-22-2024 End: 11-23-2024 Refill Ryan Rachel Ally MAX Work Phone: [facility] [employer] Start: 10-23-2024 End: 10-23-2024 Orders Only Ryan Canales DO Work Phone: [facility] [employer] Comment on above: COVID-19 (Primary Dx ) Start: 09-16-2024 End: 09-16-2024 Telephone encounter Marva Gutierrez MD Work Phone: [facility] Start: 09-07-2024 End: 09-07-2024 ambulatory Ryan Canales Facility:[facility] Start: 09-07-2024 End: 09-07-2024 ambulatory Ryan Canales Facility:[facility] Start: 08-10-2024 End: 08-10-2024 Telephone encounter Ryan Canales DO Work Phone: [facility] Comment on above: Med Refill Start: 07-28-2024 End: 07-28-2024 ambulatory Ryan Canales [place] Start: 07-09-2024 End: 07-09-2024 ambulatory Sivan Basali Facility:[facility] Start: 06-17-2024 End: 06-17-2024 ambulatory RYAN CANALES [facility] Start: 06-17-2024 End: 06-17-2024 Office outpatient visit 25 minutes Ryan Canales DO Work Phone: [facility] Comment on above: Primary hypertension (Primary Dx); Anxiety associated with depression; History of prostate cancer; Acquired right foot drop; History of atrial fibrillation; Anticoagulant long-term use; Hypercholesterolemia Start: 05-19-2024 End: 05-19-2024 Office outpatient visit 15 minutes Ashleigh Tapia PA-C Work Phone: [facility] Comment on above: Dental abscess (Prim german Dx); Anxiety associated with depression Start: 05-19-2024 End: 05-19-2024 Orders Only Ryan Canales DO Work Phone: [facility] Comment on above: Anxiety associated w ith depression Start: 04-27-2024 End: 04-27-2024 ambulatory Ryan Canales Facility:[facility] Start: 03-09-2024 End: 03-09-2024 Orders Only Ryan Canales DO Work Phone: [facility] Start: 02-04-2024 Refill Ryan lovell DO Work Phone: [facility] Start: 12-03-2023 End: 12-03-2023 ambulatory GHAZAL Kameron WILDER Not Available Start: 11-29-2023 End: 12-08-[address] Ryan Canales Work Phone: [facility] Work Phone: Start: 11-29-2023 End: 12-08-[address] Ryan Canales Work Phone: [facility] Work Phone: Start: 11-01-2023 End: 11-07-[address] Ryan Canales Work Phone: [facility] Work Phone: Start: 11-01-2023 End: 11-07-[address] Ryan Canales Work Phone: [facility] Work Phone: Start: 09-24-2023 End: 09-24-2023 Emergency department patient visit Dr. Ryan Canales Work Phone: [facility]-Emergency Department Work Phone: Start: 09-22-2023 Orders Only Ryan lovell DO Work Phone: [facility] Start: 09-19-2023 End: 09-19-[address] Ryan Canales Work Phone: [facility] Work Phone: Start: 09-18-2023 Telephone [...] 09-14-2023 End: 09-14-2023 Emergency department patient visit [facility] Work Phone: Start: 09-04-2023 Refill Ryan lovell DO Work Phone: [facility] Start: 06-25-2023 End: 06-25-2023 Discharged Recurring [facility] Work Phone: Start: 05-20-2023 Refill Ryan lovell DO Work Phone: [facility] Start: 05-16-2023 End: 05-16-2023 ambulatory [facility] Work Phone: Start: 05-16-2023 End: 05-16-2023 Discharged Recurring [facility] Work Phone: Start: 03-19-2023 End: 03-19-2023 Office outpatient visit 15 minutes Ryan Canales DO Work Phone: [facility] Comment on above: Primary hypertension (Primary Dx); Chronic diastolic (congestive) heart failure (HCC); Morbid obesity (HCC); Anxiety associated with depression; Hypercholesteremia; History of hematuria Start: 03-18-2023 End: 04-08-2023 Discharged Recurring [facility] Work Phone: Start: 02-08-2023 End: 02-08-2023 Subsequent hospital visit by physician Ashleigh Tapia PA-C Work Phone: [facility] Comment on above: Hematuria, unspecifi ed type Start: 02-07-2023 End: 02-07-[address] Ryan Canales Work Phone: [facility] Work Phone: Start: 02-07-2023 End: 02-07-[address] Ryan Canales Work Phone: [facility] Work Phone: Start: 02-07-2023 End: 02-07-[address] Ryan Canales Work Phone: [facility] Work Phone: Start: 02-05-2023 End: 02-05-2023 Office outpatient visit 25 minutes Ashleigh Tapia PA-C Work Phone: [facility] Comment on above: Hematuria, unspecifi ed type (Primary Dx); Periumbilical abdominal pain Start: 12-17-2022 End: 01-06-2023 ambulatory [facility] Work Phone: Start: 12-17-2022 End: 01-06-2023 Discharged Recurring [facility] Start: 10-30-2022 End: 10-30-[address] Ryan Canales Work Phone: [facility] Work Phone: Start: 10-30-2022 End: 10-30-[address] Ryan Canales Work Phone: [facility] Start: 09-19-2022 Refill Ryan lovell DO Work Phone: [facility] Start: 09-18-2022 Refill Ryan lovell DO Work Phone: [facility] Start: 09-18-2022 End: 09-18-2022 Office outpatient visit 25 minutes Ryan Canales DO Work Phone: [facility] Comment on above: Primary hypertension (Primary Dx); Lumbar degenerative disc disease; History of atrial fibrillation; Hypercholesteremia; History of prostate cancer; Anxiety associated with depression; Dry skin dermatitis Start: 08-29-2022 End: 08-29-[address] Ryan Canales Work Phone: [facility] Work Phone: Start: 08-29-2022 End: 08-29-[address] Ryan Canales Work Phone: [facility] Start: 08-21-2022 Non-patient / Non-visit Dr. Josue Canales Work Phone: [facility] Start: 07-09-2022 End: 07-09-[address] Ryan Canales Work Phone: [facility] Start: 06-22-2022 End: 06-22-[address] Ryan Canales Work Phone: [facility] Work Phone: Start: 06-22-2022 End: 06-22-[address] Ryan Canales Work Phone: [facility] Start: 06-05-2022 End: 06-05-2022 ambulatory [facility] Work Phone: Start: 06-05-2022 End: 06-05-2022 Patient encounter procedure [facility] Start: 05-10-2022 End: 05-10-2022 ambulatory [facility] Work Phone: Start: 05-10-2022 End: 05-10-2022 Discharged Recurring [facility] Start: 04-23-2022 End: 04-23-2022 ambulatory [facility] Work Phone: Start: 04-23-2022 End: 04-23-2022 Discharged Recurring [facility] Start: 03-06-2022 End: 03-06-2022 Emergency department patient visit Dr. Ryan Canales Work Phone: [facility]-Emergency Department Start: 01-29-2022 End: 01-29-[address] Ryan Canales Work Phone: [facility] Start: 12-19-2021 End: 12-19-[address] Ryan Canales Work Phone: [facility] Start: 11-29-2021 End: 11-29-[address] Ryan Canales Work Phone: [facility] Start: 10-30-2021 End: 10-30-[address] Ryan Canales Work Phone: [facility] Start: 07-24-2021 End: 07-24-[address] VÍCTOR SOUTH MD [facility] Start: 04-14-2021 End: 04-14-2021 Emergency department patient visit Kerry Guerrero MD Work Phone: [facility] Comment on above: Head injury, initial encounter (Primary Dx); Neck sprain, initial encounter; Bradycardia Start: 02-11-2018 End: 02-11-2018 Ambulatory MARVA GUTIERREZ Facility:[facility] Start: 10-14-2017 End: 10-14-2017 Ambulatory Ryan Canales Facility:[facility] Start: 07-30-2017 Ambulatory MEET MULLER Facility: [facility] Start: 07-26-2017 End: 07-27-2017 Ambulatory GHAZAL MELENDEZ Facility:[facility] Start: 07-11-2017 End: 07-11-2017 Ambulatory MARVAOLI GUSTAFSONSKIMarcel Facility:[facility] Start: 07-11-2017 End: 07-12-2017 Ambulatory Ryan Canales Facility:[facility] Start: 07-11-2017 End: 07-11-2017 Ambulatory MARVA VITJUANIMarcel Facility:[facility] Start: 07-04-2017 Ambulatory MARVA VITEBSKIY Facili ty:[facility] Start: 06-27-2017 Ambulatory MARVA VITEBSKIY Facili ty:[facility] Start: 06-20-2017 Ambulatory MARVA VITEBSKIY Facili ty:[facility] Start: 06-13-2017 Ambulatory IMCA [facility] Start: 05-14-2017 End: 05-15-[address] Facility:[facility] Start: 04-18-[address] Castro y:[facility] Start: 04-10-2017 End: 04-11-2017 Ambulatory MARVA GUTIERREZ Facility:[facility] Start: 03-18-2017 End: 03-18-2017 Emergency department patient visit [facility] Jimenez Procedures Date Procedure Procedure Detail Performing [...] MD Start: 07-05-2016 End: 07-06-2016 Referral to clinical account liaison Chicho ponce MD Start: 07-05-2016 End: 07-06-2016 Referral to clinical account liaison Chicho ponce MD Start: 07-03-2016 End: 10-17-2016 [...] End: 04-06-2015 Follow Up Appt Other Chicho eVrnon MD Start: 04-06-2015 End: 04-06-2015 MMM Chicho Vernon MD Start: 02-24-2015 End: 02-24-2015 Ecg routine ecg w/least 12 lds w/i&r Chicho Vernon MD Start: 02-24-2015 End: 04-05-2015 Follow Up Appt 6 weeks Chicho Vernon MD Start: 02-24-2015 End: 04-05-2015 Follow Up Appt Other Chicho Vernon MD Start: 02-24-2015 End: 04-05-2015 MMJena Venron MD Start: 02-24-2015 End: 04-05-2015 Nuclear stress [...] 11-17-2030 Screening for malignant neoplasm of colon [facility] Start: 12-16-2029 Lipid panel Lipid Panel [facility] Start: 06-17-2029 Lipid panel Lipid Panel [facility] Start: 09-18-2028 Lipid panel Lipid Panel [facility] Start: 10-16-2027 Lipid panel [facility] Start: 03-15-2027 Lipid panel Lipid Panel [facility] Start: 12-16-2025 Creatinine measurement Creatinine Level [facility] Start: 12-16-2025 Potassium measurement Potassium Level [facility] Start: 2025 RSV Vaccine (1 - 1-dose 75+ series) RSV Vaccine (1 - 1-dose 75+ series) [facility] Start: 10-16-2025 Diabetes Screening Diabetes Screening [facility] Start: 06-17-2025 Creatinine measurement Creatinine Level [facility] Start: 06-17-2025 Depression Monitoring Depression Monitoring [facility] Start: 06-17-2025 Potassium measurement Potassium Level [facility] Start: 06-16-2025 End: 06-16-2025 Patient encounter procedure 06/16/2025 11:00 AM EDT Office Visit [facility] [address] [place] [address] Ally Ryan Ramos DO [address] [place] [address] [place] [address] [facility] Start: 05-10-2025 Influenza vaccination Influenza Vaccine (#1) [facility] Start: 12-16-2024 End: 12-16-2025 CBC W Auto Differential panel - Blood CBC auto differential Lab Routine History of atrial fibrillation Expected: 12/16/2024 (Approximate), Expires: 12/16/2025 [facility] Work Phone: Comment on above: Expected: 12/16/2024 (Approximate), Expi res: 12/16/2025 Start: 12-16-2024 End: 12-16-2025 Comprehensive metabolic 1998 panel - Serum or Plasma Comprehensive metabolic panel Lab Routine Primary hypertension Expected: 12/16/2024 (Approximate), Expires: 12/16/2025 [facility] Comment on above: Expected: 12/16/2024 (Approximate), Expi res: 12/16/2025 Start: 12-16-2024 Depression Monitoring Depression Monitoring [facility] Start: 12-16-2024 End: 12-16-2025 Lipid 1996 panel - Serum or Plasma Lipid panel Lab Routine Hypercholesterolemia Expected: 12/16/2024 (Approximate), Expires: 12/16/2025 [facility] Comment on above: Expected: 12/16/2024 (Approximate), Expi res: 12/16/2025 Start: 12-16-2024 End: 12-16-2025 Prothrombin time (PT) in Blood by Coagulation assay Protime-INR Lab Routine Anticoagulant long-term use Expected: 12/16/2024 (Approximate), Expires: 12/16/2025 [facility] Comment on above: Expected: 12/16/2024 (Approximate), Expi res: 12/16/2025 Start: 12-16-2024 End: 12-16-2024 Patient encounter procedure 12/16/2024 9:30 AM EDT Office Visit [facility] [address] [place] [address] Ryan Canales [address] [place] [address] [place] [address] [facility] Start: 09-18-2024 Creatinine measurement Creatinine Level [facility] Start: 09-18-2024 Potassium measurement Potassium Level [facility] Start: 09-09-2024 Advance Directive Discussion Advance Directive Discussion [facility] Start: 06-17-2024 End: 06-17-2025 CBC W Auto Differential panel - Blood CBC auto differential Lab Routine Anticoagulant long-term use Expected: 06/17/2024 (Approximate), Expires: 06/17/2025 [facility] Work Phone: Comment on above: Expected: 06/17/2024 (Approximate), Expi res: 06/17/2025 Start: 06-17-2024 End: 06-17-2025 Comprehensive metabolic 1998 panel - Serum or Plasma Comprehensive metabolic panel Lab Routine Anticoagulant long-term use Expected: 06/17/2024 (Approximate), Expires: 06/17/2025 [facility] Comment on above: Expected: 06/17/2024 (Approximate), Expi res: 06/17/2025 Start: 06-17-2024 End: 06-17-2025 Lipid 1996 panel - Serum or Plasma Lipid panel Lab Routine Hypercholesterolemia Expected: 06/17/2024 (Approximate), Expires: 06/17/2025 [facility] Comment on above: Expected: 06/17/2024 (Approximate), Expi res: 06/17/2025 Start: 06-17-2024 End: 06-17-2025 Prothrombin time (PT) in Blood by Coagulation assay Protime-INR Lab Routine Anticoagulant long-term use Expected: 06/17/2024 (Approximate), Expires: 06/17/2025 [facility] Comment on above: Expected: 06/17/2024 (Approximate), Expi res: 06/17/2025 Start: 06-17-2024 End: 06-17-2025 PSA Total (Diagnostic Post-Prostatectomy) PSA Total (Diagnostic Post-Prostatectomy) Lab Routine History of prostate cancer Expected: 06/17/2024 (Approximate), Expires: 06/17/2025 [facility] Comment on above: Expected: 06/17/2024 (Approximate), Expi res: 06/17/2025 Start: 06-17-2024 End: 06-17-2024 Patient encounter procedure 06/17/2024 9:00 AM EDT Office Visit [facility] [address] [place] [id number] Ryan Canales DO [address] [address] [place] [address] [facility] [address] Start: 05-14-2024 End: 05-14-2024 Patient encounter procedure 05/14/2024 1:00 PM EDT Office Visit [facility] [address] [place] [address] Ryan Canales DO [address] [place] [address] [facility] Start: 05-10-2024 Covid-19 Vaccine ( season) Covid-19 Vaccine ( season) [facility] Start: 05-10-2024 COVID-19 Vaccine ( season) COVID-19 Vaccine ( season) [facility] Start: 05-10-2024 COVID-19 Vaccine ( season) COVID-19 Vaccine ( season) [facility] Start: 05-10-2024 Influenza vaccination Influenza Vaccine (#1) [facility] Start: 03-18-2024 End: 03-18-2024 Patient encounter procedure 03/18/2024 1:00 PM EDT Office Visit [facility] Medicine [address] [place] [address] Ryan Canales, [address] [place] [address] [facility] Start: 02-06-2024 Creatinine measurement Creatinine Level [facility] Start: 02-06-2024 Potassium measurement Potassium Level [facility] Start: 10-16-2023 Creatinine measurement Creatinine Level [facility] Start: 10-16-2023 Potassium measurement Potassium Level [facility] Start: 09-24-2023 [facility] Start: 09-24-2023 MR Lower extremity WO contrast [facility] Start: 09-24-2023 MRI of lower extremity Extremity Lower without Contra [facility] Start: 09-19-2023 Patient referral [facility] Work Phone: Start: 09-19-2023 End: 09-19-2023 Patient encounter procedure [facility] Start: 09-18-2023 End: 09-18-2024 CBC W Auto Differential panel - Blood CBC auto differential Lab Routine Primary hypertension Expected: 09/18/2023 (Approximate), Expires: 09/18/2024 [facility] Work Phone: Comment on above: Expected: 09/18/2023 (Approximate), Expi res: 09/18/2024 Start: 09-18-2023 End: 09-18-2024 Comprehensive metabolic 1998 panel - Serum or Plasma Comprehensive metabolic panel Lab Routine Primary hypertension Expected: 09/18/2023 (Approximate), Expires: 09/18/2024 [facility] Comment on above: Expected: 09/18/2023 (Approximate), Expi res: 09/18/2024 Start: 09-18-2023 End: 09-18-2024 Lipid 1996 panel - Serum or Plasma Lipid panel Lab Routine Hypercholesteremia Expected: 09/18/2023 (Approximate), Expires: 09/18/2024 [facility] Comment on above: Expected: 09/18/2023 (Approximate), Expi res: 09/18/2024 Start: 09-18-2023 End: 09-18-2024 Prothrombin time (PT) in Blood by Coagulation assay Protime-INR Lab Routine History of atrial fibrillation Expected: 09/18/2023 (Approximate), Expires: 09/18/2024 [facility] [employer] Comment on above: Expected: 09/18/2023 (Approximate), Expi res: 09/18/2024 Start: 09-14-2023 [facility] Start: 05-10-2023 COVID-19 Vaccine () COVID-19 Vaccine () [facility] Start: 05-10-2023 Influenza vaccination Influenza Vaccine (#1) [facility] Start: 03-19-2023 End: 03-19-2023 Patient encounter procedure 03/19/2023 Office Visit Family Medicine Ryan Canales, DO [address] [place] [address] [facility] Start: 02-08-2023 End: 02-08-2023 Patient encounter procedure 02/08/2023 Appointment Radiology [facility] Start: 02-05-2023 End: 02-06-2024 Bacteria identified in Urine by Culture Urine culture (clean catch) Microbiology Routine Hematuria, unspecified type Expected: 02/05/2023 (Approximate), Expires: 02/06/2024 [facility] [employer] Comment on above: Expected: 02/05/2023 (Approximate), Expi res: 02/06/2024 Start: 02-05-2023 End: 02-06-2024 CBC W Auto Differential panel - Blood CBC auto differential Lab Routine Periumbilical abdominal pain Expected: 02/05/2023 (Approximate), Expires: 02/06/2024 [facility] [employer] Comment on above: Expected: 02/05/2023 (Approximate), Expi res: 02/06/2024 Start: 02-05-2023 End: 02-06-2024 Comprehensive metabolic 1998 panel - Serum or Plasma Comprehensive metabolic panel Lab Routine Periumbilical abdominal pain Expected: 02/05/2023 (Approximate), Expires: 02/06/2024 [facility] [employer] Comment on above: Expected: 02/05/2023 (Approximate), Expi res: 02/06/2024 Start: 02-05-2023 End: 02-06-2024 Prothrombin time (PT) in Blood by Coagulation assay Protime-INR Lab Routine Hematuria, unspecified type Expected: 02/05/2023 (Approximate), Expires: 02/06/2024 [facility]: Comment on above: Expected: 02/05/2023 (Approximate), Expi res: 02/06/2024 Start: 02-05-2023 End: 02-06-2024 Urinalysis complete panel - Urine Urinalysis with reflex microscopic (clean catch) Lab Routine Hematuria, unspecified type Expected: 02/05/2023 (Approximate), Expires: 02/06/2024 [facility] Comment on above: Expected: 02/05/2023 (Approximate), Expi res: 02/06/2024 Start: 02-05-2023 End: 02-06-2024 US Retroperitoneum US retroperitoneum Imaging Routine Hematuria, unspecified type Expected: 02/05/2023, Expires: 02/06/2024 [facility] [employer] Comment on above: Expected: 02/05/2023, Expires: Start: 09-21-2022 Creatinine measurement Creatinine Level [facility] [employer] Start: 09-21-2022 Potassium measurement Potassium Level [facility] [employer] Start: 09-18-2022 End: 09-18-2023 CBC W Auto Differential panel - Blood CBC auto differential Lab Routine Primary hypertension Expected: 09/18/2022 (Approximate), Expires: 09/18/2023 [facility]: Comment on above: Expected: 09/18/2022 (Approximate), Expi res: 09/18/2023 Start: 09-18-2022 End: 09-18-2023 Comprehensive metabolic 1998 panel - Serum or Plasma Comprehensive metabolic panel Lab Routine Primary hypertension Expected: 09/18/2022 (Approximate), Expires: 09/18/2023 [facility] [employer] Comment on above: Expected: 09/18/2022 (Approximate), Expi res: 09/18/2023 Start: 09-18-2022 End: 09-18-2023 Lipid 1996 panel - Serum or Plasma Lipid panel Lab Routine Hypercholesteremia Expected: 09/18/2022 (Approximate), Expires: 09/18/2023 [facility] [employer] Comment on above: Expected: 09/18/2022 (Approximate), Expi res: 09/18/2023 Start: 07-09-2022 X-ray of lumbar spine, two or three views Lumbar Spine 2 or 3 Views [facility] Work Phone: Start: 07-09-2022 XR Lumbar spine 2 or 3 Views [facility] Start: 04-14-2022 Creatinine measurement Creatinine monitoring [employer] Work Phone: Start: 04-14-2022 Medicare Annual Wellness (AWV) Medicare Annual Wellness (AWV) [facility] [employer] Start: 04-14-2022 Potassium monitoring Potassium monitoring [employer] Work Phone: Start: 03-16-2022 Annual Wellness Visit (AWV) Annual Wellness Visit (AWV) [employer] Work Phone: Start: 03-15-2022 Lipid panel Lipid screen [facility] Phone: Start: 11-22-2021 COVID-19 Vaccine (4 - Booster for Moderna series) COVID-19 Vaccine (4 - Booster for Moderna series) [facility] [employer] Start: 09-15-2021 End: 09-15-2021 Patient encounter procedure 09/15/2021 Office Visit Family Medicine Ryan Canales, DO [address] [place] [address] [phone] [facility] [employer] Start: 05-10-2021 Influenza vaccination Flu vaccine (#1) [facility] Work Phone: Start: 08-28-2017 End: 08-28-2017 Appointment Appointment [facility] Work Phone: Start: 08-23-2017 End: 08-23-2017 Appointment Appointment [facility] Work Phone: Start: 03-18-2017 End: 03-18-2017 INR Coag RelTime (PPP) *PT/INR - Standing Order [facility] Work Phone: Start: 03-18-2017 End: 03-18-2017 Coagulation factor induced.INR assay in platelet poor plasma *PT/INR - Standing Order [facility] Work Phone: Start: 03-05-2017 End: 03-13-2017 INR Coag RelTime (PPP) *PT/INR - Standing Order [facility] Work Phone: Start: 03-05-2017 End: 03-13-2017 Coagulation factor induced.INR assay in platelet poor plasma *PT/INR - Standing Order [facility] Work Phone: Start: 12-14-2016 End: 12-14-2016 Radiologic exam knee complete 4/more views X-Ray, Knee [facility] Work Phone: Start: 12-14-2016 End: 12-14-2016 X-ray exam, knee, 4 or more X-Ray, Knee [facility] Work Phone: Start: 10-23-2016 End: 10-23-2016 Follow Up Appt 6 months Follow Up Appt 6 months [facility] Work Phone: Start: 10-23-2016 End: 10-23-2016 PFM PFM [facility] Work Phone: Start: 10-23-2016 End: 10-23-2016 Follow Up Appt 6 months Follow Up Appt 6 months [facility] Work Phone: Start: 10-23-2016 End: 10-23-2016 PFM PFM [facility] Work Phone: Start: 07-23-2016 End: 07-23-2016 Follow Up Appt 3 months Follow Up Appt 3 months [facility] Work Phone: Start: 07-23-2016 End: 07-23-2016 MMM MMM [facility] Work Phone: Start: 07-23-2016 End: 07-23-2016 Follow Up Appt 3 months Follow Up Appt 3 months [facility] Work Phone: Start: 07-23-2016 End: 07-23-2016 MMM MMM [facility] Work Phone: Start: 07-05-2016 End: 07-05-2016 Cardiac Referral Cardiac Referral Alpesh Pulido, [address], [place], [address] [facility] Work Phone: Start: 07-05-2016 End: 07-05-2016 Cardiac Referral Cardiac Referral Alpesh Pulido, [address], [place], [address] [facility] Work Phone: Start: 07-03-2016 End: 10-17-2016 Ecg routine ecg w/least 12 lds w/i&r EKG (In office) [facility] Work Phone: Start: 07-03-2016 End: 10-17-2016 Electrocardiogram, complete EKG (In office) [facility] Work Phone: Start: 05-17-2016 End: 07-03-2016 Ecg routine ecg w/least 12 lds w/i&r EKG (In office) [facility] Work Phone: Start: 05-17-2016 End: 07-03-2016 Electrocardiogram, complete EKG (In office) [facility] Work Phone: Start: 04-25-2016 End: 05-07-2016 *BMP *BMP [facility] Work Phone: Start: 04-25-2016 End: 04-25-2016 Cardioversion Cardioversion [facility] Work Phone: Start: 04-25-2016 End: 07-03-2016 Chest x-ray X-Ray, Chest, PA & Lateral [facility] Work Phone: Start: 04-25-2016 End: [...] Phone: Start: 04-25-2016 End: 04-25-2016 PFM PFM [facility] Work Phone: Start: 04-25-2016 End: 05-07-2016 *BMP *BMP [facility] Work Phone: Start: 04-25-2016 End: 04-25-2016 Cardioversion Cardioversion [facility] Work Phone: Start: 04-25-2016 End: 07-03-2016 Chest x-ray X-Ray, Chest, PA & Lateral [facility] Work Phone: Start: 04-25-2016 End: 04-25-2016 Electrocardiogram, complete EKG (In office) [facility] Work Phone: Start: 04-25-2016 End: [...] Up Appt Other Follow Up Appt Other [facility] Work Phone: Start: 12-15-2015 End: 12-15-2015 MMM MMM [facility] Work Phone: Start: 10-27-2015 End: 10-27-2015 Ecg routine ecg w/least 12 lds w/i&r EKG (In office) [facility] Work Phone: Start: 10-27-2015 End: 10-27-2015 Follow Up Appt 6 months Follow Up Appt 6 months [facility] Work Phone: Start: 10-27-2015 End: 10-27-2015 MMM MMM [facility] Work Phone: Start: 10-27-2015 End: 10-27-2015 Electrocardiogram, complete EKG (In office) [facility] Work Phone: Start: 10-27-2015 End: 10-27-2015 Follow Up Appt 6 months Follow Up Appt 6 months [facility] Work Phone: Start: 10-27-2015 End: 10-27-2015 MMM MMM [facility] Work Phone: Start: 06-10-2015 End: 04-12-2016 *BMP *BMP [facility] Work Phone: Start: 06-10-2015 End: 06-10-2015 Ecg routine ecg w/least 12 lds w/i&r EKG (In office) [facility] Work Phone: Start: 06-10-2015 End: 06-10-2015 Follow Up Appt 3 months Follow Up Appt 3 months [facility] Work Phone: Start: 06-10-2015 End: 06-10-2015 PFM PFM [facility] Work Phone: Start: 06-10-2015 End: 04-12-2016 *BMP *BMP [facility] Work Phone: Start: 06-10-2015 End: 06-10-2015 Electrocardiogram, complete EKG (In office) [facility] Work Phone: Start: 06-10-2015 End: 06-10-2015 Follow Up Appt 3 months Follow Up Appt 3 months [facility] Work Phone: Start: 06-10-2015 End: 06-10-2015 PFM PFM [facility] Work Phone: Start: 04-27-2015 End: 06-10-2015 *BMP *BMP [facility] Work Phone: Start: 04-27-2015 End: 06-10-2015 *BMP *BMP [facility] Work Phone: Start: 04-20-2015 End: 04-20-2015 *BMP *BMP [facility] Work Phone: Start: 04-20-2015 End: 04-20-2015 *BMP *BMP [facility] Work Phone: Start: 04-13-2015 End: 04-13-2015 Follow Up Appt 1 month Follow Up Appt 1 month [facility] Work Phone: Start: 04-13-2015 End: 04-27-2015 Follow Up Appt Other Follow Up Appt Other [facility] Work Phone: Start: 04-13-2015 End: 04-13-2015 MMM MMM [facility] Work Phone: Start: 04-13-2015 End: 04-13-2015 Follow Up Appt 1 month Follow Up Appt 1 month [facility] Work Phone: Start: 04-13-2015 End: 04-27-2015 Follow Up Appt Other Follow Up Appt Other [facility] Work Phone: Start: 04-13-2015 End: 04-13-2015 MMM MMM [facility] Work Phone: Start: 04-06-2015 End: 04-06-2015 *BMP *BMP [facility] Work Phone: Start: 04-06-2015 End: 04-06-2015 Ecg routine ecg w/least 12 lds w/i&r EKG (In office) [facility] Work Phone: Start: 04-06-2015 End: 04-06-2015 Follow Up Appt Other Follow Up Appt Other [facility] Work Phone: Start: 04-06-2015 End: 04-06-2015 MMM MMM [facility] Work Phone: Start: 04-06-2015 End: 04-06-2015 *BMP *BMP [facility] Work Phone: Start: 04-06-2015 End: 04-06-2015 Electrocardiogram, complete EKG (In office) [facility] Work Phone: Start: 04-06-2015 End: 04-06-2015 Follow Up Appt Other Follow Up Appt Other [facility] Work Phone: Start: 04-06-2015 End: 04-06-2015 MMM MMM [facility] Work Phone: Start: 02-24-2015 End: 02-24-2015 Ecg routine ecg w/least 12 lds w/i&r EKG (In office) [facility] Work Phone: Start: 02-24-2015 End: 04-05-2015 Follow Up Appt 6 weeks Follow Up Appt 6 weeks [facility] Work Phone: Start: 02-24-2015 End: 02-24-2015 Follow Up Appt Other Follow Up Appt Other [facility] Work Phone: Start: 02-24-2015 End: 04-05-2015 MMM MMM [facility] Work Phone: Start: 02-24-2015 End: 03-01-2015 Nuclear stress test -Lexiscan Nuclear stress test -Lexiscan [facility] Work Phone: Start: 02-24-2015 End: 02-24-2015 Electrocardiogram, complete EKG (In office) [facility] Work Phone: Start: 02-24-2015 End: 04-05-2015 Follow Up Appt 6 weeks Follow Up Appt 6 weeks [facility] Work Phone: Start: 02-24-2015 End: 02-24-2015 Follow Up Appt Other Follow Up Appt Other [facility] Work Phone: Start: 02-24-2015 End: 04-05-2015 MMM MMM [facility] Work Phone: Start: 02-24-2015 End: 03-01-2015 Nuclear stress test -Lexiscan Nuclear stress test -Lexiscan [facility] Work Phone: Start: 2010 Hepatitis B Vaccines (1 of 3 - Risk 3-dose series) Hepatitis B Vaccines (1 of 3 - Risk 3-dose series) [facility] Start: 2010 RSV Immunization aged 60 or older (1 - 1-dose 60+ series) RSV Immunization aged 60 or older (1 - 1-dose 60+ series) [facility] Start: 2010 RSV Immunization for Adults (1 - Risk 60-74 years 1-dose series) RSV Immunization for Adults (1 - Risk 60-74 years 1-dose series) [facility] Start: 2000 Shingles Vaccine (1 of 2) Shingles Vaccine (1 of 2) [facility] Work Phone: Start: 2000 Shingrix Vaccine (1 of 2) Shingrix Vaccine (1 of 2) [facility] Start: 2000 Zoster Vaccines (1 of 2) Zoster Vaccines (1 of 2) [facility] Start: 11-12-1995 Screening for malignant neoplasm of colon [facility] Start: 1990 Diabetes screen Diabetes screen [facility] Work Phone: Start: 1969 DTaP/Tdap/Td vaccine (1 - Tdap) DTaP/Tdap/Td vaccine (1 - Tdap) [facility] Work Phone: Start: 1969 DTaP/Tdap/Td Vaccines (1 - Tdap) DTaP/Tdap/Td Vaccines (1 - Tdap) [facility] Start: 1969 Hepatitis A Vaccines (1 of 2 - Risk 2-dose series) Hepatitis A Vaccines (1 of 2 - Risk 2-dose series) [facility] Start: 1969 Urine microalbumin profile DTaP,Tdap,Td Vaccine (1 - Tdap) [facility] Start: 1968 Anxiety Screening Anxiety Screening [facility] Start: 1968 Depression Screening Depression Screening [facility] Start: 1968 Diabetes mellitus screening Diabetes Screening [facility] Start: 1968 Hepatitis C screening Hepatitis C Screening [facility] Start: 1962 Depression Monitoring Depression Monitoring [facility] Start: 1962 Depresssion Monitoring Depresssion Monitoring [facility] Start: 11-12-1951 Hepatitis A Vaccines (1 of 2 - Risk 2-dose series) Hepatitis A Vaccines (1 of 2 - Risk 2-dose series) [facility] Start: 1950 Echocardiography Echocardiogram [facility] Start: 1950 Hepatitis C screening Hepatitis C screen [facility] Work Phone: Start: 1950 Medicare Annual Wellness (AWV) Medicare Annual Wellness (AWV) [facility] Start: 1950 Screening for malignant neoplasm of colon [facility] Heart Views W str ess and W radionuclide IV [facility] Patient Education [facility] Work Phone: Patient referral [facility] Work Phone: XR Lumbar spine 2 or 3 Views [facility] Work Phone: Immunizations Immunization Date Immunization Notes Care Provider Aurea dudley 06-17-2024 Seasonal trivalent influenza vaccine, adjuvanted, preservative free Ryan Jimmydarrian DO Work Phone: [facility] 06-17-2024 influenza virus vacc ine, unspecified formulation Ryan Marquezdarrian DO Work Phone: [facility] 09-18-2023 Influenza, Seasonal, Quadrivalent, Adjuvanted Ryan Jimmydarrian DO Work Phone: [facility] 09-18-2023 influenza virus vacc ine, unspecified formulation Ryan Jimmydarrian DO Work Phone: [facility] 08-14-2022 influenza, high dose seasonal, preservative-free Ryan Canales DO Work Phone: [facility] 08-14-2022 influenza virus vacc ine, unspecified formulation Ryan Canales DO Work Phone: [facility] 08-22-2021 Influenza, High-dose Seasonal, Quadrivalent, Preservative Free Ryan Canales DO Work Phone: [facility] 07-06-2020 Influenza, High-dose , Quadv, 65 yrs +, IM (Fluzone) Kerry Guerrero MD Work Phone: [facility] 06-17-2019 influenza, high dose seasonal, preservative-free Kerry Guerrero MD Work Phone: [facility] 06-17-2019 Influenza, High-dose Seasonal, Quadrivalent, Preservative Free Ryan Canales DO Work Phone: [facility] 06-16-2018 influenza, high dose seasonal, preservative-free Kerry Guerrero MD Work Phone: [facility] 06-10-2017 influenza, injectabl e, quadrivalent, contains preservative Kerry Guerrero MD Work Phone: [facility] 06-10-2017 pneumococcal polysaccharide vaccine, 23 valent Kerry Guerrero MD Work Phone: [facility] 11-28-2015 pneumococcal conjuga te vaccine, 13 valent Kerry Guerrero MD Work Phone: [facility] Work Phone: 06-09-[address] Ryan Canales Work Phone: [facility] 06-09-2015 influenza virus vacc ine, unspecified formulation Ryan Canales DO Work Phone: [facility] 06-09-2015 influenza, seasonal, injectable Ryan Canalse DO Work Phone: [facility] 06-09-2015 influenza, seasonal, injectable, preservative free Ryan Canales DO Work Phone: [facility] Payers Date Payer Category Payer Self-pay [id number] 2021 Medicare supplementa l policy (as second payer) O MEDICARE SUPPLEMENT [id number] 2021 Unknown 2018 Unknown [id number] 2016 Private Health Insurance [facility] AARP SUPPLEMENT [id number] 2016-Present [phone] [address] [place] [address] Indemnity [id number] 2015 Medicare [id number] 2015 Medicare [id number] 1950 Unknown [id number] Medicare [id number] Unknown [id number] Unknown [id number] Unknown [id number] Unknown [id number] Unknown [id number] Unknown [id number] Unknown [id number] Unknown [id number] Unknown [id number] Unknown [id number] Unknown [id number] Unknown [id number] Social History Date Type Detail Facility Start: 03-26-2021 End: 09-24-2023 Tobacco smoking status [facility] Never smoker [employer] Phone: Start: 07-24-2016 End: 03-26-2021 Tobacco use and exposure Never used [employer] Phone: Start: 03-26-2021 End: 12-16-2024 Alcohol intake Current drinker of alcohol (finding) [employer] Work Phone: Start: 03-26-2021 End: 12-16-2024 Alcohol intake [employer] Work Phone: Start: 12-19-2018 History SDOH Alcohol Frequency 2 [employer] Work Phone: Start: 12-19-2018 End: 03-15-2021 History SDOH Alcohol Std Drinks 1 [employer] Work Phone: Start: 12-19-2018 History SDOH Social Connections Cheondoism 3 [employer] Work Phone: Start: 12-19-2018 History SDOH Physica l Activity DPW 6 [facility] Work Phone: Start: 03-15-2021 History SDOH Financial 5 [facility] Work Phone: Start: 1950 Sex Assigned At Not on file [facility] Work Phone: Start: 09-08-2022 End: 03-19-2023 Exposure to SARS-CoV-2 (event) Not sure [facility] Sex Assigned At [facility] Start: 11-29-2021 End: 09-24-2023 Tobacco smoking status NHIS Unknown if ever smoked [facility] Start: 11-23-2015 Rare [facility] Start: 11-23-2015 Non-smoker [facility] Start: 1950 Sex Assigned At Male [facility] Start: 02-05-2023 End: 12-16-2024 Tobacco use panel [facility] Start: 09-18-2023 Gender identity Identifies as male gender (finding) [facility] Start: 09-18-2023 Sexual orientation Heterosexual (fin ding) [facility] Start: 04-09-2022 Sex Male (finding) [facility] History of tobacco use Cigarette Smoker C [facility] National Score (1-10 0), lower number is lower risk Not on file [facility] Start: 04-04-2017 Alcohol Comment social, rare [facility] Mental Status Date Assessment Result Facility 03-06-2022 Cognitive function Level Of Cons ciousness Awake;Alert;Appropriate;Follow s Commands 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 Work Phone: 1(419) 401-775606-03-2025 Progress [facility] [address] [place], [place] [address]e. [address] [place] [address] OFFICE VISIT Date of Service: 02/09/25 MR#: [id number] Acct: [id number] Name: LAMIN MOCTEZUMA Rep #: [id number] : 1950 Provider: Dr. 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 Warfarin management as per PCP. 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 Z79.01 Essential hypertension I10 Dyslipidemia E78.5 Morbid obesity with BMI of 40.0-44.9, adult E66.01; Z68.41 Dyspnea on exertion R06.09 Coding Level of Care Code Off vis,est,level 4 Diagnoses History of atrial fibrillation Z86.79 halfway (current) use of anticoagulants Z79.01 Essential hypertension I10 Dyslipidemia E78.5 Morbid obesity with BMI of 40.0-44.9, adult E66.01; Z68.41 Dyspnea on exertion R06.09 Clinical Quality Measures Falls Risk Screening/Assistive Devices Have you fallen in the past year?: No Cardiac Ejection fraction %: 65 02/09/25 1322 MD> Date _ Kenroy Barney MD Cosigner Signature: Date (if applicable) CC: Dr. Ryan Canales, ~ [facility]06-02-2025 Telephone encounter Note* Telephone Encounter - Summer Lackey - 02/08/2025 1:38 PM EDT Message released to patient as written. Patient's further questions if applicable: Pt states that [facility] do have information. Please send needed information Were all questions from office addressed or relayed to the patient from encounter: Yes [facility]12[facility]8942 Miscellaneous Notes* Telephone Encounter - Summer Lackey - 02/08/2025 1:38 PM EDT Message released to patient as written. Patient's further questions if applicable: Pt states that [facility] do have information. Please send needed [...] Name of caller: Sammi Contact phone number: [phone] Relationship to Patient: spouse/SO Provider: Dr Canales [...] return their call: Yes documented in this encounterSDayton Children's HospitalDgcgtt59-63-0617 Telephone encounter Note* Telephone Encounter - Liliane Mullen MA - 01/27/2025 1:22 PM EDT Spoke with pt and advised her we need his last office note and last cpap order from his previous place. She says she will call and see what she can do. [facility] HospitalVojdot50-76-3144 Miscellaneous Notes* Telephone Encounter - Liliane Mullen MA - 01/27/2025 1:22 PM EDT Spoke with pt and advised her we need his last office note and last cpap order from his previous place. She says she will call and see what she can do. * Telephone Encounter - Regina Chowdary - 01/27/2025 1:13 PM EDT Name of caller: Sammi Contact phone number: [phone] Relationship to Patient: spouse/SO Provider: Dr Canales [...] return their call: Yes documented in this [facility]05-21-2025 Telephone encounter Note* Telephone Encounter - Regina Chowdary - 01/27/2025 1:13 PM EDT Name of caller: Sammi Contact phone number: [phone] Relationship to Patient: spouse/SO Provider: Dr Canales [...] business hours to return their call: Yes [facility] HospitalXmlkzy94-22-5324 NoteReferral pended for dx and doctor's signatureSMarshfield [facility]04-10-2025 Telephone encounter Note* Telephone Encounter - Luz Elena Heck - 12/17/2024 11:02 AM EDT Referral pended for dx and doctor's signature [facility] HospitalVpfjzw13-62-1653 Miscellaneous Notes* Telephone Encounter - Luz Elena Heck - 12/17/2024 11:02 AM EDT Referral pended for dx and doctor's signature documented in this [facility]04-09-2025 History of Present illness Narrative* Ryan Canales DO - 12/16/2024 9:30 AM EDT Images from the original note were not included. [facility] [address] [facility] [address] Visit type: Established Patient Reason [...] as needed. Avoid faceand groin. Reviewed patient's [id number] 2 score of 2 and I did [...] compliant with sleep apnea treatment. Recently new clinical account liaison in [place] questioned the indications for long-term anticoagulation therapy. He was referred to a energy and conservation technician through telephone consultation, who recommended lifelong anticoagulation. [...] abrasions erythema or induration. documented in this [facility]03-17-2025 Telephone encounter Note* Telephone Encounter - June Aggarwal, WENDY - 11/23/2024 11:18 AM EDT Recent Visits Date Type Provider Dept 06/17/24 Office Visit Ryan Canales DO [facility] 05/19/24 Office Visit Ashleigh Tapia PA-C [facility] Showing recent visits within past 365 days and meeting all other requirements Future Appointments Date Type Provider Dept 12/16/24 Appointment Ryan Canales DO [facility] Showing future appointments within next 90 [...] 06/17/2024 CHOLHDLCRATI 2.9 06/17/2024 NONHDLCHOLES 91 06/17/2024 [facility] HospitalEpmynm69-25-8552 Miscellaneous Notes* Telephone Encounter - June Aggarwal LPN - 11/23/2024 11:18 AM EDT Recent Visits Date Type Provider Dept 06/17/24 Office Visit Ryan Canales DO [facility] 05/19/24 Office Visit Ashleigh Tapia PA-C [facility] Showing recent visits within past 365 days and meeting all other requirements Future Appointments Date Type Provider Dept 12/16/24 Appointment Ryan Canales DO [facility] Showing future appointments within next 90 [...] 06/17/2024 NONHDLCHOLES 91 06/17/2024 documented in this encounterSDayton Children's HospitalYtahfq53-93-4968 Telephone encounter Note* Telephone Encounter - Ranjan Salmon - 09/16/2024 1:54 PM EST Received referral from [facility], Pt declined scheduling at this time. Referral scanned in. Ranjan Salmon [facility]01-08-2025 Miscellaneous Notes* Telephone Encounter - Ranjan Salmon - 09/16/2024 1:54 PM EST Received referral from [facility], Pt declined scheduling at this time. Referral scanned in. Ranjan Salmon [facility] Miscellaneous Notes* Telephone Encounter - June Aggarwal [...] Name of caller: Sammi Contact phone number: [phone] Relationship to Patient: spouse/SO Provider: Dr Canales Practice: [facility] Chief Complaint/Reason for Call: Caller stated that [...] Caller requesting generic Rx documented in this encounterSDayton Children's HospitalLxohfv67-96-2538 Telephone encounter Note* Telephone Encounter - June Aggarwal LPN - 08/11/2024 10:18 AM EST Talked to pharmacist Kelsie Mancuso To clarify RX to be for generic only and she was able to take a verbal order. Talked to patient and let her know pharmacy was able to get it ready and sent out. [facility] HospitalObysdh66-70-2356 Telephone encounter Note* Telephone Encounter - Regina Chowdary - 08/11/2024 9:23 AM EST Name of caller: Sammi Contact phone number: [phone] Relationship to Patient: spouse/SO Provider: Dr Canales Practice: [facility] Chief Complaint/Reason for Call: Caller stated that she spoke with [facility] regarding sertraline. Theydidn't request brand name. She stated that they need a new prescription sent over to the pharmacy for sertraline , not the brand name Zoloft. Please advise Best time of day caller can be reached: Patient advised that office/PCP has 24-48 business hours to return their call [facility] [id number] Telephone encounter Note* Telephone Encounter - Alexandria Herr MA - 08/10/2024 10:41 AM EST Patient should still have refills at their pharmacy. [facility] HospitalSbghso95-93-1012 Miscellaneous Notes* Telephone Encounter - Alexandria Herr [...] Caller requesting generic Rx documented in this [facility]12-02-2024 Telephone encounter Note* Telephone Encounter - Kirsty [...] the medication: Yes Caller requesting generic Rx [facility] HospitalGgzphw51-91-2276 History of Present illness Narrative* Ryan Canales, - 06/17/2024 9:00 AM EDT Images from the original note were not included. [facility] - [address] [facility] [address] Visit type: Established Patient Reason [...] adequate. No skin breakdowns documented in this [facility]10-09-2024 History of Present illness Narrative* Ryan Canales DO - 06/17/2024 9:00 AM EDT Images from the original note were not included. [facility] - [address] [facility] [address] Visit type: Established Patient Reason [...] the local rec center. Now involved with [employer]. Doing the best she can with walking. [...] adequate. No skin breakdowns documented in this [facility]09-10-2024 Evaluation + Plan note* Assessment & Plan [...] is not controlling his symptoms well enough. [facility] HospitalOpcdzr88-36-0438 Miscellaneous Notes* Assessment & Plan Note - [...] his symptoms well enough. documented in this [facility]09-10-2024 History of Present illness Narrative* Ashleigh Tapia PA-C - 05/19/2024 8:20 AM EDT Images from the original note were not included. 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 documented in this [facility]09-10-2024 Instructions* Patient Instructions* Ashleigh Tapia PA-C - 05/19/2024 8:[address] Rueda dentist. [address] [place] [address] documented in this [facility]05-28-2024 Telephone encounter Note* Telephone Encounter - Crista [...] 09/18/2023 BUN 12 09/18/2023 CREATININE 0.86 09/18/2023 [facility] HospitalNfralv81-05-2848 Miscellaneous Notes* Telephone Encounter - Crista Thao [...] 09/18/2023 CREATININE 0.86 09/18/2023 documented in this [facility]01-16-2024 Discharge summary Author Cleve An [facility] September 24, 2023 8:19pm Note Date/Time September 24, 2023 6 :13pm [facility] Medical Records Department [address] [place] [address] Emergency Department Summary 09/24/23 MR#: [id number] Acct: [id number] Name: LAMIN MOCTEZUMA Rep #:[id number] : [...] tableat his pain management physician's office today. 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 Next of kin: [place] law dictates a PRIORITY LIST for identifying [...] your Primary Care Provider. Call [facility] ([phone]) or report to the closest Emergency Room. Call 911 if necessary. 09/24/232018 <Electronically signed by Cleve An MD> Parul Signature (if applicable): CC: Dr. Ryan Canales DO ~ Signed [facility] Work Phone: 1(591) 365-707201-10-2024 Telephone encounter Note* Telephone Encounter - Jennifer Brandon - 09/18/2023 1:36 PM EST Orders pended for doctor signature [facility] HospitalPpbhlz34-70-5084 Miscellaneous Notes* Telephone Encounter - Jennifer Brandon - 09/18/2023 1:36 PM EST Orders pended for doctor signature documented in this encounterSDayton Children's HospitalNkmfyh36-98-2288 History of Present illness Narrative* Ryan Canales, DO - 09/18/2023 1:00 PM EST Images from the original note were not included. [facility] [address] [place] [address] [address] [facility] [address] Visit type: Established Patient Reason [...] was referred to a spine surgeon in [place] but his does not know the name. 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 Dotson. Of note history of prostate cancer but his PSAs have been very well. No sense of palpitations cough or congestion. No dysuria or hematuria. INR is being followed by cardiology. No recent change in his meds. He does feel Zoloft is helpful for anxiety depression. He is looking forward to a new home service consultant he and his will be getting done [...] unchanged. No skin breakdowns documented in this [facility]12-27-2023 Telephone encounter Note* Telephone Encounter - Liliane Mullen MA - 09/04/2023 3:15 PM EST Sammi would like to know if Dr. Canales would be able to prescribe Patient something for back pain as they are moving and Patient has been lifting and they are in pain. Sammi declined nurse triage. Please advise. Rx loaded [facility] HospitalTigksv38-55-3278 Miscellaneous Notes* Telephone Encounter - Liliane Mullen [...] nurse triage. Please advise. documented in this [facility]12-27-2023 Telephone encounter Note* Telephone Encounter - Evi [...] pain. Sammi declined nurse triage. Please advise. [facility] HospitalMdnxtg56-92-7730 History of Present illness Narrative* Ryan Canales, DO - 03/19/2023 12:30 PM EDT Images from the original note were not included. [facility] [address] Visit type: Established Patient Reason for Visit: [...] cardiology and urology notes. documented in this [facility]07-11-2023 Instructions* Patient Instructions* Ryan Canales DO - 03/19/2023 12:30 PM EDT Call Urologist for checkup if bloody urine recurs again documented in this [facility]05-30-2023 History of Present illness Narrative* Ashleigh Tapia PA-C - 02/05/2023 10:40 AM EDT Images from the original note were not included. 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 documented in this [facility]05-30-2023 Instructions* Patient Instructions* Ashleigh Tapia PA-C - [...] to get it scheduled. Their number is [phone]. documented in this [facility]01-11-2023 Telephone encounter Note* Telephone Encounter - June Aggarwal LPN - 09/19/2022 8:06 AM EST Rx needed to be corrected, Rx loaded [facility] HospitalRsuzuh42-23-3004 Miscellaneous Notes* Telephone Encounter - June Aggarwal LPN - 09/19/2022 8:06 AM EST Rx needed to be corrected, Rx loaded documented in this [facility]01-10-2023 Telephone encounter Note* Telephone Encounter - Comfort Vela RN - 09/18/2022 3:32 PM EST Rx loaded [facility] HospitalVovcdr86-68-3900 Miscellaneous Notes* Telephone Encounter - Comfort Vela RN - 09/18/2022 3:32 PM EST Rx loaded * Telephone Encounter - Loco Romeo - 09/18/2022 3:16 PM EST Name of caller: Sammi Contact phone number: [phone] Relationship to Patient: Provider: Dr Canales Practice: [facility] Chief Complaint/Reason for Call: Caller stated that pharmacy [facility] informed her that they did not receive the prescription for: metoprolol succinate XL (Toprol-XL) 50 MG sent on 09/11/22. Please advise Best time of day caller can be reached: Any Patient advised that office/PCP has 24-48 business hours to return their call: Yes documented in this encounterSDayton Children's HospitalMwvwih66-13-7043 Telephone encounter Note* Telephone Encounter - Loco Romeo - 09/18/2022 3:16 PM EST Name of caller: Sammi Contact phone number: [phone] Relationship to Patient: Provider: Dr Canales Practice: [facility] Chief Complaint/Reason for Call: Caller stated that pharmacy [facility] informed her that they did not receive the prescription for: metoprolol succinate XL (Toprol-XL) 50 MG sent on 09/11/22. Please advise Best time of day caller can be reached: Any Patient advised that office/PCP has 24-48 business hours to return their call: Yes [facility] HospitalBgoinp09-65-6764 History of Present illness Narrative* Ryan Canales, - 09/18/2022 12:20 PM EST Images from the original note were not included. [facility] [address] [place] [address] [phone] Visit type: Established Patient Reason for Visit: [...] called and prescriptions confirmed documented in this [facility]11-15-2021 Evaluation + Plan note Extracted from: Title:Clinical Document Author:AKOSUAVÍCTOR Jena Handley Date:07/24/21 [facility] ADMISSION HISTORY A [place] PHYSICIAL CHIEF COMPLAINT: HISTORY OF PRESENT ILLNESS: REVIEW OF SYSTEMS: ACTIVE PROBLEMS: (3) Prostate ca ([id number]) Rectal bleeding ([id number]) Sleep apnea ([id number]) MEDICATIONS: Active Inpt Meds: None Active PRN Meds: None One Time Meds: None Active IV Meds: Lactated Ringers Infusion 1,000 mL (LR 1,000 mL) Start: 07/24/21 9:08:00 EST, Rate: 50 mL/hr ALLERGIES: (1) iodine topical FAMILY HISTORY: SOCIAL HISTORY: PHYSICAL EXAM: VITALS: HuihfaWkfgVQYldyeTBHaK4UZC9OvohMb(kg) 07/24 09:0336.8156/[id number]/05871.0 24 Hr Tmax: 36.8 at 07/24 09:03 [...] changes to the H&P unless noted below. [facility] 11-15-2021 Hospital Discharge instructions Patient Education [...] before eating solid foods. General instructions Take tsuq-gdm-mjiqtur and prescription medicines only as told by [...] 12/16/2016 Document Revised: 11/24/2018 Document Reviewed: 12/16/2016 [employer] Patient Education 2020 [employer]. 07/24/2021 10:21:48 Flexible Sigmoidoscopy, Care After Flexible [...] biopsy. Follow these instructions at home: Take veba-sjx-sjfumsg and prescription medicines only as told by [...] 08/31/2014 Document Revised: 04/18/2017 Document Reviewed: 11/24/2016 [employer] Patient Education 2020 [employer]. 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 Work Phone: Evaluation noteNo assessment information available [facility] Work Phone: Evaluation note* Diagnosis Onset Date Resolution Status Spinal stenosis of lumbar region acute Status post laminectomy acut e 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 Work Phone: evaluation note* Diagnosis Primary hypertension- Primary Unspecified essential hypertension Chronic diastolic (congestive) heart failure (HCC) Morbid obesity (HCC) Morbid obesity Anxiety associated with depression Dysthymic disorder Hypercholesteremia Pure hypercholesterolemia History of hematuria Personal history of other disorder of urinary system documented [facility] this encounter [facility]* Diagnosis Compression fracture of L1 vertebra with routine healing, subsequent encounter documented in this encounter [employer] note* Diagnosis Compression fracture of L1 vertebra with routine healing, subsequent encounter- Primary Hypercholesteremia Pure hypercholesterolemia Primary hypertension Unspecified essential hypertension History of atrial fibrillation Personal history of other diseases of circulatory system Anxiety associated with depression Dysthymic disorder RLS (restless legs syndrome) Restless legs syndrome (RLS) documented [facility]* Diagnosis Dental abscess- Primary Periapical abscess without sinus Anxiety associated with depression Dysthymic disorder [facility]* Diagnosis Anxiety associated with depression Dysthymic disorder documented [facility]* Diagnosis Primary hypertension- Primary Unspecified essential hypertension Anxiety associated with depression Dysthymic disorder History of prostate cancer Personal history of malignant neoplasm of prostate Acquired right foot drop History of atrial fibrillation Personal history of other diseases of circulatory system Anticoagulant long-term use Encounter for long-term (current) use of anticoagulants Hypercholesterolemia Pure hypercholesterolemia documented [facility] this [facility]* Diagnosis Dental abscess- Primary Periapical abscess without sinus Anxiety associated with depression Dysthymic disorder Anxiety associated with depression Dysthymic disorder [facility] Diagnosis Primary hypertension- Primary Unspecified essential hypertension Lumbar degenerative disc disease History of atrial fibrillation Personal history of other diseases of circulatory system Hypercholesteremia Pure hypercholesterolemia History of prostate cancer Personal history of malignant neoplasm of prostate Anxiety associated with depression Dysthymic disorder Dry skin dermatitis Contact dermatitis and other eczema due to other specified agent [facility] Diagnosis Dental abscess- Primary Periapical abscess [...] Hypercholesterolemia Pure hypercholesterolemia documented in this encounter [facility]* Diagnosis Dental abscess- Primary Periapical abscess without sinus Anxiety associated with depression Dysthymic disorder COVID-19- Primary documented in this encounter [facility]* Diagnosis Dental abscess- Primary Periapical abscess [...] osteoarthritis of knee documented in this encounter [facility] note* Diagnosis Dental abscess- Primary Periapical abscess without sinus Anxiety associated with depression Dysthymic disorder Bilateral primary osteoarthritis of knee- Primary documented in this encounter [facility] note* Diagnosis Onset Date Resolution Status Admit Date Dyslipidemia chronic February 09 12:52pm Dyspnea on exertion chronic February 09, 2025 12:52pm Essential hypertension chronic Ju 2024 12:52pm 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 Work Phone: Evaluation note* Diagnosis Dental abscess- Primary Periapical abscess without sinus Anxiety associated with depression Dysthymic disorder Anxiety associated with depression Dysthymic disorder documented in this encounter [facility] course Narrative No data available for this section [facility] Hospital Discharge instructions* Instructions* Kerry Guerrero MD - 04/14/2021 Decrease metoprolol XL to 50 mg daily * Attachments The following attachments cannot be sent through Care Everywhere. * Head Injury: Closed: General Info ([place]i) documented in this [facility] Work Phone: Hospital Discharge instructions Additional Instructions [...] the ER should you have any further concerns.[facility] Work Phone: Hospital Discharge instructions Additional [...] on your left lower extremity/leg. Use a walker.[facility] Work Phone: Progress note Author Kenroy Barney [facility] Note Date/Time February 09, 2025 1:22p m [facility] [address] [place] [address]. [address] [place] [address] OFFICE VISIT Date of Service: 02/09/25 MR#: [id number] Acct: [id number] Name: LAMIN MOCTEZUMA Rep #: [id number] : 1950 Provider: Dr. 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 Warfarin management as per PCP. 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 Ryan Canales, ~ [place] [employer] Work Phone: Reason for referral (narrative)* Consultation (Urgent) - Pending Review Specialty Diagnoses / Procedures Referred By Jossy t Referred To Contact Orthopedic Surgery Diagnoses Compression fracture of L1 vertebra with routine healing, subsequent encounter Procedures MT OFFICE/OUTPATIENT NEW HIGH MDM 60 MINUTES Ryan Canales DO [address] [place] [address] Jose Dotson [address] [place] [address] Referral ID Status Reason Start Date Expiration Date Visits Requested Visits Authorized [id number] Pending Review Specialty Services Required 09/18/2023 09/17/2024 1 1 [facility] for referral (narrative)No reason for referral [facility] Work Phone: Summary Purpose Family History No Family History Records Found Relationship Condition Age at Onset Recorded Date/T merissa father Coronary artery disease Unknown mother Malignant neoplasm of colon Unknown sister Atrial fibrillation Unknown Sleep apnea Unknown sister Sleep apnea Unknown Hypertension Unknown Advance Directives No Advanced Directives Records FoundDocuments on File Type Date Recorded 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 ACP-Advance Directive ACP-Power of Canal Lock Tender Chief Operator Advance Directive Response Recorded Date/ Time Advance Directives Yes November 22 12:08am Living Will No May 10 7:43am Power of Canal Lock Tender Chief Operator Yes May 10, 2016 7:43am Advance Directive Response Recorded Date/ Time Advance Directives Yes November 22 12:08am Living Will No March 06, 2022 4:27pm Power of Canal Lock Tender Chief Operator No March 06 4:27pm Advance Directive Response Recorded Date/ Time Advance Directives Yes November 21 11:08pm Living Will No March 06, 2022 3:27pm Power of Canal Lock Tender Chief Operator No March 06 3:27pm Advance Directive Response Recorded Date/ Time Advance Directives Yes November 21 11:08pm Living Will No September 14 1:40am Power of Canal Lock Tender Chief Operator No September 14 1:40am Advance Directive Response Recorded Date/ Time Advance Directives Yes November 21 11:08pm Living Will No September 24 6:12pm Power of Canal Lock Tender Chief Operator No September 24, 2023 6:12pm Advance Directive Response Recorded Date/ Time Advance Directives Yes November 22 12:08am Living Will No September 24 7:12pm Power of Canal Lock Tender Chief Operator No September 24, 2023 7:12pm Advance Directive Response Recorded Date/ Time Living Will No September 09 5:46am Do you have a Healthcare Power of Canal Lock Tender Chief Operator? No September 09, 2024 5:46am Advance Directives Yes November 22 12:08am Advance Directive Response Recorded Date/ Time Living Will No February 07, 2025 7 :12pm Do you have a Healthcare Power of Canal Lock Tender Chief Operator? No February 07, 2025 7:12pm Living Will No September 09 5:46am Do you have a Healthcare Power of Canal Lock Tender Chief Operator? 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 Status post catheter ablation of atrial fibrillation Chief Complaint 10 m fu S/O S/O flank pain Reason for Visit CHF (congestive hear t failure) Paroxysmal atrial fibrillation Essential hypertension halfway (current) use of anticoagulants Status post catheter [...] brillation CHF (congestive heart failure) Essential hypertension 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 Chief Complaint S/O [...] Essential hypertension February 09, 2025 12 :52pm halfway (current) use of anticoagulant s February 09, [...] section and content) DATE CREATED AUTHOR 02/25/2018 [facility] DATE CREATED AUTHOR AUTHOR'S ORGANIZ ATION 03/05/2018 [facility] DATE CREATED AUTHOR AUTHOR'S ORGANIZ ATION 04/17/2021 [facility] [employer] DATE CREATED AUTHOR AUTHOR'S ORGANIZ ATION 08/02/2021 [facility] ([place]) DATE CREATED AUTHOR AUTHOR'S ORGANIZ ATION 12/04/2023 [facility] DATE CREATED AUTHOR AUTHOR'S ORGANIZ ATION 09/22/2024 [facility] DATE CREATED AUTHOR AUTHOR'S ORGANIZ ATION 03/04/2025 [facility] DATE CREATED AUTHOR AUTHOR'S ORGANIZ ATION 03/09/2025 [facility] Reason for [...] Canales , DO Family Provider Active Dr. Rayn Canales , DO Primary Care Provider Active [...] Provider Active BRAD EVANS Other Provider Active Ranch Rider Relationship Specialty Start Date End Date Jimmydarrian Ryan Ramos, DO [address] [place] [address] PCP - General 02/07/19 Ranch Rider Relationship Specialty Start Date End Date JimmyRyan lovell Rachel, DO [address] [place] [address] PCP - General 02/07/19 Team Status: Inactive Member Role Status Dates Dr. Ryan Canales , DO Primary Care Provider, Referr ing Provider Active Gianluca Bolaños HUB CUTTER, HUB CUTTER-C Attending Provider Active Ranch Rider Relationship Specialty Start Date End Date Ally Ryan Ramos, DO [address] [place] [address] PCP - General 02/07/19 Ranch Rider Relationship Specialty Start Date End Date Jimmydarrian Ryan Ramos DO [address] [place] [address] PCP - General 02/07/19 Team Status: Inactive Member Role Status Dates Dr. Ryan Canales , Primary Care Provider, Family Provider Active BRAD EVANS Other Provider Active Dr. Audie Franklin MD Attending Provider, Referring Pro vider Active Ranch Rider Relationship Specialty Start Date End Date Ryan Cnaales Rachel DO [address] [place] [address] [address] [place] [address] PCP - General 02/07/19 Team Status: Inactive Member Role Status Dates Dr. Ryan Canales , DO Primary Care Provider Active Dr. Daron Anne , DO Referring Provider, Emergency Pr ovider Active Ranch Rider Relationship Specialty Start Date End Date Ryan Canales DO [address] [place] [address] PCP - General 02/07/19 Ranch Rider Relationship Specialty Start Date End Date Ryan Canales, DO [address] [place] [address] PCP - General 02/07/19 Ranch Rider Relationship Specialty Start Date End Date Ryan Canales, DO [address] [place] [address] PCP - General 02/07/19 Team [...] MD Attending Provider, Emergency Provid er Active Ranch Rider Relationship Specialty Start Date End Date Ryan Canales DO [address] [place] [address] PCP - General 02/07/19 Ranch Rider Relationship Specialty Start Date End Date Ryan Canales, DO [address] [place] [address] PCP - General 02/07/19 Ranch Rider Relationship Specialty Start Date End Date Ryan Canales DO [address] [place] [address] PCP - General 02/07/19 Ranch Rider Relationship Specialty Start Date End Date JimmyRyan lovell, DO [address] [place] [address] PCP - General 02/07/19 Ranch Rider Relationship Specialty Start Date End Date JimmyRyan lovell, DO [address] [place] [address] PCP - General 02/07/19 Ranch Rider Relationship Specialty Start Date End Date ChapitoRyan hernandez DO [address] [place] [address] PCP - General 02/07/19 Ranch Rider Relationship 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 [address] PCP - General 02/07/19 Ranch Rider Relationship Specialty Start Date End Date AllyRyan DO [address] [place] [address] PCP - General 02/07/19 Ranch Rider Relationship 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 [address] PCP - General 02/07/19 Ranch Rider Relationship Specialty Start Date End Date AllyRyan, DO [address] [facility] [address] [place] [address] PCP - General 02/07/19 Ranch Rider Relationship Specialty Start Date End Date AllyRyan Anmol, DO [address] [place], [place] [id number] PCP - General Family Medicine 07/24/16 Chicho Vernon MD [address] [place], [place] [address] Physician Cardiology 01/30/17 Chicho Vernon MD [address] [place] [address] Well Puller Cardiology 01/30/17 Ranch Rider Relationship Specialty Start Date End Date Ryan Canales DO [address] [place] [address] PCP - General 02/07/19 Ranch Rider Relationship Specialty Start Date End Date Ryan Canales DO [address] [place] [address] PCP - General 02/07/19 Ranch Rider Relationship Specialty Start Date End Date Ryan Canales DO [address] [place] [address] PCP - General 02/07/19 Team Status: Inactive [...] January 14, 2025 End: January 14, 2025 Ranch Rider Relationship Specialty Start Date End Date Ryan Canales DO [address] [facility] [address] [place] [address] PCP - General 02/07/19 Team Status: Active [...] February 16, 2025 End: February 16, 2025 Ranch Rider Relationship Specialty Start Date End Date Ryan Canales DO [address] [facility] [address] [place] [address] PCP - General 02/07/19 Source Comments (unrecognize d section and content) In the event this informatio n is protected by the Federal Confidentiality of Alcohol and Drug Abuse Patient Records regulations: The Federal rules restrict any use of the information to criminally investigate or prosecute any alcohol or drug abuse patient.[facility] FOR RECORDS PERTAINING TO PATIENTS WHO ARE [...] BE BASED ON THE PRIMARY CLINICAL RECORDS. [employer] provides no warranty or guarantee of the accuracy or completeness of information in this document.
--- NOTE | 2025-03-16 08:48 | STRESSREP ---
Stress Test Report Date: 03/10/2025 Procedure: Pharmacologic stress nuclear imaging study Indications: Dyspnea on exertion Consent: Per the patient Procedure: The patient underwent pharmacologic (Regadenoson 0.4mg ) evaluation with a peak heart rate of 104 beats per minute (71%predicted maximal heart rate) and a peak blood pressure of 132/74 mmHg. The baseline ECG demonstrated sinus rhythm with right bundle branch block. The peak pharmacologic ECG was nondiagnostic. There were no cardiac dysrhythmias pretest, during pharmacologic infusion, or recovery. There was no complaint of chest discomfort during pharmacologic infusion or recovery. The patient was injected with 15.4 millicuries of technetium 99m Cardiolite and subsequently rest SPECT Cardiolite nuclear imaging was obtained in the horizontal long, vertical long, and short axis views. The patient underwent pharmacologic (Regadenoson) evaluation. The patient was injected with 45.9 millicuries of technetium 99m Cardiolite and subsequently stress SPECT Cardiolite nuclear imaging was obtained in the horizontal long, vertical long, and short axis views. A gated Cardiolite study at peak stress was obtained. The examination was stopped secondary to completion of protocol. Rest and stress SPECT Cardiolite nuclear imaging status post realignment, normalization, and attenuation correction demonstrate no fixed or reversible perfusion defects. There is end systolic thickening and brightening. The gated Cardiolite study demonstrates myocardial thickening and inward wall motion. The reported LVEF is 74%. Impression: 1. Pharmacologic (Regadenoson) evaluation 2. Peak pharmacologic ECG with no diagnostic ischemic changes. 3. There were no cardiac dysrhythmias pretest, during pharmacologic infusion, or recovery. 5. Rest and stress SPECT Cardiolite nuclear imaging demonstrate relative uniform tracer uptake and myocardial perfusion appearing within normal limits. 6. The gated Cardiolite study reports an LVEF of 74%. This note was generated with [employer] software. It may contain incorrect words, spelling, and punctuation that were not noted in checking the note before signing.
== END | disposition home or self-care (01) ==
LOC: CVS 06:48
PROVIDERS: PCP Family Medicine; Referring Provider Internal Medicine Cardiovascular Disease; Visit Provider Internal Medicine Cardiovascular Disease
DX: I48.0 Paroxysmal atrial fibrillation (principal); R06.09 Other forms of dyspnea
CPT/HCPCS: 78452; 93017; A9500; A4216; J2785

== ENCOUNTER 2025-05-19 12:43 | Outpatient (RCR) | payer MEDICARE, OTHER, SELFPAY ==
[2025-05-19 13:34] LABS: Prothrombin Time (Protime)PT. 25.2 SECONDS (11.7-14.9)
== END 2025-06-08 18:00 | disposition home or self-care (01) ==
LOC: LAB 12:43
PROVIDERS: Family Provider Family Medicine; PCP Family Medicine; Referring Provider Internal Medicine Cardiovascular Disease; Visit Provider Internal Medicine Cardiovascular Disease
DX: Z79.01 Long term (current) use of anticoagulants
CPT/HCPCS: 36415; 85610

== ENCOUNTER 2025-08-28 10:20 | Outpatient (RCR) | payer MEDICARE, OTHER, SELFPAY ==
[2025-08-28 11:26] LABS: Prothrombin Time (Protime)PT. 29.7 SECONDS (11.7-14.9)
== END 2025-08-28 18:00 | disposition home or self-care (01) ==
LOC: LAB 10:20
PROVIDERS: Family Provider Family Medicine; PCP Family Medicine; Referring Provider Internal Medicine Cardiovascular Disease; Visit Provider Internal Medicine Cardiovascular Disease
DX: Z79.01 Long term (current) use of anticoagulants
CPT/HCPCS: 36415; 85610

== ENCOUNTER → 2025-08-31 | Outpatient (CLI) | payer MEDICARE, OTHER, SELFPAY ==
--- NOTE | 2025-08-31 11:28 | VDLE_ITS ---
Reason For Study Reason For Study: Left leg swelling RIGHT LEFT CFV is compressible, spontaneous, phasic, competent GSV is normal. and demonstrates normal augmentation. CFV is compressible, spontaneous, phasic, competent, Procedure and demonstrates normal augmentation. This is a venous duplex using B-mode, color flow and FV is compressible, spontaneous, phasic, competent spectral Doppler. and demonstrates normal augmentation. Exam performed in department. POP V is compressible, spontaneous, phasic, competent The study was technically difficult. and demonstrates normal augmentation. A preliminary report was called and/or faxed to RN T/P Trunk is compressible. voicemail. PTV is compressible. LT PerV is compressible. VL/Venous Duplex US, Unilateral Interpretation Summary Deep veins of the left lower extremity are patent and compressible segmentally. There is no evidence of left lower extremity deep vein thrombosis. The left great saphenous vein appears patent an d compressible segmentally. Ordering Physician: Kenroy Barney Referring Physician: Sae Roberto Performed By: Seema Starks RVT
== END | disposition home or self-care (01) ==
LOC: CVS 11:26
PROVIDERS: PCP Family Medicine; Referring Provider Internal Medicine Cardiovascular Disease; Visit Provider Internal Medicine Cardiovascular Disease
DX: R60.0 Localized edema (principal); I70.92 Chronic total occlusion of artery of the extremities
CPT/HCPCS: 93971